=== PATIENT | male | born 1935 | race Caucasian/White ===

== ENCOUNTER 2020-03-05 15:10 | Emergency (ER) | payer OTHER, SELFPAY ==
[2020-03-05 15:49] VITALS: BP 201/102; PULSE 100; RESP 18; TEMP 37.1; O2SAT 98; BMI 31.6
--- NOTE | 2020-03-05 15:55 | ECG_ITS ---
Test Reason : GENERAL MEDICAL Blood Pressure : / mmHG Vent. Rate : 078 BPM Atrial Rate : 078 BPM P-R Int : 170 ms QRS Dur : 146 ms QT Int : 408 ms P-R-T Axes : 077 044 028 degrees QTc Int : 465 ms Sinus rhythm with Premature atrial complexes with Aberrant conduction Right bundle branch block Inferior infarct , age undetermined Abnormal ECG When compared with ECG of 19-NOV-2016 15:28, Aberrant conduction is now Present Referred By: David Vasquez Electronically Signed By:Jose Luis Taylor
--- NOTE | 2020-03-05 16:10 | ED_ITS ---
HPI - Male Genitourinary General Chief complaint: Urogenital-Male Stated complaint: blood in urine Time Seen by Provider: 03/05/20 16:28 Source: patient Mode of arrival: ambulatory Limitations: no limitations History of Present Illness HPI Narrative: Patient presents to the ED for blood and blood clot in the urine. Patient states history of BPH and kidney stones. Patient states he was recently treated for UTI. Patient states while Jonathan no he started having right testicular pain and then he said he started urinating blood and there were large blood clots that resolved. Patient states bloodin urine has been going on for weeks and states only some blood in urine. Never bleeding from penis without urinating. Patient states journals weeks he was given 2 antibiotics the findings clearly UTI. Presently patient denies any abdominal pain, flank pain, fever, chills. Patient denies any history of bladder cancer. Patient blood pressure was elevated upon triage and patient states he has discontinued taking lisinopril without his PCPs consent. Patient states only doing natural medication. Patient denies any headache, dizziness, chest pain, shortness of breath. Patient denies any trauma to testicular area , penis, abdominal pain, or flank area MD Complaint: testicle pain Related Data Previous Rx's Medication Instructions Recorded amlodipine 2.5 mg PO DAILY #20 tab 03/05/20 Allergies Allergy/AdvReac Type Severity Reaction Status Date / Time penicillin G Allergy Intermediate Unknown Verified 03/05/20 16:09 Review of Systems Constitutional: Constitutional: Reports as per HPI and Reports no additional constitutional complaints Eyes: Eyes: Reports as per HPI and Reports no additional eye complaints ENT: Reports system reviewed and no additional complaints, except as documented and Reports as per HPI Cardiovascular: Cardiovascular: Reports as per HPI and Reports no additional cardiovascular complaints Respiratory: Respiratory: Reports as per HPI and Reports no additional respiratory complaints Gastrointestinal: Gastrointestinal: Reports as per HPI and Reports no additional gastrointestinal complaints Genitourinary: Genitourinary: Reports no additional male genitourinary complaints, Reports hematuria and Reports testicular pain (right: resolved) Musculoskeletal: Musculoskeletal: Reports no additional musculoskeletal comp laints and Reports as per HPI Neurologic: Reports system reviewed and no additional complaints, except as documented and Reports as per HPI Psychiatric: Psychiatric: Reports no additional psychiatric complaints and Reports as per HPI COUNT INCLUDES THE [facility] Social History Social History Advance Directives: No Advance Directives Information Provided: Yes Physical Exam Vital Signs: Vital Signs: Last Vital Signs Temp 98.2 F 03/05/20 19:28 Pulse 69 03/05/20 19:28 Resp 15 03/05/20 19:28 BP 126/66 03/05/20 19:28 Pulse Ox 97 03/05/20 19:28 Body Mass Index 31.6 Const: General: cooperative, healthy appearing, comfortable, no acute distress, well developed, alert, awake and Physically active Orientation/consciousness: patient oriented x3 HENMT: Head: Yes normal to inspection, Yes No palpable skull fracture present, Yes normocephalic, Yes atraumatic, Yes abrasion, No Acrocyanosis present, No Wong's sign, No contusion, No cranial bruits, No hematoma, No laceration, No occipital foramen tenderness, No palpable skull fracture, No raccoon eyes, No scalp tenderness and No Temporal artery tenderness present Eyes: General: appearance normal, both eyes and all related structures Neck: Neck: Yes normal visual inspection, Yes full ROM, Yes no lymphadenopathy, Yes no meningeal signs, Yes trachea midline, Yes supple and No tender Chest: Chest palpation & inspection: normal inspection of the chest and normal palpation of entire chest wall Resp: Effort & Inspection: normal respiratory effort and able to speak in complete sentences Auscultation: clear to auscultation bilaterally Cardio: Jugular venous distension: no JVD Heart sounds: S1 normal heart sound present and S2 normal heart sound present GI: Inspection: Yes normal to inspection and No abdominal wall ecchymosis Palpation (GI): Soft to palpation, not firm, nontender, no guarding and not rigid : General: No CVA tenderness and Yes no CVA tenderness Penis: normal penis Meatus: meatus normal Scrotum: scrotum normal, not erythematous, No testes descended bilaterally and no scrotal swelling Testes: Testes normal, no testicular mass, no testicular swelling and no testicular tenderness Back/Spine/Pelvis: Back: no CVA tenderness, No CVA tenderness and No back tenderness Skin: General skin exam: no rashes or lesions noted Neuro: Other: Negative for slurred speech. Negative for facial droop. Negative pronator drift. Normal gait. Negative Romberg. [id number] and rapid hand movement is intact. All extremity strength is equal General: patient oriented x3, no meningeal signs and CN's II-XI intact bilaterally Cranial nerves: Yes CN's II-XII intact bilaterally Extrem: General: Yes normal to inspection and Yes full ROM Psych: Appearance: grossly normal, well kempt and not disheveled Course Course Course Narrative: Patient denies any pain. Patient has blood pressure systolics over 200 and diastolic over 100. Patient admits not being compliant with high blood pressure medication. Due to this patient will have EKG throat make sure is not hypertensive emergency AR. Patient given clonidine. Patient also had basic labs and fluid. Awaiting UA sample to see this UTI. Presently no active bleeding or ureter medius. Reevaluation(s) Reevaluation #1: Patient urinated in front of ME three times and there was anna dark blood. Patient informed most likely he will need Gallo [address] to clear out the blood. Patient sent for abdominal CT scan try to evaluate for possible bladder/prostate mass versus ureter stones. Upon reviewing patient's urology notes in the past, patient has had many images with similar presentation of he maturia that were negative for bladder/prostate mass/cancer. Patient blood pressure systolic and diastolic improved. Patient never complained of abdominal pain or flank pain during ED visit. Time: 16:50 Reevaluation #2: CBI ordered for patient. Patient went for ultrasound due to resolved compliant of right testicular pain. Time: 17:20 Reevaluation #3: Patient's hematuria resolved after receiving 1 bag of CBI. Urine in Gallo bag is clear and negative for any blood. Patient will have repeat troponin and will be discharged. Patient informed and educated to be compliant with high blood pressure medications. Patient's neuro exam is intact. Do Not suspect any stroke. Time: 20:44 Additional Reevaluation(s): Patient's 2nd troponin negative. Once again gallo bag clear and negative for any blood. Patient informed to follow-up with urology tomorrow. CT scan negative for mass. CT scan shows 3 mm stone in lower kidney pole which would not cause the anna gross hematuria. Patient informed to follow-up with urology tomorrow. Patient discharged with amlodipine to control blood pressure. Patient is hemodynamically stable. Testicular ultrasound came back normal. MDM - Male Genitourinary MDM Narrative Medical decision making narrative: Hematuria Lab Data Result diagrams: 03/05/20 16:06 03/05/20 16:06 Labs: Lab Results 03/05/20 03/05/2003/05/21 Range/Units 16:06 16:06 16:06 WBC 7.2 (4.8-10.8) X10*3/uL RBC 5.09 (4.60-5.80) X10*6/uL Hgb 14.1 (14.0-18.0) g/dl Hct 44.9 (42-52) % MCV 88.2 (80-98) fL MCH 27.7 (27.0-33.0) pg MCHC 31.4 (31.0-36.0) g/dl RDW 13.8 (11.0-16.0) % Plt Count 230 (160-400) X10*3/uL MPV 8.8 L (9.4-12.4) fL Immature Gran % (Auto) 0.7 H (0.0-0.4) % Neut % (Auto) 60.8 (45-73) % Lymph % (Auto) 28.7 (20-40) % Addison % (Auto) 6.5 (2-11) % Eos % (Auto) 2.5 (0-4) % Baso % (Auto) 0.8 (0-2) % Lymph # (Auto) 2.1 (1.2-4.9) X10*3/uL Addison # (Auto) 0.5 (0.1-1.2) X10*3/uL Eos # (Auto) 0.2 (0.0-0.4) X10*3/uL Baso # (Auto) 0.1 (0.0-0.2) X10*3/uL Abs Immat Gran (auto) 0.05 H (0.00-0.03) X10*3/uL Absolute Neuts (auto) 4.4 (2.0-8.3) X10*3/uL Absolute Nucleated RBC 0.000 (0.0-0.012) X10*3/uL Nucleated RBC % (auto) 0.0 (0.0-0.2) /100WBC PT 12.6 (10.8-13.0) SEC INR 1.1 (0.9-1.1) APTT 33.1 (24.1-38.0) SEC Sodium 139 (135-145) mmol/L Potassium 3.9 (3.3-5.1) mmol/l Chloride 103 (96-108) mmol/L Carbon Dioxide 27 (22-29) mmol/L Anion Gap 13 (12-20) BUN 20 H (9-16) mg/dL Creatinine 0.95 (0.5-1.4) mg/dL Estim Creat Clear Calc 60.5 Estimated GFR > 60 Random Glucose 183 H (60-115) mg/dL Calcium 8.8 (8.4-10.2) mg/dL Total Bilirubin 0.5 (0.0-1.0) mg/dL AST 15 (5-37) U/L ALT 15 (0-40) U/L Alkaline Phosphatase 126 H (39-117) U/L Troponin I High Sens (<3.5-35.0) ng/L Total Protein 6.8 (6.5-8.0) g/dL Albumin 4.0 (3.5-5.0) g/dL Urine Color Urine Appearance Urine pH (5.0-8.0) Ur Specific [place] (1.005-1.025) Urine Protein (NEG-TRACE) MG/DL Urine Glucose (UA) (NEG) MG/DL Urine Ketones (NEG) MG/DL Urine Blood (NEG) Urine Nitrite (NEG) Ur Leukocyte Esterase (NEG) Urine RBC (0) /HPF Urine WBC (0-4) /HPF Ur Squamous Epith Cells /LPF Urine Bacteria /LPF 03/05/20 03/05/20 03/05/20 Range/Units 16:06 17:01 20:44 WBC (4.8-10.8) X10*3/uL RBC (4.60-5.80) X10*6/uL Hgb (14.0-18.0) g/dl Hct (42-52) % MCV (80-98) fL MCH (27.0-33.0) pg MCHC (31.0-36.0) g/dl RDW (11.0-16.0) % Plt Count (160-400) X10*3/uL MPV (9.4-12.4) fL Immature Gran % (Auto) (0.0-0.4) % Neut % (Auto) (45-73) % Lymph % (Auto) (20-40) % Addison % (Auto) (2-11) % Eos % (Auto) (0-4) % Baso % (Auto) (0-2) % Lymph # (Auto) (1.2-4.9) X10*3/uL Addison # (Auto) (0.1-1.2) X10*3/uL Eos # (Auto) (0.0-0.4) X10*3/uL Baso # (Auto) (0.0-0.2) X10*3/uL Abs Immat Gran (auto) (0.00-0.03) X10*3/uL Absolute Neuts (auto) (2.0-8.3) X10*3/uL Absolute Nucleated RBC (0.0-0.012) X10*3/uL Nucleated RBC % (auto) (0.0-0.2) /100WBC PT (10.8-13.0) SEC INR (0.9-1.1) APTT (24.1-38.0) SEC Sodium (135-145) mmol/L Potassium (3.3-5.1) mmol/l Chloride (96-108) mmol/L Carbon Dioxide (22-29) mmol/L Anion Gap (12-20) BUN (9-16) mg/dL Creatinine (0.5-1.4) mg/dL Estim Creat Clear Calc Estimated GFR Random Glucose (60-115) mg/dL Calcium (8.4-10.2) mg/dL Total Bilirubin (0.0-1.0) mg/dL AST (5-37) U/L ALT (0-40) U/L Alkaline Phosphatase (39-117) U/L Troponin I High Sens 6.7 9.4 (<3.5-35.0) ng/L Total Protein (6.5-8.0) g/dL Albumin (3.5-5.0) g/dL Urine Color RED Urine Appearance TURBID Urine pH 5.5 (5.0-8.0) Ur Specific [place] 1.025 (1.005-1.025) Urine Protein 2+ H (NEG-TRACE) MG/DL Urine Glucose (UA) NEG (NEG) MG/DL Urine Ketones NEG (NEG) MG/DL Urine Blood 3+ H (NEG) Urine Nitrite NEG (NEG) Ur Leukocyte Esterase NEG (NEG) Urine RBC TNTC H (0) /HPF Urine WBC 5-9 H (0-4) /HPF Ur Squamous Epith Cells 1+ /LPF Urine Bacteria TRACE /LPF ECG Data Interpretation: Sinus rhythm with premature atrial complexes. Ventricular rate 78. OK interval 170. QRS . Right bundle-branch block. Negative STEMI Discharge Plan Discharge Clinical Impression: Hematuria, Hypertension Patient Disposition: Home, Self-Care Instructions: Hematuria (ED), Hypertension (ED) Additional Instructions: Return to the ED immediately for any abdominal pain, flank pain, fever, chills, weakness, chest pain, worsening hematuria, or any other concerning symptoms. Please be compliant with high blood pressure medications. Prescriptions: New amlodipine 2.5 mg tablet 2.5 mg PO DAILY Qty: 20 RF: 0 Referrals: Damion Leslie MD [Physician] - 2 days (Resolved anna hematuria after CBI. CT scan negative for stroke or prostate/bladder mass. UA negative for UTI. Patient hemodynamically stable. Kidney stone in right lower pole) Interventions: ED Discharge Assessment Last Done: 03/05/20 22:33 Discharge Date/Time: 03/05/20 22:34 Print Language: Yoruba
[2020-03-05 16:13] LABS: MANUAL DIFF FLAG NO
[2020-03-05 16:14] LABS: Basophils Absolute Auto 0.1 X10*3/uL (0.0-0.2); Basophils Percent Auto 0.8 % (0-2); Eosinophils Absolute Auto 0.2 X10*3/uL (0.0-0.4); Eosinophils Percent Auto 2.5 % (0-4); Hematocrit 44.9 % (42-52); Hemoglobin 14.1 g/dl (14.0-18.0); Imm Gran Abs Auto 0.05 X10*3/uL (0.00-0.03); Imm Gran Pct Auto 0.7 % (0.0-0.4); Lymphocytes Absolute Auto 2.1 X10*3/uL (1.2-4.9); Lymphocytes Percent Auto 28.7 % (20-40); Mean Corpuscular HGB Conc 31.4 g/dl (31.0-36.0); Mean Corpuscular Hemoglobin 27.7 pg (27.0-33.0); Mean Corpuscular Volume 88.2 fL (80-98); Mean Platelet Volume 8.8 fL (9.4-12.4); Monocytes Absolute Auto 0.5 X10*3/uL (0.1-1.2); Monocytes Percent Auto 6.5 % (2-11); Neutrophils Absolute Auto 4.4 X10*3/uL (2.0-8.3); Neutrophils Percent Auto 60.8 % (45-73); Platelet Count 230 X10*3/uL (160-400); Red Blood Count 5.09 X10*6/uL (4.60-5.80); Red Cell Distribution Width 13.8 % (11.0-16.0); White Blood Count 7.2 X10*3/uL (4.8-10.8)
[2020-03-05 16:16] VITALS: BP 162/96; PULSE 68
[2020-03-05] MEDS: cloNIDine HCL 0.2 MG TABLET PO (16:16)
[2020-03-05] MEDS: 0.9 % Sodium Chloride 1,000 ML 999 ML IV (16:17)
[2020-03-05 16:36] LABS: INTERNATIONAL NORM RATIO 1.1 (0.9-1.1); Prothrombin Time 12.6 SEC (10.8-13.0)
[2020-03-05 16:39] LABS: Partial Thromboplastin Time 33.1 SEC (24.1-38.0)
--- NOTE | 2020-03-05 16:40 | CT_ITS ---
EXAMINATION: CT ABDOMEN AND PELVIS WITHOUT CONTRAST CLINICAL INFORMATION: Hematuria, bladder/prostate mass vs. kidney stones? COMPARISON: Renal ultrasound 03/02/2019. TECHNIQUE: Multidetector volumetric imaging was performed from the superior aspect of the liver through the pubic symphysis. Sagittal and coronal reformatted images were obtained on the technologist's workstation. This CT examination was performed using dose optimization techniques as appropriate, variously including the following: *Automated exposure control. *Adjustment of mA and/or kV according to patient size (this includes techniques or standardized protocols for targeted exams where dose is matched to indication/reason for exam; i.e. extremities or head). *Use of iterative reconstruction technique. DLP: 729.14 mGy-cm. FINDINGS: LUNG BASES: The visualized lung bases are unremarkable. LIVER, GALLBLADDER, AND BILIARY TREE: The liver is normal in size, shape, and attenuation. No focal hepatic lesion or biliary ductal dilatation is present. The gallbladder contains multiple large faceted gallstones but is otherwise unremarkable with no evidence of wall thickening, or obvious pericholecystic inflammatory changes. PANCREAS: Unremarkable. SPLEEN: Unremarkable. ADRENAL GLANDS: Unremarkable. KIDNEYS AND URETERS: The kidneys are normal in size, shape, and attenuation. A 3 mm right lower pole calculus is present, which was not appreciated on prior ultrasound exams. This measures 150 Hounsfield units. There is significant partial volume effect. The stone is 11.8 cm from the posterior axillary line. No hydronephrosis, hydroureter, or other calculi seen. No renal masses. No perinephric stranding. BLADDER: Unremarkable. GASTROINTESTINAL TRACT: Few scattered colonic diverticula present without diverticulitis. The small and large bowel are otherwise unremarkable. The appendix is unremarkable. ABDOMINAL WALL: No significant hernia is appreciated. LYMPH NODES: No retroperitoneal lymphadenopathy. VASCULAR: Calcific atherosclerotic changes are present. PELVIC VISCERA: Prostate is significantly enlarged measuring 4.8 x 5.3 x 5.5 cm. OSSEOUS STRUCTURES: Degenerative changes are present in the spine, most marked from L3 through S1. CT/CT abdomen pelvis wo con IMPRESSION: Single small 3 mm nonobstructing right renal calculus. Cholelithiasis without cholecystitis. BPH. Other incidental findings as described above.
[2020-03-05 16:44] LABS: Alanine Aminotransferase 15 U/L (0-40); Alkaline Phosphatase 126 U/L (39-117); Anion Gap 13 (12-20); Aspartate Amino Transferase 15 U/L (5-37); Bilirubin Total 0.5 mg/dL (0.0-1.0); Blood Urea Nitrogen 20 mg/dL (9-16); Calcium 8.8 mg/dL (8.4-10.2); Carbon Dioxide 27 mmol/L (22-29); Chloride 103 mmol/L (96-108); Creatinine Clr Calc Pharmacy 60.5; Estimated Glomerular Filt Rate > 60; Glucose Random 183 mg/dL (60-115); Potassium 3.9 mmol/l (3.3-5.1); Sodium 139 mmol/L (135-145); Total Protein 6.8 g/dL (6.5-8.0)
[2020-03-05 16:47] LABS: Troponin-I High Sensitivity 6.7 ng/L (<3.5-35.0)
--- NOTE | 2020-03-05 17:32 | US_ITS ---
EXAMINATION: US SCROTUM CLINICAL INFORMATION: Right testicular pain. COMPARISON: CT 03/05/2020 TECHNIQUE: A sonogram of the scrotum was performed assessing schneider-scale appearance and color Doppler flow. Spectral Doppler analysis of the arterial and venous flow were performed in the testes bilaterally. FINDINGS: RIGHT: Right testicle measures 5.0 x 1.8 x 3.2 cm, volume 15 mL. No focal testicular parenchymal lesions are visualized. Prominent rete testes are noted incidentally. Spectral Doppler analysis of the arterial and venous flow is normal in the right testis. A millimeters simple cyst in the right epididymal head. Epididymis otherwise normal in appearance. No right hydrocele. Prominent right paratesticular veins. Right epididymal Doppler flow is normal. LEFT: Left testicle measures 4.5 x 1.9 x 2.9 cm, volume 13 mL. No focal testicular parenchymal lesions are visualized. Spectral Doppler analysis of the arterial and venous flow is normal in the left testis. Left epididymal head is normal in size. No left hydrocele. Prominent left paratesticular veins. Left epididymal Doppler flow is normal. US/US scrotum IMPRESSION: Normal appearance of the testicles bilaterally. Doppler evaluation bilaterally. Prominent bilateral paratesticular veins.
--- NOTE | 2020-03-05 17:32 | US_ITS ---
EXAMINATION: US SCROTUM CLINICAL INFORMATION: Right testicular pain. COMPARISON: CT 03/05/2020 TECHNIQUE: A sonogram of the scrotum was performed assessing schneider-scale appearance and color Doppler flow. Spectral Doppler analysis of the arterial and venous flow were performed in the testes bilaterally. FINDINGS: RIGHT: Right testicle measures 5.0 x 1.8 x 3.2 cm, volume 15 mL. No focal testicular parenchymal lesions are visualized. Prominent rete testes are noted incidentally. Spectral Doppler analysis of the arterial and venous flow is normal in the right testis. A millimeters simple cyst in the right epididymal head. Epididymis otherwise normal in appearance. No right hydrocele. Prominent right paratesticular veins. Right epididymal Doppler flow is normal. LEFT: Left testicle measures 4.5 x 1.9 x 2.9 cm, volume 13 mL. No focal testicular parenchymal lesions are visualized. Spectral Doppler analysis of the arterial and venous flow is normal in the left testis. Left epididymal head is normal in size. No left hydrocele. Prominent left paratesticular veins. Left epididymal Doppler flow is normal. US/US scrotum doppler IMPRESSION: Normal appearance of the testicles bilaterally. Doppler evaluation bilaterally. Prominent bilateral paratesticular veins.
[2020-03-05 17:38] LABS: Appearance Urine TURBID; Color Urine RED; Glucose Urine UA NEG (NEG); PH 5.5 (5.0-8.0); Specific Gravity - Urine 1.025 (1.005-1.025); Urine Blood 3+ (NEG); Urine Protein 2+ MG/DL (NEG-TRACE)
[2020-03-05 17:39] LABS: Leukocyte Esterase Urine NEG (NEG); Nitrite Urine NEG (NEG); Urine Ketones NEG (NEG)
[2020-03-05 17:40] LABS: RBC Urine TNTC /HPF (0); Squamous Epithelial Cell Urine 1+ /LPF; UACC CULT YES
[2020-03-05 17:42] LABS: Bacteria Urine TRACE /LPF
--- NOTE | 2020-03-05 17:49 | PC.NURSE ---
TO AND FROM CT WITHOUT PROBLEMS. IV 20 G R AC. IVF AND MEDS PER ORDERS. AWAITING US
[2020-03-05 17:56] VITALS: BP 164/62
--- NOTE | 2020-03-05 17:56 | PC.NURSE ---
OFF UNIT TO US
[2020-03-05 18:11] VITALS: BP 134/68
[2020-03-05 19:28] VITALS: BP 126/66; PULSE 69; RESP 15; TEMP 36.8; O2SAT 97
[2020-03-05] MEDS: Lidocaine HCl 2 % Urojet 10 ML JEL.PF.APP TOPICAL (20:43)
[2020-03-05 21:23] LABS: Troponin-I High Sensitivity 9.4 ng/L (<3.5-35.0)
== END 2020-03-05 22:34 | disposition home or self-care (01) ==
PROVIDERS: Physician Assistant; Emergency Provider Student in an Organized Health Care Education/Training Program
DX: R31.9 Hematuria, unspecified (principal); N50.812 Left testicular pain; N50.811 Right testicular pain; R60.0 Localized edema; R10.30 Lower abdominal pain, unspecified; I10 Essential (primary) hypertension; Z79.899 Other long term (current) drug therapy
CPT/HCPCS: 36415; 74176; 76870; 80053; 81001; 84484; 85025; 85610; 85730; 87086; 93005; 93975; 96360; 99284

== ENCOUNTER 2020-03-06 02:33 | Emergency (ER) | payer OTHER, SELFPAY ==
[2020-03-06 02:49] VITALS: BP 154/73; PULSE 76; RESP 16; TEMP 36.7; O2SAT 96; BMI 27.4
[2020-03-06 03:36] LABS: MANUAL DIFF FLAG NO
[2020-03-06 03:41] LABS: Basophils Percent Auto 0.5 % (0-2); Eosinophils Absolute Auto 0.2 X10*3/uL (0.0-0.4); Eosinophils Percent Auto 2.5 % (0-4); Hematocrit 43.7 % (42-52); Hemoglobin 13.7 g/dl (14.0-18.0); Imm Gran Abs Auto 0.05 X10*3/uL (0.00-0.03); Imm Gran Pct Auto 0.7 % (0.0-0.4); Mean Corpuscular HGB Conc 31.4 g/dl (31.0-36.0); Mean Corpuscular Hemoglobin 27.5 pg (27.0-33.0); Mean Corpuscular Volume 87.6 fL (80-98); Monocytes Absolute Auto 0.6 X10*3/uL (0.1-1.2); Monocytes Percent Auto 7.3 % (2-11); Neutrophils Absolute Auto 4.6 X10*3/uL (2.0-8.3); Platelet Count 202 X10*3/uL (160-400); Red Blood Count 4.99 X10*6/uL (4.60-5.80); Red Cell Distribution Width 13.7 % (11.0-16.0); White Blood Count 7.5 X10*3/uL (4.8-10.8)
[2020-03-06 04:11] LABS: Alanine Aminotransferase 14 U/L (0-40); Albumin Level 3.8 g/dL (3.5-5.0); Alkaline Phosphatase 106 U/L (39-117); Anion Gap 12 (12-20); Aspartate Amino Transferase 16 U/L (5-37); Bilirubin Total 0.6 mg/dL (0.0-1.0); Blood Urea Nitrogen 18 mg/dL (9-16); Calcium 8.5 mg/dL (8.4-10.2); Carbon Dioxide 27 mmol/L (22-29); Chloride 106 mmol/L (96-108); Creatinine Clr Calc Pharmacy 59.8; Estimated Glomerular Filt Rate > 60; Glucose Random 181 mg/dL (60-115); Potassium 3.8 mmol/l (3.3-5.1); Sodium 141 mmol/L (135-145); Total Protein 6.5 g/dL (6.5-8.0)
[2020-03-06 04:15] LABS: Glucose Urine UA NEG (NEG); Leukocyte Esterase Urine NEG (NEG); Nitrite Urine NEG (NEG); Specific Gravity - Urine >= 1.030 (1.005-1.025); Urine Blood 3+ (NEG); Urine Ketones NEG (NEG); Urine Protein 2+ MG/DL (NEG-TRACE)
[2020-03-06 04:16] LABS: INTERNATIONAL NORM RATIO 1.1 (0.9-1.1)
[2020-03-06 04:18] LABS: Appearance Urine TURBID
[2020-03-06 04:19] LABS: Color Urine RED
[2020-03-06 04:21] LABS: Bacteria Urine 1+ /LPF; RBC Urine TNTC /HPF (0); Squamous Epithelial Cell Urine TRACE /LPF
--- NOTE | 2020-03-06 04:43 | ED_ITS ---
HPI - Male Genitourinary General Chief complaint: General Medical Stated complaint: Blood in urine Time Seen by Provider: 03/06/20 03:08 Source: patient Mode of arrival: ambulatory History of Present Illness HPI Narrative: 84-year-old male who re-presented to the emergency department after being evaluated earlier in the day for hematuria and passing clots. At that time he received a CBI which cleared his urine up and he was discharged w ith instructions to follow with Urology. However, patient stated that he noticed he began having hematuria again and was concerned about follow-up and the fact that he had felt dizzy while urinating. Otherwise, patient endorses that he has recently been treated for UTI [facility] and at that time endorses that he had hematuria that resolved with treatment of the UTI. Related Data Previous Rx's Medication Instructions Recorded amlodipine 2.5 mg PO DAILY #20 tab 03/05/20 Allergies Allergy/AdvReac Type Severity Reaction Status Date / Time penicillin G Allergy Intermediate Unknown Verified 03/05/20 16:09 Review of Systems Review of Systems: Pertinent positives and negatives as stated in HPI 10 point review systems is otherwise negative. [facility] Past Medical History Source: nursing notes reviewed Social History Social History Advance Directives: No Physical Exam Vital Signs: Vital Signs: Last Vital Signs Temp 98.0 F 03/06/20 02:49 Pulse 76 03/06/20 02:49 Resp 16 03/06/20 02:49 BP 154/73 H 03/06/20 02:49 Pulse Ox 96 03/06/20 02:49 Body Mass Index 27.4 VITAL SIGNS: Reviewed. GENERAL: Well developed, well nourished, anxious. HEAD: Normocephalic/atraumatic, EYES: PERRLA, EOMI EARS: Ext canals without abnormality NOSE: Nares patent bilateral OROPHARYNX: no oral lesions noted, posterior pharynx clear NECK: Supple, no adenopathy LUNGS: Normal breath sounds. No adventitious sounds or accessory muscle use. SpO2<96> CARDIOVASCULAR: Regular rate and rhythm without noted murmurs, no JVD or lower e xtremity edema. ABDOMEN: Soft, non-tender, non-distended with bowel sounds. SKIN: Inspection of the skin reveals no rashes NEUROLOGIC: Alert and oriented x 4. Course Course Course Narrative: This is an 84-year-old male with history and clinical presentation consistent with hematuria unidentified etiology and the throat workup completed earlier in the day was reviewed. On review of further doc umentation patient has consistently had a presence of blood in his urine since January/2018. Repeat evaluation during this visit yielded stable findings and patient continues to be able to avoid without noted clots. This case was discussed with the on-call urologist who stated that the patient was to present to the office at 9:00 a.m. in the morning. All results and findings were discussed with the patient at bedside to include the proposed office visit at 9:00 a.m.. He acknowledged understanding and is discharged in stable condition. MDM - Male Genitourinary Lab Data Result diagrams: 03/06/20 03:15 03/06/20 03:15 Labs: Lab Results 03/06/20 03/06/20 03/06/20 Range/Units 03:15 03:15 03:37 WBC 7.5 (4.8-10.8) X10*3/uL RBC 4.99 (4.60-5.80) X10*6/uL Hgb 13.7 L (14.0-18.0) g/dl Hct 43.7 (42-52) % MCV 87.6 (80-98) fL MCH 27.5 (27.0-33.0) pg MCHC 31.4 (31.0-36.0) g/dl RDW 13.7 (11.0-16.0) % Plt Count 202 (160-400) X10*3/uL MPV 9.0 L (9.4-12.4) fL Immature Gran % (Auto) 0.7 H (0.0-0.4) % Neut % (Auto) 62.0 (45-73) % Lymph % (Auto) 27.0 (20-40) % [place] % (Auto) 7.3 (2-11) % Eos % (Auto) 2.5 (0-4) % Baso % (Auto) 0.5 (0-2) % Lymph # (Auto) 2.0 (1.2-4.9) X10*3/uL [place] # (Auto) 0.6 (0.1-1.2) X10*3/uL Eos # (Auto) 0.2 (0.0-0.4) X10*3/uL Baso # (Auto) 0.0 (0.0-0.2) X10*3/uL Abs Immat Gran (auto) 0.05 H (0.00-0.03) X10*3/uL Absolute Neuts (auto) 4.6 (2.0-8.3) X10*3/uL Absolute Nucleated RBC 0.000 (0.0-0.012) X10*3/uL Nucleated RBC % (auto) 0.0 (0.0-0.2) /100WBC PT (10.8-13.0) SEC INR (0.9-1.1) Sodium 141 (135-145) mmol/L Potassium 3.8 (3.3-5.1) mmol/l Chloride 106 (96-108) mmol/L Carbon Dioxide 27 (22-29) mmol/L Anion Gap 12 (12-20) BUN 18 H (9-16) mg/dL Creatinine 0.90 (0.5-1.4) mg/dL Estim Creat Clear Calc 59.8 Estimated GFR > 60 Random Glucose 181 H (60-115) mg/dL Calcium 8.5 (8.4-10.2) mg/dL Total Bilirubin 0.6 (0.0-1.0) mg/dL AST 16 (5-37) U/L ALT 14 (0-40) U/L Alkaline Phosphatase 106 (39-117) U/L Total Protein 6.5 (6.5-8.0) g/dL Albumin 3.8 (3.5-5.0) g/dL Urine Color RED Urine Appearance TURBID Urine pH 6.0 (5.0-8.0) Ur Specific [place] >= 1.030 H (1.005-1.025) Urine Protein 2+ H (NEG-TRACE) MG/DL Urine Glucose (UA) NEG (NEG) MG/DL Urine Ketones NEG (NEG) MG/DL Urine Blood 3+ H (NEG) Urine Nitrite NEG (NEG) Ur Leukocyte Esterase NEG (NEG) Urine RBC TNTC H (0) /HPF Urine WBC 1-4 (0-4) /HPF Ur Squamous Epith Cells TRACE /LPF Urine Bacteria 1+ /LPF 03/06/20 Range/Units 03:50 WBC (4.8-10.8) X10*3/uL RBC (4.60-5.80) X10*6/uL Hgb (14.0-18.0) g/dl Hct (42-52) % MCV (80-98) fL MCH (27.0-33.0) pg MCHC (31.0-36.0) g/dl RDW (11.0-16.0) % Plt Count (160-400) X10*3/uL MPV (9.4-12.4) fL Immature Gran % (Auto) (0.0-0.4) % Neut % (Auto) (45-73) % Lymph % (Auto) (20-40) % [place] % (Auto) (2-11) % Eos % (Auto) (0-4) % Baso % (Auto) (0-2) % Lymph # (Auto) (1.2-4.9) X10*3/uL [place] # (Auto) (0.1-1.2) X10*3/uL Eos # (Auto) (0.0-0.4) X10*3/uL Baso # (Auto) (0.0-0.2) X10*3/uL Abs Immat Gran (auto) (0.00-0.03) X10*3/uL Absolute Neuts (auto) (2.0-8.3) X10*3/uL Absolute Nucleated RBC (0.0-0.012) X10*3/uL Nucleated RBC % (auto) (0.0-0.2) /100WBC PT 13.0 (10.8-13.0) SEC INR 1.1 (0.9-1.1) Sodium (135-145) mmol/L Potassium (3.3-5.1) mmol/l Chloride (96-108) mmol/L Carbon Dioxide (22-29) mmol/L Anion Gap (12-20) BUN (9-16) mg/dL Creatinine (0.5-1.4) mg/dL Estim Creat Clear Calc Estimated GFR Random Glucose (60-115) mg/dL Calcium (8.4-10.2) mg/dL Total Bilirubin (0.0-1.0) mg/dL AST (5-37) U/L ALT (0-40) U/L Alkaline Phosphatase (39-117) U/L Total Protein (6.5-8.0) g/dL Albumin (3.5-5.0) g/dL Urine Color Urine Appearance Urine pH (5.0-8.0) Ur Specific [place] (1.005-1.025) Urine Protein (NEG-TRACE) MG/DL Urine Glucose (UA) (NEG) MG/DL Urine Ketones (NEG) MG/DL Urine Blood (NEG) Urine Nitrite (NEG) Ur Leukocyte Esterase (NEG) Urine RBC (0) /HPF Urine WBC (0-4) /HPF Ur Squamous Epith Cells /LPF Urine Bacteria /LPF Discharge Plan Discharge Clinical Impression: Hematuria Qualifiers: Hematuria type: gross Qualified Code(s): R31.0 - Gross hematuria Patient Disposition: Home, Self-Care Instructions: Hematuria (ED) Additional Instructions: 1. Resume all home medications as prescribed. 2. Follow-up at the Urology office at 9:00 a.m. this morning. If for some reason you are unable to attend this appointment please do not hesitate to return to the emergency department for further evaluation of your symptoms. Prescriptions: No Action amlodipine 2.5 mg tablet 2.5 mg PO DAILY Qty: 20 RF: 0 Referrals: Juan Diego Watson III, MD [Physician] - 2 days (Evaluation hematuria with laboratory and imaging results in [facility] system from 03/05)
--- NOTE | 2020-03-06 06:42 | PC.NURSE ---
pt understands he has a 9am appointment with christiano.
== END 2020-03-06 06:44 | disposition home or self-care (01) ==
PROVIDERS: Emergency Provider Student in an Organized Health Care Education/Training Program
DX: R31.0 Gross hematuria (principal); I10 Essential (primary) hypertension; E11.9 Type 2 diabetes mellitus without complications; N40.0 Benign prostatic hyperplasia without lower urinary tract symptoms
CPT/HCPCS: 36415; 80053; 81001; 81002; 81003; 85025; 85610; 99212; 99283; 99284

== ENCOUNTER 2020-03-10 08:47 | Day surgery (SDC) | payer OTHER, SELFPAY ==
[2020-03-10] VITALS (8 sets, daily range): BP systolic 140–171; BP diastolic 68–88; PULSE 72–94; RESP 14–18; TEMP 36.7–36.8; O2SAT 94–98; BMI 29.7
[2020-03-10] MEDS: levoFLOXacin 500 MG TABLET PO (09:22)
[2020-03-10 09:23] LABS: Glucose, Whole Blood 156 mg/dL (60-115)
[2020-03-10] MEDS: Lactated Ringers 1,000 ML 20 ML IVCONT (09:30)
--- NOTE | 2020-03-10 10:25 | MHC.SHP ---
Pre-Procedural Eval Section A The patient is an INPATIENT: No Changes since office visit: No Cold of Flu in the past 2 weeks, No New Medical Problems, No Changes in Medication and No Patient answered all questions The History & Physical has been completed within 30 days and I have reviewed it.: Yes Section B Chief Complaint: prostate reflux Allergies: Allergies Allergy/AdvReac Type Severity Reaction Status Date / Time penicillin G Allergy Intermediate Anaphylaxis Verified 03/10/20 09:05 lisinopril Allergy Unknown Verified 03/10/20 09:05 Plan Diagnosis/Plan: Unchanged I have reviewed the history and physical and performed a pertinent physical examination on my patient. No changes have occurred unless specified. Laser enucleation of the prostate
--- NOTE | 2020-03-10 10:30 | HO.ANESPROP2 ---
[facility] Past Medical History Medical History BPH (benign prostatic hyperplasia) Diabetes Hearing deficit HTN (hypertension) Rosacea Surgical History Surgical History History of prostate surgery Hx of circumcision Hx of cystoscopy Status post glaucoma surgery Social History Social History Smoking Status: Never smoker Use of substances other than those prescribed or required for medical reasons: No Advance Directives: No Advance Directives Information Provided: Yes Meds Allergies Allergy/AdvReac Type Severity Reaction Status Date / Time penicillin G Allergy Intermediate Anaphylaxis Verified 03/10/20 09:05 lisinopril Allergy Unknown Verified 03/10/20 09:05 Home Medications Medication Instructions Recorded Confirmed Type amlodipine 5 mg PO DAILY 03/10/20 History finasteride 5 mg PO DAILY 03/10/20 03/10/20 History metformin 500 mg PO BID 03/10/20 03/10/20 History Exam Exam Date and Time: March 10, 2020 1030 Height,Weight and Vital Signs: Height 5 ft 7 in Weight 86.183 kg Last Vital Signs Temp 98.0 F 03/10/20 09:23 Pulse 94 03/10/20 09:23 Resp 18 03/10/20 09:23 BP 160/82 H 03/10/20 09:23 Pulse Ox 98 03/10/20 09:23 Pertinent Lab Results Pertinent Lab Results: Laboratory Tests 03/10/20 09:19 POC Glucose 156 H Airway Mallampati Class: II TM Dist: >3cm Neck ROM: Limited Denture: Upper Assessment and Plan Assessment Anesthesia Assessment: Anesthesia Plan Discussed and Chart Reviewed Final Anesthetic Review NPO: Yes ASA Class: II Final Preanesthetic Review: No Changes in Pt Med Stat, Meds/Allgs Chart Reviewed, Consent Obtained/Reviewed and Anes Risks/Benef Reviewed Patient Risk: Low Procedure Risk: Low Assessment/Block/Sedation in SS: Assess/Block/Sedation-SS Anesthetic Plan Anesthetic Plan: GA Disposition: Standard PACU
--- NOTE | 2020-03-10 11:25 | PM.OP ---
Brief Operative Note Date of Service: 03/10/20 Pre-op diagnosis: Recurrent BPH with hematuria Post-op diagnosis: same Procedure: TURP laser ablation of the prostate Implants: Known Surgeon: Damion Leslie MD Anesthesia: GLMA Estimated blood loss (mL): 0 Pathology: none sent Condition: stable Disposition: same day
--- NOTE | 2020-03-10 11:28 | P.OP_ITS ---
Operative Note Operative Note Date of Service: 03/10/20 Narrative: PreOperative Diagnosis: Recurrent BPH hematuria Post Operative Diagnosis: Recurrent BPH with hematuria Procedure: redo laser ablation of the prostate Surgeon: Dr Damion Leslie Anesthesia: General Indications for procedure: This is an 82-year-old male. Undergone prior TURP. Had presented with recurring hematuria. Also with UTI. On examination with cystoscopy in office been found to have using areas of dayanara regrowth on his prostate. Here for laser. Procedure: After informed consent was verified the patient was brought to the operating room and placed in a supine position. anesthesia was administered per protocol. Patient was placed in modified dorsal lithotomy position and prepped and draped in a sterile fashion. Safety pause time-out was performed. Antibiotics being given. Twenty-three [place] laser scope inserted per urethra. No abnormality noted in the anterior posterior urethra. Within the prostatic fossa we had a previous TURP. There was regrowth areas with neovascularity that were oozing just on entrance. Using a GreenLight laser these areas were ablated. The bladder was also examined. There were 2 or 3 small areas of mucosal change in the GreenLight laser was used to ablate these as well. He tolerated the procedure well and a completion a 20 [place] Andres catheter was placed without difficulty. A belladonna and opiate suppository was placed for postprocedure pain relief. He was explained the operating room transferred in stable condition to the recovery area. Pathology: None Drains: Andres catheter
[2020-03-10] MEDS: traMADoL HCL 50 MG TABLET PO (12:13)
--- NOTE | 2020-03-10 12:51 | HO.POSTANES ---
Post Anesthesia Evaluation Post Anesthesia Evaluation Vital Signs: Vital Signs Temp Pulse Resp BP Pulse Ox 03/10/20 12:15 98.3 F 78 18 156/76 H 98 03/10/20 12:00 74 16 171/88 H 97 03/10/20 11:45 72 16 148/68 H 97 03/10/20 11:30 76 16 165/81 H 97 03/10/20 11:25 89 16 158/81 H 96 03/10/20 11:20 90 14 155/78 H 94 03/10/20 11:15 98.3 F 86 16 140/76 H 95 03/10/20 09:23 98.0 F 94 18 160/82 H 98 Anesthesia: General LMA Mental Status: Awake Pain Control: Satisfactory Nausea/Vomiting: None Hydration: Adequate Anesthesia-Related Issues: No Anes. Related Issues
== END 2020-03-10 13:07 | disposition home or self-care (01) ==
PROVIDERS: Visit Provider Urology
PROC: 0V507ZZ Destruction of Prostate, Via Natural or Artificial Opening (ICD-10-PCS; CPT 52648; principal; 2020-03-10 12:40)
DX: N40.1 Benign prostatic hyperplasia with lower urinary tract symptoms (principal); N13.8 Other obstructive and reflux uropathy; N39.0 Urinary tract infection, site not specified; R31.9 Hematuria, unspecified; I10 Essential (primary) hypertension; E11.9 Type 2 diabetes mellitus without complications; Z79.84 Long term (current) use of oral hypoglycemic drugs; Z79.899 Other long term (current) drug therapy; Z88.0 Allergy status to penicillin; Z88.8 Allergy status to other drugs, medicaments and biological substances
CPT/HCPCS: 52648; 82947; J2370; J2405; J3010

== ENCOUNTER → 2020-03-18 08:46 | Outpatient (BNVA) | payer OTHER, SELFPAY | PROVIDERS: Visit Provider Urology | DX: N40.1 Benign prostatic hyperplasia with lower urinary tract symptoms (principal); N13.8 Other obstructive and reflux uropathy; N39.0 Urinary tract infection, site not specified | CPT/HCPCS: 51700; 51798; 99212 ==

== ENCOUNTER 2020-04-14 08:59 | Outpatient (REF) | payer OTHER, SELFPAY ==
--- NOTE | ~2020-04-14 | US_ITS ---
EXAMINATION: US RETROPERITONEAL LIMITED (RENAL ONLY) CLINICAL INFORMATION: Renal stones. COMPARISON: CT abdomen and pelvis 03/05/2020. TECHNIQUE: Routine grayscale imaging of kidneys was performed. FINDINGS: RIGHT KIDNEY: 12.3 x 5.4 x 5.6 cm (SAG x AP x TRV). The kidney is normal in size, lobulated contour, and echogenicity. Renal cortical thickness is normal. No echogenic calculi seen. There or anechoic cysts in midpole measuring 1.0 x 1.1 1.3 cm and 0.9 x 0.5 x 0.8 cm LEFT KIDNEY: 11.2 x 6.1 x 4.4 cm (SAG x AP x TRV). The kidney is normal in size, contour, and echogenicity. Renal cortical thickness is normal. No calculi or focal parenchymal lesions. No hydronephrosis. US/US renal BI IMPRESSION: Slight lobulation along the lateral border right kidney. No focal lesion was seen on recent CT abdomen exam. 2 anechoic cyst in the midpole right kidney.
== END 2020-04-14 09:00 | disposition home or self-care (01) ==
LOC: HO.HMGCX 08:59
PROVIDERS: Visit Provider Urology
DX: N20.0 Calculus of kidney (principal)
CPT/HCPCS: 76775

== ENCOUNTER → 2020-04-29 08:54 | Outpatient (BNVA) | payer OTHER, SELFPAY | PROVIDERS: Visit Provider Urology | DX: N40.1 Benign prostatic hyperplasia with lower urinary tract symptoms (principal); N13.8 Other obstructive and reflux uropathy; N39.0 Urinary tract infection, site not specified; N20.0 Calculus of kidney | CPT/HCPCS: 51798; 99212 ==

== ENCOUNTER 2021-04-02 08:14 | Outpatient (REF) | payer OTHER, SELFPAY ==
--- NOTE | ~2021-04-02 | US_ITS ---
EXAMINATION: US RETROPERITONEAL LIMITED (RENAL ONLY) CLINICAL INFORMATION: Calculus of kidney. COMPARISON: Renal ultrasound 04/14/2020 and 03/02/2019. CT abdomen and pelvis 03/05/2020. X-ray KUB 03/23/2017. TECHNIQUE: Real-time imaging of the kidneys. FINDINGS: RIGHT KIDNEY: 12.0 x 5.5 x 5.8 cm (SAG x AP x TRV). The kidney is normal in size, contour, and echogenicity. Renal cortical thickness is normal. No renal calculi or hydronephrosis. There are anechoic cysts in the midpole measuring 1.3 x 0.9 x 1.0 cm and 1.3 x 0.7 x 1.0 cm. Few calcified echogenic vessels are visualized. There is focal lobulation seen medially measuring 2.7 x 2.0 x 3.7 cm. Previously it measured 2.1 x 2.4 x 2.4 cm. LEFT KIDNEY: 11.2 x 5.9 x 5.0 cm (SAG x AP x TRV). The kidney is normal in size, contour, and echogenicity. Renal cortical thickness is normal. No calculi or focal parenchymal lesions. No hydronephrosis. US/US renal BI IMPRESSION: Right renal cysts. No echogenic stones or hydronephrosis. Focal lobulation medially in the right kidney. The left kidney is unremarkable.
== END 2021-04-02 08:15 | disposition home or self-care (01) ==
LOC: HO.HMGCX 08:14
PROVIDERS: Visit Provider Urology
DX: N20.0 Calculus of kidney (principal)
CPT/HCPCS: 76775

== ENCOUNTER → 2021-05-01 09:08 | Outpatient (BNVA) | payer OTHER, SELFPAY | PROVIDERS: PCP Internal Medicine; Visit Provider Urology | DX: N48.1 Balanitis (principal) | CPT/HCPCS: 51798; 99212 ==

== ENCOUNTER 2021-07-06 11:21 | Emergency (ER) | payer OTHER, SELFPAY ==
--- NOTE | ~2021-07-06 | XR_ITS ---
EXAMINATION: XR CHEST CLINICAL INFORMATION: Covid positive. Weakness. COMPARISON: None TECHNIQUE: Frontal view of the chest was obtained. FINDINGS: Mild, patchy bilateral airspace opacities. No pleural effusion or pneumothorax. Unremarkable cardiomediastinal silhouette. XR/XR chest 1V IMPRESSION: Mild, patchy bilateral airspace opacities which can be seen in the setting of an infectious or inflammatory process, including viral pneumonia.
[2021-07-06 12:03] VITALS: BP 183/83; PULSE 112; RESP 18; TEMP 37.6; O2SAT 97; BMI 29.7
--- NOTE | 2021-07-06 12:09 | ECG_ITS ---
Test Reason : TACHY Blood Pressure : / mmHG Vent. 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
[2021-07-06 12:29] LABS: MANUAL DIFF FLAG NO
[2021-07-06 12:30] LABS: Basophils Absolute Auto 0.1 X10*3/uL (0.0-0.2); Basophils Percent Auto 0.5 % (0-2); Eosinophils Absolute Auto 0.1 X10*3/uL (0.0-0.4); Eosinophils Percent Auto 0.8 % (0-4); Hemoglobin 14.7 g/dl (14.0-18.0); Imm Gran Abs Auto 0.06 X10*3/uL (0.00-0.03); Imm Gran Pct Auto 0.6 % (0.0-0.4); Lymphocytes Absolute Auto 1.2 X10*3/uL (1.2-4.9); Lymphocytes Percent Auto 11.9 % (20-40); Mean Corpuscular HGB Conc 31.3 g/dl (31.0-36.0); Mean Corpuscular Hemoglobin 27.1 pg (27.0-33.0); Mean Corpuscular Volume 86.6 fL (80.0-98.0); Mean Platelet Volume 8.7 fL (9.4-12.4); Neutrophils Absolute Auto 7.4 x10*3/uL (2.0-8.3); Neutrophils Percent Auto 76.2 % (45-73); Platelet Count 227 X10*3/uL (160-400); Red Blood Count 5.43 X10*6/uL (4.60-5.80); Red Cell Distribution Width 13.8 % (11.0-16.0); White Blood Count 9.8 X10*3/uL (4.8-10.8)
[2021-07-06 12:43] LABS: COVID-19 Test Positive (Negative); IDNOW Serial# 16C4AD1C
[2021-07-06 12:46] LABS: Anion Gap 13 (12-20); Blood Urea Nitrogen 11 mg/dL (9-16); Carbon Dioxide 28 mmol/L (22-29); Chloride 99 mmol/L (96-108); Creatinine Clr Calc Pharmacy 54.3; Estimated Glomerular Filt Rate > 60; Glucose Random 134 mg/dL (60-115); Potassium 4.1 mmol/L (3.3-5.1); Sodium 136 mmol/L (135-145)
--- NOTE | 2021-07-06 13:09 | ED.WEAKNESS ---
HPI - Weakness General Chief complaint: General Medical Stated complaint: COVID + Not Feeling Well Time Seen by Provider: 07/06/21 13:01 Source: patient Mode of arrival: ambulatory Limitations: no limitations History of Present Illness HPI Narrative: vaccinated x 3, positive test yesterday, symptoms as of this AM - runny nose, fevers, did not take motrin or tylenol, worried because his BP is high. became symptomatic first. MD Complaint: generalized weakness Onset (ago): day(s) (today) Duration: constant Location: generalized Migration: none Severity: mild Quality: aching Relieving factors: none Exacerbating factors: none Context: recent illness (COVID +) Associated symptoms: fever/chills, headaches and other (runny nose) Related Data Home Medications Medication Instructions Recorded Confirmed amlodipine 2.5 mg tablet 5 mg PO DAILY 03/10/20 metformin 500 mg tablet 500 mg PO BID 03/10/20 03/10/20 Previous Rx's Medication Instructions Recorded levofloxacin 250 mg tablet 250 mg PO DAILY 7 Days #7 tab 03/10/20 trimethoprim 100 mg tablet 100 mg PO Q12H 10 Days #20 tab 03/10/20 pyridoxine (vitamin B6) 100 mg 100 mg PO DAILY 90 Days #90 tab 04/29/20 tablet finasteride 5 mg tablet 5 mg PO DAILY 90 Days #90 tab 05/01/21 betamethasone dipropionate 0.05 % 1 appl TOPICAL BID 28 Days #45 g 06/10/21 topical ointment Allergies Allergy/AdvReac Type Severity Reaction Status Date / Time penicillin G Allergy Intermediate Anaphylaxis Verified 05/01/21 09:21 lisinopril Allergy Unknown Verified 05/01/21 09:21 Review of Systems Review of Systems: Constitutional : positive Fever, positive Chills, positive fatigue, positive Malaise ENT/Mouth : no sore throat, positive runny nose Eyes: No Discharge Cardiovascular : No Chest Pain, No SOB Respiratory : No Cough, No Sputum Gastrointestinal : No Nausea, No Vomiting, No Diarrhea Genitourinary : No Dysuria, No Urinary Frequency Musculoskeletal : positive Myalgia Skin : No rash Neuro : pos Headache PMFSH Past Medical History Attestation statement: The following information was validated with the patient. Medical History BPH (benign prostatic hyperplasia) Diabetes Hearing deficit HTN (hypertension) Rosacea Surgical History History of prostate surgery Hx of circumcision Hx of cystoscopy Status post glaucoma surgery Social History Social History (Updated 07/06/21 @ 13:28 by Maggie Ahumada DO) Patient Tobacco Use Status: Never used Tobacco Advance Directives: No Advance Directives Information Provided: No Physical Exam Vital Signs: Vital Signs: Last Vital Signs Temp 99.2 F 07/06/21 15:22 Pulse 95 07/06/21 15:22 Resp 16 07/06/21 15:22 BP 134/67 07/06/21 15:22 Pulse Ox 94 07/06/21 15:22 BMI result Body Mass Index 29.7 Appearance: Alert. Oriented X3. No acute distress. Anxious Eyes: Pupils equal, round and reactive to light. ENT: Pharynx normal. Neck: Normal inspection. Neck supple. CVS: Normal heart rate and rhythm. Pulses normal. Respiratory: No respiratory distress. Breath sounds normal. Abdomen: Soft and nontender. Skin: Skin warm and dry. Normal skin color. Normal skin turgor. Extremities: No lower extremity edema. No calf ttp Neuro: Oriented X 3. No motor deficit. No sensory deficit. Course Course Course Narrative: [facility] he is refusing at this time I don't want to add on any of these new things no hypoxia + COVID pneumonia will refer to [facility] if he chooses to get treatment as outpatient will at least offer therapy - no hypoxia 94-98% on RA no signs of increased wob MDM - Weakness MDM Narrative Medical decision making narrative: 86 yo male with hx of DM, HTN, non smoker vaccinated x 3 with COVID test positive yesterday URI symptoms today - did not take medications at home such as tylenol or motrin to treat fevers those don't work for me. He has a lot of questions such as if he has to cancel his late July appointment for cataracts which I assured him he shouldn't. I also explained him to him he would feel sick the next week. He has no breathing issues at this time. Labs and CXR ordered from triage. We did discuss Clarita's treatment but he feels he doesn't want to do any new stuff like that right now. Lab Data Result diagrams: 07/06/21 12:18 07/06/21 12:18 Labs: Lab Results 07/06/21 07/06/21 07/06/21 Range/Units 12:18 12:18 12:18 WBC 9.8 (4.8-10.8) X10*3/uL RBC 5.43 (4.60-5.80) X10*6/uL Hgb 14.7 (14.0-18.0) g/dl Hct 47.0 (42.0-52.0) % MCV 86.6 (80.0-98.0) fL MCH 27.1 (27.0-33.0) pg MCHC 31.3 (31.0-36.0) g/dl RDW 13.8 (11.0-16.0) % Plt Count 227 (160-400) X10*3/uL MPV 8.7 L (9.4-12.4) fL Immature Gran % (Auto) 0.6 H (0.0-0.4) % Neut % (Auto) 76.2 H (45-73) % Lymph % (Auto) 11.9 L (20-40) % [place] % (Auto) 10.0 (2-11) % Eos % (Auto) 0.8 (0-4) % Baso % (Auto) 0.5 (0-2) % Lymph # (Auto) 1.2 (1.2-4.9) X10*3/uL [place] # (Auto) 1.0 (0.1-1.2) X10*3/uL Eos # (Auto) 0.1 (0.0-0.4) X10*3/uL Baso # (Auto) 0.1 (0.0-0.2) X10*3/uL Abs Immat Gran (auto) 0.06 H (0.00-0.03) X10*3/uL Absolute Neuts (auto) 7.4 (2.0-8.3) x10*3/uL Absolute Nucleated RBC 0.000 (0.0-0.012) X10*3/uL Nucleated RBC % (auto) 0.0 (0.0-0.2) /100WBC Sodium 136 (135-145) mmol/L Potassium 4.1 (3.3-5.1) mmol/L Chloride 99 (96-108) mmol/L Carbon Dioxide 28 (22-29) mmol/L Anion Gap 13 (12-20) BUN 11 (9-16) mg/dL Creatinine 1.06 (0.5-1.4) mg/dL Estim Creat Clear Calc 54.3 Estimated GFR > 60 Random Glucose 134 H (60-115) mg/dL Calcium 9.0 (8.4-10.2) mg/dL COVID-19 (RAJENDRA) Positive A (Negative) COVID-19 Clin Com See Note Discharge Plan Discharge Clinical Impression: COVID-19, Pneumonia due to 2019-nCoV Patient Disposition: Home, Self-Care Instructions: Viral Pneumonia (ED), COVID-19 (Coronavirus Disease 2019) (ED) Additional Instructions: return to ED for any worsening symptoms or concerns motrin 400mg every 6 hours as needed for fever tylenol 500mg ever 6 hours as needed for fever if you change your mind and want referral to [facility] for things such as remdesivir, monoclonal antibody or paxlovid please call your primary care doctor if you become so short of breath you cannot walk to your bathroom seek medical care wear a mask, protect others, quarantine yourself from others for the next week. your oxygen levels are normal in the emergency department to prevent severe infection [facility] can offer outpatient therapy which you refused, I am still going to put in a referral so if you change your mind you can follow up. they will call you tomorrow or the next day to discuss. blood pressure 134/67 on discharge Prescriptions: No Action betamethasone dipropionate 0.05 % ointment 1 appl topical BID 28 Days Qty: 45 0RF Rx Instructions: Apply thin coat 2 times per day amlodipine 2.5 mg tablet 5 mg PO DAILY 0RF metformin 500 mg Tablet 500 mg PO BID 0RF trimethoprim 100 mg tablet 100 mg PO Q12H 10 Days Qty: 20 0RF levofloxacin 250 mg tablet 250 mg PO DAILY 7 Days Qty: 7 0RF finasteride 5 mg tablet 5 mg PO DAILY 90 Days Qty: 90 3RF pyridoxine (vitamin B6) 100 mg tablet 100 mg PO DAILY 90 Days Qty: 90 1RF
[2021-07-06] MEDS: Acetaminophen 325 MG TABLET 650 MG PO (13:44)
[2021-07-06] MEDS: Ibuprofen 600 MG TABLET PO (13:44)
[2021-07-06 15:22] VITALS: BP 134/67; PULSE 95; RESP 16; TEMP 37.3; O2SAT 94
== END 2021-07-06 15:39 | disposition home or self-care (01) ==
PROVIDERS: Emergency Provider Emergency Medicine
DX: U07.1 COVID-19 (principal); J12.82 Pneumonia due to coronavirus disease 2019; R00.0 Tachycardia, unspecified; R51.9 Headache, unspecified; Z79.899 Other long term (current) drug therapy
CPT/HCPCS: 71045; 80048; 85025; 87635; 93005; 99283; 99284

== ENCOUNTER 2021-10-01 03:32 | Emergency (ER) | payer OTHER, SELFPAY ==
--- NOTE | 2021-10-01 | ECG_ITS ---
Test Reason : HIGH BP Blood Pressure : / mmHG Vent. Rate : 067 BPM Atrial Rate : 067 BPM P-R Int : 142 ms QRS Dur : 146 ms QT Int : 434 ms P-R-T Axes : 047 -28 015 degrees QTc Int : 458 ms Sinus rhythm with occasional Premature ventricular complexes Right bundle branch block Inferior infarct , age undetermined Abnormal ECG When compared with ECG of 06-JUL-2021 12:09, Premature ventricular complexes are no longer Present Heart rate has decreased Referred By: Graeme Stacy Electronically Signed By:YULISA GRAFF
[2021-10-01 05:47] LABS: Hematocrit 44.3 % (42.0-52.0); Hemoglobin 14.1 g/dl (14.0-18.0); Mean Corpuscular HGB Conc 31.8 g/dl (31.0-36.0); Mean Corpuscular Hemoglobin 27.9 pg (27.0-33.0); Mean Corpuscular Volume 87.7 fL (80.0-98.0); Platelet Count 235 X10*3/uL (160-400); Red Blood Count 5.05 X10*6/uL (4.60-5.80); Red Cell Distribution Width 14.7 % (11.0-16.0); White Blood Count 5.5 X10*3/uL (4.8-10.8)
[2021-10-01 05:48] LABS: Appearance Urine Clear; Color Urine Yellow; Glucose Urine UA Negative (Negative); Leukocyte Esterase Urine Negative (Negative); Nitrite Urine Negative (Negative); Urine Blood Negative (Negative); Urine Ketones Negative (Negative); Urine Protein Negative (Neg-Trace)
[2021-10-01 05:53] LABS: Alanine Aminotransferase 23 U/L (0-40); Alkaline Phosphatase 102 U/L (39-117); Anion Gap 13 (12-20); Aspartate Amino Transferase 21 U/L (5-37); Bilirubin Total 0.5 mg/dL (0.0-1.0); Blood Urea Nitrogen 17 mg/dL (9-16); Calcium 9.1 mg/dL (8.4-10.2); Carbon Dioxide 29 mmol/L (22-29); Chloride 103 mmol/L (96-108); Estimated Glomerular Filt Rate > 60; Glucose Random 137 mg/dL (60-115); Potassium 4.4 mmol/L (3.3-5.1); Sodium 141 mmol/L (135-145)
[2021-10-01 06:57] VITALS: BP 154/74; PULSE 66; RESP 12; O2SAT 98
== END 2021-10-01 09:39 | disposition home or self-care (01) ==
PROVIDERS: Emergency Provider Emergency Medicine
DX: I10 Essential (primary) hypertension (principal); E11.9 Type 2 diabetes mellitus without complications
CPT/HCPCS: 36415; 80053; 81003; 85027; 93005; 99281; 99283

== ENCOUNTER 2022-04-16 09:01 | Outpatient (REF) | payer OTHER, SELFPAY ==
[2022-04-16 12:39] LABS: Prostate Specific Antigen 5.65 ng/mL (<0.05-4.0)
== END 2022-04-16 09:02 | disposition home or self-care (01) ==
LOC: HO.HMGCLDS 09:01
PROVIDERS: PCP Internal Medicine; Visit Provider Urology
DX: N40.1 Benign prostatic hyperplasia with lower urinary tract symptoms (principal); N13.8 Other obstructive and reflux uropathy; Z12.5 Encounter for screening for malignant neoplasm of prostate
CPT/HCPCS: 36415; 84153

== ENCOUNTER → 2022-04-30 08:47 | Outpatient (BNVA) | payer OTHER, SELFPAY | PROVIDERS: PCP Internal Medicine; Visit Provider Urology | DX: N40.1 Benign prostatic hyperplasia with lower urinary tract symptoms (principal); N13.8 Other obstructive and reflux uropathy; N20.0 Calculus of kidney; N48.1 Balanitis; Z79.899 Other long term (current) drug therapy | CPT/HCPCS: 99212 ==

== ENCOUNTER 2022-08-30 08:05 | Inpatient (IN) | payer OTHER, SELFPAY ==
[2022-08-30] VITALS (20 sets, daily range): BP systolic 107–144; BP diastolic 56–96; PULSE 77–150; RESP 15–20; TEMP 36.1–37; O2SAT 91–97; BMI 30.5
--- NOTE | 2022-08-30 | ECG_ITS ---
Test Reason : rapid heart rate Blood Pressure : / mmHG Vent. 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
--- NOTE | ~2022-08-30 | XR_ITS ---
EXAMINATION: XR CHEST CLINICAL INFORMATION: Shortness of breath COMPARISON: Chest radiograph from 07/06/2021 TECHNIQUE: 2 views of the chest were obtained. FINDINGS: Increased patchy radiopacities throughout the bilateral lung [place] greatest in the bibasilar region which may reflect infectious/inflammatory versus prominence of the pulmonary vasculature. Trace left-sided pleural effusion. No pneumothorax. Trachea is midline. Cardiac mediastinal silhouette is stable. Degenerative arthropathy of the thoracolumbar spine with slight dextrocurvature of the midthoracic spine. Soft tissues are unremarkable. XR/XR chest 2V IMPRESSION: 1. Increased patchy radiopacities throughout the bilateral lung [place] greatest in the bibasilar region which may reflect infectious/inflammatory etiology versus prominence of the pulmonary vasculature. 2. Trace left-sided pleural effusion.
--- NOTE | 2022-08-30 08:07 | ECG_ITS ---
Test Reason : cp Blood Pressure : / mmHG Vent. 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 rate has increased BY 40 BPM Anteroseptal infarct is now Present T wave inversion now evident in Lateral leads Referred By: Generic ED Physician Electronically Signed By:JACKIE PICHARDO MD
--- NOTE | 2022-08-30 08:15 | ED.GENADULT ---
HPI - General Adult General Chief complaint: Chest Pain Stated complaint: Chest pain/SOB/Dizziness Time Seen by Provider: 08/30/22 08:14 History of Present Illness HPI narrative: 87-year-old male presents with chest pain and shortness breath. Symptoms been ongoing for several weeks but got worse over the last 2 days. Patient describes symptoms as moderate to severe. Affecting his ability to sleep. Reports that his pain and shortness of breath or worse with lying down. Had no fevers or chills. Denies any cough or mucus production. This his symptoms are not associated with exertion. He has had no fevers, chills. He does have chronic lower extremity edema, no changes. He is taking his medications appropriately. Related Data Home Medications Medication Instructions Recorded Confirmed amlodipine 2.5 mg tablet 5 mg PO DAILY 03/10/20 04/30/22 metformin 500 mg tablet 500 mg PO BID 03/10/20 04/30/22 Previous Rx's Medication Instructions Recorded pyridoxine (vitamin B6) 100 mg 100 mg PO DAILY 90 days #90 tabs 04/29/20 tablet betamethasone dipropionate 0.05 % 1 appl topical BID 4 weeks #45 04/30/22 topical ointment grams finasteride 5 mg tablet 5 mg PO DAILY 90 days #90 tabs 04/30/22 Allergies Allergy/AdvReac Type Severity Reaction Status Date / Time penicillin G Allergy Intermediate Anaphylaxis Verified 04/30/22 08:51 lisinopril Allergy Unknown Verified 04/30/22 08:51 Review of Systems Review of Systems: CONSTITUTIONAL: Denies weight loss, fever and chills. HEENT: Denies changes in vision and hearing. RESPIRATORY: + SOB - cough. CV: Denies palpitations + CP. GI: Denies abdominal pain, nausea, vomiting and diarrhea. : Denies dysuria and urinary frequency. MSK: Denies myalgia and joint pain. SKIN: Denies rash and pruritus. NEUROLOGICAL: Denies headache and syncope. PSYCHIATRIC: Denies recent changes in mood. Denies anxiety and depression. All other ROS are negative unless in HPI [facility] Past Medical History [facility] Narrative: GEN: Well developed, no acute distress, alert, oriented HEENT: Normocephalic, atraumatic, normal external ears, nose appears normal, no oropharyngeal edema or exudates Eyes: Normal to appearance Neck: Supple, no lymphadenopathy Respiratory: Talks in complete sentences, no respiratory distress, clear to auscultation bilaterally Cardiovascular: Regular rate and rhythm, no murmurs rubs or gallops Abdomen: Soft, nontender, nondistended, no guarding, no rebound Back: No CVA tenderness Extremities: No clubbing cyanosis 1+ nonpitting chronic edema Neurologic: No focal neurologic deficits, cranial nerves 2-12 intact, strength is 5/5 bilaterally Skin: No rash Medical History BPH (benign prostatic hyperplasia) Diabetes Hearing deficit HTN (hypertension) Rosacea Surgical History History of prostate surgery Hx of circumcision Hx of cystoscopy Status post glaucoma surgery Social History Social History Alcohol intake: never Patient Tobacco Use Status: Never used Tobacco Smoked in Last 30 Days: No Use of substances other than those prescribed or required for medical reasons: No Advance Directives: No Advance Directives Information Provided: Yes Physical Exam ED Vital Signs: Vital Signs - 24 hr 08/30/22 08:15 08/30/22 08:32 08/30/22 09:22 Temperature 97.9 F Pulse Rate 101 H 106 H 99 Respiratory Rate 15 16 Blood Pressure 144/96 H 131/79 140/75 H Pulse Oximetry 93 93 93 Oxygen Delivery Method Room Air Room Air Room Air 08/30/22 11:09 Temperature 97.6 F Pulse Rate 91 Respiratory Rate 17 Blood Pressure 119/69 Pulse Oximetry 94 Oxygen Delivery Method Room Air BMI result Body Mass Index 30.5 Course Reevaluation(s) Reevaluation #1: Patient's initial troponin was elevated. He received aspirin 324 mg. I had ordered a 2nd set of cardiac enzymes which remained stable. His EKG does show a right bundle-branch block was referred previously there however there is some nonspecific ST T-wave changes that were not there from 2021. However, I doubt that these represent acute ischemic changes. I do not believe this is acute coronary syndrome and most likely may be due to congestive heart failure rather than acute unstable plaque. I discussed case with Dr. Khan who will evaluate the patient under consultation. Will admit the patient. Patient is doing better after IV Lasix. There is no indication for heparinization at this time. Patient aware of results. Time: 11:43 Medications Administered Discontinued Medications Generic Name Dose Route Start Last Admin Trade Name Shirin PRN Reason Stop Dose Admin Aspirin 324 mg 08/30/22 09:39 08/30/22 10:01 Aspirin 81 Mg Tab.Chew PO 08/30/22 09:40 324 mg ONCE ONE Administration Furosemide 40 mg 08/30/22 09:09 08/30/22 09:20 Furosemide 40 Mg/4 Ml Vial IVPUSH 08/30/22 09:10 40 mg ONCE ONE Administration Protocol Medical Decision Making Medical Decision Making [facility] Narrative: 87-year-old male presents with chest pain shortness of breath. His exam is most consistent with CHF although would consider other differential diagnosis. This could include angina, unstable angina, abdominal pain, asthma, COPD, etc.. Plan will be to perform routine laboratory analysis, chest x-ray, consider CT angiogram of the chest rule out pulmonary embolus although he does not appear to have any significant risk factors for this. Plan, will treat patient accordingly, consider hospitalization for severe CHF or other concerning findings. Differential Diagnosis Differential Diagnoses: The differential diagnosis associated with the presentation includes (See above) Lab Data [facility] Lab Attestation statement: I reviewed the patient's lab results. 08/30/22 08:45 08/30/22 08:45 Labs: Lab Results 08/30/22 08/30/22 08/30/22 Range/Units 08:45 08:45 08:45 WBC (4.8-10.8) X10*3/uL RBC (4.60-5.80) X10*6/uL Hgb (14.0-18.0) g/dl Hct (42.0-52.0) % MCV (80.0-98.0) fL MCH (27.0-33.0) pg MCHC (31.0-36.0) g/dl RDW (11.0-16.0) % Plt Count (160-400) X10*3/uL MPV (9.4-12.4) fL Immature Gran % (Auto) (0.0-0.4) % Neut % (Auto) (45-73) % Lymph % (Auto) (20-40) % [place] % (Auto) (2-11) % Eos % (Auto) (0-4) % Baso % (Auto) (0-2) % Lymph # (Auto) (1.2-4.9) X10*3/uL [place] # (Auto) (0.1-1.2) X10*3/uL Eos # (Auto) (0.0-0.4) X10*3/uL Baso # (Auto) (0.0-0.2) X10*3/uL Abs Immat Gran (auto) (0.00-0.03) X10*3/uL Absolute Neuts (auto) (2.0-8.3) x10*3/uL Absolute Nucleated RBC (0.0-0.012) X10*3/uL Nucleated RBC % (auto) (0.0-0.2) /100WBC PT (10.0-13.1) SEC INR (0.9-1.1) APTT (26.0-36.4) SEC Sodium 141 (135-145) mmol/L Potassium 5.1 (3.3-5.1) mmol/L Chloride 106 (96-108) mmol/L Carbon Dioxide 27 (22-29) mmol/L Anion Gap 13 (12-20) BUN 21 H (9-16) mg/dL Creatinine 1.31 (0.5-1.4) mg/dL Estim Creat Clear Calc 43.7 Estimated GFR 52 Random Glucose 182 H (60-115) mg/dL Calcium 10.1 D (8.4-10.2) mg/dL Troponin I High Sens 137.5 H* (<3.5-35.0) ng/L B-Natriuretic Peptide (<100) pg/mL COVID-19 (RAJENDRA) Negative (Negative) COVID-19 Clin Com See Note 08/30/22 08/30/22 08/30/22 Range/Units 09:15 09:15 10:39 WBC 7.9 (4.8-10.8) X10*3/uL RBC 4.81 (4.60-5.80) X10*6/uL Hgb 13.2 L (14.0-18.0) g/dl Hct 42.3 (42.0-52.0) % MCV 87.9 (80.0-98.0) fL MCH 27.4 (27.0-33.0) pg MCHC 31.2 (31.0-36.0) g/dl RDW 14.6 (11.0-16.0) % Plt Count 272 (160-400) X10*3/uL MPV 9.4 (9.4-12.4) fL Immature Gran % (Auto) 0.6 H (0.0-0.4) % Neut % (Auto) 68.9 (45-73) % Lymph % (Auto) 20.4 (20-40) % [place] % (Auto) 7.6 (2-11) % Eos % (Auto) 1.6 (0-4) % Baso % (Auto) 0.9 (0-2) % Lymph # (Auto) 1.6 (1.2-4.9) X10*3/uL [place] # (Auto) 0.6 (0.1-1.2) X10*3/uL Eos # (Auto) 0.1 (0.0-0.4) X10*3/uL Baso # (Auto) 0.1 (0.0-0.2) X10*3/uL Abs Immat Gran (auto) 0.05 H (0.00-0.03) X10*3/uL Absolute Neuts (auto) 5.5 (2.0-8.3) x10*3/uL Absolute Nucleated RBC 0.000 (0.0-0.012) X10*3/uL Nucleated RBC % (auto) 0.0 (0.0-0.2) /100WBC PT 11.6 (10.0-13.1) SEC INR 1.0 (0.9-1.1) APTT 39.7 H (26.0-36.4) SEC Sodium (135-145) mmol/L Potassium (3.3-5.1) mmol/L Chloride (96-108) mmol/L Carbon Dioxide (22-29) mmol/L Anion Gap (12-20) BUN (9-16) mg/dL Creatinine (0.5-1.4) mg/dL Estim Creat Clear Calc Estimated GFR Random Glucose (60-115) mg/dL Calcium (8.4-10.2) mg/dL Troponin I High Sens (<3.5-35.0) ng/L B-Natriuretic Peptide 721 H (<100) pg/mL COVID-19 (RAJENDRA) (Negative) COVID-19 Clin Com 08/30/22 Range/Units 10:39 WBC (4.8-10.8) X10*3/uL RBC (4.60-5.80) X10*6/uL Hgb (14.0-18.0) g/dl Hct (42.0-52.0) % MCV (80.0-98.0) fL MCH (27.0-33.0) pg MCHC (31.0-36.0) g/dl RDW (11.0-16.0) % Plt Count (160-400) X10*3/uL MPV (9.4-12.4) fL Immature Gran % (Auto) (0.0-0.4) % Neut % (Auto) (45-73) % Lymph % (Auto) (20-40) % [place] % (Auto) (2-11) % Eos % (Auto) (0-4) % Baso % (Auto) (0-2) % Lymph # (Auto) (1.2-4.9) X10*3/uL [place] # (Auto) (0.1-1.2) X10*3/uL Eos # (Auto) (0.0-0.4) X10*3/uL Baso # (Auto) (0.0-0.2) X10*3/uL Abs Immat Gran (auto) (0.00-0.03) X10*3/uL Absolute Neuts (auto) (2.0-8.3) x10*3/uL Absolute Nucleated RBC (0.0-0.012) X10*3/uL Nucleated RBC % (auto) (0.0-0.2) /100WBC PT (10.0-13.1) SEC INR (0.9-1.1) APTT (26.0-36.4) SEC Sodium (135-145) mmol/L Potassium (3.3-5.1) mmol/L Chloride (96-108) mmol/L Carbon Dioxide (22-29) mmol/L Anion Gap (12-20) BUN (9-16) mg/dL Creatinine (0.5-1.4) mg/dL Estim Creat Clear Calc Estimated GFR Random Glucose (60-115) mg/dL Calcium (8.4-10.2) mg/dL Troponin I High Sens 137.4 H* (<3.5-35.0) ng/L B-Natriuretic Peptide (<100) pg/mL COVID-19 (RAJENDRA) (Negative) COVID-19 Clin Com Independent Interpretation I performed an independent interpretation of an: EKG (Sinus tachycardia heart rate 107, Q-waves in the inferior leads suggestive of an old inferior wall [place], incomplete right bundle branch block versus right bundle-branch block, no acute ST elevations or depressions) and Plain X-Ray (Chest: Bilateral perihilar fullness, cephalization, pleural effusions are small) Critical Care Time Critical Care Time Critical Care Time: Yes Total Critical Care Time: 45 Attestation: Approximately 45 minutes of critical care time was spent on patient. This included direct patient care, frequent re-evaluation of patient, interpretation and medical data, management of medical conditions, consultation with hospitalist and Cardiology, potentially life-threatening condition including CHF and elevated troponin state. All critical care time was spent outside of any procedures. Discharge Plan Discharge Clinical Impression: Acute CHF, Elevated troponin Patient Disposition: Admitted As Inpatient Prescriptions: No Action amlodipine 2.5 mg tablet 5 mg PO DAILY metformin 500 mg Tablet 500 mg PO BID pyridoxine (vitamin B6) 100 mg tablet 100 mg PO DAILY 90 Days Qty: 90 1RF finasteride 5 mg tablet 5 mg PO DAILY 90 Days Qty: 90 3RF betamethasone dipropionate 0.05 % ointment 1 appl topical BID 28 Days Qty: 45 0RF Rx Instructions: Apply thin coat 2 times per day
[2022-08-30 09:03] LABS: COVID-19 Test Negative (Negative); IDNOW Serial# 08D9AD1C
[2022-08-30 09:07] LABS: Anion Gap 13 (12-20); Blood Urea Nitrogen 21 mg/dL (9-16); Calcium 10.1 mg/dL (8.4-10.2); Carbon Dioxide 27 mmol/L (22-29); Chloride 106 mmol/L (96-108); Creatinine Clr Calc Pharmacy 43.7; Estimated Glomerular Filt Rate 52; Glucose Random 182 mg/dL (60-115); Potassium 5.1 mmol/L (3.3-5.1); Sodium 141 mmol/L (135-145)
[2022-08-30 09:16] LABS: Troponin-I High Sensitivity 137.5 ng/L (<3.5-35.0)
[2022-08-30] MEDS: Furosemide 40 MG/4 ML VIAL IVPUSH (09:20)
[2022-08-30 09:27] LABS: Basophils Absolute Auto 0.1 X10*3/uL (0.0-0.2); Basophils Percent Auto 0.9 % (0-2); Eosinophils Absolute Auto 0.1 X10*3/uL (0.0-0.4); Eosinophils Percent Auto 1.6 % (0-4); Hematocrit 42.3 % (42.0-52.0); Hemoglobin 13.2 g/dl (14.0-18.0); Imm Gran Abs Auto 0.05 X10*3/uL (0.00-0.03); Imm Gran Pct Auto 0.6 % (0.0-0.4); Lymphocytes Absolute Auto 1.6 X10*3/uL (1.2-4.9); Lymphocytes Percent Auto 20.4 % (20-40); Mean Corpuscular HGB Conc 31.2 g/dl (31.0-36.0); Mean Corpuscular Hemoglobin 27.4 pg (27.0-33.0); Mean Corpuscular Volume 87.9 fL (80.0-98.0); Mean Platelet Volume 9.4 fL (9.4-12.4); Monocytes Absolute Auto 0.6 X10*3/uL (0.1-1.2); Monocytes Percent Auto 7.6 % (2-11); Neutrophils Absolute Auto 5.5 x10*3/uL (2.0-8.3); Neutrophils Percent Auto 68.9 % (45-73); Platelet Count 272 X10*3/uL (160-400); Red Blood Count 4.81 X10*6/uL (4.60-5.80); Red Cell Distribution Width 14.6 % (11.0-16.0); White Blood Count 7.9 X10*3/uL (4.8-10.8)
[2022-08-30] MEDS: Aspirin 81 MG TAB.CHEW 324 MG PO (10:01)
[2022-08-30 10:02] LABS: B Type Natriuretic Peptide 721 pg/mL (<100)
[2022-08-30 10:55] LABS: Prothrombin Time 11.6 SEC (10.0-13.1)
[2022-08-30 10:58] LABS: Partial Thromboplastin Time 39.7 SEC (26.0-36.4)
[2022-08-30 11:09] LABS: Troponin-I High Sensitivity 137.4 ng/L (<3.5-35.0)
--- NOTE | 2022-08-30 12:29 | PM.IMHP ---
History of Present Illness Date of Service: 08/30/22 Chief Complaint: shortness of breath and chest pain 87 year old male with diabetes, HTN, BPH no prior history of heart failure, history of iregular heart beat --he is not on blood thiners. He is presenting with chest pain and shortness of breath for several weeks and more pronounced the last 2 to 3 days, he has some leg edema. ED work up: troponin 130, BNP 721, CXR finding suspicious for heart failure. Initially in sinus rythm with heart rate of 90s he has now flipped into AFIB with RVR with heart rate up to 140s. ED treatment: IV Lasix x 40 mg Review of Systems Review of Systems: Gen: no fever Resp: +sob, no cough CV: no chest, + ODOM, + leg edema GI: No n/v, no abd pain Neuro: No confusion [facility] Medical History BPH (benign prostatic hyperplasia) Diabetes Hearing deficit HTN (hypertension) Rosacea Surgical History History of prostate surgery Hx of circumcision Hx of cystoscopy Status post glaucoma surgery Social History Alcohol intake: never Patient Tobacco Use Status: Never used Tobacco Smoked in Last 30 Days: No Use of substances other than those prescribed or required for medical reasons: No Advance Directives: No Advance Directives Information Provided: Yes Meds Allergies Allergy/AdvReac Type Severity Reaction Status Date / Time penicillin G Allergy Intermediate Anaphylaxis Verified 04/30/22 08:51 lisinopril Allergy Unknown Verified 04/30/22 08:51 Active Medications: Current Medications Pharmacy Consult (Consult Rx Perform Med Rec) 1 each MISCELLANE ONCE PRN PRN Reason: Consult order Home Medications Medication Instructions Recorded Confirmed Last Taken Type amlodipine 2.5 mg tablet 5 mg PO DAILY 03/10/20 04/30/22 03/10/20 04:00 History metformin 500 mg tablet 500 mg PO BID 03/10/20 04/30/22 03/10/20 04:00 History Physical Exam Vital Signs and Narrative: Vital Signs: Last Vital Signs Temp 97.6 F 08/30/22 11:09 Pulse 91 08/30/22 11:09 Resp 17 08/30/22 11:09 BP 119/69 08/30/22 11:09 Pulse Ox 94 08/30/22 11:09 O2 Del Method Room Air 08/30/22 11:09 BMI result Body Mass Index 30.5 Const: Other: Constitutional: Alert, in no distress, overweight. Mental Status: Oriented to person, place and time. Eyes: Pupils are equal, round and reactive to light. Ear, Nose and Throat: Oropharynx clear, mucous membranes moist. Ears and nose without eformities. Trachea midline. Respiratory: Clear to auscultation. No wheezing, rales or rhonchi. Cardiovascular: S1 S1, iregularu iregular. No murmurs, rubs or gallops. 2+ leg edema Gastrointestinal: Abdomen soft, non-tender, non-distended. Normal bowel sounds.? Neurologic: Cranial nerves II-XII grossly intact. No focal neurological deficits. Moves all extremities spontaneously.? Skin: No rashes or lesions.? Musculoskeletal: No cyanosis or clubbing. Psychiatric: Normal mood and affect? Results Labs 08/30/22 09:15 08/30/22 08:45 Labs: Laboratory Results - last 24 hr 08/30/22 08/30/22 08/30/22 08:45 08:45 09:15 MCV 87.9 MCH 27.4 MCHC 31.2 RDW 14.6 Plt Count 272 MPV 9.4 Immature Gran % (Auto) 0.6 H Neut % (Auto) 68.9 Lymph % (Auto) 20.4 [place] % (Auto) 7.6 Eos % (Auto) 1.6 Baso % (Auto) 0.9 Lymph # (Auto) 1.6 [place] # (Auto) 0.6 Eos # (Auto) 0.1 Baso # (Auto) 0.1 Abs Immat Gran (auto) 0.05 H Absolute Neuts (auto) 5.5 Absolute Nucleated RBC 0.000 Nucleated RBC % (auto) 0.0 PT INR APTT Anion Gap 13 Estim Creat Clear Calc 43.7 Estimated GFR 52 Random Glucose 182 H Calcium 10.1 D B-Natriuretic Peptide COVID-19 (RAJENDRA) Negative COVID-19 Clin Com See Note 08/30/22 08/30/22 09:15 10:39 MCV MCH MCHC RDW Plt Count MPV Immature Gran % (Auto) Neut % (Auto) Lymph % (Auto) [place] % (Auto) Eos % (Auto) Baso % (Auto) Lymph # (Auto) [place] # (Auto) Eos # (Auto) Baso # (Auto) Abs Immat Gran (auto) Absolute Neuts (auto) Absolute Nucleated RBC Nucleated RBC % (auto) PT 11.6 INR 1.0 APTT 39.7 H Anion Gap Estim Creat Clear Calc Estimated GFR Random Glucose Calcium B-Natriuretic Peptide 721 H COVID-19 (RAJENDRA) COVID-19 Clin Com Imaging Radiologist's Impressions: Impressions Chest X-Ray 08/30/22 08:57 IMPRESSION: 1. Increased patchy radiopacities throughout the bilateral lung [place] greatest in the bibasilar region which may reflect infectious/inflammatory etiology versus prominence of the pulmonary vasculature. 2. Trace left-sided pleural effusion. Assessment and Plan (1) Acute CHF: Qualifiers: Heart failure type: systolic Qualified Code(s): I50.21 - Acute systolic (congestive) heart failure Status: Acute (2) Elevated troponin: Status: Acute (3) Atrial fibrillation with RVR: Status: Acute Plan 87/male with HTN, diabetes, history of iregular heart beat which is likely AFIB and not anticoagulated, no prior heart failure who presents with chest pain and found to have acute heart failure and now afib with RVR Chest pain/NSTEM--possibly precipated by AFIB with RVR -Anticoagulation with heparin, ASA, BB, cardiology consult Heart failure, suspect acute systolic heart failure --IV diuretics, Echo, monitor I/O, low salt diet AFIB--probably not new by his report, rate control with carizem or metopolol, definately should be anticoagulation, add lovenox and discharge eliquis or xarelto Diabetes, hold metformin while acutely ill, add ssi and diabetic diet HTN--he takes amlodipine, med rec pending BPH--finesteride DVT prophylaxis: Lovenox Code full need for inpatient: management of acute heart failure, and acute ischemic work up, and management of afib with rvr Time Spent With Patient Time: Total time managing care of this patient today ____ minutes. Quality Stroke Does the patient have a stroke diagnosis?: No VTE Prior VTE?: No VTE Risk Level:: Medical - moderate - high VTE Device Contraindication: Treatment Not Indicated VTE Drug Contraindication: N/A - Med Ordered
--- NOTE | 2022-08-30 12:50 | PC.NURSE ---
pt in rapid afib, heart rate ranging 120-150s. reporting shortness of breath and a 9/10 chest pain. sating at 93 room air. pt put on 2L nasal cannula for comfort. BP stable at 120/68. MD aware of finding. awaiting EKG.
[2022-08-30] MEDS: dilTIAZem HCL 50 MG/10 ML VIAL 10 MG IVPUSH (13:21)
[2022-08-30] MEDS: Heparin Sodium,Porcine 5,000 UNIT/ML VIAL 5000 UNIT SUBCUT (13:23)
--- NOTE | 2022-08-30 13:37 | PHA.MEDREC ---
Pharmacy Consult ? Medication Reconciliation Pharmacy has completed the medication reconciliation. [facility]
[2022-08-30] MEDS: dilTIAZem HCL 125 MG in 0.9 % Sodium Chloride 100 ML 10 MG IVCONT (17:04)
[2022-08-30] MEDS: 0.9 % Sodium Chloride Flush 3 ML SYRINGE IVFLUSH (17:09)
--- NOTE | 2022-08-30 17:20 | PC.NURSE ---
pt reporting shortness of breath so this RN reapplied nasal cannula at 2L for pt comfort. sating at 94.
--- NOTE | 2022-08-30 17:46 | MHC.EDTECH ---
BLOOD SUGAR CHECK ,FRAN BLAND AWARE OF RESULT ,PATIENT DRANK A DIET BHUPINDER MARILEE .
[2022-08-30 17:47] LABS: Glucose, Whole Blood 161 mg/dL (60-115)
[2022-08-30] MEDS: Insulin Lispro 100 UNIT/ML 3 ML VIAL SUBCUT ×2 (17:58→20:55)
--- NOTE | 2022-08-30 18:05 | PC.NURSE ---
report given to camacho on C.
[2022-08-30] MEDS: Apixaban 5 MG TABLET PO (18:33)
[2022-08-30 20:21] LABS: Glucose, Whole Blood 224 mg/dL (60-115)
[2022-08-30] MEDS: Ketorolac Tromethamine 0.5% Op 5 ML DROPS 1 DROP EYE-BOTH (22:28)
[2022-08-30] MEDS: Ketotifen Fumarate 0.025% Oph 5 ML DRPBTL 1 DROP EYE-BOTH (22:34)
[2022-08-30] MEDS: Melatonin 3 MG TABLET 6 MG PO (22:40)
[2022-08-31 03:06] VITALS: BP 103/57; PULSE 86; RESP 20; TEMP 36.1; O2SAT 94
[2022-08-31] MEDS: Apixaban 5 MG TABLET PO ×2 (05:28→17:00)
--- NOTE | 2022-08-31 07:00 | CA_ITS ---
Transthoracic Echocardiogram Patient (Last, First, Middle): Casper Herrera H Gender: Male Date of : 1935 Age: 87 Procedure Date: 08/31/2022 Procedure Type: Transthoracic Echocardiogram [place] [facility] [place] Height: 170.18 cm Weight: 88.45 kg BSA: 2.00 m2 Heart Rate: 87 bpm BP: 112 / 78 mmHg Biological Photographer: LATASHA Referring MD: Nicholas Hall MD Day Care Supervisor: Jimmie Khan MD Symptoms: chf Study Quality: Adequate w contrast ECG Rhythm: Atrial Fibrillation Conclusions: - 1. Mildly dilated left ventricle with severe LV systolic dysfunction with LVEF of 25-30% with regional wall motion abnormality consistent with ischemic cardiomyopathy 2. Mildly dilated left atrium 3. Mild mitral regurgitation 4. Mildly elevated right ventricular systolic pressure with significant elevated right atrial pressures 5. No gross pericardial effusion Findings Procedure Information Contrast agent, definity, is being given per protocol without apparent complications. Left Ventricle Mildly increased left ventricular cavity size. There is normal left ventricular wall thickness. The left ventricular systolic function is severely decreased. The visually estimated ejection fraction is between 25 30%. Diastolic function is indeterminate on the basis of available data. Wall Motion Rest Echo Findings The inferoseptal wall, inferior wall, entire lateral wall, the basal anterior, mid anterior, basal anteroseptal, and mid anteroseptal segments are hypokinetic. The apex, apical anterior, and apical septum segments are akinetic. Right Ventricle Normal right ventricular cavity size and systolic function. Atria The left atrium is mildly dilated. There is lipomatous hypertrophy of the interatrial septum. There is no evidence of interatrial shunt. The right atrium is normal in size. Aortic Valve There is mild calcification of the aortic valve. There is no aortic valve stenosis. There is no aortic valve regurgitation. Mitral Valve There is mild anterior and posterior mitral leaflet thickening. There is mild mitral annular calcification. There is mild mitral valve regurgitation. There is no mitral valve stenosis. Pulmonic Valve The pulmonic valve was not well visualized. Tricuspid Valve Likely normal tricuspid valve structure and function. There is mild tricuspid valve regurgitation. Significantly elevated right atrial pressure. Mild pulmonary hypertension is present. Great Vessels All visible segments of the aorta are normal in size. The pulmonary artery was not well visualized. Venous The inferior vena cava is moderately dilated and collapses less than 50% with inspiration. Pericardium/Pleural There is no evidence of pericardial effusion. Prior Study Comparison No prior study available for comparison. Measurements 2D Linear Measurements IVSd: 0.80 0.6-0.9/0.6-1.0 cm LVIDd: 5.90 3.9-5.3/4.2-5.9 cm LVIDd Index: 2.95 2.4-3.2/2.2-3.1 cm/m2 LVIDs: 4.60 2.0-3.6 cm LVPWd: 0.90 0.7-1.1 cm LA Diam: 4.20 2.7-3.8/3.0-4.0 cm LAIDs Index: 2.10 1.5-2.3 cm/m2 LV Mass: 242.94 67-162/88-224 g LV Mass Index: 121.47 43-95/49-115 g/m2 LVOT Diam: 2.40 3.0+(-)1.3 cm 2D Systolic Function EF 4C: 33.90 >55% EF 2C: 25.70 >55% EF BiP: 29.20 >55% Mitral Valve MV Pk E: 1.20 Aortic Valve AoV Pk Landen: 1.49 AoV Pk Grad: 9.00 KARINA: 2.44 LVOT LVOT Pk Landen: 0.80 LVOT Mn Landen: 0.55 LVOT VTI: 0.13 LVOT Pk Grad: 3.00 LVOT Mn Grad: 1.00 LVOT Diam: 2.40 LVOT Area: 4.52 Diastolic Function MV Pk E: 1.20 Right Ventricle TAPSE (mm): 22.30 TVS' Landen: 12.70 Tricuspid Valve TR Pk Landen: 2.75 TR Pk Grad: 30.00 RA Press: 15.00 RVSP: 45.00 Great Vessels Aorta Sinus of Valsalva: 3.50 2.0-3.5 cm Ao Asc: 3.20 2.1-3.4 cm Pulmonary Valve PV Pk Landen: 0.72 Peak PV Grad: 2.00 Updated in Other Vendor System with Status of Final Jimmie Khan MD electronically signed on 08/31/2022 12:26:23 PM with status of Final
[2022-08-31 07:12] LABS: Glucose, Whole Blood 142 mg/dL (60-115)
[2022-08-31 07:30] VITALS: BP 129/71; PULSE 82; RESP 20; TEMP 36.3; O2SAT 98
[2022-08-31] MEDS: Pyridoxine HCl (Vitamin B6) 50 MG TABLET 100 MG PO (08:09)
[2022-08-31] MEDS: Aspirin 81 MG TAB.CHEW PO (08:09)
[2022-08-31] MEDS: amLODIPine Besylate 5 MG TABLET PO (08:10)
[2022-08-31] MEDS: metFORMIN HCl 1,000 MG TABLET 1000 MG PO (08:10)
[2022-08-31] MEDS: Finasteride 5 MG TABLET PO (08:10)
[2022-08-31] MEDS: Furosemide 40 MG/4 ML VIAL IVPUSH (08:12)
--- NOTE | 2022-08-31 09:12 | MHC.CM.PN ---
Pt admitted with dx chest pain, CHF. Pt lives at home with his , he uses a cane and is independent/self-care. Pt is a and is 100% service connected. Pt states he goes to Dr. Marques at the [facility] on [address] [facility] to [facility] full [facility]. D/C plan: return home when medically cleared is the goal. Pts to transport. Pt states his is his HCP, copy requested. Covid vax: x 3
--- NOTE | 2022-08-31 09:12 | PM.CNCAR ---
History of Present Illness History of Present Illness Date of Service: 08/31/22 Requesting physician: [facility] Consult reason: atrial fibrillation and congestive heart failure Chief complaint: chest pain, CHF Narrative: I was consulted to see Casper in cardiology consultation today for gradually worsening shortness of breath since last Tuesday as well as some chest tightness which happened yesterday. Patient says he is 87 years old but is very active at home and mows his own lawn. Started taking some sinus medicine last week and then got dizzy and then started having symptoms of shortness of breath. He did not have much leg edema. Denies any clear weight gain. He also had chest tightness yesterday and he came to the hospital. In the hospital he was noted to have elevated BNP in the 700 range with flat troponins. Initially had sinus rhythm on monitor and subsequently converted to atrial fibrillation. Remains in atrial fibrillation this morning with slightly rapid ventricular response. Blood pressure is controlled. Overnight he has diuresed about 2 L. he said his shortness of breath is improved. He said he has had irregular heartbeat for 82 years. But does not recall ever being told that he had atrial fibrillation. He has prior history of COVID and has history of recurrent UTI and has BPH. He has had no prior cardiac history. Review of Systems Constitutional: Constitutional: Reports no additional constitutional complaints ENT: Reports sinus pressure Cardiovascular: Cardiovascular: Denies Abdominal Distension, Reports chest pain (Tightness in his chest), Denies leg edema, Reports lightheadedness, Denies Loss of Consciousness, Denies palpitations, Reports dyspnea and Reports dyspnea on exertion Respiratory: Respiratory: Reports dyspnea and Reports dyspnea on exertion Gastrointestinal: Gastrointestinal: Reports no additional gastrointestinal complaints Genitourinary: Genitourinary: Reports no additional male genitourinary complaints Musculoskeletal: Musculoskeletal: Reports no additional musculoskeletal complaints Integumentary/Breasts: Skin/Breast: Reports system reviewed and no additional complaints, except as docu Neurologic: Reports system reviewed and no additional complaints, except as documented Endocrine: Endocrine: Denies palpitations PMFSH Past Medical History Medical History BPH (benign prostatic hyperplasia) Diabetes Hearing deficit HTN (hypertension) Rosacea Surgical History Surgical History History of prostate surgery Hx of circumcision Hx of cystoscopy Status post glaucoma surgery Social History Social History Household Members: Spouse Housing: House Do you presently have visiting nurse or other home services: No Alcohol intake: never Patient Tobacco Use Status: Never used Tobacco Smoked in Last 30 Days: No Use of substances other than those prescribed or required for medical reasons: No Currently Displaying Signs/Symptoms of Drug Intoxication Withdrawal: No Have you been hit, kicked, punched, or otherwise hurt by someone within the past year? If so, by whom?: No Do you feel safe in your current relationship?: Yes Is there a partner from a previous relationship who is making you feel unsafe now?: No Are you made to feel afraid or neglected: No Advance Directives: No Advance Directives Information Provided: Yes Do you have thoughts of harming others: None Do you have a plan to hurt others: No Plan Recently lost weight without trying: No service: Yes Meds Allergies Allergy/AdvReac Type Severity Reaction Status Date / Time penicillin G Allergy Intermediate Anaphylaxis Verified 04/30/22 08:51 lisinopril Allergy Unknown Verified 04/30/22 08:51 Active Medications: Current Medications Acetaminophen (Acetaminophen 325 Mg Tablet) 650 mg PO Q6H PRN PRN Reason: Pain, Mild (Pain Scale 1-3) Amlodipine Besylate (Amlodipine Besylate 5 Mg Tablet) 5 mg PO DAILY [facility]; Protocol Last Admin: 08/31/22 08:10 Dose: 5 mg Apixaban (Apixaban 5 Mg Tablet) 5 mg PO Q12H [facility] Last Admin: 08/31/22 05:28 Dose: 5 mg Artificial Tears (Artificial Tears 15 Ml Drops) 1 drop EYE-BOTH QID PRN PRN Reason: Dry Eyes Aspirin (Aspirin 81 Mg Tab.Chew) 81 mg PO DAILY [facility] Last Admin: 08/31/22 08:09 Dose: 81 mg Clotrimazole (Clotrimazole 1 % Cream 15 Gm Tube) 1 appl TOPICAL DAILY PRN; Protocol PRN Reason: Skin Irritation Dextrose (Dextrose 50 % 25 Gm/50 Ml Syringe) 25 gm IVPUSH Q15M PRN; Protocol PRN Reason: per Hypoglycemia Standing Ord. Finasteride (Finasteride 5 Mg Tablet) 5 mg PO DAILY [facility] Last Admin: 08/31/22 08:10 Dose: 5 mg Furosemide (Furosemide 40 Mg/4 Ml Vial) 40 mg IVPUSH DAILY [facility]; Protocol Last Admin: 08/31/22 08:12 Dose: 40 mg Glucose (Glucose Gel 15 Gm Gel..Gram.) 15 gm PO Q15M PRN; Protocol PRN Reason: per Hypoglycemia Standing Ord. Diltiazem HCl 125 mg/ Sodium (Chloride) 125 mls @ 0 mls/hr IVCONT .Q0M [facility]; Protocol Last Titration: 08/31/22 08:18 Dose: 10 mg/hr, 10 mls/hr Insulin Human Lispro (Insulin Lispro 100 Unit/Ml 3 Ml Vial) 0 unit SUBCUT QIDACHS [facility]; Protocol Last Admin: 08/31/22 08:08 Dose: Not Given Ketorolac Tromethamine (Ketorolac Tromethamine 0.5% Op 5 Ml Drops) 1 drop EYE-BOTH QID [facility] Last Admin: 08/31/22 08:18 Dose: Not Given Ketotifen Fumarate (Ketotifen Fumarate 0.025% Oph 5 Ml Drpbtl) 1 drop EYE-BOTH BID PRN PRN Reason: Allergy Symptoms Last Admin: 08/30/22 22:34 Dose: 1 drop Loratadine (Loratadine 10 Mg Tablet) 10 mg PO DAILY PRN PRN Reason: Allergy Symptoms Magnesium Hydroxide (Milk Of Magnesia 30 Ml Oral.Susp) 30 ml PO DAILY PRN PRN Reason: Constipation Melatonin (Melatonin 3 Mg Tablet) 6 mg PO BEDTIME PRN PRN Reason: Insomnia Last Admin: 08/30/22 22:40 Dose: 6 mg Metformin HCl (Metformin Hcl 1,000 Mg Tablet) 1,000 mg PO DAILY [facility] Last Admin: 08/31/22 08:10 Dose: 1,000 mg Metronidazole (Metronidazole 0.75 % Gel 45 Gm Tube) 1 appl TOPICAL BID [facility] Last Admin: 08/30/22 22:31 Dose: Not Given Pat Own Med ( Alogliptin 25 Mg Tablet) 25 mg PO DAILY [facility] Last Admin: 08/31/22 08:23 Dose: Not Given Ondansetron HCl (Ondansetron Hcl 4 Mg/2 Ml Vial) 4 mg IVPUSH Q8H PRN PRN Reason: Nausea and Vomiting Pharmacy Consult (Consult Rx Perform Med Rec) 1 each MISCELLANE ONCE PRN PRN Reason: Consult order Pyridoxine HCl (Pyridoxine Hcl (Vitamin B6) 50 Mg Tablet) 100 mg PO DAILY [facility] Last Admin: 08/31/22 08:09 Dose: 100 mg Sodium Chloride (0.9 % Sodium Chloride Flush 3 Ml Syringe) 3 ml IVFLUSH QSHIFT [facility] Last Admin: 08/31/22 08:10 Dose: Not Given Tobramycin/Dexamethasone (Tobramycin/Dexamethasone Oph Oint 3.5 Gmtube) 0.5 inch EYE-RIGHT Q4H [facility] Last Admin: 08/31/22 08:18 Dose: Not Given Trolamine Salicylate (Trolamine Salicylate 10 % Cream 85 Gm Tube) 1 appl TOPICAL BID PRN PRN Reason: Muscle Pain Home Medications Medication Instructions Recorded Confirmed Last Taken Type metformin 500 mg tablet 1,000 mg PO DAILY 03/10/20 08/30/22 03/10/20 04:00 History alogliptin 25 mg tablet 25 mg PO DAILY 08/30/22 08/30/22 Unknown History amlodipine 5 mg tablet 5 mg PO DAILY 08/30/22 08/30/22 Unknown History aspirin 81 mg chewable tablet 81 mg PO DAILY 08/30/22 08/30/22 Unknown History cetirizine 10 mg tablet 10 mg PO DAILY PRN Allergy Symptoms 08/30/22 08/30/22 Unknown History clotrimazole 1 % topical cream 1 appl topical DAILY PRN Skin 08/30/22 08/30/22 Unknown History Irritation ketorolac 0.5 % eye drops 1 drp ophthalmic (eye) QID 08/30/22 08/30/22 Unknown History ketotifen fumarate 0.025 % (0.035 1 drp ophthalmic (eye) BID PRN 08/30/22 08/30/22 Unknown History %) eye drops Allergy Symptoms methyl salicylate 15 %-menthol 10 1 appl topical BID PRN Muscle Pain 08/30/22 08/30/22 Unknown History % topical cream (Muscle Rub) metronidazole 0.75 % topical gel 1 appl topical BID 08/30/22 08/30/22 Unknown History peg 400-propylene glycol 0.4 %-0.3 1 drp ophthalmic (eye) QID PRN Dry 08/30/22 08/30/22 Unknown History % eye drops (Systane Ultra) Eyes tobramycin 0.3 %-dexamethasone 0.1 1 drp ophthalmic-Right Q4H 08/30/22 08/30/22 Unknown History % eye drops,suspension (TobraDex) Physical Exam Vital Signs: Vital Signs: Last Vital Signs Temp 97.4 F 08/31/22 07:30 Pulse 82 08/31/22 07:30 Resp 20 08/31/22 07:30 BP 129/71 08/31/22 07:30 Pulse Ox 98 08/31/22 07:30 O2 Del Method Nasal Cannula 08/31/22 07:30 O2 Flow Rate 2 08/31/22 07:30 BMI result Body Mass Index 30.5 Const: General: cooperative, comfortable, no acute distress, alert and awake Nutritional Appearance: overweight Orientation/consciousness: patient oriented x3 HEENT: Head: Yes normocephalic and Yes atraumatic Neck: Neck: Yes trachea midline, Yes supple and Yes no JVD Resp: Effort & Inspection: normal respiratory effort Auscultation: rales bilateral 1/[address] way up Cardio: Rate: tachycardic Rhythm: abnormal rhythm irregularly irregular Heart sounds: S1 normal heart sound present, S2 normal heart sound present, no click and no gallops GI: Auscultation: normal bowel sounds Skin: General skin exam: no rashes or lesions noted Neuro: General: patient oriented x3 and no focal motor deficits Extrem: General: No clubbing, No cyanosis, No edema and Yes pedal edema Objective Labs and Meds 08/30/22 09:15 08/30/22 08:45 Lab results: Laboratory Results - last 24 hr 08/30/22 08/30/22 08/30/22 08:45 09:15 09:15 WBC 7.9 RBC 4.81 Hgb 13.2 L Hct 42.3 MCV 87.9 MCH 27.4 MCHC 31.2 RDW 14.6 Plt Count 272 MPV 9.4 Immature Gran % (Auto) 0.6 H Neut % (Auto) 68.9 Lymph % (Auto) 20.4 Bowie % (Auto) 7.6 Eos % (Auto) 1.6 Baso % (Auto) 0.9 Lymph # (Auto) 1.6 Bowie # (Auto) 0.6 Eos # (Auto) 0.1 Baso # (Auto) 0.1 Abs Immat Gran (auto) 0.05 H Absolute Neuts (auto) 5.5 Absolute Nucleated RBC 0.000 Nucleated RBC % (auto) 0.0 PT INR APTT POC Glucose Troponin I High Sens 137.5 H* B-Natriuretic Peptide 721 H 08/30/22 08/30/22 08/30/22 10:39 10:39 17:43 WBC RBC Hgb Hct MCV MCH MCHC RDW Plt Count MPV Immature Gran % (Auto) Neut % (Auto) Lymph % (Auto) Bowie % (Auto) Eos % (Auto) Baso % (Auto) Lymph # (Auto) Bowie # (Auto) Eos # (Auto) Baso # (Auto) Abs Immat Gran (auto) Absolute Neuts (auto) Absolute Nucleated RBC Nucleated RBC % (auto) PT 11.6 INR 1.0 APTT 39.7 H POC Glucose 161 H Troponin I High Sens 137.4 H* B-Natriuretic Peptide 08/30/22 08/31/22 20:17 07:01 WBC RBC Hgb Hct MCV MCH MCHC RDW Plt Count MPV Immature Gran % (Auto) Neut % (Auto) Lymph % (Auto) Bowie % (Auto) Eos % (Auto) Baso % (Auto) Lymph # (Auto) Bowie # (Auto) Eos # (Auto) Baso # (Auto) Abs Immat Gran (auto) Absolute Neuts (auto) Absolute Nucleated RBC Nucleated RBC % (auto) PT INR APTT POC Glucose 224 H 142 H Troponin I High Sens B-Natriuretic Peptide EKG shows atrial fibrillation rapid ventricular response with nonspecific ST T wave changes Imaging Radiologist's impression: Impressions Chest X-Ray 08/30/22 08:57 IMPRESSION: 1. Increased patchy radiopacities throughout the bilateral lung [place] greatest in the bibasilar region which may reflect infectious/inflammatory etiology versus prominence of the pulmonary vasculature. 2. Trace left-sided pleural effusion. Assessment and Plan (1) Acute CHF: Qualifiers: Heart failure type: systolic Qualified Code(s): I50.21 - Acute systolic (congestive) heart failure Status: Acute Patient presents with signs and symptoms consistent with decompensated congestive heart failure. Most likely in association with atrial fibrillation. Most likely diastolic dysfunction related to longstanding hypertension advanced age. At this point time would continue IV diuresis. Needs an echocardiogram to assess LV systolic and diastolic function. Strict intake and output chart needs to be pursued. Trend labs tomorrow with BMP and BNP. Heart failure education to be provided. Please add Jardiance 10 mg to his regimen. Also better rate control recommended, start metoprolol. Will hold off on Aldactone therapy given slightly elevated potassium today. Elevated troponin related to decompensated congestive heart failure likely due to acute coronary syndrome. (2) Atrial fibrillation with RVR: Status: Acute Atrial fibrillation rapid ventricular response. Needs better rate control. Advise metoprolol 25 mg b.i.d.. Agree with oral anticoagulation Eliquis. Management of atrial fibrillation was discussed with patient details. Will continue to follow with you. Time Spent With Patient Time: Total time managing care of this patient today ____ minutes. Procedures Date of Service Date of Service: 08/31/22
[2022-08-31] MEDS: dilTIAZem HCL 125 MG in 0.9 % Sodium Chloride 100 ML IVCONT (09:27)
[2022-08-31] MEDS: metroNIDAZOLE 0.75 % Gel 45 GM TUBE 1 APPL TOPICAL ×2 (09:52→19:59)
[2022-08-31 10:20] LABS: Anion Gap 15 (12-20); Blood Urea Nitrogen 28 mg/dL (9-16); Calcium 9.4 mg/dL (8.4-10.2); Carbon Dioxide 26 mmol/L (22-29); Chloride 102 mmol/L (96-108); Creatinine Clr Calc Pharmacy 38.4; Estimated Glomerular Filt Rate 45; Glucose Random 228 mg/dL (60-115); Magnesium 1.9 mg/dL (1.6-2.6); Potassium 4.2 mmol/L (3.3-5.1); Sodium 139 mmol/L (135-145)
[2022-08-31 11:18] LABS: Glucose, Whole Blood 202 mg/dL (60-115)
[2022-08-31 11:42] VITALS: BP 116/60; PULSE 98; RESP 20; TEMP 36.6; O2SAT 94
[2022-08-31] MEDS: Insulin Lispro 100 UNIT/ML 3 ML VIAL SUBCUT ×3 (11:59→20:15)
[2022-08-31] MEDS: Acetaminophen 325 MG TABLET 650 MG PO ×2 (12:50→19:59)
[2022-08-31] MEDS: Ketorolac Tromethamine 0.5% Op 5 ML DROPS 1 DROP EYE-BOTH ×3 (13:19→19:59)
[2022-08-31] MEDS: Ketotifen Fumarate 0.025% Oph 5 ML DRPBTL 1 DROP EYE-BOTH ×2 (13:19→20:01)
[2022-08-31] MEDS: Empagliflozin 10 MG TABLET PO (13:38)
[2022-08-31] MEDS: Metoprolol Tartrate 25 MG TABLET PO (13:38)
[2022-08-31] MEDS: 0.9 % Sodium Chloride Flush 3 ML SYRINGE IVFLUSH ×2 (15:21→20:05)
[2022-08-31] MEDS: Fluticasone Propionate Nasal 16 GM SPRAY 1 SPRAY NOSTRIL-B ×2 (15:21→19:58)
[2022-08-31 15:25] VITALS: BP 108/63; PULSE 70; RESP 18; TEMP 36.1; O2SAT 98
--- NOTE | 2022-08-31 16:03 | PC.NURSE ---
Addendum entered by Chinyere Overton RN 08/31/22 17:38: pt also reported at 1605, he feels good for a second and feels tired for the next second and it is going in a cycle. pt palpated his own pulsed and got 68 saying this is too low . pt vitals stable. pt also said he can feel when his HR slow down. pt sustained at high 50s- 70S. Pt also reported his head feels like blocked but not the headache, ooze, uncomfortable in sinus areas. pt is getting anxious while being hospitalized. notified recommended humidified oxygen. pt is on 2L humidified O2 and walked around and sit in the recliner which helps pt feeling better per pt reported pt is still in Afib ~ 60s-70s. Original Note: pt HR was in 60s and 70s IV Cardizem gtt stopped per protocol. notified. pt is still in Afib, continue to monitor.
--- NOTE | 2022-08-31 16:20 | HO.PM.IMPN ---
Subjective Subjective Date of Service: 08/31/22 Interval History: Seen on multiple occasions during the day rate better controlled this afternoon reports nasal congestion no chest pain or difficulties breathing still on O2 Review of Systems Review of Systems: Yes all other systems are reviewed and are negative Physical Exam Vital Signs: Vital Signs: Last Vital Signs Temp 97 F 08/31/22 15:25 Pulse 70 08/31/22 15:25 Resp 18 08/31/22 15:25 BP 108/63 08/31/22 15:25 Pulse Ox 98 08/31/22 15:25 O2 Del Method Nasal Cannula 08/31/22 15:25 O2 Flow Rate 2 08/31/22 15:25 BMI result Body Mass Index 30.5 Const: Other: Constitutional : Awake, interactive, not in distress Neck : Normal inspection, Supple Cardiovascular : irregular irregular, no JVP, trace lower extremity edema Respiratory : good bilateral air entry, no crackles, wheezes or rhonchi Gastrointestinal: soft, lax, Normal bowel sounds, Non tender Skin : Warm, Dry Neurological : Alert & oriented x3, No focal deficit Objective Data Active Medications Acetaminophen (Acetaminophen 325 Mg Tablet) 650 mg PO Q6H PRN PRN Reason: Pain, Mild (Pain Scale 1-3) Last Admin: 08/31/22 12:50 Dose: 650 mg Documented By: SILVIO Amlodipine Besylate (Amlodipine Besylate 5 Mg Tablet) 5 mg PO DAILY [facility]; Protocol Last Admin: 08/31/22 08:10 Dose: 5 mg Documented By: SILVIO Apixaban (Apixaban 5 Mg Tablet) 5 mg PO Q12H [facility] Last Admin: 08/31/22 05:28 Dose: 5 mg Documented By: DARRYL Artificial Tears (Artificial Tears 15 Ml Drops) 1 drop EYE-BOTH QID PRN PRN Reason: Dry Eyes Aspirin (Aspirin 81 Mg Tab.Chew) 81 mg PO DAILY [facility] Last Admin: 08/31/22 08:09 Dose: 81 mg Documented By: SILVIO Clotrimazole (Clotrimazole 1 % Cream 15 Gm Tube) 1 appl TOPICAL DAILY [facility]; Protocol PRN Reason: Skin Irritation Dextrose (Dextrose 50 % 25 Gm/50 Ml Syringe) 25 gm IVPUSH Q15M PRN; Protocol PRN Reason: per Hypoglycemia Standing Ord. Empagliflozin (Empagliflozin 10 Mg Tablet) 10 mg PO DAILY [facility] Last Admin: 08/31/22 13:38 Dose: 10 mg Documented By: SILVIO Finasteride (Finasteride 5 Mg Tablet) 5 mg PO DAILY [facility] Last Admin: 08/31/22 08:10 Dose: 5 mg Documented By: SILVIO Fluticasone Propionate (Fluticasone Propionate Nasal 16 Gm Duff) 1 spray NOSTRIL-B BID [facility] Last Admin: 08/31/22 15:21 Dose: 1 spray Documented By: SILVIO Glucose (Glucose Gel 15 Gm Gel..Gram.) 15 gm PO Q15M PRN; Protocol PRN Reason: per Hypoglycemia Standing Ord. Diltiazem HCl 125 mg/ Sodium (Chloride) 125 mls @ 0 mls/hr IVCONT .Q0M [facility]; Protocol Last Titration: 08/31/22 15:50 Dose: 0 mg/hr, 0 mls/hr Documented By: SILVIO Insulin Human Lispro (Insulin Lispro 100 Unit/Ml 3 Ml Vial) 0 unit SUBCUT QIDACHS [facility]; Protocol Last Admin: 08/31/22 11:59 Dose: 4 unit Documented By: SILVIO Ketorolac Tromethamine (Ketorolac Tromethamine 0.5% Op 5 Ml Drops) 1 drop EYE-BOTH QID [facility] Last Admin: 08/31/22 13:19 Dose: 1 drop Documented By: SILVIO Ketotifen Fumarate (Ketotifen Fumarate 0.025% Oph 5 Ml Drpbtl) 1 drop EYE-BOTH BID PRN PRN Reason: Allergy Symptoms Last Admin: 08/31/22 13:19 Dose: 1 drop Documented By: SILVIO Loratadine (Loratadine 10 Mg Tablet) 10 mg PO DAILY PRN PRN Reason: Allergy Symptoms Magnesium Hydroxide (Milk Of Magnesia 30 Ml Oral.Susp) 30 ml PO DAILY PRN PRN Reason: Constipation Melatonin (Melatonin 3 Mg Tablet) 6 mg PO BEDTIME PRN PRN Reason: Insomnia Last Admin: 08/30/22 22:40 Dose: 6 mg Documented By: MILADY Metformin HCl (Metformin Hcl 1,000 Mg Tablet) 1,000 mg PO DAILY [facility] Last Admin: 08/31/22 08:10 Dose: 1,000 mg Documented By: SILVIO Metoprolol Tartrate (Metoprolol Tartrate 25 Mg Tablet) 25 mg PO BID [facility]; Protocol Last Admin: 08/31/22 13:38 Dose: 25 mg Documented By: SILVIO Metronidazole (Metronidazole 0.75 % Gel 45 Gm Tube) 1 appl TOPICAL BID [facility] Last Admin: 08/31/22 09:52 Dose: 1 appl Documented By: SILVIO Pat Own Med ( Alogliptin 25 Mg Tablet) 25 mg PO DAILY [facility] Last Admin: 08/31/22 09:56 Dose: 25 mg Ondansetron HCl (Ondansetron Hcl 4 Mg/2 Ml Vial) 4 mg IVPUSH Q8H PRN PRN Reason: Nausea and Vomiting Pharmacy Consult (Consult Rx Perform Med Rec) 1 each MISCELLANE ONCE PRN PRN Reason: Consult order Pyridoxine HCl (Pyridoxine Hcl (Vitamin B6) 50 Mg Tablet) 100 mg PO DAILY [facility] Last Admin: 08/31/22 08:09 Dose: 100 mg Documented By: SILVIO Sodium Chloride (0.9 % Sodium Chloride Flush 3 Ml Syringe) 3 ml IVFLUSH QSHIFT [facility] Last Admin: 08/31/22 15:21 Dose: 3 ml Documented By: SILVIO Tobramycin/Dexamethasone (Tobramycin/Dexamethasone Oph Oint 3.5 Gmtube) 0.5 inch EYE-RIGHT Q4H [facility] Last Admin: 08/31/22 13:20 Dose: Not Given Documented By: SILVIO Non-Admin Reason: Patient Refused Trolamine Salicylate (Trolamine Salicylate 10 % Cream 85 Gm Tube) 1 appl TOPICAL BID PRN PRN Reason: Muscle Pain Labs 08/30/22 09:15 08/31/22 09:49 Labs: Laboratory Results - last 24 hr 08/30/22 08/30/22 08/31/22 17:43 20:17 07:01 Anion Gap Estim Creat Clear Calc Estimated GFR POC Glucose 161 H 224 H 142 H Random Glucose Calcium Magnesium 08/31/22 08/31/22 09:49 11:03 Anion Gap 15 Estim Creat Clear Calc 38.4 Estimated GFR 45 POC Glucose 202 H Random Glucose 228 H Calcium 9.4 D Magnesium 1.9 Assessment and Plan (1) Atrial fibrillation with RVR: Status: Acute (2) Acute CHF: Status: Acute Plan 87/male with HTN, diabetes, history of iregular heart beat which is likely AFIB and not anticoagulated, no prior heart failure who presents with chest pain and found to have acute heart failure and now afib with RVR acute systolic CHF exacerbation No evidence of NSTEMI Continue IV diuretics Pending Echo monitor I/O, low salt diet Cardiology input appreciated, start Metoprolol and Jardiance AFIB rate better controlled with carizem drip and PO metopolol Continue eliquis Diabetes hold metformin while acutely ill, add ssi and diabetic diet HTN amlodipine BPH finesteride DVT prophylaxis Eliquis need for inpatient: management of acute heart failure, afib with rvr pending clinical improvement Time Spent With Patient Time: Total time managing care of this patient today ____ minutes. Quality Stroke Does the patient have a stroke diagnosis?: No VTE Prior VTE?: No VTE Risk Level:: Medical - moderate - high VTE Device Contraindication: Treatment Not Indicated VTE Drug Contraindication: N/A - Med Ordered
[2022-08-31 17:03] LABS: Glucose, Whole Blood 215 mg/dL (60-115)
[2022-08-31 19:14] VITALS: BP 116/62; PULSE 61; RESP 16; TEMP 36; O2SAT 97
[2022-08-31] MEDS: Artificial Tears 15 ML DROPS 1 DROP EYE-BOTH (19:59)
[2022-08-31] MEDS: Tobramycin/Dexamethasone Oph Oint 3.5 GMTUBE 0.5 INCH EYE-RIGHT (20:00)
[2022-08-31 20:11] LABS: Glucose, Whole Blood 157 mg/dL (60-115)
[2022-08-31 23:54] VITALS: BP 116/63; PULSE 62; RESP 20; TEMP 36.2; O2SAT 96
[2022-09-01 03:15] VITALS: BP 127/63; PULSE 66; RESP 20; TEMP 36.1; O2SAT 97
[2022-09-01] MEDS: Apixaban 5 MG TABLET PO ×2 (05:47→17:18)
[2022-09-01 06:51] LABS: Anion Gap 17 (12-20); Blood Urea Nitrogen 37 mg/dL (9-16); Calcium 9.4 mg/dL (8.4-10.2); Carbon Dioxide 24 mmol/L (22-29); Chloride 103 mmol/L (96-108); Estimated Glomerular Filt Rate 42; Glucose Random 119 mg/dL (60-115); Potassium 4.6 mmol/L (3.3-5.1); Sodium 139 mmol/L (135-145)
[2022-09-01 06:55] LABS: B Type Natriuretic Peptide 710 pg/mL (<100)
[2022-09-01 07:59] LABS: Glucose, Whole Blood 104 mg/dL (60-115)
[2022-09-01 08:00] VITALS: BP 142/68; PULSE 84; RESP 20; TEMP 36.5; O2SAT 97
[2022-09-01] MEDS: Metoprolol Tartrate 25 MG TABLET PO (09:01)
[2022-09-01] MEDS: Empagliflozin 10 MG TABLET PO (09:02)
[2022-09-01] MEDS: Aspirin 81 MG TAB.CHEW PO (09:02)
[2022-09-01] MEDS: Finasteride 5 MG TABLET PO (09:02)
[2022-09-01] MEDS: Pyridoxine HCl (Vitamin B6) 50 MG TABLET 100 MG PO (09:02)
[2022-09-01] MEDS: amLODIPine Besylate 5 MG TABLET PO (09:02)
[2022-09-01] MEDS: metroNIDAZOLE 0.75 % Gel 45 GM TUBE 1 APPL TOPICAL ×2 (09:03→20:48)
[2022-09-01] MEDS: Fluticasone Propionate Nasal 16 GM SPRAY 1 SPRAY NOSTRIL-B ×2 (09:03→20:47)
[2022-09-01] MEDS: Ketorolac Tromethamine 0.5% Op 5 ML DROPS 1 DROP EYE-BOTH ×4 (09:07→20:48)
[2022-09-01] MEDS: 0.9 % Sodium Chloride Flush 3 ML SYRINGE IVFLUSH ×3 (09:09→20:48)
[2022-09-01] MEDS: Furosemide 40 MG/4 ML VIAL IVPUSH (09:09)
--- NOTE | 2022-09-01 10:58 | PM.PNCARD ---
Subjective Subjective Date of Service: 09/01/22 Principal diagnosis: CHF, cardiomyopathy, paroxysmal atrial fibrillation. Interval history: Patient underwent echocardiogram which shows severe LV systolic dysfunction with LVEF of 25-30% with underlying regional wall motion abnormality. Patient converted overnight to sinus rhythm. He says he feels better when his heart rate is between 70 and 80 beats per minute. Does not feel well when his heart rate is slow or fast. He denies any chest pain. He says his breathing is improved. His creatinine however is elevated. Review of Systems Constitutional: Reports no additional constitutional complaints Cardiovascular: Denies chest pain, Denies leg edema, Denies palpitations and Reports dyspnea (Improved) Respiratory: Reports no additional respiratory complaints and Reports dyspnea (Improved) Gastrointestinal: Reports no additional gastrointestinal complaints Musculoskeletal: Reports no additional musculoskeletal complaints Endocrine: Denies palpitations Physical Exam Vital Signs: Last Vital Signs Temp 97.7 F 09/01/22 08:00 Pulse 84 09/01/22 08:00 Resp 20 09/01/22 08:00 BP 142/68 H 09/01/22 08:00 Pulse Ox 97 09/01/22 08:00 O2 Del Method Nasal Cannula 09/01/22 08:00 O2 Flow Rate 2 09/01/22 08:00 BMI result Body Mass Index 30.5 Const General: cooperative, comfortable, alert and awake Nutritional Appearance: overweight Orientation/consciousness: patient oriented x3 Neck Neck: Yes trachea midline, Yes supple and Yes no JVD Resp Effort & Inspection: normal respiratory effort Auscultation: clear to auscultation bilaterally Cardio Palpation: abnormal PMI Rate: regular rate Rhythm: regular rhythm Heart sounds: S1 normal heart sound present, S2 normal heart sound present, no click, no gallops and no murmurs GI Auscultation: normal bowel sounds Skin General skin exam: no rashes or lesions noted Neuro General: patient oriented x3 and no focal motor deficits Extrem General: Yes no clubbing, cyanosis or edema Objective Labs and Meds 08/30/22 09:15 09/01/22 06:25 Lab results: Laboratory Results - last 24 hr 08/31/22 08/31/22 08/31/22 11:03 16:55 20:07 Sodium Potassium Chloride Carbon Dioxide Anion Gap BUN Creatinine Estim Creat Clear Calc Estimated GFR POC Glucose 202 H 215 H 157 H Random Glucose Calcium B-Natriuretic Peptide 09/01/22 09/01/22 09/01/22 06:25 06:25 07:55 Sodium 139 Potassium 4.6 Chloride 103 Carbon Dioxide 24 Anion Gap 17 BUN 37 H Creatinine 1.59 H Estim Creat Clear Calc 36.0 Estimated GFR 42 POC Glucose 104 Random Glucose 119 H Calcium 9.4 B-Natriuretic Peptide 710 H Progress Note: A&P Assessment and plan (1) Acute CHF: Status: Acute Assessment and Plan: Patient admitted with acute congestive heart failure in the setting of atrial fibrillation rapid ventricular response with now severe LV systolic dysfunction with ischemic cardiomyopathy. Question component of tachycardia mediated cardiomyopathy or possibly underlying significant coronary artery disease given his age. Continue medical therapy. Clinically appears much improved with heart failure perspective. Creatinine is elevated. Hold off on diuretic regimen. Start on Coreg 3.125 mg b.i.d. for neurohormonal modulation. Also start Entresto 24-26 mg b.i.d.. Ambulate today. Follow-up renal function tomorrow. Overall prognosis is guarded. Continue Jardiance. Strict intake and output chart needs to be pursued. (2) Atrial fibrillation with RVR: Status: Acute Assessment and Plan: Atrial fibrillation rapid ventricular response on admission, improved clinically. Should pursue rhythm control approach. Continue full oral anticoagulation with Eliquis 5 mg b.i.d.. For now start Coreg. If he has recurrent atrial fibrillation may consider rhythm control with amiodarone therapy. Will follow with you Time Spent With Patient Time: Total time managing care of this patient today ____ minutes. Progress Note: Quality Stroke Does the patient have a stroke diagnosis?: No Procedures Date of Service Date of Service: 09/01/22
[2022-09-01] MEDS: carvediloL 6.25 MG TABLET PO (11:23)
[2022-09-01 11:44] VITALS: BP 117/67; PULSE 71; RESP 18; TEMP 36.6; O2SAT 93
[2022-09-01 11:52] LABS: Glucose, Whole Blood 152 mg/dL (60-115)
[2022-09-01] MEDS: Insulin Lispro 100 UNIT/ML 3 ML VIAL SUBCUT ×3 (12:20→20:47)
--- NOTE | 2022-09-01 14:35 | MHC.CM.PN ---
EMR REVIEWED, PT W/CHEST PAIN/CHF, PER HOSPITALIST CARDIOLOGY WILL HOLD PT ANOTHER NIGHT, PT'S TANJA CONTACTED AT 2:31PM AND IS AWARE OF PLAN, CM WILL CONT TO FOLLOW D/C NEEDS.
--- NOTE | 2022-09-01 14:57 | HO.PM.IMPN ---
Subjective Subjective Date of Service: 09/01/22 Interval History: Seen and evaluated today Feels improvement as heart rate better controlled Denies any chest pain, fever or difficulties breathing Review of Systems Review of Systems: Yes all other systems are reviewed and are negative Physical Exam Vital Signs: Vital Signs: Last Vital Signs Temp 97.8 F 09/01/22 11:44 Pulse 71 09/01/22 11:44 Resp 18 09/01/22 11:44 BP 117/67 09/01/22 11:44 Pulse Ox 93 09/01/22 11:44 O2 Del Method Room Air 09/01/22 11:44 O2 Flow Rate 2 09/01/22 08:00 BMI result Body Mass Index 30.5 Const: Other: Constitutional : Awake, interactive, not in distress Neck : Normal inspection, Supple Cardiovascular : regular regular, no JVP, trace lower extremity edema Respiratory : good bilateral air entry, no crackles, wheezes or rhonchi Gastrointestinal: soft, lax, Normal bowel sounds, Non tender Skin : Warm, Dry Neurological : Alert & oriented x3, No focal deficit Objective Data Active Medications Acetaminophen (Acetaminophen 325 Mg Tablet) 650 mg PO Q6H PRN PRN Reason: Pain, Mild (Pain Scale 1-3) Last Admin: 08/31/22 19:59 Dose: 650 mg Documented By: RADHA Amlodipine Besylate (Amlodipine Besylate 5 Mg Tablet) 5 mg PO DAILY [facility]; Protocol Last Admin: 09/01/22 09:02 Dose: 5 mg Documented By: SILVIO Apixaban (Apixaban 5 Mg Tablet) 5 mg PO Q12H [facility] Last Admin: 09/01/22 05:47 Dose: 5 mg Documented By: LEOPOLDO Artificial Tears (Artificial Tears 15 Ml Drops) 1 drop EYE-BOTH QID PRN PRN Reason: Dry Eyes Last Admin: 08/31/22 19:59 Dose: 1 drop Documented By: RADHA Aspirin (Aspirin 81 Mg Tab.Chew) 81 mg PO DAILY [facility] Last Admin: 09/01/22 09:02 Dose: 81 mg Documented By: SILVIO Carvedilol (Carvedilol 6.25 Mg Tablet) 6.25 mg PO BID [facility]; Protocol Last Admin: 09/01/22 11:23 Dose: 6.25 mg Documented By: SLIVIO Clotrimazole (Clotrimazole 1 % Cream 15 Gm Tube) 1 appl TOPICAL DAILY PRN; Protocol PRN Reason: Skin Irritation Dextrose (Dextrose 50 % 25 Gm/50 Ml Syringe) 25 gm IVPUSH Q15M PRN; Protocol PRN Reason: per Hypoglycemia Standing Ord. Empagliflozin (Empagliflozin 10 Mg Tablet) 10 mg PO DAILY [facility] Last Admin: 09/01/22 09:02 Dose: 10 mg Documented By: SILVIO Finasteride (Finasteride 5 Mg Tablet) 5 mg PO DAILY [facility] Last Admin: 09/01/22 09:02 Dose: 5 mg Documented By: SILVIO Fluticasone Propionate (Fluticasone Propionate Nasal 16 Gm [place]) 1 spray NOSTRIL-B BID [facility] Last Admin: 09/01/22 09:03 Dose: 1 spray Documented By: SILVIO Glucose (Glucose Gel 15 Gm Gel..Gram.) 15 gm PO Q15M PRN; Protocol PRN Reason: per Hypoglycemia Standing Ord. Insulin Human Lispro (Insulin Lispro 100 Unit/Ml 3 Ml Vial) 0 unit SUBCUT QIDACHS [facility]; Protocol Last Admin: 09/01/22 12:20 Dose: 2 unit Documented By: SILVIO Ketorolac Tromethamine (Ketorolac Tromethamine 0.5% Op 5 Ml Drops) 1 drop EYE-BOTH QID [facility] Last Admin: 09/01/22 12:21 Dose: 1 drop Documented By: SILVIO Ketotifen Fumarate (Ketotifen Fumarate 0.025% Oph 5 Ml Drpbtl) 1 drop EYE-BOTH BID PRN PRN Reason: Allergy Symptoms Last Admin: 08/31/22 20:01 Dose: 1 drop Documented By: RADHA Loratadine (Loratadine 10 Mg Tablet) 10 mg PO DAILY PRN PRN Reason: Allergy Symptoms Magnesium Hydroxide (Milk Of Magnesia 30 Ml Oral.Susp) 30 ml PO DAILY PRN PRN Reason: Constipation Melatonin (Melatonin 3 Mg Tablet) 6 mg PO BEDTIME PRN PRN Reason: Insomnia Last Admin: 08/30/22 22:40 Dose: 6 mg Documented By: MILADY Metronidazole (Metronidazole 0.75 % Gel 45 Gm Tube) 1 appl TOPICAL BID [facility] Last Admin: 09/01/22 09:03 Dose: 1 appl Documented By: SILVIO Pat Own Med ( Alogliptin 25 Mg Tablet) 25 mg PO DAILY [facility] Last Admin: 09/01/22 09:02 Dose: 25 mg Documented By: SILVIO Ondansetron HCl (Ondansetron Hcl 4 Mg/2 Ml Vial) 4 mg IVPUSH Q8H PRN PRN Reason: Nausea and Vomiting Pharmacy Consult (Consult Rx Perform Med Rec) 1 each MISCELLANE ONCE PRN PRN Reason: Consult order Pyridoxine HCl (Pyridoxine Hcl (Vitamin B6) 50 Mg Tablet) 100 mg PO DAILY [facility] Last Admin: 09/01/22 09:02 Dose: 100 mg Documented By: SILVIO Sodium Chloride (0.9 % Sodium Chloride Flush 3 Ml Syringe) 3 ml IVFLUSH QSHIFT [facility] Last Admin: 09/01/22 09:09 Dose: 3 ml Documented By: SILVIO Tobramycin/Dexamethasone (Tobramycin/Dexamethasone Oph Oint 3.5 Gmtube) 0.5 inch EYE-RIGHT Q4H [facility] Last Admin: 09/01/22 13:31 Dose: Not Given Documented By: SILVIO Non-Admin Reason: Patient Refused Trolamine Salicylate (Trolamine Salicylate 10 % Cream 85 Gm Tube) 1 appl TOPICAL BID PRN PRN Reason: Muscle Pain Labs 08/30/22 09:15 09/01/22 06:25 Labs: Laboratory Results - last 24 hr 08/31/22 08/31/22 09/01/22 16:55 20:07 06:25 Anion Gap 17 Estim Creat Clear Calc 36.0 Estimated GFR 42 POC Glucose 215 H 157 H Random Glucose 119 H Calcium 9.4 B-Natriuretic Peptide 09/01/22 09/01/22 09/01/22 06:25 07:55 11:43 Anion Gap Estim Creat Clear Calc Estimated GFR POC Glucose 104 152 H Random Glucose Calcium B-Natriuretic Peptide 710 H Assessment and Plan (1) Atrial fibrillation with RVR: Status: Acute (2) Acute CHF: Status: Acute Plan 87/male with HTN, diabetes, history of iregular heart beat which is likely AFIB and not anticoagulated, no prior heart failure who presents with chest pain and found to have acute heart failure and now afib with RVR acute systolic CHF exacerbation Continue IV diuretics Echo showing EF 25-30% w regional wall motion abnormality monitor I/O, low salt diet Cardiology input appreciated, start Carvedilol, Entresto and Jardiance AFIB w RvR Converted back to sinus DC PO metopolol, start Carvedilol Continue eliquis , DC ASA Diabetes hold metformin while acutely ill, add ssi and diabetic diet HTN Hold amlodipine BPH finesteride DVT prophylaxis Eliquis need for inpatient: management of acute heart failure, pending clinical improvement Time Spent With Patient Time: Total time managing care of this patient today ____ minutes. Quality Stroke Does the patient have a stroke diagnosis?: No VTE Prior VTE?: No VTE Risk Level:: Medical - moderate - high VTE Device Contraindication: Treatment Not Indicated VTE Drug Contraindication: N/A - Med Ordered
[2022-09-01 15:18] VITALS: BP 107/59; PULSE 67; RESP 18; TEMP 36; O2SAT 94
[2022-09-01 16:16] LABS: Glucose, Whole Blood 170 mg/dL (60-115)
[2022-09-01 19:26] VITALS: BP 118/64; PULSE 67; RESP 17; TEMP 36.6; O2SAT 95
[2022-09-01 20:03] LABS: Glucose, Whole Blood 155 mg/dL (60-115)
[2022-09-01] MEDS: carvediloL 3.125 MG TABLET PO (20:44)
[2022-09-01] MEDS: Melatonin 3 MG TABLET 6 MG PO (20:45)
[2022-09-01] MEDS: Ketotifen Fumarate 0.025% Oph 5 ML DRPBTL 1 DROP EYE-BOTH (20:49)
[2022-09-02] VITALS: BP 125/66; PULSE 90; RESP 20; TEMP 36.1; O2SAT 96
--- NOTE | 2022-09-02 02:30 | MHC.PIE ---
P.AFIB I.PT NOTED TO BE BACK IN AFIB,HR 90-100,BP 126/68.SAT 94% ON ROOM AIR.ASYMPTOMATIC.DR KLINE UPDATED.NO NEW ORDERS AT THIS TIME. E.CONT TO MONITOR.
[2022-09-02 03:11] VITALS: BP 126/68; PULSE 76; RESP 20; TEMP 36.3; O2SAT 97
[2022-09-02 05:43] VITALS: BMI 30.4
[2022-09-02] MEDS: Apixaban 5 MG TABLET PO ×2 (06:14→17:11)
[2022-09-02 06:37] LABS: Hematocrit 42.6 % (42.0-52.0); Hemoglobin 13.3 g/dl (14.0-18.0); Mean Corpuscular HGB Conc 31.2 g/dl (31.0-36.0); Mean Corpuscular Volume 86.4 fL (80.0-98.0); Mean Platelet Volume 9.4 fL (9.4-12.4); Platelet Count 261 X10*3/uL (160-400); Red Blood Count 4.93 X10*6/uL (4.60-5.80); Red Cell Distribution Width 14.3 % (11.0-16.0); White Blood Count 10.4 X10*3/uL (4.8-10.8)
[2022-09-02 06:52] LABS: Anion Gap 20 (12-20); Blood Urea Nitrogen 37 mg/dL (9-16); Calcium 9.2 mg/dL (8.4-10.2); Carbon Dioxide 22 mmol/L (22-29); Chloride 101 mmol/L (96-108); Creatinine Clr Calc Pharmacy 44.3; Estimated Glomerular Filt Rate 53; Glucose Random 120 mg/dL (60-115); Potassium 3.8 mmol/L (3.3-5.1); Sodium 139 mmol/L (135-145)
[2022-09-02 07:36] VITALS: BP 115/62; PULSE 71; RESP 20; TEMP 36.4; O2SAT 94
--- NOTE | 2022-09-02 07:37 | P.CDIM_ITS ---
PROVIDER RESPONSE TEXT: To clarify, the appropriate diagnosis supported by the clinical indicators: Persistent atrial fibrillation: episodes of continuous AF that last more than 7 days and do not self- terminate QUERY TEXT: PHYSICIAN'S DOCUMENTATION REQUEST Date of Query: 09/01/2022 08:15 AM EDT Patient Name: Casper Herrera Admit Date: 08/30/2022 Dear Prieto Santiago, A review of the medical record indicates additional documentation may be needed. Please review below and update the documentation accordingly. Clinical Indicators: Cardiology note: Initially had sinus rhythm on monitor and subsequently converted to atrial fibrillat ion. Remains in atrial fibrillation this morning with slightly rapid ventricular response. Decompensate CHF most likely in associated with atrial fibrillation. If possible, please provide further specificity regarding atrial fibrillation, such as: Paroxysmal atrial fibrillation: terminates spontaneously or with intervention within 7 days of onset Persistent atrial fibrillation: episodes of continuous AF that last more than 7 days and do not self- terminate Long lasting persistent atrial fibrillation: episodes of continuous AF that last more than 12 months Chronic or Permanent atrial fibrillation: when a decision has been made to accept the presence of AF and there is no further attempt to restore or maintain sinus rhythm Other (explain)Clinically unable to determine (explain)Thank you, Debbie West, CCS, CDIS Use of terms such as suspected, likely, concern for, or probable (associated with a specific diagnosi s that is being evaluated, monitored, or treated as if it exists) are acceptable and can be coded in the inpatient se tting, when documented at the time of discharge. Please use your independent medical judgment in providing your response. THIS QUERY IS PART OF THE PERMANENT MEDICAL RECORD
[2022-09-02 07:55] LABS: Glucose, Whole Blood 123 mg/dL (60-115)
[2022-09-02] MEDS: Pyridoxine HCl (Vitamin B6) 50 MG TABLET 100 MG PO (09:09)
[2022-09-02] MEDS: Sacubitril/Valsartan 24/26 1 TAB TABLET PO (09:09)
[2022-09-02] MEDS: Empagliflozin 10 MG TABLET PO (09:10)
[2022-09-02] MEDS: carvediloL 3.125 MG TABLET PO (09:11)
[2022-09-02] MEDS: 0.9 % Sodium Chloride Flush 3 ML SYRINGE IVFLUSH ×3 (09:11→21:40)
[2022-09-02] MEDS: Finasteride 5 MG TABLET PO (09:12)
[2022-09-02] MEDS: Fluticasone Propionate Nasal 16 GM SPRAY 1 SPRAY NOSTRIL-B ×2 (09:16→21:33)
[2022-09-02] MEDS: Ketorolac Tromethamine 0.5% Op 5 ML DROPS 1 DROP EYE-BOTH ×4 (09:16→21:36)
[2022-09-02] MEDS: metroNIDAZOLE 0.75 % Gel 45 GM TUBE 1 APPL TOPICAL ×2 (09:18→21:36)
[2022-09-02] MEDS: Ketotifen Fumarate 0.025% Oph 5 ML DRPBTL 1 DROP EYE-BOTH (09:23)
--- NOTE | 2022-09-02 10:50 | P.PNCA_ITS ---
Subjective Subjective Date of Service: 09/02/22 Principal diagnosis: CHF, cardiomyopathy, paroxysmal atrial fibrillation. Interval history: Patient did not tolerate Entresto yesterday due to low blood pressure. Also with Coreg, he blames Coreg for not making feel well. He developed atrial fibrillation overnight and was not feeling poorly with heart rate in the 140s. This morning his heart rate is down to in the 70s and he is feeling better. He still does not seem to understand that atrial fibrillation is making him feel poorly. He said he has had irregular heartbeat for greater than 80 years and I again agree to rated to him that he did not have atrial fibrillation for 82 years. He said yesterday was feeling well and was able to walk the hallways wi thout much shortness of breath presented today he feels weaker. Review of Systems Constitutional: Reports weakness Eyes: Reports no additional eye complaints Cardiovascular: Denies chest pain, Reports lightheadedness, Reports palpitations and Reports dyspnea on exertion Respiratory: Reports no additional respiratory complaints and Reports dyspnea on exertion Genitourinary: Reports no additional male genitourinary complaints Musculoskeletal: Reports no additional musculoskeletal complaints Skin/Breast: Reports system reviewed and no additional complaints, except as docu Reports system reviewed and no additional complaints, except as documented and Reports weakness Psychiatric: Reports no additional psychiatric complaints Endocrine: Reports no additional endocrine complaints and Reports palpitations Physical Exam Vital Signs: Last Vital Signs Temp 97.5 F 09/02/22 07:36 Pulse 71 09/02/22 07:36 Resp 20 09/02/22 07:36 BP 115/62 09/02/22 07:36 Pulse Ox 94 09/02/22 07:36 O2 Del Method Room Air 09/02/22 07:36 O2 Flow Rate 2 09/01/22 15:18 BMI result Body Mass Index 30.4 Const General: cooperative, comfortable, alert and awake Nutritional Appearance: overweight Orientation/consciousness: patient oriented x3 Neck Neck: Yes trachea midline, Yes supple and Yes no JVD Resp Effort & Inspection: normal respiratory effort Auscultation: clear to auscultation bilaterally Cardio Palpation: abnormal PMI Rate: regular rate Rhythm: regular rhythm Heart sounds: S1 normal heart sound present, S2 normal heart sound present, no click, no gallops and no murmurs GI Auscultation: normal bowel sounds Skin General skin exam: no rashes or lesions noted Neuro General: patient oriented x3 and no focal motor deficits Extrem General: Yes no clubbing, cyanosis or edema Objective Labs and Meds 09/02/22 06:04 09/02/22 06:04 Lab results: Laboratory Results - last 24 hr 09/01/22 09/01/22 09/01/22 11:43 16:12 19:59 WBC RBC Hgb Hct MCV MCH MCHC RDW Plt Count MPV Absolute Nucleated RBC Nucleated RBC % (auto) Sodium Potassium Chloride Carbon Dioxide Anion Gap BUN Creatinine Estim Creat Clear Calc Estimated GFR POC Glucose 152 H 170 H 155 H Random Glucose Calcium 09/02/22 09/02/22 09/02/22 06:04 06:04 07:43 WBC 10.4 RBC 4.93 Hgb 13.3 L Hct 42.6 MCV 86.4 MCH 27.0 MCHC 31.2 RDW 14.3 Plt Count 261 MPV 9.4 Absolute Nucleated RBC 0.000 Nucleated RBC % (auto) 0.0 Sodium 139 Potassium 3.8 Chloride 101 Carbon Dioxide 22 Anion Gap 20 BUN 37 H Creatinine 1.29 Estim Creat Clear Calc 44.3 Estimated GFR 53 POC Glucose 123 H Random Glucose 120 H Calcium 9.2 Progress Note: A&P Assessment and plan (1) Atrial fibrillation with RVR: Status: Acute Assessment and Plan: Recurrent atrial fibrillation rapid ventricular response with patient not feeling well. Explained to him that he has significant heart issues and with severe ischemic cardiomyopathy and possibly underlying significant coronary disease he is not going to be able to tolerate atrial fibrillation. He is not tolerating medication including metoprolol and carvedilol and feels poorly when his heart rate is slow or when his heart rate is high. Will start on amiodarone 200 mg b.i.d. for rhythm control approach as I think this will help to maintain rhythm and prevent him from having recurrent heart failure admissions and improve his symptomatology. Loading for 1 month and followed by 200 mg daily. Continue full oral anticoagulation with Eliquis 5 mg b.i.d.. Renal function is improved. (2) Systolic heart failure: Status: Acute Assessment and Plan: Patient admitted with systolic heart failure in setting of atrial fibrillation rapid ventricular response with severe LV systolic dysfunction with high likelihood of underlying obstructive coronary artery disease. This was discussed with him. He had hard time comprehending. He has not tolerated neurohormonal modulation including Entresto and beta-candis therapy. This is going be difficult scenario. Will monitor blood pressure closely and hold all is neurohormonal modulation for today. Also developed Clay IV diuresis. Hold off on Lasix and will probably start him on low-dose Lasix starting tomorrow at 20 mg daily. Heart failure management discussed. I think he requires ischemic workup if he is agreeable given his advanced age. Will follow up with you Time Spent With Patient Time: Total time managing care of this patient today ____ minutes. Progress Note: Quality Stroke Does the patient have a stroke diagnosis?: No Procedures Date of Service Date of Service: 09/02/22
[2022-09-02 11:00] VITALS: BP 107/59; PULSE 75; RESP 20; TEMP 36.8; O2SAT 95
[2022-09-02] MEDS: Amiodarone HCL 200 MG TABLET PO ×2 (11:02→21:32)
[2022-09-02 11:49] LABS: Glucose, Whole Blood 237 mg/dL (60-115)
[2022-09-02] MEDS: Insulin Lispro 100 UNIT/ML 3 ML VIAL SUBCUT ×3 (12:07→21:34)
[2022-09-02 15:18] VITALS: BP 111/58; PULSE 66; RESP 18; TEMP 35.9; O2SAT 96
--- NOTE | 2022-09-02 16:15 | HO.PM.IMPN ---
Subjective Subjective Date of Service: 09/02/22 Interval History: Seen and evaluated today went into Afib rvr overnight but back to sinus rhythm concerned about the fluctuation in heart rate and rhythm Denies any chest pain, fever or difficulties breathing Review of Systems Review of Systems: Yes all other systems are reviewed and are negative Physical Exam Vital Signs: Vital Signs: Last Vital Signs Temp 96.6 F L 09/02/22 15:18 Pulse 66 09/02/22 15:18 Resp 18 09/02/22 15:18 BP 111/58 L 09/02/22 15:18 Pulse Ox 96 09/02/22 15:18 O2 Del Method Room Air 09/02/22 15:18 O2 Flow Rate 2 09/01/22 15:18 BMI result Body Mass Index 30.4 Const: Other: Constitutional : Awake, interactive, not in distress Neck : Normal inspection, Supple Cardiovascular : regular regular, no JVP, trace lower extremity edema Respiratory : good bilateral air entry, no crackles, wheezes or rhonchi Gastrointestinal: soft, lax, Normal bowel sounds, Non tender Skin : Warm, Dry Neurological : Alert & oriented x3, No focal deficit Objective Data Active Medications Acetaminophen (Acetaminophen 325 Mg Tablet) 650 mg PO Q6H PRN PRN Reason: Pain, Mild (Pain Scale 1-3) Last Admin: 08/31/22 19:59 Dose: 650 mg Documented By: RADHA Amiodarone HCl (Amiodarone Hcl 200 Mg Tablet) 200 mg PO BID [facility] Last Admin: 09/02/22 11:02 Dose: 200 mg Documented By: MAYELA Apixaban (Apixaban 5 Mg Tablet) 5 mg PO Q12H [facility] Last Admin: 09/02/22 06:14 Dose: 5 mg Documented By: MILLER Artificial Tears (Artificial Tears 15 Ml Drops) 1 drop EYE-BOTH QID PRN PRN Reason: Dry Eyes Last Admin: 08/31/22 19:59 Dose: 1 drop Documented By: RADHA Carvedilol (Carvedilol 3.125 Mg Tablet) 3.125 mg PO BID [facility]; Protocol Last Admin: 09/02/22 09:11 Dose: 3.125 mg Documented By: MAYELA Clotrimazole (Clotrimazole 1 % Cream 15 Gm Tube) 1 appl TOPICAL DAILY PRN; Protocol PRN Reason: Skin Irritation Dextrose (Dextrose 50 % 25 Gm/50 Ml Syringe) 25 gm IVPUSH Q15M PRN; Protocol PRN Reason: per Hypoglycemia Standing Ord. Empagliflozin (Empagliflozin 10 Mg Tablet) 10 mg PO DAILY [facility] Last Admin: 09/02/22 09:10 Dose: 10 mg Documented By: MAYELA Finasteride (Finasteride 5 Mg Tablet) 5 mg PO DAILY [facility] Last Admin: 09/02/22 09:12 Dose: 5 mg Documented By: MAYELA Fluticasone Propionate (Fluticasone Propionate Nasal 16 Gm [place]) 1 spray NOSTRIL-B BID [facility] Last Admin: 09/02/22 09:16 Dose: 1 spray Documented By: MAYELA Glucose (Glucose Gel 15 Gm Gel..Gram.) 15 gm PO Q15M PRN; Protocol PRN Reason: per Hypoglycemia Standing Ord. Insulin Human Lispro (Insulin Lispro 100 Unit/Ml 3 Ml Vial) 0 unit SUBCUT QIDACHS [facility]; Protocol Last Admin: 09/02/22 12:07 Dose: 4 unit Documented By: MAYELA Ketorolac Tromethamine (Ketorolac Tromethamine 0.5% Op 5 Ml Drops) 1 drop EYE-BOTH QID [facility] Last Admin: 09/02/22 12:08 Dose: 1 drop Documented By: MAYELA Ketotifen Fumarate (Ketotifen Fumarate 0.025% Oph 5 Ml Drpbtl) 1 drop EYE-BOTH BID PRN PRN Reason: Allergy Symptoms Last Admin: 09/02/22 09:23 Dose: 1 drop Documented By: MAYELA Loratadine (Loratadine 10 Mg Tablet) 10 mg PO DAILY PRN PRN Reason: Allergy Symptoms Magnesium Hydroxide (Milk Of Magnesia 30 Ml Oral.Susp) 30 ml PO DAILY PRN PRN Reason: Constipation Melatonin (Melatonin 3 Mg Tablet) 6 mg PO BEDTIME PRN PRN Reason: Insomnia Last Admin: 09/01/22 20:45 Dose: 6 mg Documented By: MISTY-CHARITY Metronidazole (Metronidazole 0.75 % Gel 45 Gm Tube) 1 appl TOPICAL BID [facility] Last Admin: 09/02/22 09:18 Dose: 1 appl Documented By: MAYELA Pat Own Med ( Alogliptin 25 Mg Tablet) 25 mg PO DAILY [facility] Last Admin: 09/02/22 09:13 Dose: 25 mg Documented By: MAYELA Ondansetron HCl (Ondansetron Hcl 4 Mg/2 Ml Vial) 4 mg IVPUSH Q8H PRN PRN Reason: Nausea and Vomiting Pharmacy Consult (Consult Rx Perform Med Rec) 1 each MISCELLANE ONCE PRN PRN Reason: Consult order Pyridoxine HCl (Pyridoxine Hcl (Vitamin B6) 50 Mg Tablet) 100 mg PO DAILY [facility] Last Admin: 09/02/22 09:09 Dose: 100 mg Documented By: MAYELA Sodium Chloride (0.9 % Sodium Chloride Flush 3 Ml Syringe) 3 ml IVFLUSH QSHIFT [facility] Last Admin: 09/02/22 09:11 Dose: 3 ml Documented By: MAYELA Tobramycin/Dexamethasone (Tobramycin/Dexamethasone Oph Oint 3.5 Gmtube) 0.5 inch EYE-RIGHT Q4H [facility] Last Admin: 09/02/22 15:43 Dose: Not Given Documented By: MAYELA Non-Admin Reason: Patient Refused Trolamine Salicylate (Trolamine Salicylate 10 % Cream 85 Gm Tube) 1 appl TOPICAL BID PRN PRN Reason: Muscle Pain Labs 09/02/22 06:04 09/02/22 06:04 Labs: Laboratory Results - last 24 hr 09/01/22 09/01/22 09/02/22 16:12 19:59 06:04 MCV 86.4 MCH 27.0 MCHC 31.2 RDW 14.3 Plt Count 261 MPV 9.4 Absolute Nucleated RBC 0.000 Nucleated RBC % (auto) 0.0 Anion Gap Estim Creat Clear Calc Estimated GFR POC Glucose 170 H 155 H Random Glucose Calcium 09/02/22 09/02/22 09/02/22 06:04 07:43 11:05 MCV MCH MCHC RDW Plt Count MPV Absolute Nucleated RBC Nucleated RBC % (auto) Anion Gap 20 Estim Creat Clear Calc 44.3 Estimated GFR 53 POC Glucose 123 H 237 H Random Glucose 120 H Calcium 9.2 Assessment and Plan (1) Systolic heart failure: Status: Acute (2) Atrial fibrillation with RVR: Status: Acute (3) Acute CHF: Status: Acute Plan 87/male with HTN, diabetes, history of iregular heart beat which is likely AFIB and not anticoagulated, no prior heart failure who presents with chest pain and found to have acute heart failure and now afib with RVR acute systolic CHF exacerbation Echo showing EF 25-30% w regional wall motion abnormality DC IV diuretics Start PO Lasix monitor I/O, low salt diet Cardiology input appreciated, start Jardiance AFIB w RvR Converted back to sinus , went to RvR and converted back again DC PO metopolol, Carvedilol Start Amiodarone loading dose of 200 bid for 1 month Continue eliquis , DC ASA Diabetes hold metformin while acutely ill, add ssi and diabetic diet HTN Hold amlodipine BPH finesteride DVT prophylaxis Eliquis need for inpatient: management of acute heart failure,afib w rvr pending clinical improvement Time Spent With Patient Time: Total time managing care of this patient today ____ minutes. Quality Stroke Does the patient have a stroke diagnosis?: No VTE Prior VTE?: No VTE Risk Level:: Medical - moderate - high VTE Device Contraindication: Treatment Not Indicated VTE Drug Contraindication: N/A - Med Ordered
[2022-09-02 16:19] LABS: Glucose, Whole Blood 188 mg/dL (60-115)
[2022-09-02 19:28] VITALS: BP 117/56; PULSE 75; RESP 18; TEMP 36.8; O2SAT 98
[2022-09-02 20:04] LABS: Glucose, Whole Blood 188 mg/dL (60-115)
[2022-09-03] VITALS: BP 120/56; PULSE 77; RESP 18; TEMP 36.9; O2SAT 96
[2022-09-03 03:07] VITALS: BP 118/63; PULSE 74; RESP 18; TEMP 37.1; O2SAT 96
[2022-09-03] MEDS: Apixaban 5 MG TABLET PO (05:35)
[2022-09-03 06:00] VITALS: BMI 26.9
[2022-09-03 06:41] LABS: Anion Gap 18 (12-20); Blood Urea Nitrogen 32 mg/dL (9-16); Calcium 8.9 mg/dL (8.4-10.2); Carbon Dioxide 22 mmol/L (22-29); Chloride 103 mmol/L (96-108); Creatinine Clr Calc Pharmacy 49.7; Estimated Glomerular Filt Rate > 60; Glucose Random 128 mg/dL (60-115); Potassium 3.5 mmol/L (3.3-5.1); Sodium 139 mmol/L (135-145)
[2022-09-03 06:48] LABS: B Type Natriuretic Peptide 619 pg/mL (<100)
[2022-09-03 07:08] VITALS: BP 125/63; PULSE 79; RESP 20; TEMP 36.4; O2SAT 97
[2022-09-03 07:44] LABS: Glucose, Whole Blood 132 mg/dL (60-115)
[2022-09-03] MEDS: Amiodarone HCL 200 MG TABLET PO (09:04)
[2022-09-03] MEDS: Furosemide 20 MG TABLET PO (09:04)
[2022-09-03] MEDS: Pyridoxine HCl (Vitamin B6) 50 MG TABLET 100 MG PO (09:04)
[2022-09-03] MEDS: Empagliflozin 10 MG TABLET PO (09:04)
[2022-09-03] MEDS: metroNIDAZOLE 0.75 % Gel 45 GM TUBE 1 APPL TOPICAL (09:05)
[2022-09-03] MEDS: Finasteride 5 MG TABLET PO (09:05)
[2022-09-03] MEDS: Ketotifen Fumarate 0.025% Oph 5 ML DRPBTL 1 DROP EYE-BOTH (09:05)
[2022-09-03] MEDS: 0.9 % Sodium Chloride Flush 3 ML SYRINGE IVFLUSH (09:05)
[2022-09-03] MEDS: Fluticasone Propionate Nasal 16 GM SPRAY 1 SPRAY NOSTRIL-B (09:05)
[2022-09-03] MEDS: Ketorolac Tromethamine 0.5% Op 5 ML DROPS 1 DROP EYE-BOTH (09:05)
--- NOTE | 2022-09-03 10:08 | P.PNCA_ITS ---
Subjective Subjective Date of Service: 09/03/22 Principal diagnosis: CHF, cardiomyopathy, paroxysmal atrial fibrillation. Interval history: Feeling a lot better. No overnight recurrent heart failure or atrial fibrillation. Denies any chest pain. Review of Systems Constitutional: Reports no additional constitutional complaints Physical Exam Vital Signs: Last Vital Signs Temp 97.5 F 09/03/22 07:08 Pulse 79 09/03/22 07:08 Resp 20 09/03/22 07:08 BP 125/63 09/03/22 07:08 Pulse Ox 97 09/03/22 07:08 O2 Del Method Room Air 09/03/22 07:08 O2 Flow Rate 1 09/03/22 03:07 BMI result Body Mass Index 26.9 Const General: cooperative, comfortable, alert and awake Nutritional Appearance: overweight Orientation/consciousness: patient oriented x3 Neck Neck: Yes trachea midline, Yes supple and Yes no JVD Resp Effort & Inspection: normal respiratory effort Auscultation: clear to auscultation bilaterally Cardio Palpation: abnormal PMI Rate: regular rate Rhythm: regular rhythm Heart sounds: S1 normal heart sound present, S2 normal heart sound present, no click, no gallops and no murmurs GI Auscultation: normal bowel sounds Skin General skin exam: no rashes or lesions noted Neuro General: patient oriented x3 and no focal motor deficits Extrem General: Yes no clubbing, cyanosis or edema Objective Labs and Meds 09/02/22 06:04 09/03/22 05:58 Lab results: Laboratory Results - last 24 hr 09/02/22 09/02/22 09/02/22 11:05 16:16 19:56 Sodium Potassium Chloride Carbon Dioxide Anion Gap BUN Creatinine Estim Creat Clear Calc Estimated GFR POC Glucose 237 H 188 H 188 H Random Glucose Calcium B-Natriuretic Peptide 09/03/22 09/03/22 09/03/22 05:58 05:58 07:35 Sodium 139 Potassium 3.5 Chloride 103 Carbon Dioxide 22 Anion Gap 18 BUN 32 H Creatinine 1.15 Estim Creat Clear Calc 49.7 Estimated GFR > 60 POC Glucose 132 H Random Glucose 128 H Calcium 8.9 B-Natriuretic Peptide 619 H Progress Note: A&P Assessment and plan (1) Systolic heart failure: Status: Acute Assessment and Plan: Systolic heart failure with moderate to severe LV systolic dysfunction with high likelihood of underlying coronary artery disease given regional wall motion abnormality causing his heart failure syndrome in addition to atrial fibrilla tion rapid ventricular response. Has not been able to tolerate other neurohormonal modulation such as Entresto, metoprolol Coreg. Hold off on beta- candis therapy at this point time given that he is on amiodarone therapy. Start on Diovan 20 mg b.i.d. on discharge. Also continue Jardiance and low-dose Lasix. Heart failure management was discussed with him. Will set up for outpatient follow-up after stress testing and Holter monitor. (2) Atrial fibrillation with RVR: Status: Acute Assessment and Plan: Admission with atrial fibrillation rapid ventricular response with decompensated heart failure. Atrial fibrillation responsible for further worsening of his heart failure syndrome. Was not feeling well when he was in atrial fibrillation while being monitored. Continue amiodarone loading to 100 mg b.i.d. for 1 month. Continue full oral anticoagulation with Eliquis. Will set up for follow-up after outpatient Holter monitor. Time Spent With Patient Time: Total time managing care of this patient today ____ minutes. Progress Note: Quality Stroke Does the patient have a stroke diagnosis?: No Procedures Date of Service Date of Service: 09/03/22
--- NOTE | 2022-09-03 10:30 | P.DS_ITS ---
DS: Providers Provider Date of Service: 09/03/22 Date of admission: 08/30/22 12:36 Primary care physician: Unknown Physician Consults: 08/30/22 11:38 Consult to Cardiology Stat Consulting Provider: [facility] [place] Cardi[facility] Services Reason for consultation: CHF, elevated troponin Has provider been notified: Yes 08/30/22 12:31 Consult to Cardiology Routine Consulting Provider: [facility] [place] [facility] Reason for consultation: chest pain, new chf Has provider been notified: Yes DS: Diagnosis Discharge Diagnosis (1) Systolic heart failure: Status: Acute (2) Atrial fibrillation with RVR: Status: Acute DS: Summary Hospital Course Hospital Course: Admission note HPI 87 year old male with diabetes, HTN, BPH no prior history of heart failure, history of iregular heart beat --he is not on blood thiners. He is presenting with chest pain and shortness of breath for several weeks and more pronounced the last 2 to 3 days, he has some leg edema. ED work up:? troponin 130, BNP 721, CXR finding suspicious for heart failure. Initially in sinus rythm with heart rate of 90s he has now flipped into AFIB with RVR with heart rate up to 140s. ED treatment: IV Lasix x 40 mg. Hospital course # Acute systolic CHF exacerbation Treated with IV lasix with good response over the course of hospital stay as he was weaned off O2 supplement and became able to ambulate on RA. Trop were elevated but no delta change or EKG changes to suggest ACS. Echo showing EF 25- 30% w regional wall motion abnormality raising suspicion of underlying ischemic origin. Cardiology input appreciated, start Jardiance, Valsartan and LAsix. To be followed as outpatient for stress test. # AFIB w RvR Did not feel well with beta blockers. Converted back to sinus , went to RvR and converted back again. Amiodarone was started to hopefully keep him in sinus rhythm. To continue 200 mg bid for 1 month. Started on Eliquis as Aspirin was discontinued. To be followed as outpatient for Holter monitoring. Discontinue Aspirin and Amlodipine Start Eliquis as blood thinner Start Valsartan and Lasix for heart failure Start Amiodarone 200 mg twice daily for atrial fibrillation To follow up with cardiology as outpatient for stress test and holter monitor Time Spent with Patient Time attestation: Total time managing care of this patient today ____ minutes. Discharge coordination time: Greater than 30 minutes Quality: Safe Use of Opioids Does Pt have an Active Cancer Diagnosis on the Problem List?: No Quality: Stroke Does the patient have a stroke diagnosis?: No Physical Exam Vital Signs: Vital Signs: Last Vital Signs Temp 97.5 F 09/03/22 07:08 Pulse 79 09/03/22 07:08 Resp 20 09/03/22 07:08 BP 125/63 09/03/22 07:08 Pulse Ox 97 09/03/22 07:08 O2 Del Method Room Air 09/03/22 07:08 O2 Flow Rate 1 09/03/22 03:07 BMI result Body Mass Index 26.9 Const: Other: Constitutional : Awake, interactive, not in distress Neck : Normal inspection, Supple Cardiovascular : regular regular, no JVP, no lower extremity edema Respiratory : good bilateral air entry, no crackles, wheezes or rhonchi Gastrointestinal: soft, lax, Normal bowel sounds, Non tender Skin : Warm, Dry Neurological : Alert & oriented x3, No focal deficit DS: Data Data Completed and Pending Labs on day of discharge: Laboratory Results - last 24 hr 09/02/22 09/02/22 09/02/22 11:05 16:16 19:56 Sodium Potassium Chloride Carbon Dioxide Anion Gap BUN Creatinine Estim Creat Clear Calc Estimated GFR POC Glucose 237 H 188 H 188 H Random Glucose Calcium B-Natriuretic Peptide 09/03/22 09/03/22 09/03/22 05:58 05:58 07:35 Sodium 139 Potassium 3.5 Chloride 103 Carbon Dioxide 22 Anion Gap 18 BUN 32 H Creatinine 1.15 Estim Creat Clear Calc 49.7 Estimated GFR > 60 POC Glucose 132 H Random Glucose 128 H Calcium 8.9 B-Natriuretic Peptide 619 H Imaging Chest x-ray: Radiologist's impression: ITS Impressions Chest X-Ray 08/30/22 08:57 IMPRESSION: 1. Increased patchy radiopacities throughout the bilateral lung [place] greatest in the bibasilar region which may reflect infectious/inflammatory etiology versus prominence of the pulmonary vasculature. 2. Trace left-sided pleural effusion. Discharge Plan Discharge Anticipated Discharge Date/Time: 09/01/22 14:30 Patient Disposition: Home, Self-Care Discharge Diagnosis: Atrial fibrillation with rapid response Systolic heart failure Referrals: Physician,Unknown J [Primary Care Provider] - 1 Week Discharge Medications: New amiodarone 200 mg Tablet 200 mg PO BID Qty: 58 0RF furosemide 20 mg Tablet 20 mg PO DAILY Qty: 30 0RF Protocol: Hold for SBP< HOLD for SBP < : 90 Eliquis 5 mg Tablet 5 mg PO BID Qty: 60 0RF Jardiance 10 mg Tablet 10 mg PO DAILY Qty: 30 0RF valsartan 40 mg tablet 20 mg PO BID Qty: 60 0RF Continued metformin 500 mg Tablet 1,000 mg PO DAILY cetirizine 10 mg Tablet 10 mg PO DAILY PRN (Reason: Allergy Symptoms) ketotifen fumarate 0.025 % (0.035 %) Drops 1 drp OPHTHALMIC (EYE) BID PRN (Reason: Allergy Symptoms) Rx Instructions: administer at least 8 hours apart ketorolac 0.5 % Drops 1 drp OPHTHALMIC (EYE) QID clotrimazole 1 % Cream 1 appl TOPICAL DAILY PRN (Reason: Skin Irritation) metronidazole 0.75 % Gel 1 appl TOPICAL BID tobramycin-dexamethasone [TobraDex] 0.3-0.1 % Drops,Suspension 1 drp OPHTHALMIC-RIGHT Q4H Rx Instructions: while awake Systane Ultra 0.4-0.3 % Drops 1 drp OPHTHALMIC (EYE) QID PRN (Reason: Dry Eyes) Muscle Rub 15-10 % Cream 1 appl TOPICAL BID PRN (Reason: Muscle Pain) alogliptin 25 mg Tablet 25 mg PO DAILY pyridoxine (vitamin B6) 100 mg tablet 100 mg PO DAILY 90 Days Qty: 90 1RF finasteride 5 mg tablet 5 mg PO DAILY 90 Days Qty: 90 3RF Discontinued amlodipine 5 mg Tablet 5 mg PO DAILY aspirin 81 mg Tablet,Chewable 81 mg PO DAILY Stand Alone Forms: Patient Portal Discharge page Care Plan Goals: Read below Health Concerns: Read below Plan of Treatment: Read below Assessment: You were treated in the hospital for heart failure exacerbation associated with rapid irregular heart rythm called atrial fibrillation. Evaluated by plasma center nurse and treated with water pills and rate control medications with good response over the course of hospital stay. Discontinue Aspirin and Amlodipine Start Eliquis as blood thinner Start Valsartan and Lasix for heart failure Start Amiodarone 200 mg twice daily for atrial fibrillation To follow up with cardiology as outpatient for stress test and holter monitor
[2022-09-03 11:01] VITALS: BP 114/59; PULSE 80; RESP 20; TEMP 36.6; O2SAT 95
[2022-09-03 11:56] LABS: Glucose, Whole Blood 168 mg/dL (60-115)
[2022-09-03] MEDS: Insulin Lispro 100 UNIT/ML 3 ML VIAL SUBCUT (12:04)
--- NOTE | 2022-11-18 09:26 | ED_ITS ---
HPI - Chest Pain General Chief Complaint: Chest Pain Stated Complaint: Chest pain/SOB/Dizziness Time Seen by Provider: 08/30/22 08:14 Source: patient Limitations: no limitations History of Present Illness HPI narrative: 87-year-old male with history of diabetes, hypertension, BPH, no prior history of CHF, history of irregular heartbeat currently not on any blood thinners presented with shortness of breath and chest pain. Symptoms were ongoing for several weeks. It had gotten particularly worse over last 2-3 days. He does note some lower extremity edema. Symptoms are not associated with exertion. He has had no fevers, chills, cough or mucus production. Patient describes symptoms as moderate to severe. Related Data Home Medications Medication Instructions Recorded Confirmed metformin 500 mg tablet 1,000 mg PO DAILY 03/10/20 09/30/22 alogliptin 25 mg tablet 25 mg PO DAILY 08/30/22 09/30/22 clotrimazole 1 % topical cream 1 appl topical DAILY PRN Skin 08/30/22 09/30/22 Irritation ketorolac 0.5 % eye drops 1 drp ophthalmic (eye) QID 08/30/22 09/30/22 ketotifen fumarate 0.025 % (0.035 1 drp ophthalmic (eye) BID PRN 08/30/22 09/30/22 %) eye drops Allergy Symptoms metronidazole 0.75 % topical gel 1 appl topical BID 08/30/22 09/30/22 peg 400-propylene glycol 0.4 %-0.3 1 drp ophthalmic (eye) QID PRN Dry 08/30/22 09/30/22 % eye drops (Systane Ultra) Eyes amiodarone 100 mg tablet 100 mg PO BID@0600,1800 09/12/22 09/30/22 empagliflozin 10 mg tablet 10 mg PO DAILY@1600 09/12/22 09/30/22 (Jardiance) furosemide 20 mg tablet 20 mg PO DAILY@1600 09/12/22 09/30/22 Previous Rx's Medication Instructions Recorded pyridoxine (vitamin B6) 100 mg 100 mg PO DAILY 90 days #90 tabs 04/29/20 tablet finasteride 5 mg tablet 5 mg PO DAILY 90 days #90 tabs 04/30/22 clopidogrel 75 mg tablet 75 mg PO DAILY #90 tabs 09/30/22 apixaban 5 mg tablet (Eliquis) 5 mg PO BID #60 tabs 11/04/22 Allergies Allergy/AdvReac Type Severity Reaction Status Date / Time penicillin G Allergy Intermediate Anaphylaxis Verified 09/30/22 13:35 lisinopril Allergy Unknown Verified 09/30/22 13:35 doxycycline AdvReac Diarrhea Verified 09/30/22 13:35 losartan AdvReac Diarrhea Verified 09/30/22 13:35 [facility] Past Medical History Medical History PAF (paroxysmal atrial fibrillation) NSTEMI (non-ST elevated myocardial infarction) Systolic heart failure Hearing deficit Rosacea Diabetes BPH (benign prostatic hyperplasia) HTN (hypertension) Surgical History S/P cardiac catheterization Status post glaucoma surgery Hx of circumcision Hx of cystoscopy History of prostate surgery Social History Social History Household Members: Spouse Housing: House Do you presently have visiting nurse or other home services: No Alcohol intake: never Patient Tobacco Use Status: Never used Tobacco Second Hand Smoke Exposure: No Advance Directives Date on File: 09/12/22 service: Yes Physical Exam 2 Vital Signs: Vital Signs: Last Vital Signs Temp 97.8 F 09/03/22 11:01 Pulse 80 09/03/22 11:01 Resp 20 09/03/22 11:01 BP 114/59 L 09/03/22 11:01 Pulse Ox 95 09/03/22 11:01 O2 Del Method Room Air 09/03/22 11:01 O2 Flow Rate 1 09/03/22 03:07 BMI result Body Mass Index 30.5 GEN: Well developed, no acute distress, alert, oriented HEENT: Normocephalic, atraumatic, normal external ears, nose appears normal Eyes: Normal to appearance Neck: Supple, no lymphadenopathy Respiratory: Talks in complete sentences, no respiratory distress Extremities: No clubbing cyanosis or edema Neurologic: No focal neurologic deficits, cranial nerves 2-12 intact, gait normal Skin: No rash Course Course Course Narrative: While in the emergency department, patient was noted to have an elevated troponin, elevated proBNP. Chest x-ray is concerning for congestive heart failure. Initial EKG showed sinus rhythm with a heart rate of 90s. He did switch into atrial fibrillation with rapid ventricular response. He was treated with intravenous Lasix. Patient to be admitted to the hospital. Medications Administered Discontinued Medications Generic Name Dose Route Start Last Admin Trade Name Shirin PRN Reason Stop Dose Admin Acetaminophen 650 mg 08/30/22 12:36 08/31/22 19:59 Acetaminophen 325 Mg Tablet PO 650 mg Q6H PRN Administration Pain, Mild (Pain Scale 1-3) Amiodarone HCl 200 mg 09/02/22 10:35 09/03/22 09:04 Amiodarone Hcl 200 Mg Tablet PO 200 mg BID MIRNA Administration Amlodipine Besylate 5 mg 08/31/22 09:00 09/01/22 09:02 Amlodipine Besylate 5 Mg Tablet PO 5 mg DAILY MIRNA Administration Protocol Apixaban 5 mg 08/30/22 18:00 09/03/22 05:35 Apixaban 5 Mg Tablet PO 5 mg Q12H MIRNA Administration Artificial Tears 1 drop 08/30/22 15:42 08/31/22 19:59 Artificial Tears 15 Ml Drops EYE-BOTH 1 drop QID PRN Administration Dry Eyes Aspirin 324 mg 08/30/22 09:39 08/30/22 10:01 Aspirin 81 Mg Tab.Chew PO 08/30/22 09:40 324 mg ONCE ONE Administration Aspirin 81 mg 08/31/22 09:00 09/01/22 09:02 Aspirin 81 Mg Tab.Chew PO 81 mg DAILY MIRNA Administration Carvedilol 6.25 mg 09/01/22 10:45 09/01/22 11:23 Carvedilol 6.25 Mg Tablet PO 6.25 mg BID MIRNA Administration Protocol Carvedilol 3.125 mg 09/01/22 21:00 09/02/22 09:11 Carvedilol 3.125 Mg Tablet PO 3.125 mg BID MIRNA Administration Protocol Diltiazem HCl 10 mg 08/30/22 13:00 08/30/22 13:21 Diltiazem Hcl 50 Mg/10 Ml Vial IVPUSH 08/30/22 13:01 10 mg STAT STA Administration Empagliflozin 10 mg 08/31/22 13:05 09/03/22 09:04 Empagliflozin 10 Mg Tablet PO 10 mg DAILY MIRNA Administration Finasteride 5 mg 08/31/22 09:00 09/03/22 09:05 Finasteride 5 Mg Tablet PO 5 mg DAILY MIRNA Administration Fluticasone Propionate 1 spray 08/31/22 13:05 09/03/22 09:05 Fluticasone Propionate Nasal 16 Gm [place] NOSTRIL-B 1 spray BID MIRNA Administration Furosemide 40 mg 08/30/22 09:09 08/30/22 09:20 Furosemide 40 Mg/4 Ml Vial IVPUSH 08/30/22 09:10 40 mg ONCE ONE Administration Protocol Furosemide 40 mg 08/31/22 09:00 08/31/22 08:12 Furosemide 40 Mg/4 Ml Vial IVPUSH 40 mg DAILY MIRNA Administration Protocol Furosemide 40 mg 09/01/22 08:15 09/01/22 09:09 Furosemide 40 Mg/4 Ml Vial IVPUSH 09/01/22 08:16 40 mg ONCE ONE Administration Protocol Furosemide 20 mg 09/03/22 09:00 09/03/22 09:04 Furosemide 20 Mg Tablet PO 20 mg DAILY MIRNA Administration Protocol Heparin Sodium (Porcine) 5,000 unit 08/30/22 12:31 08/30/22 13:23 Heparin Sodium,Porcine 5,000 Unit/Ml Vial SUBCUT 08/30/22 12:32 5,000 unit ONCE ONE Administration Diltiazem HCl 125 mg/ Sodium 125 mls @ 0 mls/hr 08/30/22 16:45 09/01/22 00:43 Chloride IVCONT Infused .Q0M MIRNA Titration Protocol Per Protocol Insulin Human Lispro 0 unit 08/30/22 16:30 09/03/22 12:04 Insulin Lispro 100 Unit/Ml 3 Ml Vial SUBCUT 2 unit QIDACHS [facility] Administration Protocol Ketorolac Tromethamine 1 drop 08/30/22 17:00 09/03/22 09:05 Ketorolac Tromethamine 0.5% Op 5 Ml Drops EYE-BOTH 1 drop QID MIRNA Administration Ketotifen Fumarate 1 drop 08/30/22 15:42 09/03/22 09:05 Ketotifen Fumarate 0.025% Oph 5 Ml Drpbtl EYE-BOTH 1 drop BID PRN Administration Allergy Symptoms Melatonin 6 mg 08/30/22 21:00 09/01/22 20:45 Melatonin 3 Mg Tablet PO 6 mg BEDTIME PRN Administration Insomnia Metformin HCl 1,000 mg 08/31/22 09:00 08/31/22 08:10 Metformin Hcl 1,000 Mg Tablet PO 1,000 mg DAILY MIRNA Administration Metoprolol Tartrate 25 mg 08/31/22 13:05 09/01/22 09:01 Metoprolol Tartrate 25 Mg Tablet PO 25 mg BID MIRNA Administration Protocol Metronidazole 1 appl 08/30/22 21:00 09/03/22 09:05 Metronidazole 0.75 % Gel 45 Gm Tube TOPICAL 1 appl BID MIRNA Administration Pat Own Med ( 25 mg 08/31/22 09:00 09/03/22 09:10 Alogliptin 25 Mg PO 25 mg Tablet) DAILY MIRNA Administration Pyridoxine HCl 100 mg 08/31/22 09:00 09/03/22 09:04 Pyridoxine Hcl (Vitamin B6) 50 Mg Tablet PO 100 mg DAILY MIRNA Administration Sacubitril/Valsartan 1 tab 09/01/22 21:00 09/02/22 09:09 Sacubitril/Valsartan 1 Tab Tablet PO 1 tab BID MIRNA Administration Protocol Sodium Chloride 3 ml 08/30/22 16:00 09/03/22 09:05 0.9 % Sodium Chloride Flush 3 Ml Syringe IVFLUSH 3 ml QSHIFT MIRNA Administration Tobramycin/Dexamethasone 0.5 inch 08/30/22 18:00 09/03/22 11:03 Tobramycin/Dexamethasone Oph Oint 3.5 Gmtube EYE-RIGHT Not Given Q4H [facility] Medical Decision Making Medical Decision Making [facility] Narrative: Patient presents with chest pain and shortness of breath. Differential diagnosis includes acute myocardial infarction, chronic angina, CHF, diastolic dysfunction, systolic dysfunction, pneumonia, pulmonary edema Plan: residential monitor, EKG, cardiac enzymes, additional laboratory analysis Disposition likely admission. Differential Diagnosis Differential Diagnoses: The differential diagnosis associated with the presentation includes (See above) Admission/Observation Consideration of admission/observation: Escalation of care including admission/observation considered Consult Healthcare Provider Management of the patient was discussed with: Hospitalist Lab Data MDM Lab Attestation statement: I reviewed the patient's lab results. 09/02/22 06:04 09/03/22 05:58 Labs: Lab Results 08/30/22 08/30/22 08/30/22 Range/Units 08:45 09:15 10:39 WBC 7.9 (4.8-10.8) X10*3/uL RBC 4.81 (4.60-5.80) X10*6/uL Hgb 13.2 L (14.0-18.0) g/dl Hct 42.3 (42.0-52.0) % MCV 87.9 (80.0-98.0) fL MCH 27.4 (27.0-33.0) pg MCHC 31.2 (31.0-36.0) g/dl RDW 14.6 (11.0-16.0) % Plt Count 272 (160-400) X10*3/uL MPV 9.4 (9.4-12.4) fL Immature Gran % (Auto) 0.6 H (0.0-0.4) % Neut % (Auto) 68.9 (45-73) % Lymph % (Auto) 20.4 (20-40) % Hall % (Auto) 7.6 (2-11) % Eos % (Auto) 1.6 (0-4) % Baso % (Auto) 0.9 (0-2) % Lymph # (Auto) 1.6 (1.2-4.9) X10*3/uL Hall # (Auto) 0.6 (0.1-1.2) X10*3/uL Eos # (Auto) 0.1 (0.0-0.4) X10*3/uL Baso # (Auto) 0.1 (0.0-0.2) X10*3/uL Abs Immat Gran (auto) 0.05 H (0.00-0.03) X10*3/uL Absolute Neuts (auto) 5.5 (2.0-8.3) x10*3/uL Absolute Nucleated RBC 0.000 (0.0-0.012) X10*3/uL Nucleated RBC % (auto) 0.0 (0.0-0.2) /100WBC PT 11.6 (10.0-13.1) SEC INR 1.0 (0.9-1.1) APTT 39.7 H (26.0-36.4) SEC Sodium 141 (135-145) mmol/L Potassium 5.1 (3.3-5.1) mmol/L Chloride 106 (96-108) mmol/L Carbon Dioxide 27 (22-29) mmol/L Anion Gap 13 (12-20) BUN 21 H (9-16) mg/dL Creatinine 1.31 (0.5-1.4) mg/dL Estim Creat Clear Calc 43.7 Estimated GFR 52 Random Glucose 182 H (60-115) mg/dL Calcium 10.1 D (8.4-10.2) mg/dL Troponin I High Sens 137.5 H* 137.4 H* (<3.5-35.0) ng/L B-Natriuretic Peptide 721 H (<100) pg/mL COVID-19 (RAJENDRA) Negative (Negative) COVID-19 Clin Com See Note Independent Interpretation I performed an independent interpretation of an: EKG (Sinus tachycardia heart rate 107, rate related ST T-wave changes, right bundle-branch block, no acute ST elevations) and Plain X-Ray (Prominence of pulmonary vascular markings.) Radiology Impression Discussion of test interpretation with radiology: I have reviewed the radiologist's reading. Radiologist Impression: Impression 1. Increased patchy radiopacity occasions throughout the bilateral lung [place] greatest in the bibasilar region which may reflect infectious/inflammatory etiology versus prominence of the pulmonary vasculature. Two. Trace left-sided pleural effusion External Record Review External record reviewed: Inpatient record, Office record, Outpatient record, Prior outpatient labs and Prior outpatient radiology Prescription Management I considered prescription management with: Other (Diuretics) Chronic Conditions Patient?s care impacted by: Hypertension Discharge Plan Discharge Clinical Impression: Acute CHF, Elevated troponin Patient Disposition: Admitted As Inpatient Interventions: Admission Worksheet (ED) Last Done: 08/30/22 18:47 Discharge Date/Time: 08/30/22 18:48
== END 2022-09-03 13:03 | disposition home or self-care (01) | DRG 291 ==
LOC: HO.ED 11:44 → HO.EDOVER 14:57 → HO.IMC 16:10
PROVIDERS: Admitting Provider Internal Medicine; Emergency Provider Emergency Medicine; Visit Provider Student in an Organized Health Care Education/Training Program
DX: I11.0 Hypertensive heart disease with heart failure (principal); I50.21 Acute systolic (congestive) heart failure; I48.19 Other persistent atrial fibrillation; N40.0 Benign prostatic hyperplasia without lower urinary tract symptoms; I25.10 Atherosclerotic heart disease of native coronary artery without angina pectoris; E11.9 Type 2 diabetes mellitus without complications; I42.8 Other cardiomyopathies; Z20.822 Contact with and (suspected) exposure to COVID-19; Z88.0 Allergy status to penicillin; Z79.84 Long term (current) use of oral hypoglycemic drugs; Z79.899 Other long term (current) drug therapy
CPT/HCPCS: 36415; 71046; 80048; 82947; 83735; 83880; 84484; 85025; 85027; 85610; 85730; 87635; 93005; 93306; 97161; 99285; J1643; J1940; Q9957

== ENCOUNTER → 2022-08-30 08:07 | Outpatient (BNV) | payer OTHER, SELFPAY | PROVIDERS: Emergency Provider Emergency Medicine; Visit Provider Internal Medicine Cardiovascular Disease | DX: I48.91 Unspecified atrial fibrillation (principal); R00.0 Tachycardia, unspecified; R94.31 Abnormal electrocardiogram [ECG] [EKG] | CPT/HCPCS: 93010 ==

== ENCOUNTER 2022-08-30 12:36 | Outpatient (BNV) | payer OTHER, SELFPAY | END 2022-08-31 07:00 | PROVIDERS: Admitting Provider Internal Medicine; Emergency Provider Emergency Medicine; Visit Provider Internal Medicine Cardiovascular Disease | DX: I34.0 Nonrheumatic mitral (valve) insufficiency (principal) | CPT/HCPCS: 93306 ==

== ENCOUNTER → 2022-08-30 12:36 | Outpatient (BNV) | payer OTHER, SELFPAY | PROVIDERS: Admitting Provider Internal Medicine; Emergency Provider Emergency Medicine; Visit Provider Student in an Organized Health Care Education/Training Program | DX: I50.21 Acute systolic (congestive) heart failure (principal); R77.8 Other specified abnormalities of plasma proteins; I48.91 Unspecified atrial fibrillation | CPT/HCPCS: 99223; 99232; 99239 ==

== ENCOUNTER → 2022-08-30 12:36 | Outpatient (BNV) | payer OTHER, SELFPAY | PROVIDERS: Admitting Provider Internal Medicine; Emergency Provider Emergency Medicine; Visit Provider Internal Medicine Cardiovascular Disease | DX: I50.20 Unspecified systolic (congestive) heart failure (principal); I48.91 Unspecified atrial fibrillation | CPT/HCPCS: 99222; 99232 ==

== ENCOUNTER 2022-09-12 07:57 | Inpatient (IN) | payer OTHER, SELFPAY ==
[2022-09-12] VITALS (7 sets, daily range): BP systolic 114–145; BP diastolic 66–88; PULSE 71–87; RESP 13–18; TEMP 36.1–36.9; O2SAT 94–99; BMI 27.4; BMI 29.7
--- NOTE | ~2022-09-12 | XR_ITS ---
EXAMINATION: XR CHEST CLINICAL INFORMATION: Chest pain. COMPARISON: 08/30/2022 chest radiographs. TECHNIQUE: Frontal view of the chest was obtained. FINDINGS: Mild bibasilar linear markings are seen. The upper lung [place] are clear. The heart and mediastinal structures are unremarkable. XR/XR chest 1V IMPRESSION: Mild bibasilar linear markings represent significant interval improvement from the previous study. Probable residual mild atelectasis/scarring.
--- NOTE | 2022-09-12 11:57 | ECG_ITS ---
Test Reason : INSOMNIA/ANXIOUS Blood Pressure : / mmHG Vent. Rate : 073 BPM Atrial Rate : 073 BPM P-R Int : 188 ms QRS Dur : 130 ms QT Int : 434 ms P-R-T Axes : 062 -69 094 degrees QTc Int : 478 ms Sinus rhythm with occasional Premature ventricular complexes Possible Left atrial enlargement Left axis deviation Right bundle branch block Inferior infarct (cited on or before 05-MAR-2020) Anteroseptal infarct (cited on or before 30-AUG-2022) Abnormal ECG When compared with ECG of 30-AUG-2022 12:56, Afib not present anymore Referred By: Danielle Martinez Electronically Signed By:Jose Luis Taylor
--- NOTE | 2022-09-12 11:58 | ED.GENADULT ---
HPI - General Adult General Chief complaint: General Medical Stated complaint: medication reaction Time Seen by Provider: 09/12/22 13:20 Related Data Home Medications Medication Instructions Recorded Confirmed metformin 500 mg tablet 1,000 mg PO DAILY 03/10/20 09/12/22 alogliptin 25 mg tablet 25 mg PO DAILY 08/30/22 09/12/22 clotrimazole 1 % topical cream 1 appl topical DAILY PRN Skin 08/30/22 09/12/22 Irritation ketorolac 0.5 % eye drops 1 drp ophthalmic (eye) QID 08/30/22 09/12/22 ketotifen fumarate 0.025 % (0.035 1 drp ophthalmic (eye) BID PRN 08/30/22 09/12/22 %) eye drops Allergy Symptoms metronidazole 0.75 % topical gel 1 appl topical BID 08/30/22 09/12/22 peg 400-propylene glycol 0.4 %-0.3 1 drp ophthalmic (eye) QID PRN Dry 08/30/22 09/12/22 % eye drops (Systane Ultra) Eyes amiodarone 100 mg tablet 100 mg PO BID@0600,1800 09/12/22 09/12/22 empagliflozin 10 mg tablet 10 mg PO DAILY@1600 09/12/22 09/12/22 (Jardiance) furosemide 20 mg tablet 20 mg PO DAILY@1600 09/12/22 09/12/22 valsartan 40 mg tablet 40 mg PO BID@0400,1600 09/12/22 09/12/22 Previous Rx's Medication Instructions Recorded pyridoxine (vitamin B6) 100 mg 100 mg PO DAILY 90 days #90 tabs 04/29/20 tablet finasteride 5 mg tablet 5 mg PO DAILY 90 days #90 tabs 04/30/22 apixaban 5 mg tablet (Eliquis) 5 mg PO BID #60 tabs 09/03/22 Allergies Allergy/AdvReac Type Severity Reaction Status Date / Time penicillin G Allergy Intermediate Anaphylaxis Verified 09/12/22 08:17 lisinopril Allergy Unknown Verified 09/12/22 08:17 doxycycline AdvReac Diarrhea Verified 09/12/22 08:19 losartan AdvReac Diarrhea Verified 09/12/22 08:19 [facility] Past Medical History Medical History (Updated 09/12/22 @ 15:20 by DOMINICK Lafleur) BPH (benign prostatic hyperplasia) Diabetes Hearing deficit HTN (hypertension) NSTEMI (non-ST elevated myocardial infarction) PAF (paroxysmal atrial fibrillation) Rosacea Systolic heart failure Surgical History History of prostate surgery Hx of circumcision Hx of cystoscopy Status post glaucoma surgery Social History Social History Household Members: Spouse Housing: House Do you presently have visiting nurse or other home services: No Alcohol intake: never Patient Tobacco Use Status: Never used Tobacco Advance Directives: Yes Advance Directives Information Provided: Yes Advance Directives on File: No Nutrition Risks: No Nutritional Risk service: Yes Physical Exam ED Vital Signs: Vital Signs - 24 hr 09/12/22 08:11 09/12/22 11:57 09/12/22 13:24 Temperature 97.1 F 98.0 F Pulse Rate 84 75 87 Respiratory Rate 18 18 13 Blood Pressure 118/85 125/69 145/88 H Pulse Oximetry 99 98 98 Oxygen Delivery Method Room Air Room Air Room Air BMI result Body Mass Index 27.4 Course Course Course Narrative: RME performed by Danielle Martinez PA-C. Patient is an 87 year old assigned male at presenting to the emergency department with insomnia and complaints of side effects from medications such as itching? Labs ordered. Patient placed back in the waiting room pending room availability and results. Dr. Sanz evaluated this patient. He opened and completed his own separate note. Please refer to his note on 09/12/2022 for this patient's course and disposition. Medications Administered Generic Name Dose Route Start Last Admin Trade Name Freq PRN Reason Stop Dose Admin Amiodarone HCl 100 mg 09/12/22 18:00 09/12/22 18:25 Amiodarone Hcl 200 Mg Tablet PO 100 mg BID@0600,1800 MIRNA Administration Heparin Sodium/Sodium Chloride 25,000 unit in 250 mls @ 0 mls/hr 09/12/22 15:15 09/12/22 18:27 Heparin Sodium,Porcine/1/2ns IVCONT 11.16 units/kg/hr .Q0M MIRNA 10 mls/hr Administration Protocol Per Protocol Insulin Human Lispro 0 unit 09/12/22 16:30 09/12/22 18:26 Insulin Lispro 100 Unit/Ml 3 Ml Vial SUBCUT Not Given QIDAS [facility] Protocol Sodium Chloride 3 ml 09/12/22 16:00 09/12/22 16:49 0.9 % Sodium Chloride Flush 3 Ml Syringe IVFLUSH 3 ml QSHIFT [facility] Administration Discontinued Medications Generic Name Dose Route Start Last Admin Trade Name Shirin PRN Reason Stop Dose Admin Aspirin 324 mg 09/12/22 15:07 09/12/22 15:55 Aspirin 81 Mg Tab.Chew PO 09/12/22 15:08 324 mg ONCE ONE Administration Heparin Sodium (Porcine) 4,000 unit 09/12/22 18:00 09/12/22 18:30 Heparin Sodium,Porcine 5,000 Unit/Ml Vial IVPUSH 09/12/22 18:01 4,000 unit ONCE ONE Administration Medical Decision Making Lab Data 09/12/22 15:45 09/12/22 12:18 Labs: Lab Results 09/12/22 09/12/22 09/12/22 Range/Units 12:18 12:18 12:18 WBC 10.4 (4.8-10.8) X10*3/uL RBC 4.82 (4.60-5.80) X10*6/uL Hgb 13.0 L (14.0-18.0) g/dl Hct 41.8 L (42.0-52.0) % MCV 86.7 (80.0-98.0) fL MCH 27.0 (27.0-33.0) pg MCHC 31.1 (31.0-36.0) g/dl RDW 14.4 (11.0-16.0) % Plt Count 274 (160-400) X10*3/uL MPV 9.3 L (9.4-12.4) fL Immature Gran % (Auto) 0.5 H (0.0-0.4) % Neut % (Auto) 71.0 (45-73) % Lymph % (Auto) 19.3 L (20-40) % [place] % (Auto) 7.6 (2-11) % Eos % (Auto) 0.9 (0-4) % Baso % (Auto) 0.7 (0-2) % Lymph # (Auto) 2.0 (1.2-4.9) X10*3/uL [place] # (Auto) 0.8 (0.1-1.2) X10*3/uL Eos # (Auto) 0.1 (0.0-0.4) X10*3/uL Baso # (Auto) 0.1 (0.0-0.2) X10*3/uL Abs Immat Gran (auto) 0.05 H (0.00-0.03) X10*3/uL Absolute Neuts (auto) 7.4 (2.0-8.3) x10*3/uL Absolute Nucleated RBC 0.000 (0.0-0.012) X10*3/uL Nucleated RBC % (auto) 0.0 (0.0-0.2) /100WBC Sodium 139 (135-145) mmol/L Potassium 4.2 (3.3-5.1) mmol/L Chloride 103 (96-108) mmol/L Carbon Dioxide 22 (22-29) mmol/L Anion Gap 18 (12-20) BUN 22 H (9-16) mg/dL Creatinine 1.32 (0.5-1.4) mg/dL Estim Creat Clear Calc 39.5 Estimated GFR 52 Random Glucose 128 H (60-115) mg/dL Calcium 9.7 D (8.4-10.2) mg/dL Magnesium 2.1 (1.6-2.6) mg/dL Total Bilirubin 0.8 (0.0-1.0) mg/dL AST 39 H (5-37) U/L ALT 28 (0-40) U/L Alkaline Phosphatase 81 (39-117) U/L Troponin I High Sens 2669.7 H* D (<3.5-35.0) ng/L Total Protein 7.5 (6.5-8.0) g/dL Albumin 4.1 (3.5-5.0) g/dL Triglycerides 137 mg/dL Cholesterol 150 mg/dL LDL Cholesterol, Calc 81 mg/dl HDL Cholesterol 42 mg/dL COVID-19 (RAJENDRA) (Negative) COVID-19 Clin Com 09/12/22 Range/Units 12:18 WBC (4.8-10.8) X10*3/uL RBC (4.60-5.80) X10*6/uL Hgb (14.0-18.0) g/dl Hct (42.0-52.0) % MCV (80.0-98.0) fL MCH (27.0-33.0) pg MCHC (31.0-36.0) g/dl RDW (11.0-16.0) % Plt Count (160-400) X10*3/uL MPV (9.4-12.4) fL Immature Gran % (Auto) (0.0-0.4) % Neut % (Auto) (45-73) % Lymph % (Auto) (20-40) % [place] % (Auto) (2-11) % Eos % (Auto) (0-4) % Baso % (Auto) (0-2) % Lymph # (Auto) (1.2-4.9) X10*3/uL [place] # (Auto) (0.1-1.2) X10*3/uL Eos # (Auto) (0.0-0.4) X10*3/uL Baso # (Auto) (0.0-0.2) X10*3/uL Abs Immat Gran (auto) (0.00-0.03) X10*3/uL Absolute Neuts (auto) (2.0-8.3) x10*3/uL Absolute Nucleated RBC (0.0-0.012) X10*3/uL Nucleated RBC % (auto) (0.0-0.2) /100WBC Sodium (135-145) mmol/L Potassium (3.3-5.1) mmol/L Chloride (96-108) mmol/L Carbon Dioxide (22-29) mmol/L Anion Gap (12-20) BUN (9-16) mg/dL Creatinine (0.5-1.4) mg/dL Estim Creat Clear Calc Estimated GFR Random Glucose (60-115) mg/dL Calcium (8.4-10.2) mg/dL Magnesium (1.6-2.6) mg/dL Total Bilirubin (0.0-1.0) mg/dL AST (5-37) U/L ALT (0-40) U/L Alkaline Phosphatase (39-117) U/L Troponin I High Sens (<3.5-35.0) ng/L Total Protein (6.5-8.0) g/dL Albumin (3.5-5.0) g/dL Triglycerides mg/dL Cholesterol mg/dL LDL Cholesterol, Calc mg/dl HDL Cholesterol mg/dL COVID-19 (RAJENDRA) Negative (Negative) COVID-19 Clin Com See Note Discharge Plan Discharge Clinical Impression: ACS (acute coronary syndrome) Patient Disposition: Admitted As Inpatient
[2022-09-12 12:22] LABS: MANUAL DIFF FLAG NO
[2022-09-12 12:30] LABS: Basophils Absolute Auto 0.1 X10*3/uL (0.0-0.2); Basophils Percent Auto 0.7 % (0-2); Eosinophils Absolute Auto 0.1 X10*3/uL (0.0-0.4); Eosinophils Percent Auto 0.9 % (0-4); Hematocrit 41.8 % (42.0-52.0); Imm Gran Abs Auto 0.05 X10*3/uL (0.00-0.03); Imm Gran Pct Auto 0.5 % (0.0-0.4); Lymphocytes Percent Auto 19.3 % (20-40); Mean Corpuscular HGB Conc 31.1 g/dl (31.0-36.0); Mean Corpuscular Volume 86.7 fL (80.0-98.0); Mean Platelet Volume 9.3 fL (9.4-12.4); Monocytes Absolute Auto 0.8 X10*3/uL (0.1-1.2); Monocytes Percent Auto 7.6 % (2-11); Neutrophils Absolute Auto 7.4 x10*3/uL (2.0-8.3); Platelet Count 274 X10*3/uL (160-400); Red Blood Count 4.82 X10*6/uL (4.60-5.80); Red Cell Distribution Width 14.4 % (11.0-16.0); White Blood Count 10.4 X10*3/uL (4.8-10.8)
[2022-09-12 12:44] LABS: COVID-19 Test Negative (Negative); IDNOW Serial# 08D9AD1C
[2022-09-12 12:46] LABS: Alanine Aminotransferase 28 U/L (0-40); Albumin Level 4.1 g/dL (3.5-5.0); Alkaline Phosphatase 81 U/L (39-117); Anion Gap 18 (12-20); Aspartate Amino Transferase 39 U/L (5-37); Bilirubin Total 0.8 mg/dL (0.0-1.0); Blood Urea Nitrogen 22 mg/dL (9-16); Calcium 9.7 mg/dL (8.4-10.2); Carbon Dioxide 22 mmol/L (22-29); Chloride 103 mmol/L (96-108); Creatinine Clr Calc Pharmacy 39.5; Estimated Glomerular Filt Rate 52; Glucose Random 128 mg/dL (60-115); Magnesium 2.1 mg/dL (1.6-2.6); Potassium 4.2 mmol/L (3.3-5.1); Sodium 139 mmol/L (135-145); Total Protein 7.5 g/dL (6.5-8.0)
[2022-09-12 13:18] LABS: Troponin-I High Sensitivity 2669.7 ng/L (<3.5-35.0)
--- NOTE | 2022-09-12 13:44 | ED.GENADULT ---
HPI - General Adult General Chief complaint: General Medical Stated complaint: medication reaction Time Seen by Provider: 09/12/22 13:20 Source: patient Mode of arrival: ambulatory Limitations: no limitations History of Present Illness HPI narrative: this is 87 years old male with history of congestive heart failure AFib hypertension discharge on 09/01 from [facility] where he was hospitalized for CHF he denies any chest pain but is having epigastric abdominal pain Onset (ago): day(s) (2) Radiation: non-radiation Severity: mild Quality: burning Pain Consistency: constant Relieving factors: none Exacerbating factors: none Related Data Home Medications Medication Instructions Recorded Confirmed metformin 500 mg tablet 1,000 mg PO DAILY 03/10/20 09/12/22 alogliptin 25 mg tablet 25 mg PO DAILY 08/30/22 09/12/22 clotrimazole 1 % topical cream 1 appl topical DAILY PRN Skin 08/30/22 09/12/22 Irritation ketorolac 0.5 % eye drops 1 drp ophthalmic (eye) QID 08/30/22 09/12/22 ketotifen fumarate 0.025 % (0.035 1 drp ophthalmic (eye) BID PRN 08/30/22 09/12/22 %) eye drops Allergy Symptoms metronidazole 0.75 % topical gel 1 appl topical BID 08/30/22 09/12/22 peg 400-propylene glycol 0.4 %-0.3 1 drp ophthalmic (eye) QID PRN Dry 08/30/22 09/12/22 % eye drops (Systane Ultra) Eyes amiodarone 100 mg tablet 100 mg PO BID 09/12/22 09/12/22 valsartan 40 mg tablet 40 mg PO BID 09/12/22 09/12/22 Previous Rx's Medication Instructions Recorded pyridoxine (vitamin B6) 100 mg 100 mg PO DAILY 90 days #90 tabs 04/29/20 tablet finasteride 5 mg tablet 5 mg PO DAILY 90 days #90 tabs 04/30/22 apixaban 5 mg tablet (Eliquis) 5 mg PO BID #60 tabs 09/03/22 empagliflozin 10 mg tablet 10 mg PO DAILY #30 tabs 09/03/22 (Jardiance) furosemide 20 mg tablet 20 mg PO DAILY #30 tabs 09/03/22 Allergies Allergy/AdvReac Type Severity Reaction Status Date / Time penicillin G Allergy Intermediate Anaphylaxis Verified 09/12/22 08:17 lisinopril Allergy Unknown Verified 09/12/22 08:17 doxycycline AdvReac Diarrhea Verified 09/12/22 08:19 losartan AdvReac Diarrhea Verified 09/12/22 08:19 Review of Systems ENT: Reports system reviewed and no additional complaints, except as documented Hematologic/Lymphatic: Hematologic/Lymphatic: Reports no additional hematologic/lymphatic complaints [facility] Past Medical History [facility] Narrative: A.Fib and HTN,CHF Medical History (Updated 09/12/22 @ 15:20 by DOMINICK Lafleur) BPH (benign prostatic hyperplasia) Diabetes Hearing deficit HTN (hypertension) NSTEMI (non-ST elevated myocardial infarction) PAF (paroxysmal atrial fibrillation) Rosacea Systolic heart failure Surgical History History of prostate surgery Hx of circumcision Hx of cystoscopy Status post glaucoma surgery Social History Social History Household Members: Spouse Housing: House Do you presently have visiting nurse or other home services: No Alcohol intake: never Patient Tobacco Use Status: Never used Tobacco Advance Directives: Yes Advance Directives Information Provided: Yes Advance Directives on File: No Nutrition Risks: No Nutritional Risk service: Yes Physical Exam ED Vital Signs: Vital Signs - 24 hr 09/12/22 08:11 09/12/22 11:57 09/12/22 13:24 Temperature 97.1 F 98.0 F Pulse Rate 84 75 87 Respiratory Rate 18 18 13 Blood Pressure 118/85 125/69 145/88 H Pulse Oximetry 99 98 98 Oxygen Delivery Method Room Air Room Air Room Air BMI result Body Mass Index 27.4 Const General: cooperative Nutritional Appearance: well nourished Orientation/consciousness: patient oriented x3 HENMT Head: Yes normal to inspection Face and sinus: Yes normal facial exam Mouth: Normal oral and palatal mucosa present Neck Neck: Yes normal visual inspection and Yes full ROM Chest Chest palpation & inspection: normal inspection of the chest Resp Effort & Inspection: normal respiratory effort Auscultation: clear to auscultation bilaterally Cardio Jugular venous distension: no JVD Rate: regular rate Rhythm: regular rhythm GI Inspection: Yes normal to inspection Palpation (GI): Soft to palpation Percussion: Yes normal to percussion Auscultation: normal bowel sounds Skin General skin exam: no rashes or lesions noted and elasticity normal Lesions: no lesions Rashes: no rashes Hair: normal Neuro General: patient oriented x3 Medications Administered Discontinued Medications Generic Name Dose Route Start Last Admin Trade Name Freq PRN Reason Stop Dose Admin Aspirin 324 mg 09/12/22 15:07 09/12/22 15:55 Aspirin 81 Mg Tab.Chew PO 09/12/22 15:08 324 mg ONCE ONE Administration Medical Decision Making Medical Decision Making [facility] Narrative: patient presented complaining of epigastric pain he has an elevated troponin he will be admitted I discussed the case with Cardiology Differential Diagnosis Differential Diagnoses: The differential diagnosis associated with the presentation includes ACS/pericarditis Admission/Observation Consideration of admission/observation: Escalation of care including admission/observation considered Consult Healthcare Provider Management of the patient was discussed with: Director [employer] DR Sánchez Lab Data MDM Lab Attestation statement: I reviewed the patient's lab results. 09/12/22 12:18 09/12/22 12:18 Labs: Lab Results 09/12/22 09/12/22 09/12/22 Range/Units 12:18 12:18 12:18 WBC 10.4 (4.8-10.8) X10*3/uL RBC 4.82 (4.60-5.80) X10*6/uL Hgb 13.0 L (14.0-18.0) g/dl Hct 41.8 L (42.0-52.0) % MCV 86.7 (80.0-98.0) fL MCH 27.0 (27.0-33.0) pg MCHC 31.1 (31.0-36.0) g/dl RDW 14.4 (11.0-16.0) % Plt Count 274 (160-400) X10*3/uL MPV 9.3 L (9.4-12.4) fL Immature Gran % (Auto) 0.5 H (0.0-0.4) % Neut % (Auto) 71.0 (45-73) % Lymph % (Auto) 19.3 L (20-40) % [place] % (Auto) 7.6 (2-11) % Eos % (Auto) 0.9 (0-4) % Baso % (Auto) 0.7 (0-2) % Lymph # (Auto) 2.0 (1.2-4.9) X10*3/uL [place] # (Auto) 0.8 (0.1-1.2) X10*3/uL Eos # (Auto) 0.1 (0.0-0.4) X10*3/uL Baso # (Auto) 0.1 (0.0-0.2) X10*3/uL Abs Immat Gran (auto) 0.05 H (0.00-0.03) X10*3/uL Absolute Neuts (auto) 7.4 (2.0-8.3) x10*3/uL Absolute Nucleated RBC 0.000 (0.0-0.012) X10*3/uL Nucleated RBC % (auto) 0.0 (0.0-0.2) /100WBC Sodium 139 (135-145) mmol/L Potassium 4.2 (3.3-5.1) mmol/L Chloride 103 (96-108) mmol/L Carbon Dioxide 22 (22-29) mmol/L Anion Gap 18 (12-20) BUN 22 H (9-16) mg/dL Creatinine 1.32 (0.5-1.4) mg/dL Estim Creat Clear Calc 39.5 Estimated GFR 52 Random Glucose 128 H (60-115) mg/dL Calcium 9.7 D (8.4-10.2) mg/dL Magnesium 2.1 (1.6-2.6) mg/dL Total Bilirubin 0.8 (0.0-1.0) mg/dL AST 39 H (5-37) U/L ALT 28 (0-40) U/L Alkaline Phosphatase 81 (39-117) U/L Troponin I High Sens 2669.7 H* D (<3.5-35.0) ng/L Total Protein 7.5 (6.5-8.0) g/dL Albumin 4.1 (3.5-5.0) g/dL COVID-19 (RAJENDAR) (Negative) COVID-19 Clin Com 09/12/22 Range/Units 12:18 WBC (4.8-10.8) X10*3/uL RBC (4.60-5.80) X10*6/uL Hgb (14.0-18.0) g/dl Hct (42.0-52.0) % MCV (80.0-98.0) fL MCH (27.0-33.0) pg MCHC (31.0-36.0) g/dl RDW (11.0-16.0) % Plt Count (160-400) X10*3/uL MPV (9.4-12.4) fL Immature Gran % (Auto) (0.0-0.4) % Neut % (Auto) (45-73) % Lymph % (Auto) (20-40) % [place] % (Auto) (2-11) % Eos % (Auto) (0-4) % Baso % (Auto) (0-2) % Lymph # (Auto) (1.2-4.9) X10*3/uL [place] # (Auto) (0.1-1.2) X10*3/uL Eos # (Auto) (0.0-0.4) X10*3/uL Baso # (Auto) (0.0-0.2) X10*3/uL Abs Immat Gran (auto) (0.00-0.03) X10*3/uL Absolute Neuts (auto) (2.0-8.3) x10*3/uL Absolute Nucleated RBC (0.0-0.012) X10*3/uL Nucleated RBC % (auto) (0.0-0.2) /100WBC Sodium (135-145) mmol/L Potassium (3.3-5.1) mmol/L Chloride (96-108) mmol/L Carbon Dioxide (22-29) mmol/L Anion Gap (12-20) BUN (9-16) mg/dL Creatinine (0.5-1.4) mg/dL Estim Creat Clear Calc Estimated GFR Random Glucose (60-115) mg/dL Calcium (8.4-10.2) mg/dL Magnesium (1.6-2.6) mg/dL Total Bilirubin (0.0-1.0) mg/dL AST (5-37) U/L ALT (0-40) U/L Alkaline Phosphatase (39-117) U/L Troponin I High Sens (<3.5-35.0) ng/L Total Protein (6.5-8.0) g/dL Albumin (3.5-5.0) g/dL COVID-19 (RAJENDRA) Negative (Negative) COVID-19 Clin Com See Note Independent Interpretation I performed an independent interpretation of an: EKG (nsr 73 RBBB) and Plain X-Ray Radiology Impression Discussion of test interpretation with radiology: I have reviewed the radiologist's reading. Radiologist Impression: 08/30/2022 chest radiographs. TECHNIQUE: Frontal view of the chest was obtained. FINDINGS: Mild bibasilar linear markings are seen. The upper lung [place] are clear. The heart and mediastinal structures are unremarkable. XR/XR chest 1V IMPRESSION: Mild bibasilar linear markings represent significant interval improvement from the previous study. Probable residual mild atelectasis/scarring. ? Dictated By: Power Layton MD Signed By: <Electronically s External Record Review External record reviewed: Inpatient record Chronic Conditions a.Fib/anticoagulated Critical Care Time Critical Care Time Critical Care Time: Yes Total Critical Care Time: 60 Attestation: ACS ,speaking with endocrinologist and hospitalist Discharge Plan Discharge Clinical Impression: ACS (acute coronary syndrome) Patient Disposition: Admitted As Inpatient
--- NOTE | 2022-09-12 14:08 | P.CONCA_ITS ---
History of Present Illness History of Present Illness Date of Service: 09/12/22 Chief complaint: medication reaction Narrative: This is a cardiology consultation regarding elevated troponins. Patient was recently admitted to the hospital with shortness of breath/chest tightness. In that context, he was diagnosed with acute CHF/atrial fibrillation. He was treated appropriately and discharged home. He is on amiodarone as well as well anticoagulation. Echocardiogram that time had shown wall motion abnormalities and suspected CAD. Current admission is because with epigastric discomfort. He states he had this for while but much more worse preceding admission hence he came to the ER. Troponins are more than 2000 and hence there is a concern for ND and we have been consulted. Patient is convinced that this is due to some other medications he is taking and in denial that this could be cardiac. He denies any clear-cut chest pains. Review of Systems Review of Systems: Yes all other systems are reviewed and are negative Constitutional: Constitutional: Reports as per HPI and Reports no additional constitutional complaints Eyes: Eyes: Reports as per HPI and Denies no additional eye complaints ENT: Denies system reviewed and no additional complaints, except as documented and Reports as per HPI Cardiovascular: Cardiovascular: Reports as per HPI, Reports no additional cardiovascular complaints, Denies acrocyanosis, Denies cool extremities, Denies chest pain, Denies leg edema, Denies lightheadedness, Denies palpitations and Denies dyspnea Respiratory: Respiratory: Reports as per HPI, Denies no additional respiratory complaints and Denies dyspnea Gastrointestinal: Gastrointestinal: Reports as per HPI, Denies no additional gastrointestinal complaints and Reports abdominal pain Genitourinary: Genitourinary: Reports no additional male genitourinary complaints and Reports as per HPI Musculoskeletal: Musculoskeletal: Reports no additional musculoskeletal complaints and Reports as per HPI Integumentary/Breasts: Skin/Breast: Reports system reviewed and no additional complaints, except as docu Neurologic: Reports system reviewed and no additional complaints, except as documented and Reports as per HPI Psychiatric: Psychiatric: Reports no additional psychiatric complaints and Reports as per HPI Endocrine: Endocrine: Reports no additional endocrine complaints, Reports as per HPI and Denies palpitations Hematologic/Lymphatic: Hematologic/Lymphatic: Reports no additional hematologic/lymphatic complaints and Reports as per HPI Allergic/Immunologic: Allergic/Immunologic: Reports no additional allergic/immunologic complaints and Reports as per HPI [facility] Past Medical History Medical History (Updated 09/12/22 @ 14:10 by Kaushal Sánchez MD) BPH (benign prostatic hyperplasia) Diabetes Hearing deficit HTN (hypertension) PAF (paroxysmal atrial fibrillation) Rosacea Systolic heart failure Family History Pertinent family history: No pertinent family history. Surgical History Surgical History History of prostate surgery Hx of circumcision Hx of cystoscopy Status post glaucoma surgery Social History Social History Household Members: Spouse Housing: House Do you presently have visiting nurse or other home services: No Alcohol intake: never Patient Tobacco Use Status: Never used Tobacco Advance Directives: Yes Advance Directives Information Provided: Yes Advance Directives on File: No service: Yes Meds Allergies Allergy/AdvReac Type Severity Reaction Status Date / Time penicillin G Allergy Intermediate Anaphylaxis Verified 09/12/22 08:17 lisinopril Allergy Unknown Verified 09/12/22 08:17 doxycycline AdvReac Diarrhea Verified 09/12/22 08:19 losartan AdvReac Diarrhea Verified 09/12/22 08:19 Home Medications Medication Instructions Recorded Confirmed Last Taken Type metformin 500 mg tablet 1,000 mg PO DAILY 03/10/20 08/30/22 03/10/20 04:00 History alogliptin 25 mg tablet 25 mg PO DAILY 08/30/22 08/30/22 Unknown History cetirizine 10 mg tablet 10 mg PO DAILY PRN Allergy Symptoms 08/30/22 08/30/22 Unknown History clotrimazole 1 % topical cream 1 appl topical DAILY PRN Skin 08/30/22 08/30/22 Unknown History Irritation ketorolac 0.5 % eye drops 1 drp ophthalmic (eye) QID 08/30/22 08/30/22 Unknown History ketotifen fumarate 0.025 % (0.035 1 drp ophthalmic (eye) BID PRN 08/30/22 08/30/22 Unknown History %) eye drops Allergy Symptoms methyl salicylate 15 %-menthol 10 1 appl topical BID PRN Muscle Pain 08/30/22 08/30/22 Unknown History % topical cream (Muscle Rub) metronidazole 0.75 % topical gel 1 appl topical BID 08/30/22 08/30/22 Unknown History peg 400-propylene glycol 0.4 %-0.3 1 drp ophthalmic (eye) QID PRN Dry 08/30/22 08/30/22 Unknown History % eye drops (Systane Ultra) Eyes tobramycin 0.3 %-dexamethasone 0.1 1 drp ophthalmic-Right Q4H 08/30/22 08/30/22 Unknown History % eye drops,suspension (TobraDex) Physical Exam Vital Signs: Vital Signs: Last Vital Signs Temp 98.0 F 09/12/22 11:57 Pulse 87 09/12/22 13:24 Resp 13 09/12/22 13:24 BP 145/88 H 09/12/22 13:24 Pulse Ox 98 09/12/22 13:24 O2 Del Method Room Air 09/12/22 13:24 BMI result Body Mass Index 27.4 Const: General: comfortable and no acute distress Orientation/consciousness: patient oriented x3 HEENT: Other: Unremarkable Head: Yes normal to inspection Neck: Neck: Yes normal visual inspection Chest: Chest palpation & inspection: normal inspection of the chest Resp: Auscultation: clear to auscultation bilaterally Cardio: Palpation: normal PMI Heart sounds: S1 normal heart sound present, S2 normal heart sound present, no gallops, no murmurs and no rubs GI: Palpation (GI): Soft to palpation Back/Spine/Pelvis: Other: unremarkable Skin: General skin exam: no rashes or lesions noted Neuro: General: patient oriented x3 Extrem: General: Yes normal to inspection Psych: Mental Status: mental status grossly normal Objective Labs and Meds 09/12/22 12:18 09/12/22 12:18 Lab results: Laboratory Results - last 24 hr 09/12/22 09/12/22 09/12/22 12:18 12:18 12:18 WBC 10.4 RBC 4.82 Hgb 13.0 L Hct 41.8 L MCV 86.7 MCH 27.0 MCHC 31.1 RDW 14.4 Plt Count 274 MPV 9.3 L Immature Gran % (Auto) 0.5 H Neut % (Auto) 71.0 Lymph % (Auto) 19.3 L [place] % (Auto) 7.6 Eos % (Auto) 0.9 Baso % (Auto) 0.7 Lymph # (Auto) 2.0 [place] # (Auto) 0.8 Eos # (Auto) 0.1 Baso # (Auto) 0.1 Abs Immat Gran (auto) 0.05 H Absolute Neuts (auto) 7.4 Absolute Nucleated RBC 0.000 Nucleated RBC % (auto) 0.0 Sodium 139 Potassium 4.2 Chloride 103 Carbon Dioxide 22 Anion Gap 18 BUN 22 H Creatinine 1.32 Estim Creat Clear Calc 39.5 Estimated GFR 52 Random Glucose 128 H Calcium 9.7 D Magnesium 2.1 Total Bilirubin 0.8 AST 39 H ALT 28 Alkaline Phosphatase 81 Troponin I High Sens 2669.7 H* D Total Protein 7.5 Albumin 4.1 COVID-19 (RAJENDRA) COVID-19 Clin Com 09/12/22 12:18 WBC RBC Hgb Hct MCV MCH MCHC RDW Plt Count MPV Immature Gran % (Auto) Neut % (Auto) Lymph % (Auto) [place] % (Auto) Eos % (Auto) Baso % (Auto) Lymph # (Auto) [place] # (Auto) Eos # (Auto) Baso # (Auto) Abs Immat Gran (auto) Absolute Neuts (auto) Absolute Nucleated RBC Nucleated RBC % (auto) Sodium Potassium Chloride Carbon Dioxide Anion Gap BUN Creatinine Estim Creat Clear Calc Estimated GFR Random Glucose Calcium Magnesium Total Bilirubin AST ALT Alkaline Phosphatase Troponin I High Sens Total Protein Albumin COVID-19 (RAJENDRA) Negative COVID-19 Clin Com See Note ECG Interpretation: EKG with sinus rhythm at 73/Min; possible left atrial enlargement; old inferior infarct; cannot exclude old anteroseptal infarct; right bundle-branch block; PVC. Corrected QT is okay. Imaging Radiologist's impression: Impressions Chest X-Ray 09/12/22 13:35 IMPRESSION: Mild bibasilar linear markings represent significant interval improvement from the previous study. Probable residual mild atelectasis/scarring. Assessment and Plan (1) NSTEMI (non-ST elevated myocardial infarction): Status: Acute High sensitivity troponin 2669. History somewhat atypical as he does not have chest pain but overall, still likely NSTEMI. However, patient is in denial and would not accept a diagnosis. He believes that it is just medications that are causing him issues. Any case, we will treat him as NSTEMI at this time. Last dose of Eliquis was this a.m.. After approximately 12 hours, switch to IV heparin. Aspirin. High-dose statins. Will need a diagnostic catheterization once patient is able to accept the diagnosis and agree. He still keeps saying 'my heart is fine'. In the recent echocardiogram, LVEF 25-30%. Wall motion abnormalities consistent with ischemic cardiomyopathy. (2) PAF (paroxysmal atrial fibrillation): Status: Acute On amiodarone, Eliquis. Eliquis plan as above. Continue amiodarone. Plan d/w Nakia liu. d/w . Time Spent With Patient Time: Total time managing care of this patient today ____ minutes. Procedures Date of Service Date of Service: 09/12/22
--- NOTE | 2022-09-12 14:53 | PM.IMHP ---
History of Present Illness Date of Service: 09/12/22 Attending physician on admission: Kareem Pierce Chief Complaint: ligheadedness, weakness 87-year-old male with history of paroxysmal atrial fibrillation anticoagulated with Eliquis, BPH with LUTS, [id number] type 2 diabetes, hypertension, systolic congestive heart failure, who is hard of hearing with recent admission to [facility] for acute congestive heart failure exacerbation with shortness of breath and chest tightness. He was also diagnosed with atrial fibrillation at that time. Echocardiogram at that time did show wall motion abnormalities and suspected underlying coronary artery disease and he was recommended for outpatient stress test which did not take place. Today he reports that for the last 2 weeks he has been experiencing lightheadedness and generalized weakness which he feels is related to the medications he was prescribed on discharge including valsartan in amiodarone. He has also been experiencing epigastric discomfort and diaphoresis. Denies any fevers, chills, nausea, vomiting, diarrhea, palpitations, shortness of breath, or chest pains. On arrival, vitals are stable. There is no leukocytosis. There is a stable normocytic anemia with H/H 13.0/41.8%. Renal function baseline, electrolyte levels normal. Initial troponin 2669.7. Negative for COVID-19. Chest x-ray negative for any acute cardiopulmonary abnormality. EKG shows sinus rhythm with occasional PVCs, possible left atrial enlargement with right bundle anahi block. No ST or depressions. Last dose of Eliquis was 06:00 this morning. Review of Systems Review of Systems: General: No fevers, malaise, unintentional weight loss. +generalized weakness HEENT: No blurred vision, diplopia. No sore throat, nasal congestion, rhinorrhea, sinus pain, ear pain Cardiovascular: No chest pain, palpitations, or leg edema. +lightheadedness Respiratory: No shortness of breath, wheezing, cough GI: +epigastric pain. No vomiting, diarrhea, constipation, melena, hematochezia : No dysuria, hematuria, increased urinary frequency, decreased urinary output MSK: No myalgia, back pain Neuro: No headaches, weakness, paresthesias Skin: No rashes or lesions [facility] Medical History (Updated 09/12/22 @ 15:20 by DOMINICK Lafleur) BPH (benign prostatic hyperplasia) Diabetes Hearing deficit HTN (hypertension) NSTEMI (non-ST elevated myocardial infarction) PAF (paroxysmal atrial fibrillation) Rosacea Systolic heart failure Surgical History History of prostate surgery Hx of circumcision Hx of cystoscopy Status post glaucoma surgery Social History Household Members: Spouse Housing: House Do you presently have visiting nurse or other home services: No Alcohol intake: never Patient Tobacco Use Status: Never used Tobacco Advance Directives: Yes Advance Directives Information Provided: Yes Advance Directives on File: No service: Yes Meds Allergies Allergy/AdvReac Type Severity Reaction Status Date / Time penicillin G Allergy Intermediate Anaphylaxis Verified 09/12/22 08:17 lisinopril Allergy Unknown Verified 09/12/22 08:17 doxycycline AdvReac Diarrhea Verified 09/12/22 08:19 losartan AdvReac Diarrhea Verified 09/12/22 08:19 Active Medications: Current Medications Acetaminophen (Acetaminophen 325 Mg Tablet) 650 mg PO Q6H PRN PRN Reason: Pain, Mild (Pain Scale 1-3) Heparin Sodium (Porcine) (Heparin Sodium,Porcine 5,000 Unit/Ml Vial) 4,000 unit IVPUSH ONCE ONE Stop: 09/12/22 18:01 Heparin Sodium (Porcine) (Heparin Sodium,Porcine 5,000 Unit/Ml Vial) 3,300 unit 40 unit/kg (3300 unit) IVPUSH PROTOCOL BOLUS PRN; Protocol PRN Reason: 40 unit/kg - Heparin Protocol Heparin Sodium (Porcine) (Heparin Sodium,Porcine 5,000 Unit/Ml Vial) 6,500 unit 80 unit/kg (6500 unit) IVPUSH PROTOCOL BOLUS PRN; Protocol PRN Reason: 80 unit/kg - Heparin Protocol Heparin Sodium/Sodium Chloride (Heparin Sodium,Porcine/1/2ns) 25,000 unit in 250 mls @ 0 mls/hr IVCONT .Q0M MIRNA; Protocol Ondansetron HCl (Ondansetron Hcl 4 Mg/2 Ml Vial) 4 mg IVPUSH Q8H PRN PRN Reason: Nausea and Vomiting Pharmacy Consult (Consult Rx Perform Med Rec) 1 each MISCELLANE ONCE PRN PRN Reason: Consult order Sodium Chloride (0.9 % Sodium Chloride Flush 3 Ml Syringe) 3 ml IVFLUSH QSHIFT [facility] Home Medications Medication Instructions Recorded Confirmed Last Taken Type metformin 500 mg tablet 1,000 mg PO DAILY 03/10/20 08/30/22 03/10/20 04:00 History alogliptin 25 mg tablet 25 mg PO DAILY 08/30/22 08/30/22 Unknown History cetirizine 10 mg tablet 10 mg PO DAILY PRN Allergy Symptoms 08/30/22 08/30/22 Unknown History clotrimazole 1 % topical cream 1 appl topical DAILY PRN Skin 08/30/22 08/30/22 Unknown History Irritation ketorolac 0.5 % eye drops 1 drp ophthalmic (eye) QID 08/30/22 08/30/22 Unknown History ketotifen fumarate 0.025 % (0.035 1 drp ophthalmic (eye) BID PRN 08/30/22 08/30/22 Unknown History %) eye drops Allergy Symptoms methyl salicylate 15 %-menthol 10 1 appl topical BID PRN Muscle Pain 08/30/22 08/30/22 Unknown History % topical cream (Muscle Rub) metronidazole 0.75 % topical gel 1 appl topical BID 08/30/22 08/30/22 Unknown History peg 400-propylene glycol 0.4 %-0.3 1 drp ophthalmic (eye) QID PRN Dry 08/30/22 08/30/22 Unknown History % eye drops (Systane Ultra) Eyes tobramycin 0.3 %-dexamethasone 0.1 1 drp ophthalmic-Right Q4H 08/30/22 08/30/22 Unknown History % eye drops,suspension (TobraDex) Physical Exam Vital Signs and Narrative: Vital Signs: Last Vital Signs Temp 98.0 F 09/12/22 11:57 Pulse 87 09/12/22 13:24 Resp 13 09/12/22 13:24 BP 145/88 H 09/12/22 13:24 Pulse Ox 98 09/12/22 13:24 O2 Del Method Room Air 09/12/22 13:24 BMI result Body Mass Index 27.4 Constitutional - Awake and Alert, No apparent distress Eyes - PERRLA, EOMI Cardiovascular - S1S2, RRR, No edema Respiratory - Normal lung expansion, Normal respiratory effort, No respiratory distress, CTA bilaterally Gastrointestinal - NT / ND; +BS; No rebound or guarding Extremities - no calf tenderness bilaterally, no swelling Skin - Warm/Dry Neurological - Alert & oriented x3 Psychological - Appropriate affect Results Labs 09/12/22 12:18 09/12/22 12:18 Labs: Laboratory Results - last 24 hr 09/12/22 09/12/22 09/12/22 12:18 12:18 12:18 MCV 86.7 MCH 27.0 MCHC 31.1 RDW 14.4 Plt Count 274 MPV 9.3 L Immature Gran % (Auto) 0.5 H Neut % (Auto) 71.0 Lymph % (Auto) 19.3 L [place] % (Auto) 7.6 Eos % (Auto) 0.9 Baso % (Auto) 0.7 Lymph # (Auto) 2.0 [place] # (Auto) 0.8 Eos # (Auto) 0.1 Baso # (Auto) 0.1 Abs Immat Gran (auto) 0.05 H Absolute Neuts (auto) 7.4 Absolute Nucleated RBC 0.000 Nucleated RBC % (auto) 0.0 Anion Gap 18 Estim Creat Clear Calc 39.5 Estimated GFR 52 Random Glucose 128 H Calcium 9.7 D Magnesium 2.1 Total Bilirubin 0.8 AST 39 H ALT 28 Alkaline Phosphatase 81 Total Protein 7.5 Albumin 4.1 COVID-19 (RAJENDRA) Negative COVID-19 Clin Com See Note Imaging Radiologist's Impressions: Impressions Chest X-Ray 09/12/22 13:35 IMPRESSION: Mild bibasilar linear markings represent significant interval improvement from the previous study. Probable residual mild atelectasis/scarring. Assessment and Plan (1) NSTEMI (non-ST elevated myocardial infarction): Status: Acute Plan 87-year-old male with history of paroxysmal atrial fibrillation anticoagulated with Eliquis, BPH with LUTS, [id number] type 2 diabetes, hypertension, systolic congestive heart failure, who is hard of hearing with recent admission to [facility] for acute congestive heart failure exacerbation from 08/30-. he will be admitted for further management of NSTEMI. Pt has felt strongly the source of his symptoms is related to side effects from recently prescribed medications and does require ongoing education of the severity of his symptoms but is agreeable to treatment #NSTEMI -EKG without MACIEL or depressions. Trop 2667. Repeat trop q6h until peaked -Last echo showed regional wall motion abnormality last month. Echo limited ordered -Cardiology consult -INitiate heparin per protocol at 6pm (12 hours after eliquis dose) -Cardiac diet -Asa 324mg now, then asa 81mg daily -Lipid panel pending, initiate atorvastatin 80mg daily -intolerant of beta blockers -Monitor on telemetry #HFrEF -no acute exacerbation -continue jardiance, lasix #Non-insulin dependent type 2 diabetes- controlled -poc glucose -diabetic diet -humalog ssi -continue jardiance, hold metformin #HTN -reasonably controlled -continue home meds #BPH -continue home meds #Paroxysmal afib -rate controlled -hold eliquis, on heparin per protocol -continue amiodarone #INsomnia -reports has not slept in 4 nights -add trazodone dvt prophylaxis- on heparin per protocol full code pt requires inpt stay at least 2 midnights for management of nstemi on iv heparin per protocol requiring expert consultation, cardiac monitoring, and eventual transfer to tertiary care facility for cardiac catheterization Time Spent With Patient Time: Total time managing care of this patient today ____ minutes. Quality Stroke Does the patient have a stroke diagnosis?: No VTE Prior VTE?: No VTE Risk Level:: Medical - moderate - high VTE Device Contraindication: Treatment Not Indicated VTE Drug Contraindication: N/A - Med Ordered
[2022-09-12] MEDS: Aspirin 81 MG TAB.CHEW 324 MG PO (15:55)
[2022-09-12 15:56] LABS: Hematocrit 41.4 % (42.0-52.0); Hemoglobin 12.9 g/dl (14.0-18.0); Mean Corpuscular HGB Conc 31.2 g/dl (31.0-36.0); Mean Corpuscular Hemoglobin 27.1 pg (27.0-33.0); Mean Platelet Volume 9.2 fL (9.4-12.4); Platelet Count 260 X10*3/uL (160-400); Red Blood Count 4.76 X10*6/uL (4.60-5.80); Red Cell Distribution Width 14.4 % (11.0-16.0); White Blood Count 9.5 X10*3/uL (4.8-10.8)
--- NOTE | 2022-09-12 16:06 | PHA.MEDREC ---
Pharmacy Consult ? Medication Reconciliation Pharmacy has completed the medication reconciliation. [facility] and [facility]. Patient is now taking amiodarone 100mg BID. Patient has been taking valsartan 40mg BID. Discharge papers and [facility] 20mg BID but patient has not been splitting the pills, just taking a whole pill BID.
[2022-09-12 16:26] LABS: INTERNATIONAL NORM RATIO 1.4 (0.9-1.1); Prothrombin Time 16.7 SEC (11.1-13.3)
[2022-09-12 16:29] LABS: PTT Heparin Drip 33.8 SEC (53-77.9)
[2022-09-12 16:35] LABS: Troponin-I High Sensitivity 2516.3 ng/L (<3.5-35.0)
--- NOTE | 2022-09-12 16:41 | PC.NURSE ---
pt reporting he wants to stay on the same schedule for his home med times. pt reports he takes his Amiodarone at 6am and 6pm, furosemide at 4pm, jardiance at 4pm, and valsartan at 4am and 4pm. pharmacy made aware.
[2022-09-12] MEDS: 0.9 % Sodium Chloride Flush 3 ML SYRINGE IVFLUSH (16:49)
[2022-09-12 17:09] LABS: Cholesterol 150 mg/dL; HDL Cholesterol 42 mg/dL; LDL Cholesterol Calculated 81 mg/dl; Triglycerides 137 mg/dL
[2022-09-12] MEDS: Amiodarone HCL 200 MG TABLET 100 MG PO (18:25)
[2022-09-12] MEDS: Heparin Sodium,Porcine/1/2NS 25,000 UNIT/250 ML IV.SOLN 10 UNIT IVCONT (18:27)
[2022-09-12] MEDS: Heparin Sodium,Porcine 5,000 UNIT/ML VIAL 4000 UNIT IVPUSH (18:30)
[2022-09-12 18:32] LABS: Glucose, Whole Blood 134 mg/dL (60-115)
--- NOTE | 2022-09-12 19:18 | PC.NURSE ---
nurse to nurse given to floor.
[2022-09-12] MEDS: Magnesium Hydrox/Alum Hydrox 30 ML ORAL.SUSP PO (21:36)
[2022-09-12] MEDS: traZODone HCL 50 MG TABLET PO (21:36)
[2022-09-12] MEDS: Ketorolac Tromethamine 0.5% Op 5 ML DROPS 1 DROP EYE-BOTH (22:13)
[2022-09-12 22:33] LABS: Glucose, Whole Blood 130 mg/dL (60-115)
[2022-09-13 00:52] LABS: PTT Heparin Drip 57.1 SEC (53-77.9)
[2022-09-13 03:27] VITALS: BP 119/66; PULSE 92; RESP 18; TEMP 37.2; O2SAT 98
[2022-09-13] MEDS: Valsartan 40 MG TABLET PO (03:59)
--- NOTE | 2022-09-13 04:37 | PC.NURSE ---
Pt was admitted last night from ED. Alert and orientedx4. Ambulatory with a cane. Settled in bed. Placed on tele monitor. Came in with heparin drip at 11.16 units/hr. Initial complaints of epigastric pain upon arrival. Pt given Maalox with very good effect per pt. Overnight pt had 9 beats of Vtach. No other symptoms associated with it. 4am pt woke up for his BP meds, reported having felt so good and slept well. Hesitant to take his bP meds because he never felt this good before. He attributed his ill feeling from the medication he is taking.
[2022-09-13] MEDS: Amiodarone HCL 200 MG TABLET 100 MG PO ×2 (06:17→16:48)
[2022-09-13 06:35] LABS: MANUAL DIFF FLAG NO
[2022-09-13 06:48] LABS: INTERNATIONAL NORM RATIO 1.2 (0.9-1.1); Prothrombin Time 15.1 SEC (11.1-13.3)
[2022-09-13 06:51] LABS: PTT Heparin Drip 53.2 SEC (53-77.9)
[2022-09-13 06:53] LABS: Anion Gap 14 (12-20); Blood Urea Nitrogen 20 mg/dL (9-16); Calcium 9.1 mg/dL (8.4-10.2); Carbon Dioxide 23 mmol/L (22-29); Chloride 105 mmol/L (96-108); Creatinine Clr Calc Pharmacy 50.8; Estimated Glomerular Filt Rate > 60; Glucose Random 127 mg/dL (60-115); Sodium 138 mmol/L (135-145)
--- NOTE | 2022-09-13 07:00 | CA_ITS ---
Transthoracic Echocardiogram Patient (Last, First, Middle): Casper Herrera H Gender: Male Date of : 1935 Age: 87 Procedure Date: 09/13/2022 Procedure Type: Transthoracic [place]ocardiogram [place] [facility] [place]: 172.72 cm Weight: 88.45 kg BSA: 2.02 m2 Heart Rate: bpm BP: 119 / 66 mmHg Continuous Process Tanner Rotary Drum: Referring MD: Nakia TAN Symptoms: nstemi Study Quality: Adequate with contrast Conclusions: - There is mildly increased left ventricular wall thickness. The left ventricular systolic function is severely decreased. The visually estimated ejection fraction is between 15-20%. LV is dilated. - The inferior wall and basal anterior segment are hypokinetic. - The apex, apical anterior, mid anterior, apical lateral, apical septum, mid anterolateral, and mid inferolateral segments are akinetic. - Moderate pulmonary hypertension is present. Findings Procedure Information Contrast agent, definity, is being given per protocol without apparent complications. Left Ventricle There is mildly increased left ventricular wall thickness. The left ventricular systolic function is severely decreased. The visually estimated ejection fraction is between 15-20%. There is evidence of regional wall motion abnormalities. Diastolic function is indeterminate on the basis of available data. Left ventricle is dilated. No evidence of apical thrombus. Wall Motion Rest Echo Findings The inferior wall and basal anterior segment are hypokinetic. The apex, apical anterior, mid anterior, apical lateral, apical septum, mid anterolateral, and mid inferolateral segments are akinetic. Right Ventricle Normal right ventricular cavity size and systolic function. Tricuspid Valve The right ventricular systolic pressure is 51 mmHg. Normal right atrial pressure. Moderate pulmonary hypertension is present. Venous The inferior vena cava is normal in size and collapses greater than 50% with inspiration. Pericardium/Pleural There is no evidence of pericardial effusion. Prior Study Comparison Changes noted compared to prior study dated: 08/31/2022. Moderate pulmonary hypertension is present. Measurements 2D Linear Measurements IVSd: 1.00 0.6-0.9/0.6-1.0 cm LVIDd: 6.10 3.9-5.3/4.2-5.9 cm LVIDd Index: 3.02 2.4-3.2/2.2-3.1 cm/m2 LVIDs: 5.50 2.0-3.6 cm LVPWd: 1.10 0.7-1.1 cm LV Mass: 337.36 67-162/88-224 g LV Mass Index: 167.01 43-95/49-115 g/m2 2D Systolic Function EF 4C: 24.30 >55% EF 2C: 12.20 >55% EF BiP: 18.50 >55% Tricuspid Valve TR Pk Landen: 3.45 TR Pk Grad: 48.00 RVSP: 51.00 Updated in Other Vendor System with Status of Final Jose Luis Taylor MD electronically signed on 09/13/2022 11:45:59 AM with status of Final
[2022-09-13 07:01] LABS: Basophils Absolute Auto 0.1 X10*3/uL (0.0-0.2); Basophils Percent Auto 0.8 % (0-2); Eosinophils Absolute Auto 0.2 X10*3/uL (0.0-0.4); Eosinophils Percent Auto 1.9 % (0-4); Hematocrit 39.8 % (42.0-52.0); Hemoglobin 12.2 g/dl (14.0-18.0); Imm Gran Abs Auto 0.06 X10*3/uL (0.00-0.03); Imm Gran Pct Auto 0.7 % (0.0-0.4); Lymphocytes Percent Auto 24.2 % (20-40); Mean Corpuscular HGB Conc 30.7 g/dl (31.0-36.0); Mean Corpuscular Hemoglobin 26.8 pg (27.0-33.0); Mean Corpuscular Volume 87.3 fL (80.0-98.0); Mean Platelet Volume 9.4 fL (9.4-12.4); Monocytes Absolute Auto 0.6 X10*3/uL (0.1-1.2); Monocytes Percent Auto 7.5 % (2-11); Neutrophils Absolute Auto 5.4 x10*3/uL (2.0-8.3); Neutrophils Percent Auto 64.9 % (45-73); Platelet Count 242 X10*3/uL (160-400); Red Blood Count 4.56 X10*6/uL (4.60-5.80); Red Cell Distribution Width 14.3 % (11.0-16.0); White Blood Count 8.3 X10*3/uL (4.8-10.8)
[2022-09-13 07:12] LABS: Glucose, Whole Blood 129 mg/dL (60-115)
[2022-09-13 07:28] VITALS: BP 110/61; PULSE 71; RESP 20; TEMP 37; O2SAT 97
[2022-09-13] MEDS: Finasteride 5 MG TABLET PO (08:25)
[2022-09-13] MEDS: 0.9 % Sodium Chloride Flush 3 ML SYRINGE IVFLUSH ×2 (08:25→16:51)
[2022-09-13] MEDS: Pyridoxine HCl (Vitamin B6) 50 MG TABLET 100 MG PO (08:25)
[2022-09-13] MEDS: Atorvastatin Calcium 80 MG TABLET PO (08:25)
[2022-09-13] MEDS: Ketorolac Tromethamine 0.5% Op 5 ML DROPS 1 DROP EYE-BOTH ×3 (08:26→16:51)
[2022-09-13] MEDS: Ketotifen Fumarate 0.025% Oph 5 ML DRPBTL 1 DROP EYE-BOTH (08:26)
[2022-09-13] MEDS: Aspirin Enteric Coated 81 MG TABLET.DR PO (09:45)
--- NOTE | 2022-09-13 10:09 | HO.PM.IMPN ---
Subjective Subjective Date of Service: 09/13/22 Interval History: no chest pain, slept well Physical Exam Vital Signs: Vital Signs: Last Vital Signs Temp 98.6 F 09/13/22 07:28 Pulse 71 09/13/22 07:28 Resp 20 09/13/22 07:28 BP 110/61 09/13/22 07:28 Pulse Ox 97 09/13/22 07:28 O2 Del Method Room Air 09/13/22 07:28 BMI result Body Mass Index 29.7 General: AO X 3, no acute distress Resp: CTA bilateral, no accessory muscles used CVS: S1,S2,RRR GI: soft, non tender, non distended Neuro: motor grossly intact, alert Psych: appropriate affect, appropriate insight Objective Data Active Medications Acetaminophen (Acetaminophen 325 Mg Tablet) 650 mg PO Q6H PRN PRN Reason: Pain, Mild (Pain Scale 1-3) Amiodarone HCl (Amiodarone Hcl 200 Mg Tablet) 100 mg PO BID@0600,1800 [facility] Last Admin: 09/13/22 06:17 Dose: 100 mg Documented By: LEEROY Artificial Tears (Artificial Tears 15 Ml Drops) 1 drop EYE-BOTH QID PRN PRN Reason: Dry Eyes Aspirin (Aspirin Enteric Coated 81 Mg Tablet.Dr) 81 mg PO DAILY [facility] Last Admin: 09/13/22 09:45 Dose: 81 mg Documented By: MAYELA Atorvastatin Calcium (Atorvastatin Calcium 80 Mg Tablet) 80 mg PO DAILY [facility] Last Admin: 09/13/22 08:25 Dose: 80 mg Documented By: MAYELA Dextrose (Dextrose 50 % 25 Gm/50 Ml Syringe) 25 gm IVPUSH Q15M PRN; Protocol PRN Reason: per Hypoglycemia Standing Ord. Empagliflozin (Empagliflozin 10 Mg Tablet) 10 mg PO DAILY@1600 [facility] Finasteride (Finasteride 5 Mg Tablet) 5 mg PO DAILY [facility] Last Admin: 09/13/22 08:25 Dose: 5 mg Documented By: MAYELA Furosemide (Furosemide 20 Mg Tablet) 20 mg PO DAILY@1600 [facility]; Protocol Glucose (Glucose Gel 15 Gm Gel..Gram.) 15 gm PO Q15M PRN; Protocol PRN Reason: per Hypoglycemia Standing Ord. Heparin Sodium (Porcine) (Heparin Sodium,Porcine 5,000 Unit/Ml Vial) 3,600 unit 40 unit/kg (3600 unit) IVPUSH PROTOCOL BOLUS PRN; Protocol PRN Reason: 40 unit/kg - Heparin Protocol Heparin Sodium (Porcine) (Heparin Sodium,Porcine 5,000 Unit/Ml Vial) 7,200 unit 80 unit/kg (7200 unit) IVPUSH PROTOCOL BOLUS PRN; Protocol PRN Reason: 80 unit/kg - Heparin Protocol Heparin Sodium/Sodium Chloride (Heparin Sodium,Porcine/1/2ns) 25,000 unit in 250 mls @ 0 mls/hr IVCONT .Q0M [facility]; Protocol Last Titration: 09/13/22 07:01 Dose: 11.16 units/kg/hr, 10 mls/hr Documented By: MAYELA Co-signed By: LEEROY Insulin Human Lispro (Insulin Lispro 100 Unit/Ml 3 Ml Vial) 0 unit SUBCUT QIDACHS [facility]; Protocol Last Admin: 09/13/22 08:24 Dose: Not Given Documented By: MAYELA Non-Admin Reason: No Insulin Coverage Ketorolac Tromethamine (Ketorolac Tromethamine 0.5% Op 5 Ml Drops) 1 drop EYE-BOTH QID [facility] Last Admin: 09/13/22 08:26 Dose: 1 drop Documented By: MAYELA Ketotifen Fumarate (Ketotifen Fumarate 0.025% Oph 5 Ml Drpbtl) 1 drop EYE-BOTH BID PRN PRN Reason: Allergy Symptoms Last Admin: 09/13/22 08:26 Dose: 1 drop Documented By: MAYELA Ondansetron HCl (Ondansetron Hcl 4 Mg/2 Ml Vial) 4 mg IVPUSH Q8H PRN PRN Reason: Nausea and Vomiting Pharmacy Consult (Consult Rx Perform Med Rec) 1 each MISCELLANE ONCE PRN PRN Reason: Consult order Pyridoxine HCl (Pyridoxine Hcl (Vitamin B6) 50 Mg Tablet) 100 mg PO DAILY [facility] Last Admin: 09/13/22 08:25 Dose: 100 mg Documented By: MAYELA Sodium Chloride (0.9 % Sodium Chloride Flush 3 Ml Syringe) 3 ml IVFLUSH QSHIFT [facility] Last Admin: 09/13/22 08:25 Dose: 3 ml Documented By: MAYELA Trazodone HCl (Trazodone Hcl 50 Mg Tablet) 50 mg PO BEDTIME [facility] Last Admin: 09/12/22 21:36 Dose: 50 mg Documented By: LEEROY Trazodone HCl (Trazodone Hcl 50 Mg Tablet) 50 mg PO BEDTIME PRN PRN Reason: Insomnia Valsartan (Valsartan 40 Mg Tablet) 40 mg PO BID@0400,1600 [facility]; Protocol Last Admin: 09/13/22 03:59 Dose: 40 mg Documented By: LEEROY Labs 09/13/22 06:17 09/13/22 06:17 Labs: Laboratory Results - last 24 hr 09/12/22 09/12/22 09/12/22 12:18 12:18 12:18 MCV 86.7 MCH 27.0 MCHC 31.1 RDW 14.4 Plt Count 274 MPV 9.3 L Immature Gran % (Auto) 0.5 H Neut % (Auto) 71.0 Lymph % (Auto) 19.3 L [place] % (Auto) 7.6 Eos % (Auto) 0.9 Baso % (Auto) 0.7 Lymph # (Auto) 2.0 [place] # (Auto) 0.8 Eos # (Auto) 0.1 Baso # (Auto) 0.1 Abs Immat Gran (auto) 0.05 H Absolute Neuts (auto) 7.4 Absolute Nucleated RBC 0.000 Nucleated RBC % (auto) 0.0 PT INR aPTT Heparin Protocol Anion Gap 18 Estim Creat Clear Calc 39.5 Estimated GFR 52 POC Glucose Random Glucose 128 H Calcium 9.7 D Magnesium 2.1 Total Bilirubin 0.8 AST 39 H ALT 28 Alkaline Phosphatase 81 Total Protein 7.5 Albumin 4.1 Triglycerides 137 Cholesterol 150 LDL Cholesterol, Calc 81 HDL Cholesterol 42 COVID-19 (RAJENDRA) Negative COVID-19 Clin Com See Note 09/12/22 09/12/22 09/12/22 15:45 15:45 18:18 MCV 87.0 MCH 27.1 MCHC 31.2 RDW 14.4 Plt Count 260 MPV 9.2 L Immature Gran % (Auto) Neut % (Auto) Lymph % (Auto) [place] % (Auto) Eos % (Auto) Baso % (Auto) Lymph # (Auto) [place] # (Auto) Eos # (Auto) Baso # (Auto) Abs Immat Gran (auto) Absolute Neuts (auto) Absolute Nucleated RBC 0.000 Nucleated RBC % (auto) 0.0 PT 16.7 H INR 1.4 H aPTT Heparin Protocol 33.8 L Anion Gap Estim Creat Clear Calc Estimated GFR POC Glucose 134 H Random Glucose Calcium Magnesium Total Bilirubin AST ALT Alkaline Phosphatase Total Protein Albumin Triglycerides Cholesterol LDL Cholesterol, Calc HDL Cholesterol COVID-19 (RAJENDRA) COVID-19 Clin Com 09/12/22 09/13/22 09/13/22 21:23 00:19 06:17 MCV 87.3 MCH 26.8 L MCHC 30.7 L RDW 14.3 Plt Count 242 MPV 9.4 Immature Gran % (Auto) 0.7 H Neut % (Auto) 64.9 Lymph % (Auto) 24.2 [place] % (Auto) 7.5 Eos % (Auto) 1.9 Baso % (Auto) 0.8 Lymph # (Auto) 2.0 [place] # (Auto) 0.6 Eos # (Auto) 0.2 Baso # (Auto) 0.1 Abs Immat Gran (auto) 0.06 H Absolute Neuts (auto) 5.4 Absolute Nucleated RBC 0.000 Nucleated RBC % (auto) 0.0 PT INR aPTT Heparin Protocol 57.1 D Anion Gap Estim Creat Clear Calc Estimated GFR POC Glucose 130 H Random Glucose Calcium Magnesium Total Bilirubin AST ALT Alkaline Phosphatase Total Protein Albumin Triglycerides Cholesterol LDL Cholesterol, Calc HDL Cholesterol COVID-19 (RAJENDRA) COVID-19 Clin Com 09/13/22 09/13/22 09/13/22 06:17 06:17 06:17 MCV MCH MCHC RDW Plt Count MPV Immature Gran % (Auto) Neut % (Auto) Lymph % (Auto) [place] % (Auto) Eos % (Auto) Baso % (Auto) Lymph # (Auto) [place] # (Auto) Eos # (Auto) Baso # (Auto) Abs Immat Gran (auto) Absolute Neuts (auto) Absolute Nucleated RBC Nucleated RBC % (auto) PT 15.1 H INR 1.2 H aPTT Heparin Protocol 53.2 Anion Gap 14 Estim Creat Clear Calc 50.8 Estimated GFR > 60 POC Glucose Random Glucose 127 H Calcium 9.1 D Magnesium Total Bilirubin AST ALT Alkaline Phosphatase Total Protein Albumin Triglycerides Cholesterol LDL Cholesterol, Calc HDL Cholesterol COVID-19 (RAJENDRA) COVID-19 Clin Com 09/13/22 07:05 MCV MCH MCHC RDW Plt Count MPV Immature Gran % (Auto) Neut % (Auto) Lymph % (Auto) [place] % (Auto) Eos % (Auto) Baso % (Auto) Lymph # (Auto) [place] # (Auto) Eos # (Auto) Baso # (Auto) Abs Immat Gran (auto) Absolute Neuts (auto) Absolute Nucleated RBC Nucleated RBC % (auto) PT INR aPTT Heparin Protocol Anion Gap Estim Creat Clear Calc Estimated GFR POC Glucose 129 H Random Glucose Calcium Magnesium Total Bilirubin AST ALT Alkaline Phosphatase Total Protein Albumin Triglycerides Cholesterol LDL Cholesterol, Calc HDL Cholesterol COVID-19 (RAJENDRA) COVID-19 Clin Com Assessment and Plan (1) NSTEMI (non-ST elevated myocardial infarction): Status: Acute Plan 87M PMH paroxysmal afib, bph, dm, htn, chornic systolic chf, presented with weakness, found to have NSTEMI NSTEMI asa, heparin, statin cardio eval paroxysmal afib heparin, (eliquis on hold) amio chronic systolic chf valsartan, cant tolerate beta candis, entresto lasix DM insulin dvt prophylaxis - heparin iv full code reason for continued hospitalization:treating nstemi with iv heparin Time Spent With Patient Time: Total time managing care of this patient today ____ minutes. Quality Stroke Does the patient have a stroke diagnosis?: No VTE Prior VTE?: No VTE Risk Level:: Medical - moderate - high VTE Device Contraindication: Treatment Not Indicated VTE Drug Contraindication: N/A - Med Ordered
--- NOTE | 2022-09-13 10:27 | MHC.CM.PN ---
Addendum entered by Rhonda Conley RN 09/13/22 10:50: D/C PLAN HOME W/SERVICES VS TXFR TO [facility] Original Note: EMR REVIEWED, PT ADMITTED W/NSTEMI, CM MET W/PT AND PT REPORTS NOTHING HAS CHANGED SINCE LAST DISCHARGE FROM HOSPITAL on 09/03/22, PT REPORTS HE STILL LIVES W/, IF 100% [facility], USES A CANE AND HAS NO HOME SERVICES.
[2022-09-13 10:58] LABS: Glucose, Whole Blood 168 mg/dL (60-115)
[2022-09-13 11:04] VITALS: BP 120/69; PULSE 80; RESP 20; TEMP 37.1; O2SAT 98
--- NOTE | 2022-09-13 11:49 | P.DS_ITS ---
DS: Providers Provider Date of Service: 09/13/22 Date of admission: 09/12/22 14:42 Primary care physician: Unknown Physician Consults: 09/12/22 13:59 Consult to Cardiology Stat Consulting Provider: Kaushal Sánchez Reason for consultation: ACS DS: Diagnosis Discharge Diagnosis (1) NSTEMI (non-ST elevated myocardial infarction): Status: Acute DS: Summary Hospital Course Hospital Course: from initial hpi: 87-year-old male with history of paroxysmal atrial fibrillation anticoagulated with Eliquis, BPH with LUTS, [id number] type 2 diabetes, hypertension, systolic congestive heart failure, who is hard of hearing with recent admission to [facility] for acute congestive heart failure exacerbation with shortness of breath and chest tightness.? He was also diagnosed with atrial fibrillation at that time.? Echocardiogram at that time did show wall motion abnormalities and suspected underlying coronary artery disease and he was recommended for outpatient stress test which did not take place.? Today he reports that for the last 2 weeks he has been experiencing lightheadedness and generalized weakness which he feels is related to the medications he was prescribed on discharge including valsartan in amiodarone.? He has also been experiencing epigastric discomfort and diaphoresis.? Denies any fevers, chills, nausea, vomiting, diarrhea, palpitations, shortness of breath, or chest pains. On arrival, vitals are stable.? There is no leukocytosis.? There is a stable normocytic anemia with H/H 13.0/41.8%.? Renal function baseline, electrolyte levels normal.? Initial troponin 2669.7.? Negative for COVID-19.? Chest x-ray negative for any acute cardiopulmonary abnormality.? EKG shows sinus rhythm with occasional PVCs, possible left atrial enlargement with right bundle anahi block.? No ST or depressions.? Last dose of Eliquis was 06:00 this morning. hospital course: patient admitted for nstemi. elqiuis held and started on iv heparin, asa, statin. seen by cardiology recommended holding arb for intolerance, transfer to [facility] [place] [facility] [place]. for paroxysmal afib on iv heparin and amio. for chronic systolic chf on lasic po, does not tolerate neurohormonals. for dm treated with insulin. patient will be trasnfered to [facility] [place]. Time Spent with Patient Time attestation: Total time managing care of this patient today ____ minutes. Discharge coordination time: Greater than 30 minutes Quality: Safe Use of Opioids Does Pt have an Active Cancer Diagnosis on the Problem List?: No Quality: Stroke Does the patient have a stroke diagnosis?: No Physical Exam Vital Signs: Vital Signs: Last Vital Signs Temp 98.7 F 09/13/22 11:04 Pulse 80 09/13/22 11:04 Resp 20 09/13/22 11:04 BP 120/69 09/13/22 11:04 Pulse Ox 98 09/13/22 11:04 O2 Del Method Room Air 09/13/22 11:04 BMI result Body Mass Index 29.7 General: AO X 3, no acute distress Resp: CTA bilateral, no accessory muscles used CVS: S1,S2,RRR GI: soft, non tender, non distended Neuro: motor grossly intact, alert Psych: appropriate affect, appropriate insight DS: Data Data Completed and Pending Labs on day of discharge: Laboratory Results - last 24 hr 09/12/22 09/12/22 09/12/22 12:18 12:18 12:18 WBC 10.4 RBC 4.82 Hgb 13.0 L Hct 41.8 L MCV 86.7 MCH 27.0 MCHC 31.1 RDW 14.4 Plt Count 274 MPV 9.3 L Immature Gran % (Auto) 0.5 H Neut % (Auto) 71.0 Lymph % (Auto) 19.3 L Lee % (Auto) 7.6 Eos % (Auto) 0.9 Baso % (Auto) 0.7 Lymph # (Auto) 2.0 Lee # (Auto) 0.8 Eos # (Auto) 0.1 Baso # (Auto) 0.1 Abs Immat Gran (auto) 0.05 H Absolute Neuts (auto) 7.4 Absolute Nucleated RBC 0.000 Nucleated RBC % (auto) 0.0 PT INR aPTT Heparin Protocol Sodium 139 Potassium 4.2 Chloride 103 Carbon Dioxide 22 Anion Gap 18 BUN 22 H Creatinine 1.32 Estim Creat Clear Calc 39.5 Estimated GFR 52 POC Glucose Random Glucose 128 H Calcium 9.7 D Magnesium 2.1 Total Bilirubin 0.8 AST 39 H ALT 28 Alkaline Phosphatase 81 Troponin I High Sens 2669.7 H* D Total Protein 7.5 Albumin 4.1 Triglycerides 137 Cholesterol 150 LDL Cholesterol, Calc 81 HDL Cholesterol 42 COVID-19 (RAJENDRA) COVID-19 Clin Com 09/12/22 09/12/22 09/12/22 12:18 15:45 15:45 WBC 9.5 RBC 4.76 Hgb 12.9 L Hct 41.4 L MCV 87.0 MCH 27.1 MCHC 31.2 RDW 14.4 Plt Count 260 MPV 9.2 L Immature Gran % (Auto) Neut % (Auto) Lymph % (Auto) Lee % (Auto) Eos % (Auto) Baso % (Auto) Lymph # (Auto) Lee # (Auto) Eos # (Auto) Baso # (Auto) Abs Immat Gran (auto) Absolute Neuts (auto) Absolute Nucleated RBC 0.000 Nucleated RBC % (auto) 0.0 PT 16.7 H INR 1.4 H aPTT Heparin Protocol 33.8 L Sodium Potassium Chloride Carbon Dioxide Anion Gap BUN Creatinine Estim Creat Clear Calc Estimated GFR POC Glucose Random Glucose Calcium Magnesium Total Bilirubin AST ALT Alkaline Phosphatase Troponin I High Sens Total Protein Albumin Triglycerides Cholesterol LDL Cholesterol, Calc HDL Cholesterol COVID-19 (RAJENDRA) Negative COVID-19 Clin Com See Note 09/12/22 09/12/22 09/12/22 15:45 18:18 21:23 WBC RBC Hgb Hct MCV MCH MCHC RDW Plt Count MPV Immature Gran % (Auto) Neut % (Auto) Lymph % (Auto) Lee % (Auto) Eos % (Auto) Baso % (Auto) Lymph # (Auto) Lee # (Auto) Eos # (Auto) Baso # (Auto) Abs Immat Gran (auto) Absolute Neuts (auto) Absolute Nucleated RBC Nucleated RBC % (auto) PT INR aPTT Heparin Protocol Sodium Potassium Chloride Carbon Dioxide Anion Gap BUN Creatinine Estim Creat Clear Calc Estimated GFR POC Glucose 134 H 130 H Random Glucose Calcium Magnesium Total Bilirubin AST ALT Alkaline Phosphatase Troponin I High Sens 2516.3 H* Total Protein Albumin Triglycerides Cholesterol LDL Cholesterol, Calc HDL Cholesterol COVID-19 (RAJENDRA) COVID-19 Clin Com 09/13/22 09/13/22 09/13/22 00:19 06:17 06:17 WBC 8.3 RBC 4.56 L Hgb 12.2 L Hct 39.8 L MCV 87.3 MCH 26.8 L MCHC 30.7 L RDW 14.3 Plt Count 242 MPV 9.4 Immature Gran % (Auto) 0.7 H Neut % (Auto) 64.9 Lymph % (Auto) 24.2 Lee % (Auto) 7.5 Eos % (Auto) 1.9 Baso % (Auto) 0.8 Lymph # (Auto) 2.0 Lee # (Auto) 0.6 Eos # (Auto) 0.2 Baso # (Auto) 0.1 Abs Immat Gran (auto) 0.06 H Absolute Neuts (auto) 5.4 Absolute Nucleated RBC 0.000 Nucleated RBC % (auto) 0.0 PT 15.1 H INR 1.2 H aPTT Heparin Protocol 57.1 D Sodium Potassium Chloride Carbon Dioxide Anion Gap BUN Creatinine Estim Creat Clear Calc Estimated GFR POC Glucose Random Glucose Calcium Magnesium Total Bilirubin AST ALT Alkaline Phosphatase Troponin I High Sens Total Protein Albumin Triglycerides Cholesterol LDL Cholesterol, Calc HDL Cholesterol COVID-19 (RAJENDRA) COVID-19 Clin Com 09/13/22 09/13/22 09/13/22 06:17 06:17 07:05 WBC RBC Hgb Hct MCV MCH MCHC RDW Plt Count MPV Immature Gran % (Auto) Neut % (Auto) Lymph % (Auto) Lee % (Auto) Eos % (Auto) Baso % (Auto) Lymph # (Auto) Lee # (Auto) Eos # (Auto) Baso # (Auto) Abs Immat Gran (auto) Absolute Neuts (auto) Absolute Nucleated RBC Nucleated RBC % (auto) PT INR aPTT Heparin Protocol 53.2 Sodium 138 Potassium 4.0 Chloride 105 Carbon Dioxide 23 Anion Gap 14 BUN 20 H Creatinine 1.15 Estim Creat Clear Calc 50.8 Estimated GFR > 60 POC Glucose 129 H Random Glucose 127 H Calcium 9.1 D Magnesium Total Bilirubin AST ALT Alkaline Phosphatase Troponin I High Sens Total Protein Albumin Triglycerides Cholesterol LDL Cholesterol, Calc HDL Cholesterol COVID-19 (RAJENDRA) COVID-19 Clin Com 09/13/22 10:51 WBC RBC Hgb Hct MCV MCH MCHC RDW Plt Count MPV Immature Gran % (Auto) Neut % (Auto) Lymph % (Auto) Lee % (Auto) Eos % (Auto) Baso % (Auto) Lymph # (Auto) Lee # (Auto) Eos # (Auto) Baso # (Auto) Abs Immat Gran (auto) Absolute Neuts (auto) Absolute Nucleated RBC Nucleated RBC % (auto) PT INR aPTT Heparin Protocol Sodium Potassium Chloride Carbon Dioxide Anion Gap BUN Creatinine Estim Creat Clear Calc Estimated GFR POC Glucose 168 H Random Glucose Calcium Magnesium Total Bilirubin AST ALT Alkaline Phosphatase Troponin I High Sens Total Protein Albumin Triglycerides Cholesterol LDL Cholesterol, Calc HDL Cholesterol COVID-19 (RAJENDRA) COVID-19 Clin Com Discharge Plan Discharge Anticipated Discharge Date/Time: 09/13/22 11:42 Patient Disposition: Xfer Acute Care Hospital Discharge Diagnosis: nstemi Referrals: Physician,Unknown J [Primary Care Provider] - 1 Week Discharge Medications: New atorvastatin 80 mg Tablet 80 mg PO DAILY Qty: 0 0RF aspirin 81 mg Tablet,Delayed Release (Dr/Ec) 81 mg PO DAILY Qty: 0 0RF heparin (porcine) 5,000 unit/mL Solution 7,200 unit IVPUSH PROTOCOL BOLUS PRN (Reason: 80 Unit/Kg - Heparin Protocol) Qty: 0 0RF Continued ketotifen fumarate 0.025 % (0.035 %) Drops 1 drp OPHTHALMIC (EYE) BID PRN (Reason: Allergy Symptoms) Rx Instructions: administer at least 8 hours apart ketorolac 0.5 % Drops 1 drp OPHTHALMIC (EYE) QID clotrimazole 1 % Cream 1 appl TOPICAL DAILY PRN (Reason: Skin Irritation) metronidazole 0.75 % Gel 1 appl TOPICAL BID Systane Ultra 0.4-0.3 % Drops 1 drp OPHTHALMIC (EYE) QID PRN (Reason: Dry Eyes) alogliptin 25 mg Tablet 25 mg PO DAILY amiodarone 100 mg Tablet 100 mg PO BID@0600,1800 furosemide 20 mg tablet 20 mg PO DAILY@1600 Protocol: Hold for SBP< HOLD for SBP < : 90 Jardiance 10 mg tablet 10 mg PO DAILY@1600 pyridoxine (vitamin B6) 100 mg tablet 100 mg PO DAILY 90 Days Qty: 90 1RF finasteride 5 mg tablet 5 mg PO DAILY 90 Days Qty: 90 3RF Held metformin 500 mg Tablet 1,000 mg PO DAILY Hold Instructions: Resume on 09/16/22. Eliquis 5 mg Tablet 5 mg PO BID Qty: 60 0RF Hold Instructions: Resume on 09/16/22. Discontinued valsartan 40 mg tablet 40 mg PO BID@0400,1600 Discharge Orders: Discharge Order (Routine); Ordered 09/13/22 Ordered By: Kareem Jesin Diet: Advance to usual diet Activity on Discharge: As tolerated Stand Alone Forms: Patient Portal Discharge page Care Plan Goals: manage nstemi Health Concerns: nstmei Plan of [place] [facility] [place]: see above
--- NOTE | 2022-09-13 11:50 | PM.PNCARD ---
Subjective Subjective Date of Service: 09/13/22 Interval history: Seen examined at bedside. Complaining of significant GI issues including abdominal discomfort. It appears he could not tolerate lisinopril and losartan in the past and had GI issues from both. Denying any chest discomfort otherwise. Physical Exam Vital Signs: Last Vital Signs Temp 98.7 F 09/13/22 11:04 Pulse 80 09/13/22 11:04 Resp 20 09/13/22 11:04 BP 120/69 09/13/22 11:04 Pulse Ox 98 09/13/22 11:04 O2 Del Method Room Air 09/13/22 11:04 BMI result Body Mass Index 29.7 GENERAL APPEARANCE: in no acute distress, pleasant. NECK: no carotid bruit, no jugular venous distention. SKIN: no suspicious lesions, warm and dry. HEART: no murmurs, regular rate and rhythm. LUNGS: clear to auscultation bilaterally. ABDOMEN: soft, nontender. EXTREMITIES: no edema. PERIPHERAL PULSES: equal. NEUROLOGIC: No gross deficits, AAO X 3 Objective Labs and Meds 09/13/22 06:17 09/13/22 06:17 Lab results: Laboratory Results - last 24 hr 09/12/22 09/12/22 09/12/22 12:18 12:18 12:18 WBC 10.4 RBC 4.82 Hgb 13.0 L Hct 41.8 L MCV 86.7 MCH 27.0 MCHC 31.1 RDW 14.4 Plt Count 274 MPV 9.3 L Immature Gran % (Auto) 0.5 H Neut % (Auto) 71.0 Lymph % (Auto) 19.3 L [place] % (Auto) 7.6 Eos % (Auto) 0.9 Baso % (Auto) 0.7 Lymph # (Auto) 2.0 [place] # (Auto) 0.8 Eos # (Auto) 0.1 Baso # (Auto) 0.1 Abs Immat Gran (auto) 0.05 H Absolute Neuts (auto) 7.4 Absolute Nucleated RBC 0.000 Nucleated RBC % (auto) 0.0 PT INR aPTT Heparin Protocol Sodium 139 Potassium 4.2 Chloride 103 Carbon Dioxide 22 Anion Gap 18 BUN 22 H Creatinine 1.32 Estim Creat Clear Calc 39.5 Estimated GFR 52 POC Glucose Random Glucose 128 H Calcium 9.7 D Magnesium 2.1 Total Bilirubin 0.8 AST 39 H ALT 28 Alkaline Phosphatase 81 Troponin I High Sens 2669.7 H* D Total Protein 7.5 Albumin 4.1 Triglycerides 137 Cholesterol 150 LDL Cholesterol, Calc 81 HDL Cholesterol 42 COVID-19 (RAJENDRA) COVID-19 Clin Com 09/12/22 09/12/22 09/12/22 12:18 15:45 15:45 WBC 9.5 RBC 4.76 Hgb 12.9 L Hct 41.4 L MCV 87.0 MCH 27.1 MCHC 31.2 RDW 14.4 Plt Count 260 MPV 9.2 L Immature Gran % (Auto) Neut % (Auto) Lymph % (Auto) [place] % (Auto) Eos % (Auto) Baso % (Auto) Lymph # (Auto) [place] # (Auto) Eos # (Auto) Baso # (Auto) Abs Immat Gran (auto) Absolute Neuts (auto) Absolute Nucleated RBC 0.000 Nucleated RBC % (auto) 0.0 PT 16.7 H INR 1.4 H aPTT Heparin Protocol 33.8 L Sodium Potassium Chloride Carbon Dioxide Anion Gap BUN Creatinine Estim Creat Clear Calc Estimated GFR POC Glucose Random Glucose Calcium Magnesium Total Bilirubin AST ALT Alkaline Phosphatase Troponin I High Sens Total Protein Albumin Triglycerides Cholesterol LDL Cholesterol, Calc HDL Cholesterol COVID-19 (RAJENDRA) Negative COVID-19 [employer] Com See Note 09/12/22 09/12/22 09/12/22 15:45 18:18 21:23 WBC RBC Hgb Hct MCV MCH MCHC RDW Plt Count MPV Immature Gran % (Auto) Neut % (Auto) Lymph % (Auto) [place] % (Auto) Eos % (Auto) Baso % (Auto) Lymph # (Auto) [place] # (Auto) Eos # (Auto) Baso # (Auto) Abs Immat Gran (auto) Absolute Neuts (auto) Absolute Nucleated RBC Nucleated RBC % (auto) PT INR aPTT Heparin Protocol Sodium Potassium Chloride Carbon Dioxide Anion Gap BUN Creatinine Estim Creat Clear Calc Estimated GFR POC Glucose 134 H 130 H Random Glucose Calcium Magnesium Total Bilirubin AST ALT Alkaline Phosphatase Troponin I High Sens 2516.3 H* Total Protein Albumin Triglycerides Cholesterol LDL Cholesterol, Calc HDL Cholesterol COVID-19 (RAJENDRA) COVID-19 Clin Com 09/13/22 09/13/22 09/13/22 00:19 06:17 06:17 WBC 8.3 RBC 4.56 L Hgb 12.2 L Hct 39.8 L MCV 87.3 MCH 26.8 L MCHC 30.7 L RDW 14.3 Plt Count 242 MPV 9.4 Immature Gran % (Auto) 0.7 H Neut % (Auto) 64.9 Lymph % (Auto) 24.2 [place] % (Auto) 7.5 Eos % (Auto) 1.9 Baso % (Auto) 0.8 Lymph # (Auto) 2.0 [place] # (Auto) 0.6 Eos # (Auto) 0.2 Baso # (Auto) 0.1 Abs Immat Gran (auto) 0.06 H Absolute Neuts (auto) 5.4 Absolute Nucleated RBC 0.000 Nucleated RBC % (auto) 0.0 PT 15.1 H INR 1.2 H aPTT Heparin Protocol 57.1 D Sodium Potassium Chloride Carbon Dioxide Anion Gap BUN Creatinine Estim Creat Clear Calc Estimated GFR POC Glucose Random Glucose Calcium Magnesium Total Bilirubin AST ALT Alkaline Phosphatase Troponin I High Sens Total Protein Albumin Triglycerides Cholesterol LDL Cholesterol, Calc HDL Cholesterol COVID-19 (ARJENDRA) COVID-19 [employer] 09/13/22 09/13/22 09/13/22 06:17 06:17 07:05 WBC RBC Hgb Hct MCV MCH MCHC RDW Plt Count MPV Immature Gran % (Auto) Neut % (Auto) Lymph % (Auto) [place] % (Auto) Eos % (Auto) Baso % (Auto) Lymph # (Auto) [place] # (Auto) Eos # (Auto) Baso # (Auto) Abs Immat Gran (auto) Absolute Neuts (auto) Absolute Nucleated RBC Nucleated RBC % (auto) PT INR aPTT Heparin Protocol 53.2 Sodium 138 Potassium 4.0 Chloride 105 Carbon Dioxide 23 Anion Gap 14 BUN 20 H Creatinine 1.15 Estim Creat Clear Calc 50.8 Estimated GFR > 60 POC Glucose 129 H Random Glucose 127 H Calcium 9.1 D Magnesium Total Bilirubin AST ALT Alkaline Phosphatase Troponin I High Sens Total Protein Albumin Triglycerides Cholesterol LDL Cholesterol, Calc HDL Cholesterol COVID-19 (RAJENDRA) COVID-19 [employer] Com 09/13/22 10:51 WBC RBC Hgb Hct MCV MCH MCHC RDW Plt Count MPV Immature Gran % (Auto) Neut % (Auto) Lymph % (Auto) [place] % (Auto) Eos % (Auto) Baso % (Auto) Lymph # (Auto) [place] # (Auto) Eos # (Auto) Baso # (Auto) Abs Immat Gran (auto) Absolute Neuts (auto) Absolute Nucleated RBC Nucleated RBC % (auto) PT INR aPTT Heparin Protocol Sodium Potassium Chloride Carbon Dioxide Anion Gap BUN Creatinine Estim Creat Clear Calc Estimated GFR POC Glucose 168 H Random Glucose Calcium Magnesium Total Bilirubin AST ALT Alkaline Phosphatase Troponin I High Sens Total Protein Albumin Triglycerides Cholesterol LDL Cholesterol, Calc HDL Cholesterol COVID-19 (RAJENDRA) COVID-19 Clin Com Imaging Radiologist's impression: Impressions Chest X-Ray 09/12/22 13:35 IMPRESSION: Mild bibasilar linear markings represent significant interval improvement from the previous study. Probable residual mild atelectasis/scarring. Progress Note: A&P Assessment and plan (1) NSTEMI (non-ST elevated myocardial infarction): Status: Acute (2) PAF (paroxysmal atrial fibrillation): Status: Acute (3) Ischemic cardiomyopathy: Status: Acute Plan 87 gentleman with paroxysmal atrial fibrillation and cardiomyopathy. Presenting now with GI complaints and NSTEMI. Previously had GI issues with ARBs and it is possible that the Diovan was the reason for GI upset. He has significantly elevated troponin levels. He has right bundle-branch block with anteroseptal infarct as well as inferior infarct on the EKG. These changes were present on previous admission recently to and plan was to outpatient ischemic evaluation. With elevated troponins and NSTEMI, we have decided to transfer him to [facility] and do cardiac catheterization. He is agreeable. In the meantime stop the Diovan. Hold the Eliquis as you are and continue heparin drip. We will arrange diagnostic angiogram for him for tomorrow. Appears to be euvolemic currently. Continue Lasix at the same dose. Thank you for allowing me to participate in the care of your patient. Please feel free to contact me if you have any questions. Time Spent With Patient Time: Total time managing care of this patient today ____ minutes. Progress Note: Quality Stroke Does the patient have a stroke diagnosis?: No Procedures Date of Service Date of Service: 09/13/22
[2022-09-13] MEDS: Insulin Lispro 100 UNIT/ML 3 ML VIAL SUBCUT ×2 (12:28→16:50)
[2022-09-13 15:40] VITALS: BP 121/70; PULSE 80; RESP 18; TEMP 37; O2SAT 97
[2022-09-13 16:23] LABS: Glucose, Whole Blood 177 mg/dL (60-115)
[2022-09-13] MEDS: Furosemide 20 MG TABLET PO (16:48)
[2022-09-13] MEDS: Empagliflozin 10 MG TABLET PO (16:48)
== END 2022-09-13 17:25 | disposition short-term general hospital (02) | DRG 281 ==
LOC: HO.ED 14:00 → HO.EDOVER 15:11 → HO.IMC 18:38
PROVIDERS: Physician Assistant Medical; Student in an Organized Health Care Education/Training Program; Admitting Provider Physician Assistant; Emergency Provider Emergency Medicine; PCP Internal Medicine; Visit Provider Internal Medicine
DX: I21.4 Non-ST elevation (NSTEMI) myocardial infarction (principal); I50.22 Chronic systolic (congestive) heart failure; I11.0 Hypertensive heart disease with heart failure; I48.0 Paroxysmal atrial fibrillation; I25.5 Ischemic cardiomyopathy; N40.0 Benign prostatic hyperplasia without lower urinary tract symptoms; E11.9 Type 2 diabetes mellitus without complications; I45.10 Unspecified right bundle-branch block; D64.9 Anemia, unspecified; G47.00 Insomnia, unspecified; Z20.822 Contact with and (suspected) exposure to COVID-19; Z79.01 Long term (current) use of anticoagulants; Z79.84 Long term (current) use of oral hypoglycemic drugs; Z79.899 Other long term (current) drug therapy
CPT/HCPCS: 36415; 71045; 80048; 80053; 80061; 82947; 83735; 84484; 85025; 85027; 85610; 85730; 87635; 93005; 93308; 99285; J1643; Q9957

== ENCOUNTER → 2022-09-12 14:00 | Outpatient (BNV) | payer OTHER, SELFPAY | PROVIDERS: Emergency Provider Emergency Medicine; Visit Provider Internal Medicine | DX: I21.4 Non-ST elevation (NSTEMI) myocardial infarction (principal); I48.0 Paroxysmal atrial fibrillation; I25.5 Ischemic cardiomyopathy; I49.3 Ventricular premature depolarization | CPT/HCPCS: 93010; 99223; 99233 ==

== ENCOUNTER 2022-09-12 14:42 | Outpatient (BNV) | payer OTHER, SELFPAY | END 2022-09-13 07:00 | PROVIDERS: Admitting Provider Physician Assistant; Emergency Provider Emergency Medicine; Visit Provider Internal Medicine Cardiovascular Disease | DX: I27.20 Pulmonary hypertension, unspecified (principal) | CPT/HCPCS: 93308 ==

== ENCOUNTER → 2022-09-12 14:42 | Outpatient (BNV) | payer OTHER, SELFPAY | PROVIDERS: Admitting Provider Physician Assistant; Emergency Provider Emergency Medicine; Visit Provider Physician Assistant | DX: I21.4 Non-ST elevation (NSTEMI) myocardial infarction (principal) | CPT/HCPCS: 99223; 99239 ==

== ENCOUNTER → 2022-09-14 23:59 | Outpatient (BNV) | payer OTHER, SELFPAY | PROVIDERS: PCP Internal Medicine; Visit Provider Internal Medicine Cardiovascular Disease | DX: I21.4 Non-ST elevation (NSTEMI) myocardial infarction (principal); I25.10 Atherosclerotic heart disease of native coronary artery without angina pectoris | CPT/HCPCS: 92928; 92978; 93458; 99152 ==

== ENCOUNTER 2022-09-30 13:10 | Outpatient (AMB) | payer OTHER, SELFPAY ==
--- NOTE | 2022-09-30 13:19 | A.OFFVIS_ITS ---
Intake Vital Signs 09/30/22 13:20 Height 5 ft 8 in Weight 191 lb 12.835 oz BMI 29.2 BP 144/70 H Blood Pressure Location Lt brachial Position Sitting Pulse 87 Intake Visit Reasons: follow-up cardiac cath Intake Note: f/up cath Airport Driver Required: No Allergies penicillin G Allergy (Intermediate, Verified 09/30/22 13:35) Anaphylaxis lisinopril Allergy (Verified 09/30/22 13:35) Unknown doxycycline Adverse Reaction (Verified 09/30/22 13:35) Diarrhea losartan Adverse Reaction (Verified 09/30/22 13:35) Diarrhea Medication List - Last Reconciled 09/30/22 by MARIO MorrisC alogliptin 25 mg PO DAILY amiodarone 100 mg PO BID@0600,1800 apixaban (Eliquis) 5 mg PO BID aspirin 81 mg PO DAILY clotrimazole 1% 1 appl topical DAILY PRN empagliflozin (Jardiance) 10 mg PO DAILY@1600 finasteride 5 mg PO DAILY 90 days furosemide 20 mg See Protocol PO DAILY@1600 ketorolac 0.5% 1 drp ophthalmic (eye) QID ketotifen fumarate 0.025%(0.035%) 1 drp ophthalmic (eye) BID PRN metformin 1,000 mg PO DAILY metronidazole 0.75% 1 appl topical BID peg 400-propylene glycol 0.4-0.3 % (Systane Ultra) 1 drp ophthalmic (eye) QID PRN pyridoxine (vitamin B6) 100 mg PO DAILY 90 days HPI follow-up cardiac cath HPI Details Casper is an 87-year-old male with past medical history of hypertension, hyperlipidemia, diabetes, newer finding of paroxysmal atrial fibrillation, heart failure with reduced EF who recently presented to [facility] with lightheadedness and weakness and found to have elevated troponins. His EKG showed no acute findings. He was started on appropriate management for ACS and transferred to [facility] where he underwent cardiac catheterization showing culprit lesion in the proximal LAD, balloon angioplasty and KAMILLE placed. He now presents for follow-up. Today he reports that he became ill with lightheadedness, weakness, GI symptoms and was seen in the [facility] ED. He states he was told it was the cholesterol medication that was likely making him sick and he has since stopped it. He tells me though symptoms have fully resolved. At present he is refusing further statin medication. He has not been having any chest discomfort at rest or with activity. No significant shortness of breath, palpitations, dizziness, presyncope, syncope, PND, orthopnea or edema. [facility]. He states the [facility] doctor told him his cholesterol was good and recommended just dietary control. He is not taking Plavix and is not sure why. [facility] notes indicate that patient requested to stop Plavix and take only aspirin and Eliquis. Right radial catheterization site well healed. He is interested in cardiac rehab but wants to do it at the ID. [facility] Medical History (Updated 09/30/22 @ 17:03 by MARIO MorrisC) BPH (benign prostatic hyperplasia) Diabetes Hearing deficit HTN (hypertension) NSTEMI (non-ST elevated myocardial infarction) PAF (paroxysmal atrial fibrillation) Rosacea Systolic heart failure Surgical History (Updated 09/30/22 @ 13:41 by MARIO MorrisC) History of prostate surgery Hx of circumcision Hx of cystoscopy S/P cardiac catheterization Status post glaucoma surgery Social History Household Members: Spouse Housing: House Do you presently have visiting nurse or other home services: No Alcohol intake: never Patient Tobacco Use Status: Never used Tobacco Second Hand Smoke Exposure: No Advance Directives Date on File: 09/12/22 service: Yes Review of Systems Const All systems reviewed & are unremarkable except as noted in HPI and below ENT Denies dizziness Card Denies chest pain, Denies chest pain at rest, Denies chest pain with activity, Denies rapid heart rate, Denies pedal edema, Denies edema, Denies leg edema, Denies lightheadedness, Denies palpitations, Denies dyspnea, Denies dyspnea on exertion and Denies orthopnea Resp Denies cough, Denies dyspnea and Denies dyspnea on exertion GI Denies hematochezia and Denies change in stool character Musc Denies abnormal gait, Reports limited range of motion, Reports muscle cramps, Denies muscle weakness, Denies numbness, Denies radiating pain into limb, Denies stiffness and Denies tingling Neuro Denies abnormal gait, Denies dizziness, Denies numbness and Denies tingling Endo Denies palpitations Physical Exam Vital Signs: Last Vital Signs Pulse 87 09/30/22 13:20 BP 144/70 H 09/30/22 13:20 BMI result Body Mass Index 29.2 Const General: cooperative, healthy appearing, comfortable and no acute distress Orientation/consciousness: patient oriented x3 Neck Neck: Yes normal visual inspection Resp Effort & Inspection: normal respiratory effort Auscultation: clear to auscultation bilaterally, no crackles, no rales, no rhonchi and no wheezes Cardio Jugular venous distension: no JVD Rate: regular rate Rhythm: regular rhythm Heart sounds: S1 normal heart sound present, S2 normal heart sound present, no gallops, no murmurs and no rubs GI Inspection: Yes normal to inspection Neuro General: patient oriented x3 Extrem Other: right radial cath site well healed General: Yes normal to inspection, No no pedal edema and No calf tenderness Psych Appearance: grossly normal Mental Status: mental status grossly normal Speech and movement: Normal speech and movement present Office Procedures EKG Details: Today, read by me, sinus rhythm with first-degree AV block, left axis deviation, right bundle branch block, anterior septal Q-waves, same as prior EKG on 09/12/2022, rate 87, QTC 488 milliseconds, falsely prolonged with wide QRS [id number], Complete Assessment & Plan Assessment & Plan (1) NSTEMI (non-ST elevated myocardial infarction): Code(s): I21.4 - Non-ST elevation (NSTEMI) myocardial infarction Plan: Presented to [facility] with lightheadedness and weakness on 09/13/2022. Troponins elev ated at 2669. EKG showed no acute findings. 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 He had a balloon angioplasty and stent done to the proximal LAD. Following the procedure he was discharged with Plavix and Eliquis. [facility] note from 09/19, presumed ED visit states patient wanted to stop Plavix and take aspirin and Eliquis which was done. He also reported significant symptoms which he related to statin medications and refuses further statins. He had been on metoprolol as well as amiodarone. His current med list does not include metoprolol and he is unsure as to why. He denies any anginal sounding symptoms at present. His right radial catheterization site is well healed. Will have him restart on Plavix. The importance of anti-platelet use in order to prevent stent thrombosis reviewed with him. He will continue Eliquis indefinitely. Continue aspirin for 1 month post stent then can be discontinued. Bleeding risk reviewed. Currently no bleeding issues reported with the exception of mild bruising. Patient has much concern about starting several meds at 1 time. Will need to address anti lipid therapy next visit, possible use of Zetia can be considered. May also require PCSK9 inhibitor if intolerant. Blood pressure is typically good however mildly elevated today. Adding valsartan, as he was on it prior to catheterization. Need to be re-evaluated at next visit. Will refer to cardiac rehab however he wants to go to the ID for this therapy. 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 He is on amiodarone with EKG today showing sinus rhythm, first-degree AV block, right bundle branch block, rate 87, QTC 488 millisecond. Pulse regular on examination. No reports of heart palpitations. Will keep off of beta-candis at present as rate seems controlled. Continue Eliquis for anticoagulation for stroke prevention. (4) Ischemic cardiomyopathy: Code(s): I25.5 - Ischemic cardiomyopathy Plan: Echocardiogram done at time of [facility] admit for new AFib. Echo 08/31/2022 showing EF 25-30%, regional wall motion abnormality consistent with ischemic cardiomyopathy, dilated left atrium, mild MR, mildly elevated RVSP. He then presented with NSTEMI on 09/13/2022 and repeat echo showed EF 15-20%, regional wall motion abnormality, moderate pulmonary hypertension. Cardiac catheterization as above. He currently reports feeling well. On examination he has no clinical signs of Congestive heart failure. Continues on low-dose Lasix. Signs and symptoms of heart failure reviewed. Will plan repeat limited echocardiogram to reassess EF, wall motion now that he is revascularized in the LAD. 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 Notes indicate he had GI issues with lisinopril and losartan. At [facility] he was recently put on valsartan which was stopped prior to his cardiac catheterization to preserve kidney function. Labs done on 09/13/2022 showed creatinine 1.15. Will have him restart on valsartan 40 mg b.i.d. for neurohormonal modulation. Still unclear at present why beta-candis stopped, could be related to first-degree AV block on ekg. Will hold off on beta-candis use at present. (5) Coronary atherosclerosis: Code(s): I25.10 - Atherosclerotic heart disease of [place] coronary artery without angina pectoris Plan: As above Orders: Orders CA echo limited 3 Weeks I25.10 - Atherosclerotic heart disease of [place] coronary artery without angina pectoris, Z98.890 - Other specified postprocedural states Rosetta Mistry NP-[facility] Today I21.4 - Non-ST elevation (NSTEMI) myocardial infarction, I25.5 - Ischemic cardiomyopathy, Z98.890 - Other specified postprocedural states Rosetta Mistry, RYAN-[facility] Medications: New clopidogrel 75 mg PO DAILY 90 tabs 3RF Rosetta Mistry, RYAN-C valsartan 40 mg PO BID@0400,1600 60 tabs 5RF KATELIN Morris Discontinued empagliflozin 10 mg PO DAILY 30 tabs 0RF furosemide 20 mg See Protocol PO DAILY 30 tabs 0RF valsartan 20 mg (1/2 x 40 mg) PO BID 60 tabs 0RF Adai Brito Coding Level of Care Code Est Pt Level 4 (58532) Diagnoses NSTEMI (non-ST elevated myocardial infarction) I21.4 S/P cardiac catheterization Z98.890 PAF (paroxysmal atrial fibrillation) I48.0 Ischemic cardiomyopathy I25.5 Coronary atherosclerosis I25.10 CPT Codes EKG - CPT: [id number], Complete ([id number]) Time Spent (min) 30 Comment Chart review, documentation, interview, assessment
[2022-09-30 13:20] VITALS: BP 144/70; PULSE 87; BMI 29.2
== END 2022-09-30 14:23 | disposition home or self-care (01) ==
PROVIDERS: PCP Internal Medicine; Visit Provider Nurse Practitioner Family
DX: I21.4 Non-ST elevation (NSTEMI) myocardial infarction (principal); Z98.890 Other specified postprocedural states; I48.0 Paroxysmal atrial fibrillation; I25.5 Ischemic cardiomyopathy; I25.10 Atherosclerotic heart disease of native coronary artery without angina pectoris
CPT/HCPCS: 93010; 99214

== ENCOUNTER → 2022-09-30 13:10 | Outpatient (BNVA) | payer OTHER, SELFPAY | PROVIDERS: PCP Internal Medicine; Visit Provider Nurse Practitioner Family | DX: I21.4 Non-ST elevation (NSTEMI) myocardial infarction (principal); I48.0 Paroxysmal atrial fibrillation; I25.5 Ischemic cardiomyopathy; I25.10 Atherosclerotic heart disease of native coronary artery without angina pectoris; Z98.890 Other specified postprocedural states | CPT/HCPCS: 93005; 99212 ==

== ENCOUNTER → 2022-10-28 12:56 | Outpatient (REF) | payer OTHER, SELFPAY ==
--- NOTE | 2022-10-28 13:00 | CA_ITS ---
Transthoracic Echocardiogram Patient (Last, First, Middle): Casper Herrera H Gender: Male Date of : 1935 Age: 87 Procedure Date: 10/28/2022 Procedure Type: Transthoracic Echocardiogram Location: OP Height: 170.18 cm Weight: 86.18 kg BSA: 1.98 m2 Heart Rate: 63 bpm BP: 155 / 70 mmHg Poultry Service Technician: BARON Referring MD: Rosetta Mistry [employer] SERVICES OFFICER-C Symptoms: I25.10 - Atherosclerotic heart disease of [place] coronary artery without... Study Quality: Adequate/w Contrast Conclusions: - The left ventricular systolic function is severely decreased. The visually estimated ejection fraction is between 25-30%. - Wall motion abnormalities from underlying CAD. Findings Procedure Information Contrast agent, definity, is being given per protocol without apparent complications. Left Ventricle Mildly increased left ventricular cavity size. The left ventricular systolic function is severely decreased. The visually estimated ejection fraction is between 25-30%. There is evidence of regional wall motion abnormalities. Wall Motion Rest Echo Findings The basal inferolateral segment is hypokinetic. The apex, apical anterior, basal inferior, mid anterior, apical lateral, mid anterolateral, and mid inferolateral segments are akinetic. Prior Study Comparison Changes noted compared to prior study dated: 09/13/2022. marginally higher LVEF, but could also be inter-observer variability. Measurements 2D Linear Measurements LVOT Diam: 2.30 3.0+(-)1.3 cm 2D Systolic Function EF 4C: 42.50 >55% EF 2C: 43.00 >55% EF BiP: 44.40 >55% LVOT LVOT Pk Landen: 0.98 LVOT Mn Landen: 0.65 LVOT VTI: 0.20 LVOT Pk Grad: 4.00 LVOT Mn Grad: 2.00 LVOT Diam: 2.30 LVOT Area: 4.15 Updated in Other Vendor System with Status of Final Kaushal Sánchez MD electronically signed on 10/28/2022 3:23:37 PM with status of Final
== END ==
LOC: HO.CARD 12:56
PROVIDERS: PCP Internal Medicine; Visit Provider Nurse Practitioner Family
DX: I25.10 Atherosclerotic heart disease of native coronary artery without angina pectoris (principal); Z98.890 Other specified postprocedural states
CPT/HCPCS: 93308; Q9957

== ENCOUNTER → 2022-10-28 13:00 | Outpatient (BNV) | payer OTHER, SELFPAY | PROVIDERS: PCP Internal Medicine; Visit Provider Internal Medicine | DX: I25.10 Atherosclerotic heart disease of native coronary artery without angina pectoris (principal) | CPT/HCPCS: 93308 ==

== ENCOUNTER 2023-01-12 13:35 | Outpatient (AMB) | payer OTHER, SELFPAY ==
--- NOTE | 2023-01-12 13:44 | MHC.OFFVIS ---
Intake Vital Signs 01/12/23 13:45 Height 5 ft 8 in Weight 191 lb BMI 29.0 BP 140/60 H Blood Pressure Location Lt brachial Position Sitting Intake Visit Reasons: 3 mth fu Intake Note: 3 mnth f/up patient its fine [employer] Required: No Accompanied by: Self / Same As Patient Allergies penicillin G Allergy (Intermediate, Verified 01/12/23 13:48) Anaphylaxis lisinopril Allergy (Verified 01/12/23 13:48) Unknown doxycycline Adverse Reaction (Verified 01/12/23 13:48) Diarrhea losartan Adverse Reaction (Verified 01/12/23 13:48) Diarrhea Medication List - Last Reconciled 01/12/23 by Jose Luis Taylor MD alogliptin 25 mg PO DAILY amiodarone 100 mg PO BID@0600,1800 apixaban (Eliquis) 5 mg PO BID clopidogrel 75 mg PO DAILY clotrimazole 1% 1 appl topical DAILY PRN empagliflozin (Jardiance) 10 mg PO DAILY@1600 finasteride 5 mg PO DAILY 90 days furosemide 20 mg See Protocol PO DAILY@1600 ketorolac 0.5% 1 drp ophthalmic (eye) QID ketotifen fumarate 0.025%(0.035%) 1 drp ophthalmic (eye) BID PRN metformin 1,000 mg PO DAILY metronidazole 0.75% 1 appl topical BID peg 400-propylene glycol 0.4-0.3 % (Systane Ultra) 1 drp ophthalmic (eye) QID PRN pyridoxine (vitamin B6) 100 mg PO DAILY 90 days HPI HPI Comments History of Present Illness Details Pleasant 87 gentleman who is here for follow-up. He was seen in the hospital for NSTEMI and was transferred to [facility] with cardiac catheterization showed 99% lad stenosis. This was treated with drug-eluting stent. He also had paroxysmal atrial fibrillation and was treated with apixaban and amiodarone. He is currently taking amiodarone 100 mg twice a day. He has cardiomyopathy and based on recent echocardiography EF is 25-30% with LAD territory wall motion abnormality. 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 His denying any significant symptoms. He could not tolerate medications previously due to significant GI issues and diarrhea. Particularly could not tolerate ARB and PADMAJA-inhibitor in the past. He has for that reason not Entresto currently. He is on empagliflozin. He is currently not on a beta-candis due to conduction issues and is currently on amiodarone mg twice a day. No bleeding issues with Plavix and apixaban. [facility] Medical History PAF (paroxysmal atrial fibrillation) NSTEMI (non-ST elevated myocardial infarction) Systolic heart failure Hearing deficit Rosacea Diabetes BPH (benign prostatic hyperplasia) HTN (hypertension) Surgical History S/P cardiac catheterization Status post glaucoma surgery Hx of circumcision Hx of cystoscopy History of prostate surgery Social History Household Members: Spouse Housing: House Do you presently have visiting nurse or other home services: No Alcohol intake: never Patient Tobacco Use Status: Never used Tobacco Second Hand Smoke Exposure: No Advance Directives Date on File: 09/12/22 service: Yes Review of Systems Const Reports chills, Reports fatigue, Reports fever(s), Reports frequent falls, Reports weakness, Reports weight gain and Reports weight loss ENT Reports dizziness Card Reports chest pain, Reports leg edema, Reports lightheadedness, Reports palpitations, Reports dyspnea and Reports dyspnea on exertion Resp Reports cough, Reports dyspnea and Reports dyspnea on exertion GI Reports hematochezia Musc Reports abnormal gait, Reports muscle weakness, Reports numbness, Reports radiating pain into limb and Reports tingling Neuro Reports abnormal gait, Reports dizziness, Reports frequent falls, Reports numbness, Reports tingling and Reports weakness Endo Reports fatigue and Reports palpitations Physical Exam Vital Signs: Last Vital Signs BP 140/60 H 01/12/23 13:45 BMI result Body Mass Index 29.0 GENERAL APPEARANCE: in no acute distress, pleasant. NECK: no carotid bruit, mild jugular venous distention. SKIN: no suspicious lesions, warm and dry. HEART: no murmurs, regular rate and rhythm. LUNGS: clear to auscultation bilaterally. ABDOMEN: soft, nontender. EXTREMITIES: no edema. PERIPHERAL PULSES: equal. NEUROLOGIC: No gross deficits, AAO X 3. Hard of hearing. Office Procedures EKG Details: Sinus rhythm 68 beats per minute, OK interval 202 milliseconds, left anterior fascicular block, right bundle-branch block, nonspecific T-wave changes, QTC 512 milliseconds. [id number], Complete Assessment & Plan Assessment & Plan (1) S/P cardiac catheterization: Comment: 09/14/2022, left main normal, proximal LAD 90% stenosis, culprit lesion, balloon angioplasty and KAMILLE placed, 1st diagonal 100% [employer], [id number] collaterals, left circumflex mild luminal irregularities, less than 30% stenosis, RCA 50% mid stenosis Code(s): Z98.890 - Other specified postprocedural states (2) Ischemic cardiomyopathy: Code(s): I25.5 - Ischemic cardiomyopathy Plan [age] gentleman with known coronary disease with acute coronary syndrome in September 2022 when cardiac catheterization showed severe LAD stenosis which was treated with drug-eluting stent. He also had paroxysmal atrial fibrillation and was on apixaban and has been maintained on Plavix and apixaban at this stage. No bleeding concerns. Clinically he appears to be euvolemic. Denying any significant heart failure symptoms. Adding spironolactone 25 mg once a day. Due to his intolerance for PADMAJA-inhibitor and ARB due to GI issues in the past, I am not starting Entresto. Continue and pop blood flows in. Watch for urinary tract infections. He will see us back in few months. Thank you for allowing me to participate in the care of your patient. Please feel free to contact me if you have any questions. Medications: New spironolactone 25 mg PO DAILY 90 tabs 3RF I25.5 - Ischemic cardiomyopathy Refilled apixaban (Eliquis) 5 mg PO BID 120 tabs 4RF I25.5 - Ischemic cardiomyopathy Coding Level of Care Code Est Pt Level 4 (31551) Diagnoses S/P cardiac catheterization Z98.890 Ischemic cardiomyopathy I25.5 CPT Codes EKG - CPT: [id number], Complete ([id number])
[2023-01-12 13:45] VITALS: BP 140/60; BMI 29.0
== END 2023-01-12 14:16 | disposition home or self-care (01) ==
PROVIDERS: PCP Internal Medicine; Visit Provider Internal Medicine Cardiovascular Disease
DX: Z98.890 Other specified postprocedural states (principal); I25.5 Ischemic cardiomyopathy
CPT/HCPCS: 93010; 99214

== ENCOUNTER → 2023-01-12 13:35 | Outpatient (BNVA) | payer OTHER, SELFPAY | PROVIDERS: PCP Internal Medicine; Visit Provider Internal Medicine Cardiovascular Disease | DX: I25.5 Ischemic cardiomyopathy (principal); Z98.890 Other specified postprocedural states | CPT/HCPCS: 93005; 99212 ==

== ENCOUNTER → 2023-03-25 12:38 | Outpatient (BNVA) | payer OTHER, SELFPAY | PROVIDERS: PCP Internal Medicine; Visit Provider Nurse Practitioner Family | DX: I25.2 Old myocardial infarction (principal); I25.5 Ischemic cardiomyopathy; I48.0 Paroxysmal atrial fibrillation; I25.10 Atherosclerotic heart disease of native coronary artery without angina pectoris; Z98.890 Other specified postprocedural states | CPT/HCPCS: 93005; 99212 ==

== ENCOUNTER 2023-03-25 12:39 | Outpatient (AMB) | payer OTHER, SELFPAY ==
[2023-03-25 13:01] VITALS: BP 140/60; PULSE 64; BMI 30.2
--- NOTE | 2023-03-25 13:01 | MHC.OFFVIS ---
Intake Vital Signs 03/25/23 13:01 Height 5 ft 8 in Weight 198 lb 6.656 oz BMI 30.2 BP 140/60 H Blood Pressure Location Lt brachial Position Sitting Pulse 64 Pulse Source Monitor Intake Visit Reasons: 2 mth fu (KM) Allergies penicillin G Allergy (Intermediate, Verified 03/25/23 13:03) Anaphylaxis lisinopril Allergy (Verified 03/25/23 13:03) Unknown doxycycline Adverse Reaction (Verified 03/25/23 13:03) Diarrhea losartan Adverse Reaction (Verified 03/25/23 13:03) Diarrhea Medication List - Last Reconciled 03/25/23 by Rosetta Mistry NP-C alogliptin 25 mg PO DAILY amiodarone 100 mg PO BID@0600,1800 apixaban (Eliquis) 5 mg PO BID clopidogrel 75 mg PO DAILY clotrimazole 1% 1 appl topical DAILY PRN empagliflozin (Jardiance) 10 mg PO DAILY@1600 finasteride 5 mg PO DAILY 90 days furosemide 20 mg See Protocol PO DAILY@1600 ketorolac 0.5% 1 drp ophthalmic (eye) QID ketotifen fumarate 0.025%(0.035%) 1 drp ophthalmic (eye) BID PRN metformin 1,000 mg PO DAILY metronidazole 0.75% 1 appl topical BID peg 400-propylene glycol 0.4-0.3 % (Systane Ultra) 1 drp ophthalmic (eye) QID PRN pyridoxine (vitamin B6) 100 mg PO DAILY 90 days spironolactone 25 mg PO DAILY HPI 2 mth fu () HPI Details Casper is an 87-year-old male with past medical history of hypertension, hyperlipidemia, diabetes, paroxysmal atrial fibrillation, heart failure with reduced EF, NSTEMI 09/2022, lad culprit lesion and KAMILLE placed, ischemic cardiomyopathy who presents for follow-up. Today he reports that he has been doing well since his last visit in January. Denies any chest discomfort at rest or with exertion. He denies shortness of breath, PND, orthopnea or edema. No lightheadedness, presyncope, syncope, falls. He is taking his meds as directed however he did not start his Aldactone after his last visit as he was concerned that it was another diuretic. He denies any bleeding issues. He reports being active with housework an errands as his is disabled. [facility] Medical History PAF (paroxysmal atrial fibrillation) NSTEMI (non-ST elevated myocardial infarction) Systolic heart failure Hearing deficit Rosacea Diabetes BPH (benign prostatic hyperplasia) HTN (hypertension) Surgical History S/P cardiac catheterization Status post glaucoma surgery Hx of circumcision Hx of cystoscopy History of prostate surgery Social History Household Members: Spouse Housing: House Do you presently have visiting nurse or other home services: No Alcohol intake: never Patient Tobacco Use Status: Never used Tobacco Second Hand Smoke Exposure: No Advance Directives Date on File: 09/12/22 service: Yes Review of Systems Const All systems reviewed & are unremarkable except as noted in HPI and below ENT Denies dizziness Card Denies chest pain, Denies chest pain at rest, Denies chest pain with activity, Denies rapid heart rate, Denies pedal edema, Denies edema, Denies leg edema, Denies lightheadedness, Denies palpitations, Denies dyspnea, Denies dyspnea on exertion and Denies orthopnea Resp Denies cough, Denies dyspnea and Denies dyspnea on exertion GI Denies hematochezia and Denies change in stool character Musc Denies abnormal gait, Denies limited range of motion, Denies muscle cramps, Denies muscle weakness, Denies numbness, Denies radiating pain into limb, Denies stiffness and Denies tingling Neuro Denies abnormal gait, Denies dizziness, Denies numbness and Denies tingling Endo Denies palpitations Physical Exam Vital Signs: Last Vital Signs Pulse 64 03/25/23 13:01 BP 140/60 H 03/25/23 13:01 BMI result Body Mass Index 30.2 Const General: cooperative, healthy appearing, comfortable and no acute distress Orientation/consciousness: patient oriented x3 Neck Neck: Yes normal visual inspection and Yes no JVD Resp Effort & Inspection: normal respiratory effort Auscultation: clear to auscultation bilaterally, no crackles, no rales, no rhonchi and no wheezes Cardio Jugular venous distension: no JVD Rate: regular rate Rhythm: regular rhythm Heart sounds: S1 normal heart sound present, S2 normal heart sound present, no murmurs and no rubs Skin General skin exam: no rashes or lesions noted Neuro General: patient oriented x3 Extrem General: Yes normal to inspection, No no pedal edema and No calf tenderness Psych Appearance: grossly normal Mental Status: mental status grossly normal Speech and movement: Normal speech and movement present Office Procedures EKG Details: Today, read by me, normal sinus rhythm, right bundle branch block, left anterior fascicular block, septal Q, unchanged from prior, rate 64, JT index 101.3 [id number], Complete Assessment & Plan Assessment & Plan (1) NSTEMI (non-ST elevated myocardial infarction): Code(s): I21.4 - Non-ST elevation (NSTEMI) myocardial infarction Plan: [place] [facility] [place] and weakness [place]. Ruled in for ACS. 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 He had a balloon angioplasty and stent done to the proximal LAD. Following the procedure he was discharged with Plavix and Eliquis. He refused statin medication. Today he reports doing well with no anginal sounding symptoms. Signs and symptoms of angina reviewed. Blood pressure mildly elevated however he did not start spironolactone after last visit. Instructed him to start taking this medication, initially with 1/2 tablet then after a few days go to 1 tablet. Labs in 1 week, BMP, lipids. Continue activity as tolerated. 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 Echo 08/31/2022 showing EF 25-30%, regional wall motion abnormality consistent with ischemic cardiomyopathy, dilated left atrium, mild MR, mildly elevated RVSP. He then presented with NSTEMI on 09/13/2022 and repeat echo showed EF 15-20%, regional wall motion abnormality, moderate pulmonary hypertension. Cardiac catheterization as above. He currently reports feeling well. On examination he has no clinical signs of Congestive heart failure. Continues on low-dose Lasix. Adding spironolactone for better blood pressure control. He is not on Nj/Arb to prior reports of GI disturbances on these meds. For this reason Entresto was not started. He has not on beta-candis for possible concern of conduction issues. Prior EKG showed first-degree AV block. He is on amiodarone for his AFib control. Signs and symptoms of heart failure reviewed. Will plan repeat limited echocardiogram to reassess EF prior to his next visit. He has had revascularization of the LAD however continues to have CORDAGE SALES REPRESENTATIVE of the 1st diagonal. If EF remains less than 35 % then ICD can be considered. (4) PAF (paroxysmal atrial fibrillation): Code(s): I48.0 - Paroxysmal atrial fibrillation Plan: History of paroxysmal atrial fibrillation, newer finding. He is on amiodarone with EKG today showing sinus rhythm, right bundle branch block, rate 64, JT index 101.3. Pulse regular on examination. No reports of heart palpitations. Will keep off of beta-candis at present as rate seems controlled. Continue Eliquis for anticoagulation for stroke prevention. Updating labs (5) Coronary atherosclerosis: Code(s): I25.10 - Atherosclerotic heart disease of [place] coronary artery without angina pectoris Qualifiers: Coronary Disease-Associated Artery/Lesion type: [place] artery [place] vs. transplanted heart: [place] heart Associated angina: without angina Qualified Code(s): I25.10 - Atherosclerotic heart disease of [place] coronary artery without angina pectoris Plan: As above Plan Time spent on chart review, documentation, interview and assessment Orders: Orders Comprehensive Met. Panel Today I25.5 - Ischemic cardiomyopathy Lipid Panel Today I25.10 - Atherosclerotic heart disease of [place] coronary artery without angina pectoris B Type Natriuretic Peptide Today I25.10 - Atherosclerotic heart disease of [place] coronary artery without angina pectoris Coding Level of Care Code Est Pt Level 4 (62593) Diagnoses NSTEMI (non-ST elevated myocardial infarction) I21.4 S/P cardiac catheterization Z98.890 Ischemic cardiomyopathy I25.5 PAF (paroxysmal atrial fibrillation) I48.0 Atherosclerosis of [place] coronary artery of [place] heart without angina pectoris I25.10 Coronary Disease-Associated Artery/Lesion type: [place] artery [place] vs. transplanted heart: [place] heart Associated angina: without angina CPT Codes EKG - CPT: 92936-[id number], Complete ([id number]) Time Spent (min) 30
== END 2023-03-25 14:08 | disposition home or self-care (01) ==
PROVIDERS: PCP Internal Medicine; Visit Provider Nurse Practitioner Family
DX: I21.4 Non-ST elevation (NSTEMI) myocardial infarction (principal); Z98.890 Other specified postprocedural states; I25.5 Ischemic cardiomyopathy; I48.0 Paroxysmal atrial fibrillation; I25.10 Atherosclerotic heart disease of native coronary artery without angina pectoris
CPT/HCPCS: 93010; 99214

== ENCOUNTER 2023-06-28 13:45 | Outpatient (AMB) | payer OTHER, SELFPAY ==
[2023-06-28 14:17] VITALS: BP 140/62; PULSE 71; BMI 29.5
--- NOTE | 2023-06-28 14:17 | A.OFFVIS_ITS ---
Vital Signs 06/28/23 14:17 Height 5 ft 8 in Weight 194 lb 0.108 oz BMI 29.5 BP 140/62 H Blood Pressure Location Lt brachial Position Sitting Pulse 71 Pulse Source Monitor Intake Visit Reasons: 3 mth fu Allergies penicillin G Allergy (Intermediate, Verified 06/28/23 14:19) Anaphylaxis lisinopril Allergy (Verified 06/28/23 14:19) Unknown doxycycline Adverse Reaction (Verified 06/28/23 14:19) Diarrhea losartan Adverse Reaction (Verified 06/28/23 14:19) Diarrhea Medication List - Last Reconciled 06/28/23 by Rosetta Mitsry, SALVAGE GRINDER-C alogliptin 12.5 mg PO DAILY amiodarone 100 mg PO BID@0600,1800 amlodipine 10 mg PO DAILY apixaban (Eliquis) 5 mg PO BID clopidogrel 75 mg PO DAILY clotrimazole 1% 1 appl topical DAILY PRN empagliflozin (Jardiance) 10 mg PO DAILY@1600 finasteride 5 mg PO DAILY 90 days furosemide 20 mg See Protocol PO DAILY@1600 ketorolac 0.5% 1 drp ophthalmic (eye) QID metformin 1,000 mg PO DAILY metronidazole 0.75% 1 appl topical BID peg 400-propylene glycol 0.4-0.3 % (Systane Ultra) 1 drp ophthalmic (eye) QID PRN pyridoxine (vitamin B6) 100 mg PO DAILY 90 days HPI HPI 3 mth fu: Details: Casper is an 88-year-old male with past medical history of hypertension, hyperlipidemia, diabetes, paroxysmal atrial fibrillation, heart failure with reduced EF, NSTEMI 09/2022, lad culprit lesion and KAMILLE placed, ischemic cardiomyopathy who presents for follow-up. Today he reports that he has been doing well since his last visit in January. Denies any chest discomfort at rest or with exertion. He denies shortness of breath, PND, orthopnea or edema. No lightheadedness, presyncope, syncope, falls. He is having issues with bilateral knee pain and is hoping to undergo knee replacement surgery in the near future. He is taking his meds as directed. He denies any bleeding issues. [facility] Medical History PAF (paroxysmal atrial fibrillation) NSTEMI (non-ST elevated myocardial infarction) Systolic heart failure Hearing deficit [place] Diabetes BPH (benign prostatic hyperplasia) HTN (hypertension) Surgical History S/P cardiac catheterization Status post glaucoma surgery Hx of circumcision Hx of cystoscopy History of prostate surgery Social History Household Members: Spouse Housing: House Do you presently have visiting nurse or other home services: No Alcohol intake: never Patient Tobacco Use Status: Never used Tobacco Second Hand Smoke Exposure: No Advance Directives Date on File: 09/12/22 service: Yes Review of Systems Const All systems reviewed & are unremarkable except as noted in HPI and below ENT Denies dizziness Card Denies chest pain, Denies chest pain at rest, Denies chest pain with activity, Denies rapid heart rate, Denies pedal edema, Denies edema, Denies leg edema, Denies lightheadedness, Denies palpitations, Denies dyspnea, Denies dyspnea on exertion and Denies orthopnea Resp Denies cough, Denies dyspnea and Denies dyspnea on exertion GI Denies hematochezia and Denies change in stool character Musc Details: Bilateral knee arthritis Reports abnormal gait, Reports limited range of motion, Denies muscle cramps, Denies muscle weakness, Denies numbness, Denies radiating pain into limb, Denies stiffness and Denies tingling Neuro Reports abnormal gait, Denies dizziness, Denies numbness and Denies tingling Endo Denies palpitations Physical Exam Vital Signs: Last Vital Signs Pulse 71 06/28/23 14:17 BP 140/62 H 06/28/23 14:17 BMI result Body Mass Index 29.5 Const General: cooperative, healthy appearing, comfortable and no acute distress Orientation/consciousness: patient oriented x3 Neck Neck: Yes normal visual inspection and Yes no JVD Resp Effort & Inspection: normal respiratory effort Auscultation: clear to auscultation bilaterally, no crackles, no rales, no rhonchi and no wheezes Cardio Jugular venous distension: no JVD Rate: regular rate Rhythm: regular rhythm Heart sounds: S1 normal heart sound present, S2 normal heart sound present, no murmurs and no rubs Neuro General: patient oriented x3 Extrem Other: Both knees bilaterally, braces on each side, uses cane for ambulation General: Yes normal to inspection Psych Appearance: grossly normal Mental Status: mental status grossly normal Speech and movement: Normal speech and movement present Office Procedures EKG Details: Today, read by me, normal sinus rhythm, right bundle branch block, left anterior fascicular block, septal Q-wave, rate 71, JT index 92.4 [id number], Complete Assessment & Plan Assessment & Plan (1) NSTEMI (non-ST elevated myocardial infarction): Code(s): I21.4 - Non-ST elevation (NSTEMI) myocardial infarction Category: Medical Plan: Presented [place] [facility] [place] lightheadedness and weakness on 09/13/2022. Ruled in for ACS. 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 He had a balloon angioplasty and stent done to the proximal LAD. Following the procedure he was discharged with Plavix and Eliquis. He refused statin medication. Today he reports doing well with no anginal sounding symptoms. He is hoping have bilateral knee surgery in the near future. Signs and symptoms of angina reviewed. Blood pressure mildly elevated which can be related to normal knee discomfort. At this time him continue on Plavix uninterrupted for at least 1 year. After that time he could go to aspirin 81 mg daily. He continues on Eliquis. He has not on beta-candis. He is on amiodarone. He tells me he had lab work done recently at the [place]. Will work on trying to get those results. Continue activity as tolerated. Cardiology follow-up in 3 months, sooner if needed (2) S/P cardiac catheterization: Comment: 09/14/2022, left main normal, proximal LAD 90% stenosis, culprit lesion, balloon angioplasty and KAMILLE placed, 1st diagonal 100% COAL HAULER OPERATOR, [id number] collaterals, left circumflex mild luminal irregularities, less than 30% stenosis, RCA 50% mid stenosis Code(s): Z98.890 - Other specified postprocedural states Category: Surgical Plan: As above (3) Ischemic cardiomyopathy: Code(s): I25.5 - Ischemic cardiomyopathy Category: Medical Plan: Echocardiogram done at time of August [facility] [place] for new AFib. Echo 08/31/2022 showing EF 25-30%, regional wall motion abnormality consistent with ischemic cardiomyopathy, dilated left atrium, mild MR, mildly elevated RVSP. He then presented with NSTEMI on 09/13/2022 and repeat echo showed EF 15-20%, regional wall motion abnormality, moderate pulmonary hypertension. Cardiac catheterization as above. A follow-up echo was done on 10/28/2022 showing EF 25- 30%, wall motion abnormality consistent with CAD. He is clinically done well w ith no recurrent anginal sounding symptoms and no report of heart failure symptoms. On exam he does not appear fluid overloaded. EKG done today showing normal sinus rhythm with right bundle branch block, left anterior fascicular block, rate 71. He has been on Aldactone and Jardiance. He is not on Nj/Arb to prior reports of GI disturbances on these meds. For this reason Entresto was not started. He has not on beta-candis due to concern for conduction issues. He is on amiodarone for his AFib control. Signs and symptoms of heart failure reviewed. Will plan repeat echocardiogram to reassess EF. He has had revascularization of the LAD however continues to have COAL HAULER OPERATOR of the 1st diagonal. If EF remains less than 35 % then ICD can be considered. (4) PAF (paroxysmal atrial fibrillation): Code(s): I48.0 - Paroxysmal atrial fibrillation Category: Medical Plan: History of paroxysmal atrial fibrillation, newer finding. He is on amiodarone with EKG today showing sinus rhythm, right bundle branch block, left anterior fascicular block rate 71, JT index 92.4. Pulse regular on examination. No reports of heart palpitations. Will keep off of beta-candis at present as rate is controlled. Continue Eliquis for anticoagulation for stroke prevention. (5) Coronary atherosclerosis: Code(s): I25.10 - Atherosclerotic heart disease of [place] coronary artery without angina pectoris Category: Medical Qualifiers: Associated angina: without angina Coronary Disease-Associated Artery/Lesion type: [place] artery [place] vs. transplanted heart: [place] heart Qualified Code(s): I25.10 - Atherosclerotic heart disease of [place] coronary artery without angina pectoris Plan: As above Plan Time spent on chart review, documentation, interview and assessment Orders: Orders CA echo transthoracic complete Today I25.5 - Ischemic cardiomyopathy Coding Level of Care Code Est Pt Level 4 (52640) Diagnoses NSTEMI (non-ST elevated myocardial infarction) I21.4 S/P cardiac catheterization Z98.890 Ischemic cardiomyopathy I25.5 PAF (paroxysmal atrial fibrillation) I48.0 Atherosclerosis of [place] coronary artery of [place] heart without angina pectoris I25.10 Associated angina: without angina Coronary Disease-Associated Artery/Lesion type: [place] artery [place] vs. transplanted heart: [place] heart CPT Codes EKG - CPT: [id number], Complete ([id number]) Time Spent (min) 28
== END 2023-06-28 14:49 | disposition home or self-care (01) ==
PROVIDERS: PCP Internal Medicine; Referring Provider Internal Medicine; Visit Provider Nurse Practitioner Family
DX: I21.4 Non-ST elevation (NSTEMI) myocardial infarction (principal); Z98.890 Other specified postprocedural states; I25.5 Ischemic cardiomyopathy; I48.0 Paroxysmal atrial fibrillation; I25.10 Atherosclerotic heart disease of native coronary artery without angina pectoris
CPT/HCPCS: 93010; 99214

== ENCOUNTER → 2023-06-28 13:45 | Outpatient (BNVA) | payer OTHER, SELFPAY | PROVIDERS: PCP Internal Medicine; Visit Provider Nurse Practitioner Family | DX: I25.5 Ischemic cardiomyopathy (principal); I48.0 Paroxysmal atrial fibrillation; I25.10 Atherosclerotic heart disease of native coronary artery without angina pectoris; I25.2 Old myocardial infarction | CPT/HCPCS: 93005; 99212 ==

== ENCOUNTER 2023-07-08 13:09 | Outpatient (REF) | payer OTHER, SELFPAY ==
--- NOTE | ~2023-07-08 | US_ITS ---
EXAMINATION: US RETROPERITONEAL LIMITED (RENAL ONLY) CLINICAL INFORMATION: Calculus of kidney. COMPARISON: Ultrasound renal 04/02/2021 and 04/14/2020. CT abdomen and pelvis 03/05/2020. KUB x-ray 03/23/2017. TECHNIQUE: Real-time imaging of the kidneys. FINDINGS: RIGHT KIDNEY: 11.4 x 4.8 x 5.2 cm (SAG x AP x TRV). The kidney is normal in size, contour, and echogenicity. Renal cortical thickness is normal. No renal calculi or hydronephrosis. 2 simple cysts are seen in the mid kidney, measures 0.9 x 0.8 x 0.8 cm and 0.9 x 0.4 x 0.8 cm, no imaging follow-up recommended. LEFT KIDNEY: 10.4 x 5.1 x 3.8 cm (SAG x AP x TRV). The kidney is normal in size, contour, and echogenicity. Renal cortical thickness is normal. No calculi or focal parenchymal lesions. No hydronephrosis. US/US renal BI IMPRESSION: 1. No significant finding in the right kidney. 2. Normal left kidney.
== END 2023-07-08 13:10 | disposition home or self-care (01) ==
LOC: HO.HMGCX 13:09
PROVIDERS: Visit Provider Urology
DX: N20.0 Calculus of kidney (principal)
CPT/HCPCS: 76775

== ENCOUNTER 2023-07-13 12:49 | Outpatient (AMB) | payer OTHER, SELFPAY ==
--- NOTE | 2023-07-13 13:08 | MHC.OFFVIS ---
Intake Visit Reasons: yearly/US/PSA(07/07) Intake Note: Patient is present for PSA Follow up Urology Med:Finasteride, Vitamin B6 Antibiotic Allergy: Penicillin G Blood Thinner: Eliquis & Furosemide Graduate Rn Required: No Accompanied by: Self / Same As Patient Allergies penicillin G Allergy (Intermediate, Verified 07/13/23 13:15) Anaphylaxis lisinopril Allergy (Verified 07/13/23 13:15) Unknown doxycycline Adverse Reaction (Verified 07/13/23 13:15) Diarrhea losartan Adverse Reaction (Verified 07/13/23 13:15) Diarrhea Medication List - Last Reconciled 07/13/23 by Damion Leslie MD alogliptin 12.5 mg PO DAILY amiodarone 100 mg PO BID@0600,1800 amlodipine 10 mg PO DAILY apixaban (Eliquis) 5 mg PO BID clopidogrel 75 mg PO DAILY clotrimazole 1% 1 appl topical DAILY PRN empagliflozin (Jardiance) 10 mg PO DAILY@1600 finasteride 5 mg PO DAILY 90 days furosemide 20 mg See Protocol PO DAILY@1600 ketorolac 0.5% 1 drp ophthalmic (eye) QID metformin 1,000 mg PO DAILY metronidazole 0.75% 1 appl topical BID peg 400-propylene glycol 0.4-0.3 % (Systane Ultra) 1 drp ophthalmic (eye) QID PRN pyridoxine (vitamin B6) 100 mg PO DAILY 90 days HPI Comments Details: Casper CAMACHO is a very pleasant male. He is a patient of Dr Shelby. He is seen for the following urologic conditions. - lower urinary tract symptoms Yearly review Effective emptying On finasteride Tuesday, Tuesday, Tuesday Twelve month follow-up [facility] lab work did not include PSA Nephrolithiasis/Urolithiasis: He is here for further evaluation of nephrolithiasis The patient previously had kidney stones whose composition w 02/24 , calcium oxalate - monohydrate, calcium oxalate - dihydrate. 24 Hour urine evaluation 09/24 , Low Urine volume < 2.0 liters, High Sodium (> 100mEq) 04/25 1.5 Litre, , High Sodium (> 100mEq) - 230, , High Citrate, Low Oxalate < 30, Low calcium < 200. Prior imaging includes 10/24 , a renal ultrasound R LP - 1.3cm , L 5mm 03/27 right faint 4mm 09/24 , showing no evidence of stones 04/25 , a renal ultrasound, showing no evidence of stones - 04/28 renal ultrasound right renal cysts 1 cm, no evidence of stones UA today shows < 5.5, low pH suggestive of higher protein load, high specific gravity suggestive of relative dehydration. Current therapeutic plan will be to continue with imaging surveillance. Neurogenic Bladder: They are here for further management for incomplete emptying neurogenic bladder. Urinary retention initially found after ER visit for spontaneous retention 10/24 - 2 Litre Voiding trial outcome failed first voiding trial 11/03/16 - March 2020 [facility] laser Cystoscopy results 11/23 large trilobar prostate. Imaging results 10/24 , US shows - bilateral hydro with resolution 09/24 PVR 250cc bladder wall thickening. Associated conditions Alzhiemers No CAD No CVA No Diabetes No Multiple sclerosis No renal replacement therapy No Spinal injury/surgery No Current management 5AR PFSH Medical History PAF (paroxysmal atrial fibrillation) NSTEMI (non-ST elevated myocardial infarction) Systolic heart failure Hearing deficit Rosacea Diabetes BPH (benign prostatic hyperplasia) HTN (hypertension) Surgical History S/P cardiac catheterization Status post glaucoma surgery Hx of circumcision Hx of cystoscopy History of prostate surgery Social History Household Members: Spouse Housing: House Do you presently have visiting nurse or other home services: No Alcohol intake: never Patient Tobacco Use Status: Never used Tobacco Second Hand Smoke Exposure: No Advance Directives Date on File: 09/12/22 service: Yes Review of Systems Const Denies chills and Denies fever(s) Card Reports no additional complaints and Denies syncope Resp Denies cough GI Denies abdominal pain and Denies heartburn Reports as per HPI and Denies change in libido Neuro Denies syncope Psych Denies change in libido Endo Denies change in libido Physical Exam Const General: cooperative, healthy appearing, comfortable and no acute distress Orientation/consciousness: patient oriented x3 HEENT Face and sinus: Yes normal facial exam Mouth: moist mucous membranes Neck Neck: Yes normal visual inspection, Yes full ROM and Yes trachea midline Chest Chest palpation & inspection: normal inspection of the chest Resp Effort & Inspection: normal respiratory effort, able to speak in complete sentences and no respiratory distress GI Inspection: Yes normal to inspection Back/Spine/Pelvis Cervical Spine: normal cervical lordosis Thoracic/Lumbar Spine: thoracic and lumbar spine normal to inspection Skin General skin exam: no rashes or lesions noted Neuro General: patient oriented x3, gait normal, tone normal and moves all extremities Extrem General: Yes normal to inspection and Yes capillary refill normal Results AMB Urinalysis, Automated UA Leukoctes 0 Aric/uL Last Edit by MAYCO Clayton on 07/13/23 13:30 UA Nitrite Negative Last Edit by Tresa Cuadra Yazan on 07/13/23 13:30 UA Urobilinogen 0 mg/dL Last Edit by Tresa Cuadra [facility] on 07/13/23 13:30 UA Protein 0 mg/dL Last Edit by Tresa Cuadra Yazan on 07/13/23 13:30 UA pH 6.0 Last Edit by Tresa Cuadra [facility] on 07/13/23 13:30 UA Blood 0 Raymond/uL Last Edit by Tresa Cuadra Yazan on 07/13/23 13:30 UA Specific [place] 1.010 Last Edit by Tresa Cuadra Yazan on 07/13/23 13:30 UA Ketone Negative Last Edit by Tresa Cuadra Yazan on 07/13/23 13:30 UA Bilirubin 0 mg/dL Last Edit by Tresa Cuadra [facility] on 07/13/23 13:30 UA Glucose 1000 mg/dL Last Edit by Tresa Cuadra [facility] on 07/13/23 13:30 3+ Tresa Cuadra 07/13/23 13:30 Results Reviewed Results Reviewed: Laboratory Last Values Urine pH (Auto) 6.0 07/13/23 13:29 Specific [place] (Auto) 1.010 07/13/23 13:29 Urine Protein (Auto) 0 mg/dL 07/13/23 13:29 Glucose (UA)(Auto) 1000 mg/dL 07/13/23 13:29 Urine Ketones (Auto) Negative 07/13/23 13:29 Urine Blood (Auto) 0 Raymond/uL 07/13/23 13:29 Urine Nitrite (Auto) Negative 07/13/23 13:29 Urine Bilirubin (Auto) 0 mg/dL 07/13/23 13:29 Urine Urobilinogen (Auto) 0 mg/dL 07/13/23 13:29 Leukocyte Esterase (Auto) 0 Aric/uL 07/13/23 13:29 Assessment & Plan Assessment & Plan (1) BPH w urinary obs/LUTS: Code(s): N40.1 - Benign prostatic hyperplasia with lower urinary tract symptoms; N13.8 - Other obstructive and reflux uropathy Category: Medical (2) Recurrent UTI (urinary tract infection): Code(s): N39.0 - Urinary tract infection, site not specified Category: Medical Plan Twelve month follow-up PSA Orders: Orders AMB Urinalysis Automated 07/13/23 Z13.9 - Encounter for screening, unspecified Prostate Specific Antigen 364 Days N13.8 - Other obstructive and reflux uropathy, N40.1 - Benign prostatic hyperplasia with lower urinary tract symptoms Patient Instructions: Imaging studies, laboratory and physical exam results were discussed and reviewed in detail. No major barriers to patient understanding were identified. An opportunity to ask questions regarding the treatment plan was provided. All questions were answered. The patient expressed understanding and agreement with the above treatment plan. The patient is aware they should contact our office by phone for worsening of their current condition or the appearance of new urologic symptoms. Compliance is encouraged with any medications and followup testing that is ordered. It is a privilege to participate in the urologic care of your patient. If you have any questions or concerns regarding treatment for the above conditions, or other urologic issues, please do not hesitate to contact me. The office telephone contact is [phone]. This note is constructed using voice recognition software. While every effort has been made to ensure accuracy molecular physicist errors may have been included. Yours sincerely, Dr Damion Leslie MD, [facility] - Urology Providers of Expert, Compassionate Care for the Genitourinary System Coding Level of Care Code Est Pt Level 4 (82648) Diagnoses BPH w urinary obs/LUTS N40.1; N13.8 Recurrent UTI (urinary tract infection) N39.0
== END 2023-07-13 14:00 | disposition home or self-care (01) ==
PROVIDERS: PCP Internal Medicine; Visit Provider Urology
DX: N40.1 Benign prostatic hyperplasia with lower urinary tract symptoms (principal); N13.8 Other obstructive and reflux uropathy; N39.0 Urinary tract infection, site not specified
CPT/HCPCS: 99213

== ENCOUNTER → 2023-07-13 12:49 | Outpatient (BNVA) | payer OTHER, SELFPAY | PROVIDERS: PCP Internal Medicine; Visit Provider Urology | DX: N40.1 Benign prostatic hyperplasia with lower urinary tract symptoms (principal); N13.8 Other obstructive and reflux uropathy; N39.0 Urinary tract infection, site not specified | CPT/HCPCS: 81003; 99212 ==

== ENCOUNTER → 2023-07-20 14:39 | Outpatient (REF) | payer OTHER, SELFPAY ==
--- NOTE | 2023-07-20 14:44 | CA_ITS ---
Transthoracic Echocardiogram Patient (Last, First, Middle): Casper Herrera H Gender: Male Date of : 1935 Age: 88 Procedure Date: 07/20/2023 Procedure Type: Transthoracic Echocardiogram Location: OP Height: 172.72 cm Weight: 86.18 kg BSA: 2.00 m2 Heart Rate: bpm BP: 150 / 64 mmHg Mobile Unit Assistant: TO Referring MD: Rosetta Mistry ROBOTIC WELDING OPERATORMariannaC Symptoms: I25.5 - Ischemic cardiomyopathy Study Quality: Fair/Contrast ECG Rhythm: Sinus Conclusions: - The left ventricular systolic function is moderate to severely decreased. The visually estimated ejection fraction is between 30-35%. - There is moderate mitral annular calcification. - There is mild calcification of the aortic valve. Findings Procedure Information Contrast agent, definity, is being given per protocol without apparent complications. Left Ventricle Mildly increased left ventricular cavity size. The left ventricular systolic function is moderate to severely decreased. The visually estimated ejection fraction is between 30-35%. Evidence suggests grade I (mild) diastolic dysfunction. There is mild septal asymmetric hypertrophy. Globally hypokinetic with regional variation. Wall Motion Rest Echo Findings The basal inferior segment is akinetic. Right Ventricle Normal right ventricular cavity size and systolic function. Atria The left atrium is mildly dilated. The right atrium is normal in size. Aortic Valve There is a normal trileaflet aortic valve. There is mild calcification of the aortic valve. There is no aortic valve stenosis. There is no aortic valve regurgitation. Mitral Valve There is moderate mitral annular calcification. There is trace mitral valve regurgitation. There is no mitral valve stenosis. Pulmonic Valve The pulmonic valve is likely normal. Tricuspid Valve Normal tricuspid valve structure. There is no tricuspid valve regurgitation. Tricuspid regurgitation envelope is inadequate for calculation of right ventricular systolic pressure. Great Vessels The asc aorta is normal in size. Venous The inferior vena cava is normal in size and collapses greater than 50% with inspiration. Pericardium/Pleural There is no evidence of pericardial effusion. Prior Study Comparison No significant change compared to prior study dated: 10/28/2022. Measurements 2D Linear Measurements IVSd: 1.10 0.6-0.9/0.6-1.0 cm LVIDd: 5.68 3.9-5.3/4.2-5.9 cm LVIDd Index: 2.84 2.4-3.2/2.2-3.1 cm/m2 LVIDs: 4.56 2.0-3.6 cm LVPWd: 0.99 0.7-1.1 cm LA Diam: 3.30 2.7-3.8/3.0-4.0 cm LAIDs Index: 1.65 1.5-2.3 cm/m2 LV Mass: 297.28 67-162/88-224 g LV Mass Index: 148.64 43-95/49-115 g/m2 LVOT Diam: 2.10 3.0+(-)1.3 cm 2D Systolic Function EF 4C: 49.50 >55% EF 2C: 35.20 >55% EF BiP: 42.70 >55% Mitral Valve MV VTI: 0.38 MV Pk Landen: 1.21 MV Mn Landen: 0.69 MV Pk Grad: 6.00 MV Mn Grad: 2.00 MV Pk E: 0.61 MV PK A: 1.13 MV Decel Time: 227.00 E/A: 0.50 E'Lateral: 4.90 E'Medial: 3.70 E/E' Med: 16.60 E/E' Lat: 12.50 PHT: 67.00 MVA PHT: 3.28 MVA Continuity: 1.54 Decel [place]: 2.70 Aortic Valve AoV Pk Landen: 1.71 AoV Mn Landen: 1.09 AoV VTI: 0.29 AoV Pk Grad: 12.00 Aov Mn Grad: 5.00 KARINA Cont.VTI: 1.98 LVOT LVOT Pk Landen: 0.84 LVOT Mn Landen: 0.52 LVOT VTI: 0.17 LVOT Pk Grad: 3.00 LVOT Mn Grad: 1.00 LVOT Diam: 2.10 LVOT Area: 3.46 Diastolic Function MV Pk E: 0.61 MV Pk A: 1.13 E/A: 0.50 E'Medial: 3.70 E/E' Med: 16.60 E' Laterial: 4.90 E/E' Lat: 12.50 Right Ventricle TAPSE (mm): 31.10 TVS' Land[place]: 12.60 Tricuspid Valve RA Press: 3.00 Great Vessels Aorta Sinus of Valsalva: 3.68 2.0-3.5 cm Ao Asc: 3.40 2.1-3.4 cm Updated in Other Vendor System with Status of Final Kaushal Sánchez MD electronically signed on 07/21/2023 12:37:35 PM with status of Final
== END ==
LOC: HO.CARD 14:39
PROVIDERS: PCP Hospitalist; Visit Provider Nurse Practitioner Family
DX: I25.5 Ischemic cardiomyopathy (principal)
CPT/HCPCS: 93306; Q9957

== ENCOUNTER → 2023-07-20 14:44 | Outpatient (BNV) | payer OTHER, SELFPAY | PROVIDERS: PCP Hospitalist; Visit Provider Internal Medicine | DX: I35.8 Other nonrheumatic aortic valve disorders (principal); I34.81 Nonrheumatic mitral (valve) annulus calcification; I42.2 Other hypertrophic cardiomyopathy; I25.5 Ischemic cardiomyopathy | CPT/HCPCS: 93306 ==

== ENCOUNTER 2023-09-29 13:40 | Outpatient (AMB) | payer OTHER, SELFPAY ==
--- NOTE | 2023-09-29 13:42 | MHC.OFFVIS ---
Vital Signs 09/29/23 13:43 Height 5 ft 8 in Weight 203 lb 11.314 oz BMI 31.0 BP 138/62 Blood Pressure Location Lt brachial Position Sitting Pulse 65 Pulse Source Monitor Intake Visit Reasons: 3 mth /fup echo Component Overhaul Operator Required: No Allergies penicillin G Allergy (Intermediate, Verified 09/29/23 13:45) Anaphylaxis lisinopril Allergy (Verified 09/29/23 13:45) Unknown doxycycline Adverse Reaction (Verified 09/29/23 13:45) Diarrhea losartan Adverse Reaction (Verified 09/29/23 13:45) Diarrhea Medication List - Last Reconciled 09/29/23 by MARIO MorrsiC alogliptin 12.5 mg PO DAILY amiodarone 100 mg PO BID@0600,1800 amlodipine 10 mg PO DAILY apixaban (Eliquis) 5 mg PO BID clopidogrel 75 mg PO DAILY clotrimazole 1% 1 appl topical DAILY PRN empagliflozin (Jardiance) 10 mg PO DAILY@1600 finasteride 5 mg PO DAILY 90 days furosemide 20 mg See Protocol PO DAILY@1600 ketorolac 0.5% 1 drp ophthalmic (eye) QID metformin 1,000 mg PO DAILY metronidazole 0.75% 1 appl topical BID peg 400-propylene glycol 0.4-0.3 % (Systane Ultra) 1 drp ophthalmic (eye) QID PRN pyridoxine (vitamin B6) 100 mg PO DAILY 90 days HPI HPI 3 mth /fup echo: Details: Casper is an 88-year-old male with past medical history of hypertension, hyperlipidemia, diabetes, paroxysmal atrial fibrillation, heart failure with reduced EF, NSTEMI 09/2022, LAD culprit lesion and KAMILLE placed, ischemic cardiomyopathy who presents for follow-up. Today he reports that he has been doing well with no recurrent chest discomfort at rest or with exertion. He denies shortness of breath, PND, orthopnea or edema. No lightheadedness, presyncope, syncope, falls. He is having issues with bilateral knee pain and has seen the orthopedic provider. He says he is scheduled for a left total knee replacement on 11/10/2023. He is taking his meds as directed. He denies any bleeding issues. He has been able to do his usual housework and climb stairs with the only complaint of knee pain. PFSH Medical History PAF (paroxysmal atrial fibrillation) NSTEMI (non-ST elevated myocardial infarction) Systolic heart failure Hearing deficit Rosacea Diabetes BPH (benign prostatic hyperplasia) HTN (hypertension) Surgical History S/P cardiac catheterization Status post glaucoma surgery Hx of circumcision Hx of cystoscopy History of prostate surgery Social History Household Members: Spouse Housing: House Do you presently have visiting nurse or other home services: No Alcohol intake: never Patient Tobacco Use Status: Never used Tobacco Second Hand Smoke Exposure: No Advance Directives Date on File: 09/12/22 service: Yes Review of Systems Const All systems reviewed & are unremarkable except as noted in HPI and below ENT Denies dizziness Card Denies chest pain, Denies chest pain at rest, Denies chest pain with activity, Denies rapid heart rate, Denies pedal edema, Denies edema, Denies leg edema, Denies lightheadedness, Denies palpitations, Denies dyspnea, Denies dyspnea on exertion and Denies orthopnea Resp Denies cough, Denies dyspnea and Denies dyspnea on exertion GI Denies hematochezia and Denies change in stool character Musc Details: knee pain Reports abnormal gait, Reports limited range of motion, Denies muscle cramps, Denies muscle weakness, Denies numbness, Denies radiating pain into limb, Denies stiffness and Denies tingling Neuro Reports abnormal gait, Denies dizziness, Denies numbness and Denies tingling Endo Denies palpitations Physical Exam Vital Signs: BMI result Body Mass Index 31.0 Const General: cooperative, healthy appearing, comfortable and no acute distress Orientation/consciousness: patient oriented x3 Neck Neck: Yes normal visual inspection and Yes no JVD Resp Effort & Inspection: normal respiratory effort Auscultation: clear to auscultation bilaterally, no crackles, no rales, no rhonchi and no wheezes Cardio Jugular venous distension: no JVD Rate: regular rate Rhythm: regular rhythm Heart sounds: S1 normal heart sound present, S2 normal heart sound present, no murmurs and no rubs Neuro General: patient oriented x3 Extrem General: Yes normal to inspection, No no pedal edema and No calf tenderness Psych Appearance: grossly normal Mental Status: mental status grossly normal Speech and movement: Normal speech and movement present Office Procedures EKG Details: Today, read by me, normal sinus rhythm, right bundle branch block, left anterior fascicular block, rate 65, QTC 486 millisecond unchanged from EKG 06/28/2023 [id number], Complete Assessment & Plan Assessment & Plan (1) NSTEMI (non-ST elevated myocardial infarction): Code(s): I21.4 - Non-ST elevation (NSTEMI) myocardial infarction Category: Medical Plan: Presented to [facility] with lightheadedness and weakness on 09/13/2022. Ruled in for ACS. 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 He had a balloon angioplasty and stent done to the proximal LAD. Following the procedure he was discharged with Plavix and Eliquis. He refused statin medication. He has done well over the last year. Today he reports no anginal sounding symptoms. EKG done today showing normal sinus rhythm with right bundle branch block and left anterior fascicular block, unchanged from prior EKG. He has been on Plavix uninterrupted for the last year. Will have him stop Plavix at this time. He will continue on Eliquis 5 mg b.i.d. so aspirin not needed. He has not on beta-candis. He is on amiodarone. Continue activity as tolerated. Signs and symptoms of angina reviewed. 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 He then presented with NSTEMI on 09/13/2022 and repeat echo showed EF 15-20%, regional wall motion abnormality, moderate pulmonary hypertension. Cardiac catheterization as above. A follow-up echo was done on 10/28/2022 showing EF 25-30%, wall motion abnormality consistent with CAD. Most recent echo done 07/20/2023 showing EF 30-35%, moderate mitral annular calcification and mild calcification of the aortic valve. He has not had issues with decompensated heart failure. He has been on Jardiance. He is not on Nj/Arb to prior reports of GI disturbances on these meds. For this reason Entresto was not started. He has not on beta-candis due to concern for conduction issues. He was on Aldactone but stopped due to report of abdominal pains. He is on amiodarone for his AFib control. Signs and symptoms of heart failure reviewed. With his EF remaining remaining low, 30-35%, I did have a discussion with him regarding possibility of ICD placement. He declined at the time of discussion as he is more concerned about his knee pain and need for total knee replacement. It is still uncertain if EP will put in ICD due to his advanced age. At this time will continue with med management. He has had revascularization of the LAD however continues to have FILM DEVELOPING MACHINE OPERATOR of the 1st diagonal. (4) PAF (paroxysmal atrial fibrillation): Code(s): I48.0 - Paroxysmal atrial fibrillation Category: Medical Plan: History of paroxysmal atrial fibrillation, newer finding. He is on amiodarone with EKG today showing sinus rhythm, right bundle branch block, left anterior fascicular block rate 71, QTC 486 milliseconds. Pulse regular on examination. No reports of heart palpitations. Continue amiodarone. Will keep off of beta-candis at present as rate is controlled. Continue Eliquis for anticoagulation for stroke prevention. NM labs obtained and reviewed. 06/21/23 Cr 1.24, TSH 1.49, AST 31 (5) Coronary atherosclerosis: Code(s): I25.10 - Atherosclerotic heart disease of [place] coronary artery without angina pectoris Category: Medical Qualifiers: Coronary Disease-Associated Artery/Lesion type: [place] artery [place] vs. transplanted heart: [place] heart Associated angina: without angina Qualified Code(s): I25.10 - Atherosclerotic heart disease of [place] coronary artery without angina pectoris Plan: As above (6) Preop cardiovascular exam: Code(s): Z01.810 - Encounter for preprocedural cardiovascular examination Category: Medical Plan: Preop for a left total knee replacement on 11/10/[address] Moss, from [facility]. Surgery to be done at [facility] under general anesthesia. Patient has CAD with coronary stent placement, residual ischemic cardiomyopathy, EF 30-35%, paroxysmal atrial fibrillation which is currently suppressed. Patient may proceed with intermediate cardiac risk. He was informed of this risk, details and he states understanding and willing to take the risk due to significant daily knee discomfort. Avoid fluid overload as he does have reduced EF. EKG if he reports chest discomfort. Continue amiodarone to help suppress AFib. He is on Eliquis for anticoagulation which can be held 48 hours prior to his procedure and restarted as soon as cleared by surgeon to do so. Call/consult Cardiology if needed. Plan Time spent on chart review, documentation, interview and assessment Medications: Discontinued clopidogrel Discontinued Reason: Doctor's Order 75 mg PO DAILY 90 tabs 3RF Coding Level of Care Code Est Pt Level 4 (85580) Diagnoses NSTEMI (non-ST elevated myocardial infarction) I21.4 S/P cardiac catheterization Z98.890 Ischemic cardiomyopathy I25.5 PAF (paroxysmal atrial fibrillation) I48.0 Atherosclerosis of [place] coronary artery of [place] heart without angina pectoris I25.10 Coronary Disease-Associated Artery/Lesion type: [place] artery [place] vs. transplanted heart: [place] heart Associated angina: without angina Preop cardiovascular exam Z01.810 CPT Codes EKG - CPT: 11341-[id number], Complete ([id number]) Time Spent (min) 30
[2023-09-29 13:43] VITALS: BP 138/62; PULSE 65; BMI 31.0
== END 2023-09-29 14:13 | disposition home or self-care (01) ==
PROVIDERS: PCP Internal Medicine; Visit Provider Nurse Practitioner Family
DX: I21.4 Non-ST elevation (NSTEMI) myocardial infarction (principal); Z98.890 Other specified postprocedural states; I25.5 Ischemic cardiomyopathy; I48.0 Paroxysmal atrial fibrillation; I25.10 Atherosclerotic heart disease of native coronary artery without angina pectoris; Z01.810 Encounter for preprocedural cardiovascular examination
CPT/HCPCS: 93010; 99214

== ENCOUNTER → 2023-09-29 13:40 | Outpatient (BNVA) | payer OTHER, SELFPAY | PROVIDERS: PCP Internal Medicine; Visit Provider Nurse Practitioner Family | DX: Z01.810 Encounter for preprocedural cardiovascular examination (principal); I11.0 Hypertensive heart disease with heart failure; I50.9 Heart failure, unspecified; I48.0 Paroxysmal atrial fibrillation; I21.4 Non-ST elevation (NSTEMI) myocardial infarction; I25.5 Ischemic cardiomyopathy; I25.10 Atherosclerotic heart disease of native coronary artery without angina pectoris; E78.5 Hyperlipidemia, unspecified; E11.9 Type 2 diabetes mellitus without complications; Z98.890 Other specified postprocedural states | CPT/HCPCS: 93005; 99212 ==

== ENCOUNTER 2023-11-10 11:24 | Outpatient (REF) | payer OTHER, SELFPAY ==
[2023-11-10 12:43] LABS: Estimated Average Glucose 166 mg/dL; Hemoglobin A1C 191.3136 umol/L; Hemoglobin A1c % 7.4 % (<6.0); Total Hemoglobin (HGBA1C) 3315.5865 umol/L
[2023-11-10 13:11] LABS: Appearance Urine Cloudy; Color Urine Yellow; Glucose Urine UA 100 mg/dL (Negative); Leukocyte Esterase Urine Small (1+) (Negative); Nitrite Urine Positive (Negative); PH 6.5 (5.0-9.0); UMIC TRIGGER UA YES; Urine Blood Negative (Negative); Urine Ketones Negative (Negative); Urine Protein 30 (1+) mg/dL (Neg-Trace)
[2023-11-10 13:18] LABS: PSA,Total (Free>4and<10) 6.83 ng/mL (0.00-4.00)
[2023-11-10 13:18] LABS: Bacteria Urine 4+ (None Seen); Hyaline Casts Urine 0-2 /LPF (0-2); RBC Urine 0-2 /HPF (0-2); Squamous Epithelial Cell Urine 0-2 /HPF (0-2); WBC Urine >50 /HPF (0-5)
[2023-11-11 11:24] LABS: Free Prostate Spec Ag 0.4 ng/mL; Percent Free Prostate Spec Ag 7 % (calc) (>25); Prostate Specific Ag Total 5.9 ng/mL (< OR = 4.0)
== END 2023-11-10 11:25 | disposition home or self-care (01) ==
LOC: HO.LAB 11:24
PROVIDERS: PCP Hospitalist; Visit Provider Urology
DX: N40.1 Benign prostatic hyperplasia with lower urinary tract symptoms (principal); N13.8 Other obstructive and reflux uropathy; N20.0 Calculus of kidney; N39.0 Urinary tract infection, site not specified; Z12.5 Encounter for screening for malignant neoplasm of prostate; Z13.1 Encounter for screening for diabetes mellitus; B96.89 Other specified bacterial agents as the cause of diseases classified elsewhere
CPT/HCPCS: 36415; 81001; 83036; 84153; 84154; 87086; 87088; 87186

== ENCOUNTER 2024-03-12 08:14 | Outpatient (AMB) | payer OTHER, SELFPAY ==
[2024-03-12 08:18] VITALS: BP 150/72; PULSE 78; BMI 32.4
--- NOTE | 2024-03-12 08:18 | MHC.OFFVIS ---
Vital Signs 03/12/24 08:18 Height 5 ft 8 in Weight 212 lb 15.465 oz BMI 32.4 BP 150/72 H Blood Pressure Location Lt brachial Position Sitting Pulse 78 Pulse Source Monitor Intake Visit Reasons: 1 yr follow up Physician Assistant Primary Care Required: No Allergies penicillin G Allergy (Intermediate, Verified 03/12/24 08:20) Anaphylaxis lisinopril Allergy (Verified 03/12/24 08:20) Unknown doxycycline Adverse Reaction (Verified 03/12/24 08:20) Diarrhea losartan Adverse Reaction (Verified 03/12/24 08:20) Diarrhea Medication List - Last Reconciled 03/12/24 by MARIO MorrisC alogliptin 12.5 mg PO DAILY amiodarone 100 mg PO BID@0600,1800 amlodipine 10 mg PO DAILY apixaban (Eliquis) 5 mg PO BID clotrimazole 1% 1 appl topical DAILY PRN finasteride 5 mg PO DAILY 90 days furosemide 20 mg See Protocol PO DAILY@1600 ketorolac 0.5% 1 drp ophthalmic (eye) QID levofloxacin 500 mg PO DAILY 7 days metformin 1,000 mg PO DAILY metronidazole 0.75% 1 appl topical BID peg 400-propylene glycol 0.4-0.3 % (Systane Ultra) 1 drp ophthalmic (eye) QID PRN pyridoxine (vitamin B6) 100 mg PO DAILY 90 days HPI HPI 1 yr follow up: Details: Casper is an 88-year-old male with past medical history of hypertension, hyperlipidemia, diabetes, paroxysmal atrial fibrillation, heart failure with reduced EF, NSTEMI 09/2022, LAD culprit lesion and KAMILLE placed, ischemic cardiomyopathy who presents for follow-up. Today he reports that he he did not have knee surgery last fall since he had a UTI. His surgery is now rescheduled for 03/27/2024. His blood pressure is elevated today which he says is from shoveling his car out prior to coming to this appointment. We had 2-3 inches of snow last evening. He denies chest discomfort at rest or with activity. He denies shortness of breath, PND, orthopnea or edema. No lightheadedness, presyncope, syncope, falls. He is still having issues with bilateral knee pain and has seen the orthopedic provider. He is taking his meds as directed. He denies any bleeding issues. He has been able to do his usual housework and climb stairs with the only complaint of knee pain. [facility] Medical History PAF (paroxysmal atrial fibrillation) NSTEMI (non-ST elevated myocardial infarction) Systolic heart failure Hearing deficit Rosacea Diabetes BPH (benign prostatic hyperplasia) HTN (hypertension) Surgical History S/P cardiac catheterization Status post glaucoma surgery Hx of circumcision Hx of cystoscopy History of prostate surgery Social History Household Members: Spouse Housing: House Do you presently have visiting nurse or other home services: No Alcohol intake: never Patient Tobacco Use Status: Never used Tobacco Second Hand Smoke Exposure: No Advance Directives Date on File: 09/12/22 service: Yes Review of Systems Const All systems reviewed & are unremarkable except as noted in HPI and below ENT Denies dizziness Card Denies chest pain, Denies chest pain at rest, Denies chest pain with activity, Denies rapid heart rate, Denies pedal edema, Denies edema, Denies leg edema, Denies lightheadedness, Denies palpitations, Denies dyspnea, Denies dyspnea on exertion and Denies orthopnea Resp Denies cough, Denies dyspnea and Denies dyspnea on exertion GI Denies hematochezia and Denies change in stool character Musc Details: knee pain bilateral Reports abnormal gait, Reports limited range of motion, Denies muscle cramps, Denies muscle weakness, Denies numbness, Denies radiating pain into limb, Denies stiffness and Denies tingling Neuro Reports abnormal gait, Denies dizziness, Denies numbness and Denies tingling Endo Denies palpitations Physical Exam Vital Signs: Last Vital Signs Pulse 78 03/12/24 08:18 BP 150/72 H 03/12/24 08:18 BMI result Body Mass Index 32.4 Const General: cooperative, healthy appearing, comfortable and no acute distress Orientation/consciousness: patient oriented x3 Neck Neck: Yes normal visual inspection and Yes no JVD Resp Effort & Inspection: normal respiratory effort Auscultation: clear to auscultation bilaterally, no crackles, no rales, no rhonchi and no wheezes Cardio Jugular venous distension: no JVD Rate: regular rate Rhythm: regular rhythm Heart sounds: S1 normal heart sound present, S2 normal heart sound present, no murmurs and no rubs Neuro General: patient oriented x3 Extrem General: Yes normal to inspection, No no pedal edema and No calf tenderness Psych Appearance: grossly normal Mental Status: mental status grossly normal Speech and movement: Normal speech and movement present Office Procedures EKG Details: Today, read by me SR, RBBB and LAFB, rate 78 [id number], Complete Assessment & Plan Assessment & Plan (1) NSTEMI (non-ST elevated myocardial infarction): Code(s): I21.4 - Non-ST elevation (NSTEMI) myocardial infarction Category: Medical Plan: NSTEMI 09/13/2022 -symptoms of lightheadedness and weakness. Ruled in for ACS. 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 He had a balloon angioplasty and stent done to the proximal LAD. He was treated with Plavix for 1 year. He refuses to take statin medications. He currently feels well with no anginal symptoms. EKG done today showing normal sinus rhythm with right bundle branch block and left anterior fascicular block, unchanged from prior EKG, rate 78. He is not on aspirin as he is on Eliquis. He has not been on beta-candis due to concerns for conduction issues. (Has bifascicular block). He is on amiodarone. His BP is elevated today and he has known ischemic cardiomyopathy. He is not on nj or arb due to prior issues with side effects. He is willing to try Hydralazine for better BP control. Will arrange for office BP in 1 week. Activity is limited by bilateral knee arthritis. Continue with activity as tolerated. Signs and symptoms of angina reviewed. 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 He then presented with NSTEMI on 09/13/2022 and repeat echo showed EF 15-20%, regional wall motion abnormality, moderate pulmonary hypertension. Cardiac catheterization as above. A follow-up echo was done on 10/28/2022 showing EF 25-30%, wall motion abnormality consistent with CAD. Most recent echo done 07/20/2023 showing EF 30-35%, moderate mitral annular calcification and mild calcification of the aortic valve. He has not had issues with decompensated heart failure. We have not been able to properly treat him with GDMT. He has been on Jardiance but tells me today the insurance took it away. He is not on Nj/Arb to prior reports of GI disturbances on these meds. For this reason Entresto was not started. He has not on beta-candis due to concern for conduction issues. He was on Aldactone but stopped due to report of abdominal pains and declines retry saying he does not want a diuretic . He is on amiodarone for his AFib control and low dose Lasix. Will be adding Hydralazine to help with BP control. Signs and symptoms of heart failure reviewed. With his EF remaining remaining low, 30-35%, I did have a discussion with him regarding possibility of ICD placement. He declines at this time due to His Knee being his primary concern. He wants to pursue the total knee replacement in a few weeks. It is still uncertain if EP will put in ICD due to his advanced age. At this time will continue with med management. 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 (4) PAF (paroxysmal atrial fibrillation): Code(s): I48.0 - Paroxysmal atrial fibrillation Category: Medical Plan: History of paroxysmal atrial fibrillation. He is onlow dose amiodarone with EKG today showing sinus rhythm, right bundle branch block, left anterior fascicular block rate 78. Pulse regular on examination. No reports of heart palpitations. Continue amiodarone. Will keep off of beta-candis at present as rate is controlled. Continue Eliquis for anticoagulation for stroke prevention. [place] labs obtained and reviewed. 06/21/23 Cr 1.24, TSH 1.49, AST 31 (5) Coronary atherosclerosis: Code(s): I25.10 - Atherosclerotic heart disease of [place] coronary artery without angina pectoris Category: Medical Qualifiers: Associated angina: without angina Coronary Disease-Associated Artery/Lesion type: [place] artery [place] vs. transplanted heart: [place] heart Qualified Code(s): I25.10 - Atherosclerotic heart disease of [place] coronary artery without angina pectoris Plan: As above (6) Preop cardiovascular exam: Code(s): Z01.810 - Encounter for preprocedural cardiovascular examination Category: Medical Plan: Preop for a left total knee replacement on 03/27/[address] Moss, from [facility]. Surgery to be done at [facility] under general anesthesia. Patient has CAD with coronary stent placement, residual ischemic cardiomyopathy, EF 30-35%, paroxysmal atrial fibrillation which is currently suppressed. Patient may proceed with intermediate cardiac risk. He was informed of this risk, details and he states understanding and willing to take the risk due to significant daily knee discomfort. Avoid fluid overload as he does have reduced EF. EKG if he reports chest discomfort. Continue amiodarone to help suppress AFib. He is on Eliquis for anticoagulation which can be held 48 hours prior to his procedure and restarted as soon as cleared by surgeon to do so. Call/consult Cardiology if needed. Plan Time spent on chart review, documentation, interview and assessment Medications: New hydralazine New: for BP control 25 mg PO TID 60 tabs 5RF Coding Level of Care Code Est Pt Level 4 (04530) Complex EM visit Add On G2211 Diagnoses NSTEMI (non-ST elevated myocardial infarction) I21.4 S/P cardiac catheterization Z98.890 Ischemic cardiomyopathy I25.5 PAF (paroxysmal atrial fibrillation) I48.0 Atherosclerosis of [place] coronary artery of [place] heart without angina pectoris I25.10 Associated angina: without angina Coronary Disease-Associated Artery/Lesion type: [place] artery [place] vs. transplanted heart: [place] heart Preop cardiovascular exam Z01.810 CPT Codes EKG - CPT: 18784-[id number], Complete ([id number]) Time Spent (min) 30
== END 2024-03-12 09:01 | disposition home or self-care (01) ==
PROVIDERS: PCP Hospitalist; Visit Provider Nurse Practitioner Family
DX: I21.4 Non-ST elevation (NSTEMI) myocardial infarction (principal); Z98.890 Other specified postprocedural states; I25.5 Ischemic cardiomyopathy; I48.0 Paroxysmal atrial fibrillation; I25.10 Atherosclerotic heart disease of native coronary artery without angina pectoris; Z01.810 Encounter for preprocedural cardiovascular examination
CPT/HCPCS: 93010; 99214; G2211

== ENCOUNTER → 2024-03-12 08:14 | Outpatient (BNVA) | payer OTHER, SELFPAY | PROVIDERS: PCP Hospitalist; Visit Provider Nurse Practitioner Family | DX: Z01.810 Encounter for preprocedural cardiovascular examination (principal); I25.2 Old myocardial infarction; I25.10 Atherosclerotic heart disease of native coronary artery without angina pectoris; I48.0 Paroxysmal atrial fibrillation; I25.5 Ischemic cardiomyopathy; Z98.890 Other specified postprocedural states | CPT/HCPCS: 93005; 99212 ==

== ENCOUNTER 2024-07-03 09:34 | Outpatient (REF) | payer OTHER, SELFPAY ==
[2024-07-03 13:59] LABS: Prostate Specific Antigen 7.23 ng/mL (<0.05-4.0)
== END 2024-07-03 09:35 | disposition home or self-care (01) ==
LOC: HO.HMGCLDS 09:34
PROVIDERS: Visit Provider Urology
DX: N40.1 Benign prostatic hyperplasia with lower urinary tract symptoms (principal); N13.8 Other obstructive and reflux uropathy; Z12.5 Encounter for screening for malignant neoplasm of prostate
CPT/HCPCS: 36415; 84153

== ENCOUNTER 2024-07-05 07:43 | Outpatient (AMB) | payer OTHER, SELFPAY ==
[2024-07-05 08:03] VITALS: BP 148/70; PULSE 73; O2SAT 96; BMI 29.5
--- NOTE | 2024-07-05 08:03 | A.OFFVIS_ITS ---
Vital Signs 07/05/24 08:03 Height 5 ft 8 in Weight 194 lb 0.108 oz BMI 29.5 BP 148/70 H Blood Pressure Location Rt brachial Position Sitting Pulse 73 Pulse Source Pulse Oximeter Pulse Oximetry (%) 96 Oxygen Delivery Method Room Air Intake Visit Reasons: Pre-op knee surgery at [facility] Intake Note: Pt presents to the office today for a Pre-op knee surgery at [facility]. Allergies penicillin G Allergy (Intermediate, Verified 07/05/24 08:03) Anaphylaxis lisinopril Allergy (Verified 07/05/24 08:03) Unknown doxycycline Adverse Reaction (Verified 07/05/24 08:03) Diarrhea losartan Adverse Reaction (Verified 07/05/24 08:03) Diarrhea Medication List - Last Reconciled 07/05/24 by MARIO MorrisC alogliptin 12.5 mg PO DAILY amiodarone 100 mg PO BID@0600,1800 amlodipine 10 mg PO DAILY apixaban (Eliquis) 5 mg PO BID clotrimazole 1% 1 appl topical DAILY PRN finasteride 5 mg PO DAILY 90 days furosemide 20 mg See Protocol PO DAILY@1600 hydralazine 25 mg PO TID ketorolac 0.5% 1 drp ophthalmic (eye) QID metformin 1,000 mg PO DAILY metronidazole 0.75% 1 appl topical BID peg 400-propylene glycol 0.4-0.3 % (Systane Ultra) 1 drp ophthalmic (eye) QID PRN pyridoxine (vitamin B6) 100 mg PO DAILY 90 days HPI HPI Pre-op knee surgery at [facility]: Details: Casper is an 89-year-old male with past medical history of hypertension, hyperlipidemia, diabetes, paroxysmal atrial fibrillation, heart failure with reduced EF, NSTEMI 09/2022, LAD culprit lesion and KAMILLE placed, ischemic cardiomyopathy who presents for follow-up and preop clearance for total knee replacement. Today he reports that his surgery was planned for March then canceled due to elevated hemoglobin A1c. His total knee replacement surgery is now scheduled for 07/13/2024. He tells me his blood sugars have been better controlled. His blood pressure is mildly elevated today which he says is from being anxious for this visit. He says he needs to have this surgery as his knee pain is greatly affecting his life. He tells me home blood pressures range 120-130 systolic. He is able to do housework and recently trimmed his hedges outside with only knee pain. He denies any chest discomfort at rest or with activity. He denies shortness of breath, PND, orthopnea or edema. No lightheadedness, presyncope, syncope, falls. He is taking his meds as directed. He denies any bleeding issues. [facility] Medical History PAF (paroxysmal atrial fibrillation) NSTEMI (non-ST elevated myocardial infarction) Systolic heart failure Hearing deficit Rosacea Diabetes BPH (benign prostatic hyperplasia) HTN (hypertension) Surgical History S/P cardiac catheterization Status post glaucoma surgery Hx of circumcision Hx of cystoscopy History of prostate surgery Social History Household Members: Spouse Housing: House Do you presently have visiting nurse or other home services: No Alcohol intake: never Patient Tobacco Use Status: Never used Tobacco Second Hand Smoke Exposure: No Advance Directives Date on File: 09/12/22 service: Yes Review of Systems Const All systems reviewed & are unremarkable except as noted in HPI and below Card Denies chest pain, Denies chest pain at rest, Denies chest pain with activity, Denies syncope, Denies rapid heart rate, Denies pedal edema, Denies leg edema, Denies dyspnea, Denies dyspnea on exertion and Denies orthopnea Resp Denies dyspnea and Denies dyspnea on exertion GI Denies no additional complaints Musc Details: Bilateral knee pain with ambulation Neuro Denies syncope Physical Exam Vital Signs: Last Vital Signs Pulse 73 07/05/24 08:03 BP 148/70 H 07/05/24 08:03 Pulse Ox 96 07/05/24 08:03 Oxygen Delivery Method Room Air 07/05/24 08:03 BMI result Body Mass Index 29.5 Const General: cooperative, healthy appearing, comfortable and no acute distress Orientation/consciousness: patient oriented x3 Neck Neck: Yes normal visual inspection and Yes no JVD Resp Other: faint rales noted in bases Effort & Inspection: normal respiratory effort Auscultation: clear to auscultation bilaterally, no rhonchi and no wheezes Cardio Jugular venous distension: no JVD Rate: regular rate Rhythm: regular rhythm Heart sounds: S1 normal heart sound present, S2 normal heart sound present, no murmurs and no rubs Neuro General: patient oriented x3 Extrem Other: bilateral knee braces on, difficulty with ambulation General: No no pedal edema and No calf tenderness Psych Appearance: grossly normal Mental Status: mental status grossly normal Speech and movement: Normal speech and movement present Office Procedures EKG Details: Today, Normal sinus rhythm with left axis deviation, right bundle branch block, rate 61, QTC 491 milliseconds [id number], Complete Assessment & Plan Assessment & Plan (1) NSTEMI (non-ST elevated myocardial infarction): Code(s): I21.4 - Non-ST elevation (NSTEMI) myocardial infarction Category: Medical Plan: NSTEMI 09/13/2022 -symptoms of lightheadedness and weakness. Cardiac catheterizat ion, 09/14/2022 showing proximal LAD 99% stenosis, 1st diagonal 100% BAG MENDER. He had a balloon angioplasty and stent done to the proximal LAD. He was treated with Plavix for 1 year. He refuses to take statin medications. He currently feels well with no anginal symptoms. EKG done today showing normal sinus rhythm with right bundle branch block, rate 61. He is not on aspirin as he is on Eliquis. He has not been on beta-candis due to concerns for conduction issues. (Has bifascicular block on some EKGs). He is on amiodarone. His BP is mildly elevated today and he has known ischemic cardiomyopathy. He is not on nj or arb due to prior issues with side effects. He is taking hydralazine for BP control. Home blood pressures are reported as normal. No med changes made at this time. Signs and symptoms of angina reviewed. (2) S/P cardiac catheterization: Comment: 09/14/2022, left main normal, proximal LAD 90% stenosis, culprit lesion, balloon angioplasty and KAMILLE placed, 1st diagonal 100% BAG MENDER, efoj-rd-urfe collaterals, left circumflex mild luminal irregularities, less than 30% stenosis, RCA 50% mid stenosis Code(s): Z98.890 - Other specified postprocedural states Category: Surgical Plan: As above (3) Ischemic cardiomyopathy: Code(s): I25.5 - Ischemic cardiomyopathy Category: Medical Plan: Echocardiogram done at time of August 2022 [facility] [place] for new AFib showed EF 25- 30%, regional wall motion abnormality consistent with ischemic cardiomyopathy, dilated left atrium, mild MR, mildly elevated RVSP. He then presented with NSTEMI on 09/13/2022 and repeat echo showed EF 15-20%, regional wall motion abnormality, moderate pulmonary hypertension. Cardiac catheterization as above. Most recent echo done 07/20/2023 showing EF 30-35%, moderate mitral annular calcification and mild calcification of the aortic valve. He has not had issues with decompensated heart failure. We have not been able to properly treat him with GDMT. He has been on Jardiance but has reported the insurance took it away. He is not on Nj/Arb to prior reports of GI disturbances on these meds. For this reason Entresto was not started. He has not on beta-candis due to concern for conduction issues. He was on Aldactone but stopped due to report of abdominal pains and declines retry saying he does not want a diuretic . He is on amiodarone for his AFib control and low dose Lasix which he only takes periodically. He reports compliance with hydralazine. Signs and symptoms of heart failure reviewed. With his EF remaining remaining low, 30-35%, I did have a discussion with him regarding possibility of ICD placement. He declines at this time due to His Knee being his primary concern. He wants to pursue the total knee replacement. It is still uncertain if EP will put in ICD due to his advanced age. At this time will continue with med management. Will update echocardiogram. Will arrange for cardiology follow-up in [address] Taylor to go over case, meds, plan of care. (4) PAF (paroxysmal atrial fibrillation): Code(s): I48.0 - Paroxysmal atrial fibrillation Category: Medical Plan: History of paroxysmal atrial fibrillation. He is on low dose amiodarone with EKG today showing sinus rhythm, right bundle branch block, rate 61. I do hear faint rales in his bases. Continue amiodarone. For monitoring will check chest x-ray, CMP and TSH. -he wants these done at the [facility]. Given orders in hand. Will keep off of beta-candis at present as rate is controlled. Continue Eliqu is for anticoagulation for stroke prevention. (5) Coronary atherosclerosis: Code(s): I25.10 - Atherosclerotic heart disease of torres martinez coronary artery without angina pectoris Category: Medical Qualifiers: Associated angina: without angina Coronary Disease-Associated Artery/Lesion type: torres martinez artery [place] vs. transplanted heart: torres martinez heart Qualified Code(s): I25.10 - Atherosclerotic heart disease of torres martinez coronary artery without angina pectoris Plan: As above (6) Preop cardiovascular exam: Code(s): Z01.810 - Encounter for preprocedural cardiovascular examination Category: Medical Plan: Preop for a left total knee replacement on 03/27/[address] Moss, from [facility]. Surgery to be done at [facility] under general anesthesia. Patient has CAD with coronary stent placement, residual ischemic cardiomyopathy, EF 30-35%, paroxysmal atrial fibrillation which is currently suppressed. 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 He will likely be intermediate cardiac risk. He was informed of his cardiac risk, details and he states understanding and willing to take the risk due to significant daily knee discomfort. Avoid fluid overload as he does have reduced EF. EKG if he reports chest discomfort. Continue amiodarone to help suppress AFib. He is on Eliquis for anticoagulation which can be held 48 hours prior to his procedure and restarted as soon as cleared by surgeon to do so. Call/consult Cardiology if needed. (7) On amiodarone therapy: Code(s): Z79.899 - Other rn long term care (current) drug therapy Category: Medical Plan Time spent on chart review, documentation, interview and assessment During the consultation, I discussed with the patient the importance of pre- surgical cardiovascular optimization, particularly managing atrial fibrillation and blood pressure effectively. We reviewed the necessity to hold Eliquis two days prior to surgery to mitigate bleeding risk. I emphasized the need for continued monitoring of diabetes with the [facility] to lower the hemoglobin A1c. Pending liver and thyroid function tests and a chest x-ray are part of monitoring for amiodarone effects. I addressed the patient's anxiety about surgery by providing detailed medication management and pre-operative instructions. We discussed the patient's cardiac function, noting moderate risk, and the echocardiogram findings from last year will be considered for surgical clearance with Dr. Taylor. Orders: Orders Comprehensive Met. Panel Today Z79.899 - Other rn long term care (current) drug therapy TSH reflex Free T4 Today Z79.899 - Other rn long term care (current) drug therapy XR chest 2V Today Z79.899 - Other rn long term care (current) drug therapy CA echo transthoracic complete Today I21.4 - Non-ST elevation (NSTEMI) myocardial infarction, I25.5 - Ischemic cardiomyopathy Patient Instructions: - Continue taking medications as prescribed. - Hold Eliquis two days before surgery on July 13. - Monitor blood pressure daily and report any significant changes. - Follow diabetes management plan with the [facility] specialist. - Complete pending liver and thyroid function tests, and chest x-ray at the [facility]. - Follow all pre-operative instructions provided, including holding certain medications and supplements. - Report any increased shortness of breath or leg swelling promptly. - Call if there are any questions or concerns about the upcoming surgery. - Attend follow-up appointments as scheduled. Patient was informed and verbally consented to the use of an ambient scribe for clinic note documentation during this visit. Coding Level of Care Code Est Pt Level 4 (82151) Complex EM visit Add On G2211 Diagnoses NSTEMI (non-ST elevated myocardial infarction) I21.4 S/P cardiac catheterization Z98.890 Ischemic cardiomyopathy I25.5 PAF (paroxysmal atrial fibrillation) I48.0 Atherosclerosis of torres martinez coronary artery of torres martinez heart without angina pectoris I25.10 Associated angina: without angina Coronary Disease-Associated Artery/Lesion type: torres martinez artery [place] vs. transplanted heart: torres martinez heart Preop cardiovascular exam Z01.810 On amiodarone therapy Z79.899 CPT Codes EKG - CPT: 18575-[id number], Complete ([id number]) Time Spent (min) 36
== END 2024-07-05 08:38 | disposition home or self-care (01) ==
LOC: HO.HCS 07:44
PROVIDERS: PCP Hospitalist; Referring Provider Nurse Practitioner Family; Visit Provider Nurse Practitioner Family
DX: I21.4 Non-ST elevation (NSTEMI) myocardial infarction (principal); Z98.890 Other specified postprocedural states; I25.5 Ischemic cardiomyopathy; I48.0 Paroxysmal atrial fibrillation; I25.10 Atherosclerotic heart disease of native coronary artery without angina pectoris; Z01.810 Encounter for preprocedural cardiovascular examination; Z79.899 Other long term (current) drug therapy
CPT/HCPCS: 93010; 99214; G2211

== ENCOUNTER → 2024-07-05 07:43 | Outpatient (BNVA) | payer OTHER, SELFPAY | PROVIDERS: PCP Hospitalist; Visit Provider Nurse Practitioner Family | DX: Z01.810 Encounter for preprocedural cardiovascular examination (principal); I25.10 Atherosclerotic heart disease of native coronary artery without angina pectoris; I25.5 Ischemic cardiomyopathy; I48.0 Paroxysmal atrial fibrillation; Z86.73 Personal history of transient ischemic attack (TIA), and cerebral infarction without residual deficits; Z98.890 Other specified postprocedural states; Z79.899 Other long term (current) drug therapy | CPT/HCPCS: 93005; 99212 ==

== ENCOUNTER 2024-07-10 13:16 | Outpatient (REF) | payer OTHER, SELFPAY | END 2024-07-10 13:17 | disposition home or self-care (01) | LOC: HO.LAB 13:16 | PROVIDERS: PCP Internal Medicine; Visit Provider Urology | DX: N39.0 Urinary tract infection, site not specified (principal); N40.1 Benign prostatic hyperplasia with lower urinary tract symptoms; N13.8 Other obstructive and reflux uropathy | CPT/HCPCS: 81003; 87086; 87088; 87186; 99212 ==

== ENCOUNTER 2024-07-10 13:16 | Outpatient (AMB) | payer OTHER, SELFPAY ==
--- NOTE | 2024-07-10 13:34 | MHC.OFFVIS ---
Intake Visit Reasons: 1yr/PSA/PVR Intake Note: Patient is present for 1Y/PSA/PVR Urology Medication:VITAMIN B6,FINASTERIDE Antibiotic Allergy:PENICILLIN G,DOXYCYCLINE Blood Thinner:APIXABAN Mutton Puncher Required: No Allergies penicillin G Allergy (Intermediate, Verified 07/10/24 13:36) Anaphylaxis lisinopril Allergy (Verified 07/10/24 13:36) Unknown doxycycline Adverse Reaction (Verified 07/10/24 13:36) Diarrhea losartan Adverse Reaction (Verified 07/10/24 13:36) Diarrhea HPI Comments Details: Casper CAMACHO is a very pleasant male. He is a patient of Dr Shelby. He is seen for the following urologic conditions. - lower urinary tract symptoms Yearly follow-up PVR 0 Effective emptying On finasteride Tuesday, Tuesday, Tuesday UA 1+ nitrites indicative of infection We will treat Add methenamine vitamin-C Three-month follow-up repeat PSA and UA with PVR PSA 07/01 7.2 Nephrolithiasis/Urolithiasis: He is here for further evaluation of nephrolithiasis The patient previously had kidney stones whose composition w 02/24 , calcium oxalate - monohydrate, calcium oxalate - dihydrate. 24 Hour urine evaluation 09/24 , Low Urine volume < 2.0 liters, High Sodium (> 100mEq) 04/25 1.5 Litre, , High Sodium (> 100mEq) - 230, , High Citrate, Low Oxalate < 30, Low calcium < 200. Prior imaging includes 10/24 , a renal ultrasound R LP - 1.3cm , L 5mm 03/27 right faint 4mm 09/24 , showing no evidence of stones 04/25 , a renal ultrasound, showing no evidence of stones - 04/28 renal ultrasound right renal cysts 1 cm, no evidence of stones UA today shows < 5.5, low pH suggestive of higher protein load, high specific gravity suggestive of relative dehydration. Current therapeutic plan will be to continue with imaging surveillance. Neurogenic Bladder: They are here for further management for incomplete emptying neurogenic bladder. Urinary retention initially found after ER visit for spontaneous retention 10/24 - 2 Litre Voiding trial outcome failed first voiding trial 11/03/16 - March 2020 GreenLight laser Cystoscopy results 11/23 large trilobar prostate. Imaging results 10/24 , US shows - bilateral hydro with resolution 09/24 PVR 250cc bladder wall thickening. Current management 5AR [facility] Medical History PAF (paroxysmal atrial fibrillation) NSTEMI (non-ST elevated myocardial infarction) Systolic heart failure Hearing deficit Rosacea Diabetes BPH (benign prostatic hyperplasia) HTN (hypertension) Surgical History S/P cardiac catheterization Status post glaucoma surgery Hx of circumcision Hx of cystoscopy History of prostate surgery Social History Household Members: Spouse Housing: House Do you presently have visiting nurse or other home services: No Alcohol intake: never Patient Tobacco Use Status: Never used Tobacco Second Hand Smoke Exposure: No Advance Directives Date on File: 09/12/22 service: Yes Review of Systems Const Denies chills and Denies fever(s) Card Reports no additional complaints and Denies syncope Resp Denies cough GI Denies abdominal pain and Denies heartburn Reports as per HPI and Denies change in libido Neuro Denies syncope Psych Denies change in libido Endo Denies change in libido Physical Exam Const General: cooperative, healthy appearing, comfortable and no acute distress Orientation/consciousness: patient oriented x3 HEENT Face and sinus: Yes normal facial exam Mouth: moist mucous membranes Neck Neck: Yes normal visual inspection, Yes full ROM and Yes trachea midline Chest Chest palpation & inspection: normal inspection of the chest Resp Effort & Inspection: normal respiratory effort, able to speak in complete sentences and no respiratory distress GI Inspection: Yes normal to inspection Back/Spine/Pelvis Cervical Spine: normal cervical lordosis Thoracic/Lumbar Spine: thoracic and lumbar spine normal to inspection Skin General skin exam: no rashes or lesions noted Neuro General: patient oriented x3, gait normal, tone normal and moves all extremities Extrem General: Yes normal to inspection and Yes capillary refill normal Results AMB Urinalysis, Automated UA Leukoctes 70 Aric/uL Last Edit by ROSA Cole on 07/10/24 14:07 UA Nitrite Positive Last Edit by ROSA Cole on 07/10/24 14:07 UA Urobilinogen 0.2 mg/dL Last Edit by ROSA Cole on 07/10/24 14:07 UA Protein 30 mg/dL Last Edit by ROSA Cole on 07/10/24 14:07 UA pH 6.0 Last Edit by ROSA Cole on 07/10/24 14:07 UA Blood 25 Raymond/uL Last Edit by ROSA Cole on 07/10/24 14:07 UA Specific Dorrance 1.020 Last Edit by ROSA Cole on 07/10/24 14:07 UA Ketone Negative Last Edit by ROSA Cole on 07/10/24 14:07 UA Bilirubin 0 mg/dL Last Edit by ROSA Cole on 07/10/24 14:07 UA Glucose 0 mg/dL Last Edit by ROSA Cole on 07/10/24 14:07 Results Reviewed Results Reviewed: Laboratory Last Values Urine pH (Auto) 6.0 07/10/24 14:06 Specific Dorrance (Auto) 1.020 07/10/24 14:06 Urine Protein (Auto) 30 mg/dL 07/10/24 14:06 Glucose (UA)(Auto) 0 mg/dL 07/10/24 14:06 Urine Ketones (Auto) Negative 07/10/24 14:06 Urine Blood (Auto) 25 Raymond/uL 07/10/24 14:06 Urine Nitrite (Auto) Positive 07/10/24 14:06 Urine Bilirubin (Auto) 0 mg/dL 07/10/24 14:06 Urine Urobilinogen (Auto) 0.2 mg/dL 07/10/24 14:06 Leukocyte Esterase (Auto) 70 Aric/uL 07/10/24 14:06 Assessment & Plan Assessment & Plan (1) Recurrent UTI (urinary tract infection): Code(s): N39.0 - Urinary tract infection, site not specified Category: Medical (2) BPH w urinary obs/LUTS: Code(s): N40.1 - Benign prostatic hyperplasia with lower urinary tract symptoms; N13.8 - Other obstructive and reflux uropathy Category: Medical Plan Three-month follow-up PSA, PVR and UA Orders: Orders AMB Urinalysis Automated 07/10/24 Z13.9 - Encounter for screening, unspecified Urine Culture 07/10/24 N39.0 - Urinary tract infection, site not specified Medications: New methenamine hippurate 1 g PO DAILY 90 tabs 1RF 90 days N39.0 - Urinary tract infection, site not specified levofloxacin 500 mg PO DAILY 5 tabs 0RF 5 days N39.0 - Urinary tract infection, site not specified ascorbic acid (vitamin C) 1,000 mg PO DAILY 90 tabs 1RF 90 days N39.0 - Urinary tract infection, site not specified Patient Instructions: This note is constructed using voice recognition software. While every effort has been made to ensure accuracy spreading machine operator errors may have been included. Imaging studies, laboratory and physical exam results were discussed and reviewed in detail. No major barriers to patient understanding were identified. An opportunity to ask questions regarding the treatment plan was provided. All questions were answered. The patient expressed understanding and agreement with the above treatment plan. The patient is aware they should contact our office by phone for worsening of their current condition or the appearance of new urologic symptoms. Compliance is encouraged with any medications and followup testing that is ordered. It is a privilege to participate in the urologic care of your patient. If you have any questions or concerns regarding treatment for the above conditions, or other urologic issues, please do not hesitate to contact me. The office telephone contact is [phone]. Sincerely, Dr Damion Leslie MD, KEMAR [facility] - Urology Compassionate Specialist Care for the Genitourinary System Coding Level of Care Code Est Pt Level 4 (76878) Complex EM visit Add On G2211 Diagnoses Recurrent UTI (urinary tract infection) N39.0 BPH w urinary obs/LUTS N40.1; N13.8
== END 2024-07-10 15:05 | disposition home or self-care (01) ==
LOC: HO.HUSH 13:17
PROVIDERS: PCP Internal Medicine; Visit Provider Urology
DX: Z13.9 Encounter for screening, unspecified (principal)

== ENCOUNTER 2024-10-09 14:38 | Outpatient (AMB) | payer OTHER, SELFPAY ==
--- OUTSIDE RECORDS SUMMARY | 2023-10-18 09:30 | XMS_ITS | Encounter Summary ---
Author Name [facility] Address [address] [place] [address] Care Team Providers Care Ordnance Mechanic Name Role Phone GHAZALKIT [facility] Insurance Providers: All historical and current Section Date Range: From patient's date of to the date document was created. This section includes the names of all active insurance providers for the patient. Insurance Provider Type of Coverage Plan Name Start of Policy Coverage End of Policy Coverage Group Number Member ID Insurance Provider's Telephone Number Policy Sharpe's Name Patient's Relationship to Policy Sharpe MEDICARE (WNR) MEDICARE (M) PART A June 07, 2002 PART A [id number] [facility] [id number] MARIAH CAMACHO JR PATIENT MEDICARE (WNR) MEDICARE (M) PART A June 07, 2002 PART A [id number] MARIAH CAMACHO JR PATIENT MEDICARE (WNR) MEDICARE (M) PART A June 07, 2002 PART A [id number] MARIAH CAMACHO JR PATIENT MEDICARE (WNR) MEDICARE (M) PART B June 07, 2002 PART B [id number] [phone] MARIAH CMAACHO JR PATIENT MEDICARE (WNR) MEDICARE (M) PART A June 07, 2002 PART A [id number] [phone] MARIAH CAMACHO JR PATIENT MEDICARE (WNR) MEDICARE (M) PART B June 07, 2002 PART B [id number] MARIAH CAMACHO JR PATIENT Selected Encounter This section includes the information on record at [place] for the Encounter. Date/Time Encounter Type Encounter Description Reason Provider Source Oct 18, 2023 01:30 PM OFFICE O/P EST MOD 30 MIN PRIMARY CARE/MEDICINE ICD-10-CM I42.9 Cardiomyopathy, unspecified FEROZ VALLADARES Marlee Encounter Template Text not used by [place] Assessments - Encounter Diagnoses This section includes the primary and secondary diagnoses documented for the Encounter. Date/Time Primary/Secondary Diagnosis Diagnosis Name Provider Source Oct 22, 2023 02:57 PM PRIMARY Cardiomyopathy, unspecified FEROZ VALLADARES [facility] Oct 22, 2023 02:57 PM SECONDARY Athscl heart disease of [place] coronary artery w/o ang pctrs FEROZ VALLADARES [facility] Oct 22, 2023 02:57 PM SECONDARY Benign prostatic hyperplasia without lower urinry tract symp FEROZ VALLADARES [facility] Oct 22, 2023 02:57 PM SECONDARY Chronic kidney disease, stage 3 unspecified FEROZ VALLADARES [facility] 14, 2024 02:57 PM SECONDARY Essential (primary) hypertension FEROZ VALLADARES [facility] 14, 2024 02:57 PM SECONDARY Heart failure, unspecified FEROZ VALLADARES [facility] 14, 2024 02:57 PM SECONDARY Ischemic cardiomyopathy FEROZ VALLADARES [facility] Oct 22, 2023 02:57 PM SECONDARY USP (current) use of anticoagulants FEROZ VALLADARES [facility] Oct 22, 2023 02:57 PM SECONDARY Non-ST elevation (NSTEMI) myocardial infarction FEROZ VALLADARES [facility] 14, 2024 02:57 PM SECONDARY Other specified arthritis, left knee FEROZ VALLADARES [facility] 14, 2024 02:57 PM SECONDARY Other specified arthritis, right knee FEROZ VALLADARES [facility] 14, 2024 02:57 PM SECONDARY Paroxysmal atrial fibrillation FEROZ VALLADARES [facility] 14, 2024 02:57 PM SECONDARY Type 2 diabetes mellitus w diabetic chronic kidney disease FEROZ VALLADARES [facility] Oct 22, 2023 02:57 PM SECONDARY Type 2 diabetes mellitus with diabetic nephropathy FEROZ VALLADARES [facility] Oct 22, 2023 02:57 PM SECONDARY 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 This section includes future appointments and future orders which are active, pending or scheduled. Future Appointments This section includes appointments that were scheduled to occur 6 months from the date of the Encounter, up to a maximum of 20 appointments. The data comes from all [place] treatment [facility]. Appointment Date/Time Appointment Type Appointme nt Facility Name Oct 27, 2023 03:30 PM AMBULATORY - MEDICINE [facility] Nov 10, 2023 08:00 AM AMBULATORY - MEDICINE [place] [facility] [place] [facility] Nov 23, 2023 11:00 AM AMBULATORY - REHAB MEDICIN [facility] Jan 03, 2024 09:00 AM [facility] [place] [facility] Jan 25, 2024 09:00 AM AMBULATORY - [facility] [place] [facility] Mar 09, 2024 08:30 AM AMBULATORY - [facility]HAB MEDICIN [facility] [place] [facility] Mar 12, 2024 08:15 AM AMBULATORY - MEDICINE [facility] [place] [facility] Mar 21, 2024 08:30 AM AMBULATORY - MEDICINE [facility] [place] [facility] Mar 22, 2024 09:00 AM AMBULATORY - MEDICINE [facility] [place] [facility] Mar 22, 2024 11:00 AM AMBULATORY - MEDICINE [facility] [facility] Mar 22, 2024 11:15 AM AMBULATORY - MEDICINE [facility] [place] [facility] Apr 11, 2024 10:30 AM AMBULATORY - MEDICINE [place] [facility] [place] [facility] Active, Pending, and Scheduled Orders This section includes a listing of several types of active, pending, and scheduled orders, including clinic medications orders, diagnostic test orders, procedure orders and consult orders; where the start date of the order is 45 days before the date of the Encounter or 45 days after the date of theEncounter. The data comes from all [place] treatment facilities. Test Date/Time Test Type Test Details Facility Name Nov 24, 2023 12:00 AM Laboratory - Chemi stry Order CBC AND DIFF (AUTO) BLOOD (LAV-BLOOD) [facility] Nov 24, 2023 12:00 AM Laboratory - Chemi stry Order LIVER FUNCTION BLOOD (SST-SERUM) [facility] Nov 24, 2023 12:00 AM Laboratory - Chemi stry Order LIPID PANEL FASTING BLOOD (SST-SERUM) [facility] Nov 24, 2023 12:00 AM Laboratory - Chemi stry Order CALCIUM BLOOD (SST-SERUM) [facility] Nov 24, 2023 12:00 AM Laboratory - Chemi stry Order BASIC METABOLIC PANEL (fasting) BLOOD (SST-SERUM) [facility] Nov 24, 2023 12:00 AM Laboratory - Chemi stry Order RETICULOCYTES BLOOD (LAV-BLOOD) [facility] Nov 24, 2023 12:00 AM Laboratory - Chemi stry Order URINALYSIS URINE [facility] Nov 24, 2023 12:00 AM Laboratory - Chemi stry Order URIC ACID BLOOD (SST-SERUM) [facility] Nov 24, 2023 12:00 AM Laboratory - Chemi stry Order MICROALBUMIN CREATININE RATIO PANEL URINE (RANDOM) [facility] Nov 24, 2023 12:00 AM Laboratory - Chemi stry Order TSH BLOOD (SST-SERUM) [facility] Nov 24, 2023 12:00 AM Laboratory - Chemi stry Order FERRITIN BLOOD (SST-SERUM) [facility] Nov 24, 2023 12:00 AM Laboratory - Chemi stry Order HEMOGLOBIN A1C PANEL BLOOD (LAV-BLOOD) [facility] Nov 24, 2023 12:00 AM Laboratory - Chemi stry Order VITAMIN D (25-OH) BLOOD (SST-SERUM) [facility] Nov 24, 2023 12:00 AM Laboratory - Chemi stry Order VITAMIN B12 BLOOD (SST-SERUM) [facility] Lab Results: +/- 30 days of the encounter This section includes the Chemistry and Hematology Lab Results on record with [place] for the patient. Radiology Reports and Pathology Reports are provided separately, in subsequent sections. Lab Results This section contains the Chemistry/Hematology Results that were resulted 30 days before or 30 daysafter the date of the Encounter. Date/Time Source Result Type Result - Unit Interpretation Reference Range Specimen Type Comment Oct 18, 2023 02:13 PM [facility] URINALYSIS CLEAN CATCH URINE Specimen Type: URINE Comment: If Glucose = >500 and Ketones are positive, please alert the Physician. Ordering Provider: FEROZ VALLADARES Report Released Date/Time: Oct 18, 2023 01:45 PM Reporting Lab: [address] [address] Performing Lab: [address] [address] UA COLOR Light-Yellow Yellow UA APPEARANCE Clear Clear UA GLUCOSE Normal mg/dL Negative UA KETONES NEGATIVE mg/dL Negative UA BLOOD NEGATIVE mg/dL Negative UA PROTEIN 20 mg/dL Negative UA NITRITE NEGATIVE mg/dL Negative UA BILIRUBIN NEGATIVE mg/dL Negative UA SPECIFIC GRAVITY 1.019 1.016-1.022 UA pH 6.5 5.0-9.0 UA UROBILINOGEN Normal mg/dL <2.0 UA LEUKOCYTE NEGATIVE Negative Oct 18, 2023 01:45 PM [facility] LIVER FUNCTION SERUM Specimen Type: SERUM No comment entered. Ordering Provider: FEROZ VALLADARES Report Released Date/Time: Oct 18, 2023 01:05 PM Reporting Lab: [address] [phone] Performing Lab: [address] [address] PROTEIN,TOTAL 7.5 g/dL 6.0-8.3 ALBUMIN 3.9 g/dL 3.5-5.0 ALKALINE PHOSPHATASE 115 U/L 40-150 AST 31 U/L 5-34 ALT 38 U/L BILIRUBIN, TOTAL 0.6 mg/dL 0.2-1.2 Oct 18, 2023 01:45 PM [facility] BASIC METABOLIC PANEL (non-fasting) SERUM Specimen Type: SERUM No comment entered. Ordering Provider: FEROZ VALLADARES Report Released Date/Time: Oct 18, 2023 01:05 PM Reporting Lab: [address] [address] Performing Lab: [address] [address] UREA NITROGEN 16 mg/dL 7-25 GLUCOSE 153 mg/dL H 65-100 SODIUM 140 mmol/L 135-145 POTASSIUM 4.7 mmol/L 3.5-5.0 CHLORIDE 103 mmol/L 100-110 CO2 24 meq/L 20-30 CREATININE, Serum 1.40 mg/dL 0.50-1.40 eGFR(CKD-EPI 2020) 49 mL/min L >60 Oct 18, 2023 01:45 PM [facility] HEMOGLOBIN A1C PANEL BLOOD Specimen T ype: BLOOD Comment: Values obtained from A1C measurements can vary. For atypical A1C assays, a reported value of 7.0 could actually be between 6.72 and 7.28 if measured by a reference method. A reported value of 9.0 could actually be between 8.73 and 9.27. Ref: http://www.ngsp.org/CAPdata.asp Ordering Provider: FEROZ VALLADARES Report Released Date/Time: Oct 18, 2023 01:05 PM Reporting Lab: [address] [address] Performing Lab: [address] [address] HEMOGLOBIN A1C 7.4 H 4.0-5.6 Oct 18, 2023 01:45 PM [facility] TSH SERUM Sp ecimen Type: SERUM No comment entered. Ordering Provider: FEROZ VALLADARES Report Released Date/Time: Oct 18, 2023 01:05 PM Reporting Lab: [address] [address] Performing Lab: [address] [address] TSH 1.44 u[IU]/mL 0.35-5.00 Oct 18, 2023 01:45 PM [facility] CBC BLOOD Sp ecimen Type: BLOOD No comment entered. Ordering Provider: FEROZ VALLADARES Report Released Date/Time: Oct 18, 2023 01:05 PM Reporting Lab: [address] [address] Performing Lab: [address] [address] WBC 6.95 10*3/uL 4.50-11.00 RBC 5.23 10*6/uL 4.23-5.66 HGB 13.5 g/dL 12.8-17 HCT 43.9 39.2-50.4 MCV 83.9 fL 82-99 MCHC 30.8 g/dL 30.8-35.1 PLT 285 10*3/uL 140-360 RDW-CV 18.1 H 12.0-16.0 MCH 25.8 pg L 26.2-32.6 Oct 18, 2023 01:45 PM [facility] MICROALBUMIN CREATININE RATIO PANEL URINE Specimen Type: URINE No comment entered. Ordering Provider: FEROZ VALLADARES Report Released Date/Time: Oct 18, 2023 01:05 PM Reporting Lab: [address] [address] Performing Lab: [address] [address] MICROALBUMIN/CREATININE RATIO 29.8 mg/g 0-29.9 MICROALBUMIN,QUANTITATIVE 3.4 mg/dL RR U [place]AIL CREATININE URINE 114.25 mg/dL Vital Signs: All taken on the encounter date This section contains inpatient and outpatient Vital Signs collected on the date of the Encounter. Date/Time Temperature Pulse Blood Pressure Respiratory Rate SP02 Pain Height Weight Body Mass Index Source Oct 18, 2023 01:37 PM 152/70 [place] Oct 18, 2023 01:37 PM 97.3 67 160/67 96 205.6 32 [facility] Social History: Smoking Status (Most current) and Tobacco Use (All prior to encounter date) This section includes the most current, and the historical, smoking and tobacco- related health factors from the [place] facility where the Encounter took place. Current Smoking Status This section includes the most current smoking, or tobacco-related health factor, from the NE facility where the Encounter took place. Date/Time Current Smoking Status Comment Bro recinos Apr 21, 2020 02:00 PM NE-TOBACCO NEVER USED [facility] Tobacco Use History This section includes a history of the smoking, or tobacco-related health factors, that were collected on or before the date of the Encounter. The data comes from the [place] facility where the Encounter took place. Date/Time Smoking Status/Tobacco Use Comment F acility Jan 24, 2019 12:41 PM VA-TOBACCO FORMER USER [facility] Jan 24, 2019 12:41 PM VA-TOBACCO QUIT 15 YRS OR MORE [facility] Sep 16, 2017 08:36 AM VA-TOBACCO FORMER USER [facility] Sep 16, 2017 08:36 AM VA-TOBACCO QUIT 15 YRS OR MORE [facility] Jan 26, 2017 11:33 AM QUIT TOBACCO USE > 7 YEARS AGO reports quitting 45 years ago [facility] Dec 15, 2015 01:25 PM QUIT TOBACCO USE > 7 YEARS AGO quit 45 years ago, smoked 3 packs a day x 20 years [facility] Apr 09, 2003 02:17 PM HISTORY OF SMOKING hx of 3ppd for 20 yrs quit smoking 25 yrs ago [facility] Apr 09, 2003 02:17 PM QUIT TOBACCO USE > 7 YEARS AGO [facility] Advance Directives: All historical and current Section Date Range: From patient's date of to the date document was created. This section includes ALL of a patient's completed or amended [place] Advance and Rescinded Directives. The entries below indicate that a directive exists for the patient, but an actual copy is not included with this document. The data comes from all [place] facilities. Date Advance Directives Provider Source Aug 20, 2017 ADVANCE DIRECTIVE YULISA CH [facility] Rodolfo [facility] Encounter Notes: All associated encounter notes This section contains the clinical notes associated to the Encounter. Date/Time Encounter Note(s) Provider Source Oct 18, 2023 12:58 PM PRIMARY CARE NURSE PRACTITIONER OUTPATIENT NOTE: LOCAL TITLE: NURSE PRACTITIONER OUTPATIENT NOTE STANDARD TITLE: PRIMARY CARE NURSE PRACTITIONER OUTPATIENT NOTE DATE OF NOTE: OCT 18, 2023@12:58 ENTRY DATE: OCT 18, 2023@12:58:47 AUTHOR: FEROZ VALLADARES EXP COSIGNER: URGENCY: STATUS: COMPLETED PRIMARY CARE VISIT MARIAH Chu JR CAMACHO, is a 88 yo [place] , WHITE MALE who presents at the [facility] Clinic. TYPE OF VISIT: Face to face 88-year-old male [place] with an extensive past medical history including obesity, HTN, HL, DM2 with diabetic nephropathy, retinopathy and neuropathy, paroxysmal A. fib, CAD, NSTEMI 09/2022, LAD lesion s/p KAMILLE, ICM, HFrEF, BPH s/p TURP Nov 2016, chronic hematuria, nephrolithiasis 2017 (c/b pyelonephritis and urinary obstructionleading to stent placement), RLS, hearing loss, rosacea, glaucoma, chronic alcohol abuse in remission presents for regular follow-up. He has been following closely with cardiology and ophthalmology. TTE 07/25/2023 demonstrated LVEF 30 to 35% with global HK and grade 1 diastolic dysfunction. Note that grade 1 diastolic dysfunction not an unexpected finding in this age cohort. He followed up with urology in July. No changes. He has an upcoming left TKR 11/[address] Moss. He hopes he will no longer need the cane afterwards. Labs from June including elevated triglyceride were reviewed with the . All medications were reconciled during this visit. HEALTHCARE PROVIDERS: PCP: [facility] Ophthalmology: [place] Retina: [place] retinal specialist Urology: Dr. Cruz Social Hx: He is and lives with his . He no longer smokes or drinks alcohol. No marijuana or illicits. No regular exercise. He uses a cane for ambulation safety. HISTORY: PERIOD OF SERVICE - [employer] FROM June TO June COMBAT SERVICE INDICATED: No MEDICAL HISTORY Active Problem Bilateral arthritis of knees M13.86 05/25/2023 MEENA MASCORRO Diabetes type 2 with retinopathy E1 04/24/2023 LEANN REYNOLDS Heart failure with reduced ejection 04/24/2023 LEANN REYNOLDS Allergic Rhinitis ([facility] [id number]) J3 04/24/2023 LEANN REYNOLDS Benign Prostatic Hypertrophy withou 04/24/2023 LEANN REYNOLDS Carpal tunnel syndrome of right wri 04/24/2023 LEANN REYNOLDS Osteoarthritis of knee M17.9 04/24/2023 LEANN REYNOLDS Chronic kidney disease stage 3 due 04/24/2023 LEANN REYNOLDS Acute non-ST segment elevation myoc 10/15/2022 LEANN REYNOLDS Paroxysmal atrial fibrillation I48. 10/15/2022 LEANN REYNOLDS CAD - Coronary Artery Disease (SCT 10/15/2022 LEANN REYNOLDS Ischaemic cardiomyopathy I25.5 10/15/2022 LEANN REYNOLDS Long-term current use of anticoagul 09/03/2022 KENNEDYLARISA Gross hematuria R31.0 09/17/2019 GARY LOTT Vitamin D deficiency R69. 12/16/2016 CHAZ BAEZ (SNOMED CT [id number]) L71.8 09/17/2019 GARY LOTT Cataract, Unspecified 366.9 05/09/2006 JOHN WARD Diabetes type 2 with nephropathy E1 04/24/2023 LEANN REYNOLDS Tinnitus * (ICD-9-CM 388.30) 388.30 05/05/2006 АЛЕКСАНДР JOHNS Vertigo * (ICD-9-CM 780.4) 780.4 05/05/2006 АЛЕКСАНДР JOHNS Diabetic Neuropathies (ICD-9-CM 250 07/27/2005 АЛЕКСАНДР JOHNS Tendonitis, Achilles (ICD-9-CM 726. 05/18/2005 АЛЕКСАНДР JOHSN Restless leg * (ICD-9-CM 333.99) 33 04/16/2005 АЛЕКСАНДР JOHNS Hyperlipidemia E78.2 07/24/2017 SHERRY DEGROOT Benign hypertension I10. 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 REVIEW OF SYSTEMS: CONSTITUTIONAL: No fevers, chills, weight loss/gain ENT: No sore throat, sneezing, congestion, rhinorrhea, anosmia, or ageusia. CARDIOVASCULAR: No chest pain, palpitations, or increased pedal edema RESPIRATORY: No SOB, cough, sputum, wheeze. GASTROINTESTINAL: Denies abd pain, N/V/D. No melena or hematochezia. No tenesmus or constipation. GENITOURINARY: No burning micturition. No urinary frequency or urgency. No nocturia. MUSCULOSKELETAL: No myalgias or arthralgias. PSYCHIATRIC: No new anxiety or depression. No sleep disturbance. NEUROLOGIC: No headaches, dizziness, numbness or tingling in the extremities, or unilateral weakness. EXAMINATION General: Well-appearing older in no obvious distress. Mental Status: Alert and oriented x4. Head: Normocephalic. Eyes: PERRLA. EOMI. Anicteric sclerae. ENT: Moist oral mucosa. Posterior pharynx unremarkable Neck: Supple. No JVD. No thyromegaly. No LAD. No bruit. Lungs: CTA. Normal chest excursion. Eupneic respirations. CV: Heart tones S1, S2. RRR. No M/G/R. No peripheral edema GI: Abdomen is soft and nontender. No HSM or mass. : No CVA tenderness. Ext: No cyanosis or clubbing. No gross deformities. Neuro: CN II through XII grossly intact. Normal speech. Integument: Skin warm and dry. No concerning lesions or rashes. Psych: Normal mood and affect. Normal judgment. ALLERGIES: ========= PENICILLIN, LISINOPRIL, LOSARTAN, IRBESARTAN, VALSARTAN 160MG CAPSULE SPIRONOLACTONE, SITAGLIPTIN >> HEALTH MAINTENANCE PREVENTIVE MEDICINE GOALS Advance Directive Screen MH AD Nov 18 Suicide Screen Sep 24 Home Telehealth (CCHT) Referral DUE NOW Tobacco Use Screening Sep 24 Influenza Immunization DUE NOW Medication Reconciliation DUE NOW Alcohol Use Screen (AUDIT-C) Sep 24 COVID-19 Immunization DUE NOW Herpes Zoster (Shingles) Vaccine DUE NOW Eye Care At-Risk Screen Oct 29 (Optional) Whole Health Documentation DUE NOW ASSESSMENT/PLAN: Active problems - Computerized Problem List is the source for the following: Bilateral arthritis of knees: Upcoming left TKR 11/09 with planned right TKR sometime in the future. Dr. Moss at [facility]. Diabetes type 2 with retinopathy: Following with [place] retinal specialist for retinopathy. A1c reasonable at 7.1%. Switching alogliptin to Sitagliptin per pharmacy recommendations. Add atorvastatin per guidelines. Reviewed diabetic diet in detail. He voiced understanding. Heart failure with reduced ejection fraction due to cardiomyopathy, CAD/[place]: Continues to follow with [facility] cardiology and maintained on DAPT. Continue clopidogrel and apixaban and furosemide. Benign Prostatic Hypertrophy without Outflow Obstruction (SCT [id number]) recently followed up with urology. Finasteride continued. Chronic kidney disease stage 3 due to type 2 diabetes mellitus: Has not gotten any labs since June. Check renal function and HbA1c and random glucose. For now, continue current metformin. If renal function worsening, would consider switching metformin to a different agent. Paroxysmal atrial fibrillation: As noted, following with [facility] cardiology. Maintained on amiodarone and DAPT. Diabetes type 2 with nephropathy: As noted above, no recent labs; checking today. For now, continue metformin. He follows a diabetic diet loosely per his report. Benign hypertension: Blood pressure mildly elevated today at 152/70. Did not take his medications this morning. Encouraged to take all medications as prescribed. Continue amlodipine and furosemide. FOLLOW UP: RTC Below & sooner PRN UPCOMING APPOINTMENTS: 10/18/2023 13:30 [facility]WM/SO/PACT 1 HAND CELL TUBER 10/27/2023 15:30 [facility]/SO/PODIATRY/ROSS 01/03/2024 09:00 CWM NO AUDIO MAINT 03/22/2024 09:00 [facility]/NO/OPTOMETRY/MERHAR 40 minutes spent in patient evaluation, data review, and patient education. All medications were reconciled during this visit. No barriers; Patient understands and agrees to current treatment plan. If pt has any questions, concerns, or changes in current health status he/she will call or come [facility] to the [facility]. Medication Reconciliation: Outpatient: Has the patient been taking medications as documented in the EMLR? YES: The patient has been taking medications as documented in the EMLR. Essential Medication List for Review used to complete this medication reconciliation. INCLUDED IN THIS LIST: Alphabetical list of active outpatient prescriptions dispensed from this [facility] (local) and dispensed from another [place] or [facility] facility (remote) as well as inpatient orders (local, pending and active), local clinic medications, locally documented non-VA medications, and local prescriptions that have or been discontinued in the past 90 days. - All changes in medications, including all non-VA/Herbal/OTC medications were entered into CPRS. - If there were any medications the patient should no longer take, they were discontinued. - The patient/caregiver was instructed to update this list, discard old lists, and take this list to the next appointment, whether with a VA or non-VA provider. /ta/ FEROZ VALLADARES NP NURSE PRACTITIONER Signed: 10/22/2023 14:55 FEROZ VALLADARES
--- OUTSIDE RECORDS SUMMARY | 2023-10-27 11:30 | XMS_ITS | Encounter Summary ---
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 Name Role Phone GHAZALKIT Primary [facility] Insurance Providers: All historical and current [...] PART A June 07, 2002 PART A [id number] [facility] [id number] MARIAH CAMACHO JR PATIENT MEDICARE (WNR) MEDICARE (M) PART A June 07, 2002 PART A [id number] MARIAH CAMACHO JR PATIENT MEDICARE (WNR) MEDICARE (M) PART A June 07, 2002 PART A [id number] [phone] MARIAH CAMACHO JR PATIENT MEDICARE (WNR) MEDICARE (M) PART B June 07, 2002 PART B [id number] [phone] MARIAH CAMACHO JR PATIENT MEDICARE (WNR) MEDICARE (M) PART A June 07, 2002 PART A [id number] MARIAH CAMACHO JR PATIENT MEDICARE (WNR) MEDICARE (M) PART B June 07, 2002 PART B [id number] [phone] MARIAH CAMACHO JR PATIENT Selected Encounter This section includes the information on record at [place] for the Encounter. Date/Time Encounter Type Encounter Description Reason Provider Source Oct 27, 2023 03:30 PM OFFICE O/P EST LOW 20 MIN PODIATRY ICD-10-CM L60.0 Ingrowing nail RICKIE FARIA Marlee Encounter Template Text not used by [place] Assessments - Encounter Diagnoses This section includes the primary and secondary diagnoses documented for the Encounter. Date/Time Primary/Secondary Diagnosis Diagnosis Name Provider Source Oct 27, 2023 03:56 PM PRIMARY Ingrowing nail RICKIE FARIA [place] Oct 27, 2023 03:56 PM SECONDARY Pain in left toe(s) RICKIE FARIA [place] Oct 27, 2023 03:56 PM SECONDARY Pain in right toe(s) RICKIE FARIA [place] Oct 27, 2023 03:56 PM SECONDARY Type 2 diabetes w diabetic peripheral angiopath w/o gangrene RICKIE FARIA [place] Plan of Treatment: Future Appointments (+ 6 months) and Future Tests (+/- 45 days) The Plan of Treatment section includes future care activities for the patient from all [place] treatmentfacilities. This section includes future appointments and future orders which are active, pending or scheduled. Future Appointments This section includes appointments that were scheduled to occur 6 months from the date of the Encounter, up to a maximum of 20 appointments. The data comes from all [place] treatment facilities. Appointment Date/Time Appointment Type Appointme nt Facility Name Nov 10, 2023 08:00 AM AMBULATORY - MEDICINE [facility] [facility] Nov 23, 2023 11:00 AM AMBULATORY - REHAB MEDICIN [facility] Jan 03, 2024 09:00 AM AMBULATORY - REHAB MEDICIN [place] [facility] [place] [facility] Jan 25, 2024 09:00 AM AMBULATORY - REHAB MEDICIN [place] [facility] [place] [facility] Mar 09, 2024 08:30 AM AMBULATORY - REHAB MEDICIN [facility] [place] [facility] [place] [facility] Mar 12, 2024 08:15 AM [facility] [place] [place] [facility] Mar 21, 2024 08:30 AM AM[facility]ATORY [facility] [place] [facility] Mar 22, 2024 09:00 AM AMBULATORY [facility] MEDICINE [facility] [place] [facility] Mar 22, 2024 11:00 AM AMBULATORY - MEDICINE [facility] [place] [facility] Mar 22, 2024 11:15 AM AMBULATORY - MEDICINE [place] [facility] [place] [facility] Apr 11, 2024 10:30 AM AMBULATORY - MEDICINE [place] [facility] [place] [facility] Apr 20, 2024 10:30 AM AMBULATORY - REHAB [facility] Active, Pending, and Scheduled Orders This section includes a listing of several types of active, pending, and scheduled orders, including clinic medications orders, diagnostic test orders, procedure orders and consult orders; where the start date of the order is 45 days before the date of the Encounter or 45 days after the date of theEncounter. The data comes from all [facility] facilities. Test Date/Time Test Type Test Details Facility Name Nov 24, 2023 12:00 AM Laboratory - Chemi stry Order CBC AND DIFF (AUTO) BLOOD (LAV-BLOOD) [facility] Nov 24, 2023 12:00 AM Laboratory - Chemi stry Order LIVER FUNCTION BLOOD (SST-SERUM) [facility] Nov 24, 2023 12:00 AM Laboratory - Chemi stry Order LIPID PANEL FASTING BLOOD (SST-SERUM) [facility] Nov 24, 2023 12:00 AM Laboratory - Chemi stry Order CALCIUM BLOOD (SST-SERUM) [facility] Nov 24, 2023 12:00 AM Laboratory - Chemi stry Order BASIC METABOLIC PANEL (fasting) BLOOD (SST-SERUM) [facility] Nov 24, 2023 12:00 AM Laboratory - Chemi stry Order URIC ACID BLOOD (SST-SERUM) [facility] Nov 24, 2023 12:00 AM Laboratory - Chemi stry Order RETICULOCYTES BLOOD (LAV-BLOOD) [facility] Nov 24, 2023 12:00 AM Laboratory - Chemi stry Order URINALYSIS URINE [facility] Nov 24, 2023 12:00 AM Laboratory - Chemi stry Order MICROALBUMIN CREATININE RATIO PANEL URINE (RANDOM) [facility] Nov 24, 2023 12:00 AM Laboratory - Chemi stry Order TSH BLOOD (SST-SERUM) [facility] Nov 24, 2023 12:00 AM Laboratory - Chemi stry Order HEMOGLOBIN A1C PANEL BLOOD (LAV-BLOOD) [facility] Nov 24, 2023 12:00 AM Laboratory - Chemi stry Order VITAMIN D (25-OH) BLOOD (SST-SERUM) [facility] Nov 24, 2023 12:00 AM Laboratory - Chemi stry Order FERRITIN BLOOD (SST-SERUM) [facility] Nov 24, 2023 12:00 AM Laboratory - Chemi stry Order VITAMIN B12 BLOOD (SST-SERUM) [facility] Lab Results: +/- 30 days of the encounter This section includes the Chemistry and Hematology Lab Results on record with [place] for the patient. Radiology Reports and Pathology Reports are provided separately, in subsequent sections. Lab Results This section contains the Chemistry/Hematology Results that were resulted 30 days before or 30 daysafter the date of the Encounter. Date/Time Source Result Type Result - Unit Interpretation Reference Range Specimen Type Comment Oct 18, 2023 02:13 PM [facility] [place] URINALYSIS CLEAN CATCH URINE Specimen Type: URINE Comment: If Glucose = >500 and Ketones are positive, please alert the Physician. Ordering Provider: FEROZ VALLADARES Report Released Date/Time: Oct 18, 2023 01:45 PM Reporting Lab: [address] [address] Performing Lab: [address] [address] UA COLOR Light-Yellow Yellow UA APPEARANCE Clear Clear UA GLUCOSE Normal mg/dL Negative UA KETONES NEGATIVE mg/dL Negative UA BLOOD NEGATIVE mg/dL Negative UA PROTEIN 20 mg/dL Negative UA NITRITE NEGATIVE mg/dL Negative UA BILIRUBIN NEGATIVE mg/dL Negative UA SPECIFIC GRAVITY 1.019 1.016-1.022 UA pH 6.5 5.0-9.0 UA UROBILINOGEN Normal mg/dL <2.0 UA LEUKOCYTE NEGATIVE Negative Oct 18, 2023 01:45 PM [facility] [place] LIVER FUNCTION SERUM Specimen Type: SERUM No comment entered. Ordering Provider: FEROZ VALLADARES Report Released Date/Time: Oct 18, 2023 01:05 PM Reporting Lab: [address] [address] Performing Lab: [address] [address] PROTEIN,TOTAL 7.5 g/dL 6.0-8.3 ALBUMIN 3.9 g/dL 3.5-5.0 ALKALINE PHOSPHATASE 115 U/L 40-150 AST 31 U/L 5-34 ALT 38 U/L BILIRUBIN, TOTAL 0.6 mg/dL 0.2-1.2 Oct 18, 2023 01:45 PM [place] BASIC METABOLIC PANEL (non-fasting) SERUM Specimen Type: SERUM No comment entered. Ordering Provider: FEROZ VALLADARES Report Released Date/Time: Oct 18, 2023 01:05 PM Reporting Lab: [address] [address] Performing Lab: [address] [address] UREA NITROGEN 16 mg/dL 7-25 GLUCOSE 153 mg/dL H 65-100 SODIUM 140 mmol/L 135-145 POTASSIUM 4.7 mmol/L 3.5-5.0 CHLORIDE 103 mmol/L 100-110 CO2 24 meq/L 20-30 CREATININE, Serum 1.40 mg/dL 0.50-1.40 eGFR(CKD-EPI 2020) 49 mL/min L >60 Oct 18, 2023 01:45 PM [place] HEMOGLOBIN A1C PANEL BLOOD Specimen T ype: [...] Oct 18, 2023 01:05 PM Reporting Lab: [address] [address] Performing Lab: [address] [address] HEMOGLOBIN A1C 7.4 H 4.0-5.6 Oct 18, 2023 01:45 PM [place] TSH SERUM Sp ecimen Type: SERUM No comment entered. Ordering Provider: FEROZ VALLADARES Report Released Date/Time: Oct 18, 2023 01:05 PM Reporting Lab: [address] [address] Performing Lab: [address] [address] TSH 1.44 u[IU]/mL 0.35-5.00 Oct 18, 2023 01:45 PM [place] MICROALBUMIN CREATININE RATIO PANEL URINE Specimen Type: URINE No comment entered. Ordering Provider: FEROZ VALLADARES Report Released Date/Time: Oct 18, 2023 01:05 PM Reporting Lab: [address] [address] Performing Lab: [address] [address] MICROALBUMIN/CREATININE RATIO 29.8 mg/g 0-29.9 MICROALBUMIN,QUANTITATIVE 3.4 mg/dL RR U NAVAIL CREATININE URINE 114.25 mg/dL Oct 18, 2023 01:45 PM [place] CBC BLOOD Sp ecimen Type: BLOOD No comment entered. Ordering Provider: FEROZ VALLADARES Report Released Date/Time: Oct 18, 2023 01:05 PM Reporting Lab: [address] [address] Performing Lab: [address] [address] WBC 6.95 10*3/uL 4.50-11.00 RBC 5.23 10*6/uL 4.23-5.66 HGB 13.5 g/dL 12.8-17 HCT 43.9 39.2-50.4 MCV 83.9 fL 82-99 MCHC 30.8 g/dL 30.8-35.1 PLT 285 10*3/uL 140-360 RDW-CV 18.1 H 12.0-16.0 MCH 25.8 pg L 26.2-32.6 Social History: Smoking Status (Most current) and Tobacco Use (All prior to encounter date) This section includes the most current, and the historical, smoking and tobacco- related health factors from the [place] facility where the Encounter took place. Current Smoking Status This section includes the most current smoking, or tobacco-related health factor, from the [place] facility where the Encounter took place. Date/Time Current Smoking Status Comment Bro recinos Apr 21, 2020 02:00 PM VA-TOBACCO NEVER USED [place] Tobacco Use History This section includes a history of the smoking, or tobacco-related health factors, that were collected on or before the date of the Encounter. The data comes from the [place] facility where the Encounter took place. Date/Time Smoking Status/Tobacco Use Comment F acility Jan 24, 2019 12:41 PM VA-TOBACCO FORMER USER [place] Jan 24, 2019 12:41 PM VA-TOBACCO QUIT 15 YRS OR MORE [place] Sep 16, 2017 08:36 AM VA-TOBACCO FORMER USER [place] Sep 16, 2017 08:36 AM VA-TOBACCO QUIT 15 YRS OR MORE [place] Jan 26, 2017 11:33 AM QUIT TOBACCO USE > 7 YEARS AGO reports quitting 45 years ago [place] Dec 15, 2015 01:25 PM QUIT TOBACCO USE > 7 YEARS AGO quit 45 years ago, smoked 3 packs a day x 20 years [place] Apr 09, 2003 02:17 PM HISTORY OF SMOKING hx of 3ppd for 20 yrs quit smoking 25 yrs ago [place] Apr 09, 2003 02:17 PM QUIT TOBACCO USE > 7 YEARS AGO [place] Advance Directives: All historical and current Section Date Range: From patient's date of to the date document was created. This section includes ALL of a patient's completed or amended [place] Advance and Rescinded Directives. The entries below indicate that a directive exists for the patient, but an actual copy is not included with this document. The data comes from all [facility]. Date Advance Directives Provider Source Aug 20, 2017 ADVANCE DIRECTIVE YULISA CH [place] [facility] Encounter Notes: All associated encounter notes This section contains the clinical notes associated to the Encounter. Date/Time Encounter Note(s) Provider Source Oct 27, 2023 01:57 PM PODIATRY NOTE: LOCAL TITLE: PODIATRY NOTE STANDARD TITLE: PODIATRY NOTE DATE OF NOTE: OCT 27, 2023@13:57 ENTRY DATE: OCT 27, 2023@13:58 AUTHOR: RICKIE FARIA EXP COSIGNER: URGENCY: STATUS: COMPLETED NOTE: HAS RECEIVED BOTH COVID VACCINE DOSES + 2 BOOSTERS AT [facility] *PERFORMED AT CHECK-IN AND REVIEWED BY DR. FARIA PRIOR TO TREATMENT* LAST SEEN: 05/31/2022(HAD A HEART ATTACK SINCE LAST VISIT) S: Pt. is an 88 yo alert [facility] MALE who is seen for continued podiatric care of incurvated nails. There has been no pain as he receives periodic care for elongated nails. There is no history of trauma. There have been no recent changes in the patient's medical condition or medications UPON QUESTIONING TODAY. Pt. is at risk of injury with self-care due to the presence of TYPE I DM. *NOTE: MEDICATION RECONCILIATION PERFORMED THIS DATE NO RECENT CHANGES TOBACCO USE = NONE O: Exam reveals skin color, temp & text to be WNL. There is absence of hair noted. Nails are incurvated with mild rubor at the medial and lateral hallux nail borders. There are no hyperkeratosis noted at this time. There are no other gross LE changes in status noted this date. Pain level is 2-3/10 prior to treatment & 0/10 after. NOTE: A1c = 7.4 LAST TAKEN: 10/2023 FBS 160-weekly RISK VALUE = 2 HEIGHT: 67 in [170.2 cm] (07/15/2017 13:22) WEIGHT: 223.9 lb [101.8 kg] (07/15/2017 13:22) PMH: Active problems - Computerized Problem List is the source for the followin. Bilateral arthritis of knees 2. Diabetes type 2 with retinopathy 3. 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 Allergic Rhinitis ([facility] [id number]) 5. Benign Prostatic Hypertrophy without Outflow Obstruction ([facility] [id number]) 6. Carpal tunnel syndrome of right wrist 7. Osteoarthritis of knee 8. Chronic kidney disease stage 3 due to type 2 diabetes mellitus 9. Acute non-ST segment elevation myocardial infarction 10. Paroxysmal atrial fibrillation 11. CAD - Coronary Artery Disease ([facility] [id number]) 12. Ischaemic cardiomyopathy 13. Long-term current use of anticoagulant 14. Gross hematuria 15. Vitamin D deficiency 16. Rosacea (SNOMED CT [id number]) 17. Cataract, Unspecified 18. Diabetes type 2 with nephropathy 19. Tinnitus * 20. Vertigo * 21. Diabetic Neuropathies 22. Tendonitis, Achilles 23. Restless leg * 24. Hyperlipidemia 25. Benign hypertension 26. HEARING LOSS 27. ALCOHOL DEPENDENCY IN REM *NOTE: REVIEWED ABOVE NOTING NEW CONCERNS- CHANGES SINCE PREVIOUS VISIT SEE # 1 THROUGH 13 NOTING NON-CONTRIBUTORY TO THE CC OTHER THAN TYPE II DM VASCULAR: EXAM REVEALS DP & PT pulses absent non-palpable bilateral. CFT <3 sec x 10. There is +2 edema and there are no varices-superficial noted. MUSCULOSKELETAL: Exam reveals muscle strength and tone to be equal & symmetrical bilaterally & diminished for an individual of this age and present physical-medical condition. There is pain free ROM at all joints distal to and including the ankle. He does NOT relate a troublesome HT 3rd RT digit AT THIS TIME. NEUROLOGICAL: Exam reveals S/D, vibratory, light touch & proprioception sensations to be equal & symmetrical bilaterally & diminished for an individual of this age and present physical-medical status. Protective sensation utilizing a [place]-Sole lOg monofilament is 10/10 bilateral. ABOVE exams are reviewed and noted to be unchanged since previous visit & determined to be non-contributory to the cc . 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 Class findings have been met in a high risk individual and the systemic condition has resulted in circulatory impairment & areas of desensitization. P: Treatment consists of trimming-reduction of all nails via manual and electric means with excision of offending nail borders & DISTAL HD 3RD RT DIGIT HAS RESOLVED but prefers tubefoam 3rd rt and 2nd left. Applied ammonium lactate 12% lotion to dry skin. All care rendered without complications & pt. progressing well after podiatric care this date & will be scheduled for periodic care in an attempt to prevent future complications due to the underlying medical conditions. Tx. By a non-professional could be extremely hazardous to the patient's well-being due to the underlying medical condition. RTC: 03/15 at TIME TO BE DETERMINED??? ) DISCUSSED HAVING BILATERAL KNEE REPLACEMENTS WELL AND WAS ADVISED TO CALL TO CHANGE DATE IF NECESSARY *DISCUSSED NEW PROTOCOLS AND CALLED MICHAEL TODAY FOR RESCHEDULING I DISCUSSED THE FINDINGS & PLAN WITH PATIENT (UNCHANGED SINCE PREVIOUS VISIT) & PATIENT AGREES AND UNDERSTANDS PLAN DISCUSSED HIS ATTEMPTS AT SELF CARE BUT UNABLE TO BE SAFE AND ALSO *REVIEWED HOME FOOT CARE FEET ARE IN EXCELLENT CONDITION AND I PROVIDED HIM WITH WRITTEN RECOMMENDATIONS FOR FOOT CARE TO BE REVIEWED AT HOME (FOOT CARETIPS). Medication Reconciliation: PERFORMED TODAY - SEE BELOW. Outpatient: Has the patient been taking medications as documented in the EMLR? YES: The patient has been taking medications as documented in the EMLR. Essential Medication List for Review used to complete this medication reconciliation. INCLUDED IN THIS LIST: Alphabetical list of active outpatient prescriptions dispensed from this [facility] (local) and dispensed from another [place] or [facility] facility (remote) as well as inpatient orders [...] whether with a VA or non-VA provider. JLV Link Data on this list may not be complete. Please check JLV. Allergies/ADRs (Tool #5) FACILITY ALLERGY/ADR -------- [facility] [place] [facility] IRBESARTAN [facility] [place] [facility] LISINOPRIL [facility] [place] [facility] LOSARTAN [facility] [place] [facility] PENICILLIN [facility] [place] [facility] SITAGLIPTIN [facility] [place] [facility] SPIRONOLACTONE [facility] [place] [facility] VALSARTAN 160MG CAPSULE [facility] NO KNOWN ALLERGIES Med Recon NoGlossary (Tool #1) INCLUDED IN THIS LIST: Alphabetical list of active outpatient prescriptions dispensed from this [facility] (local) and dispensed from another [place] or [facility] facility (remote) as well as inpatient orders (local pending and active), local clinic medications, locally documented non-VA medications, and local prescriptions that have or been discontinued in the past 90 days. Non-VA Meds Last Documented On: May 25, 2023 NOTE The display of VA prescriptions dispensed from another [place] or [facility] facility (remote) is limited to active outpatient prescription entries matched to National Drug File at the originating site and may not include some items such as investigational drugs, compounds, etc. NOT INCLUDED IN THIS LIST: Medications self-entered by the patient into personal health records (i.e. [employer]) are NOT included in this list. Non-VA medications documented outside this [place], remote inpatient orders (regardless of status) and remote clinic medications are NOT included in this list. The patient and provider must always discuss medications the patient is taking, regardless of where the medication was dispensed or obtained. OUTPT AMIODARONE HCL 100MG TAB (Status = Active) TAKE ONE TABLET BY MOUTH TWICE DAILY FOR VENTRICULAR FIBRILLATION NOTE DOSE DECREASED Rx# [id number] Last Released: 08/16/23 Qty/Days Supply: 180/ Rx Expiration Date: 04/24/24 Refills Remainin Indication: FOR VENTRICULAR FIBRILLATION OUTPT AMLODIPINE BESYLATE 10MG TAB (Status = Active) TAKE ONE TABLET BY MOUTH ONCE DAILY FOR BLOOD PRESSURE/HEART, DO NOT TAKE WITH GRAPEFRUIT JUICE Rx# [id number] Last Released: 07/13/23 Qty/Days Supply: 90/ Rx Expiration Date: 04/07/24 Refills Remainin Non-VA AMLODIPINE BESYLATE 5MG TAB TAKE ONE TABLET BY MOUTH ONCE DAILY current dose as of may 31; the 10 mg size was too strong OUTPT AMMONIUM LACTATE 12% LOTION (Status = Active) APPLY SMALL AMOUNT TOPICALLY TWICE DAILY FOR DRY SKIN FOR DRY IRRITATED SKIN Rx# [id number] Last Released: 09/09/23 Qty/Days Supply: 240/30 Rx Expiration Date: 12/10/23 Refills Remainin Indication: FOR DRY SKIN OUTPT APIXABAN 5MG TAB (Status = Active) TAKE ONE TABLET BY MOUTH EVERY 12 HOURS Rx# [id number] Last Released: 09/13/23 Qty/Days Supply: 120/60 Rx Expiration Date: 01/13/24 Refills Remainin OUTPT ATORVASTATIN CALCIUM 40MG TAB (Status = Active) TAKE ONE-HALF TABLET BY MOUTH ONCE DAILY FOR HIGH CHOLESTEROL Rx# [id number] Last Released: 07/25/23 Qty/Days Supply: 45 Rx Expiration Date: 07/25/24 Refills Remainin Indication: FOR HIGH CHOLESTEROL OUTPT CLOPIDOGREL BISULFATE 75MG TAB (Status = ) TAKE ONE TABLET BY MOUTH ONCE DAILY Rx# [id number] Last Released: 10/01/22 Qty/Days Supply: 90 Rx Expiration Date: 10/01/23 Refills Remainin OUTPT CLOTRIMAZOLE 1% TOP CREAM (Status = Active) APPLY A THIN LAYER TOPICALLY ONCE DAILY NEEDED FOR FUNGAL INFECTION Rx# [id number] Last Released: 10/25/23 Qty/Days Supply: 90 Rx Expiration Date: 07/25/24 Refills Remainin OUTPT DOXYCYCLINE HYCLATE 50MG CAP (Status = Discontinued) TAKE ONE CAPSULE BY MOUTH TWICE DAILY Rx# [id number] Last Released: 08/09/22 Qty/Days Supply: 2010 Rx Expiration Date: 08/05/23 Refills Remainin Indication: FOR INFECTION CAUSED BY BACTERIA OUTPT DOXYCYCLINE HYCLATE 50MG CAP (Status = Active) TAKE ONE CAPSULE BY MOUTH TWICE DAILY Rx# [id number] Last Released: 09/07/23 Qty/Days Supply: 6030 Rx Expiration Date: 09/05/24 Refills Remainin Indication: FOR INFECTION CAUSED BY BACTERIA OUTPT EMPAGLIFLOZIN 10MG TAB (Status = ) TAKE ONE TABLET BY MOUTH ONCE DAILY Rx# [id number] Last Released: 06/17/23 Qty/Days Supply: 90 Rx Expiration Date: 09/25/23 Refills Remainin OUTPT FINASTERIDE 5MG TAB (Status = Active) TAKE ONE TABLET BY MOUTH ONCE DAILY Rx# [id number] Last Released: 09/17/23 Qty/Days Supply: Rx Expiration Date: 06/09/24 Refills Remainin OUTPT FLUTICASONE PROP 50MCG 120D NASAL INHL (Status = ) INSTILL 1 SPRAY INTO EACH NOSTRIL ONCE DAILY FOR NASAL IRRITATION/INFLAMMATION Rx# [id number] Last Released: 04/04/23 Qty/Days Supply: 03/08 Rx Expiration Date: 10/05/23 Refills Remainin Indication: FOR NASAL IRRITATION/INFLAMMATION OUTPT FUROSEMIDE 20MG TAB (Status = Active) TAKE ONE TABLET BY MOUTH ONCE DAILY TO REMOVE FLUID/CONTROL BLOOD PRESSURE Rx# [id number] Last Released: 07/01/23 Qty/Days Supply: Rx Expiration Date: 05/25/24 Refills Remainin Indication: FOR VISIBLE WATER RETENTION OUTPT METFORMIN HCL 500MG 24HR SA TAB (Status = Active) TAKE ONE TABLET BY MOUTH THREE TIMES A DAY FOR TYPE 2 DIABETES MELLITUS Rx# [id number] Last Released: 09/16/23 Qty/Days Supply: / Rx Expiration Date: 04/21/24 Refills Remainin Indication: FOR TYPE 2 DIABETES MELLITUS OUTPT METRONIDAZOLE 0.75% TOP GEL (Status = ) APPLY SMALL AMOUNT TOPICALLY TWICE DAILY FOR ACNE ROSACEA Rx# [id number] Last Released: 12/14/22 Qty/Days Supply: Rx Expiration Date: 09/25/23 Refills Remainin Indication: FOR ACNE ROSACEA Non-VA OTHER CAP/TAB TAKE AVASTIN INJECTION BY MOUTH EVERY 5 WEEKS OUTPT PEG 400 0.4%/PROP GLYCOL 0.3% OPH SOLN (Status = Active) INSTILL 1 DROP INTO EACH EYE FOUR TIMES DAILY NEEDED DRY EYE Rx# [id number] Last Released: 05/19/23 Qty/Days Supply: Rx Expiration Date: 05/18/24 Refills Remainin Indication: DRY EYE OUTPT PYRIDOXINE HCL 100MG TAB (Status = Active) TAKE ONE TABLET BY MOUTH ONCE DAILY Rx# [id number] Last Released: 10/14/23 Qty/Days Supply: 100/ Rx Expiration Date: 12/29/23 Refills Remainin OUTPT SITAGLIPTIN (EQV-ZITUVIO) 50MG TAB (Status = Discontinued) TAKE ONE TABLET BY MOUTH ONCE DAILY (NOTE DOSE) Rx# [id number] Last Released: 07/28/23 Qty/Days Supply: Rx Expiration Date: 10/23/23 Refills Remainin Indication: DM2 SUPPLIES OUTPT ACCU-CHEK GUIDE (GLUCOSE) TEST STRIP (Status = Active) USE 1 STRIP TO TEST BLOOD SUGARS TWO TIMES A WEEK NEEDED Rx# [id number] Last Released: 09/02/23 Qty/Days Supply: 50/ Rx Expiration Date: 03/22/24 Refills Remainin Indication: DIABETES OUTPT DEPEND UNDERWEAR,MAXIMUM,MEN LARGE (Status = Active) USE 1 BRIEF DIRECTED TWICE DAILY NEEDED FOR PERSONAL CARE Rx# [id number] Last Released: 08/17/23 Qty/Days Supply: Rx Expiration Date: 08/15/24 Refills Remainin OUTPT LANCET,28G (Status = Active) USE 1 LANCET TOPICALLY TWO TIMES A WEEK FOR PRODIGY LANCET DEVICES Rx# [id number] Last Released: 04/26/23 Qty/Days Supply: Rx Expiration Date: 04/26/24 Refills Remainin OUTPT LANCET,SOFTCLIX (Status = Active) USE 1 LANCET TOPICALLY TWO TIMES A WEEK TO TEST BLOOD SUGAR Rx# [id number] Last Released: 03/23/23 Qty/Days Supply: 100 Rx Expiration Date: 03/23/24 Refills Remainin Indication: DIABETES OUTPT PRODIGY NO CODE (GLUCOSE) TEST STRIP (Status = Active) USE 1 STRIP TO TEST BLOOD SUGARS TWO TIMES A WEEK Rx# [id number] Last Released: 09/28/23 Qty/Days Supply: Rx Expiration Date: 05/25/24 Refills Remainin /es/ RICKIE FARIA DPM GARDENING MANAGER Signed: 10/27/2023 15:56 RICKIE FARIA
--- OUTSIDE RECORDS SUMMARY | 2023-11-23 07:00 | XMS_ITS | Encounter Summary ---
Author Name [facility] [place] [facility] [place] [facility] [place] Address [address] [place] [address] Care Team Providers Care Chief Ultrasound Technologist Name Role Phone KIT HARMAN Primary Care Provider [facility] Insurance Providers: All historical and [...] PART A June 07, 2002 PART A [id number] MARIAH CAMACHO JR PATIENT MEDICARE (WNR) MEDICARE (M) PART A June 07, 2002 PART A [id number] MARIAH CAMACHO JR PATIENT MEDICARE (WNR) MEDICARE (M) PART A June 07, 2002 PART A [id number] MARIAH CAMACHO JR PATIENT MEDICARE (WNR) MEDICARE (M) PART B June 07, 2002 PART B [id number] [phone] MARIAH CAMACHO JR PATIENT MEDICARE (WNR) MEDICARE (M) PART A June 07, 2002 PART A [id number] MARIAH CAMACHO JR PATIENT MEDICARE (WNR) MEDICARE (M) PART B June 07, 2002 PART B [id number] 21 MARIAH CAMACHO JR PATIENT Selected Encounter This section includes the information on record at [place] for the Encounter. Date/Time Encounter Type Encounter Description Reason Provider Source Nov 23, 2023 11:00 AM SELF CARE MNGMENT TRAINING PHYSICAL THERAPY ICD-10-CM M17.0 Bilateral primary osteoarthritis of knee ARIAS MILLARD Belinda Marlee Encounter Template Text not used by [place] Assessments - Encounter Diagnoses This section includes the primary and secondary diagnoses documented for the Encounter. Date/Time Primary/Secondary Diagnosis Diagnosis Name Provider Source Nov 23, 2023 12:43 PM PRIMARY Bilateral primary osteoarthritis of knee FLOR MILLARD Plan of Treatment: Future Appointments (+ 6 months) and Future Tests (+/- 45 days) The Plan of Treatment section includes future care activities for the patient from all [place] treatmentfacilities. This section includes future appointments and future orders which are active, pending or scheduled. Future Appointments This section includes appointments that were scheduled to occur 6 months from the date of the Encounter, up to a maximum of 20 appointments. The data comes from all [place] treatment facilities. Appointment Date/Time Appointment Type Appointme Facility Name Jan 03, 2024 09:00 AM AMBULAT[facility] [place] [facility] Jan 25, 2024 09:00 AM AMBULATORY - [facility]IC[facility] [place] [facility] Mar 09, 2024 08:30 AM AMBULATORY - [facility] [place] [facility] 22, 2024 11:15 AM [place]ORY [place] [facility] [place] [facility] Apr 11, 2024 10:30 AM [place] [facility] Apr 20, 2024 10:30 AM AM[facility]ULAT[place] Apr 30, 2024 09:00 AM [facility] May 04, 2024 10:00 AM [facility] May 07, 2024 08:30 AM [place] [place] [facility] [place] [facility] May 22, 2024 03:30 PM [place] [place] [facility] Active, Pending, and Scheduled Orders This section includes a listing of several types of active, pending, and scheduled orders, including clinic medications orders, diagnostic test orders, procedure orders and consult orders; where the start date of the order is 45 days before the date of the Encounter or 45 days after the date of theEncounter. The data comes from all [place] treatment facilities. Test Date/Time Test Type Test Details Facility Name Nov 24, 2023 12:00 AM Laboratory - Chemi stry Order CBC AND DIFF (AUTO) BLOOD (LAV-BLOOD) [facility] Nov 24, 2023 12:00 AM Laboratory - Chemi stry Order LIVER FUNCTION BLOOD (SST-SERUM) [facility] Nov 24, 2023 12:00 AM Laboratory - Chemi stry Order LIPID PANEL FASTING BLOOD (SST-SERUM) [facility] Nov 24, 2023 12:00 AM Laboratory - Chemi stry Order CALCIUM BLOOD (SST-SERUM) [facility] Nov 24, 2023 12:00 AM Laboratory - Chemi stry Order BASIC METABOLIC PANEL (fasting) BLOOD (SST-SERUM) [facility] Nov 24, 2023 12:00 AM Laboratory - Chemi stry Order URIC ACID BLOOD (SST-SERUM) [facility] Nov 24, 2023 12:00 AM Laboratory - Chemi stry Order RETICULOCYTES BLOOD (LAV-BLOOD) [facility] Nov 24, 2023 12:00 AM Laboratory - Chemi stry Order URINALYSIS URINE [facility] Nov 24, 2023 12:00 AM Laboratory - Chemi stry Order MICROALBUMIN CREATININE RATIO PANEL URINE (RANDOM) [facility] Nov 24, 2023 12:00 AM Laboratory - Chemi stry Order TSH BLOOD (SST-SERUM) [facility] Nov 24, 2023 12:00 AM Laboratory - Chemi stry Order HEMOGLOBIN A1C PANEL BLOOD (LAV-BLOOD) [facility] Nov 24, 2023 12:00 AM Laboratory - Chemi stry Order VITAMIN D (25-OH) BLOOD (SST-SERUM) [facility] [place] Nov 24, 2023 12:00 AM Laboratory - Chemi stry Order FERRITIN BLOOD (SST-SERUM) [facility] Nov 24, 2023 12:00 AM Laboratory - Chemi stry Order VITAMIN B12 BLOOD (SST-SERUM) [facility] Social History: Smoking Status (Most current) and Tobacco Use (All prior to encounter date) This section includes the most current, and the historical, smoking and tobacco- related health factors from the [place] facility where the Encounter took place. Current Smoking Status This section includes the most current smoking, or tobacco-related health factor, from the [place] facility where the Encounter took place. Date/Time Current Smoking Status Comment Facil [facility] Apr 21, 2020 02:00 PM [place]-TOBACCO NEVER USED [place] Tobacco Use History This section includes a history of the smoking, or tobacco-related health factors, that were collected on or before the date of the Encounter. The data comes from the [place] facility where the Encounter took place. Date/Time Smoking Status/Tobacco Use Comment F acility Jan 24, 2019 12:41 PM VA-TOBACCO FORMER USER [place] Jan 24, 2019 12:41 PM VA-TOBACCO QUIT 15 YRS OR MORE [place] Sep 16, 2017 08:36 AM VA-TOBACCO FORMER USER [place] Sep 16, 2017 08:36 AM VA-TOBACCO QUIT 15 YRS OR MORE [place] Jan 26, 2017 11:33 AM QUIT TOBACCO USE > 7 YEARS AGO reports quitting 45 years ago [place] Dec 15, 2015 01:25 PM QUIT TOBACCO USE > 7 YEARS AGO quit 45 years ago, smoked 3 packs a day x 20 years [place] Apr 09, 2003 02:17 PM HISTORY OF SMOKING hx of 3ppd for 20 yrs quit smoking 25 yrs ago [place] Apr 09, 2003 02:17 PM QUIT TOBACCO USE > 7 YEARS AGO [place] Advance Directives: All historical and current Section Date Range: From patient's date of to the date document was created. This section includes ALL of a patient's completed or amended [place] Advance and Rescinded Directives. The entries below indicate that a directive exists for the patient, but an actual copy is not included with this document. The data comes from all [place] facilities. Date Advance Directives Provider Source Aug 20, 2017 ADVANCE DIRECTIVE YULISA CH [place] [facility] [place] [facility] Encounter Notes: All associated encounter notes This section contains the clinical notes associated to the Encounter. Date/Time Encounter Note(s) Provider Source Nov 23, 2023 12:33 PM PHYSICAL THERAPY I NITIAL EVALUATION NOTE: LOCAL TITLE: PHYSICAL THERAPY INITIAL NOTE STANDARD TITLE: PHYSICAL THERAPY INITIAL EVALUATION NOTE DATE OF NOTE: NOV 23, 2023@12:33 ENTRY DATE: NOV 23, 2023@12:33:10 AUTHOR: FLOR MILLARD COSIGNER: URGENCY: STATUS: COMPLETED Initial Evaluation date: 11/23/23 Progress Note Date: Treatment #: walk in DME - knee brace/SBQC Treatment time: 15 Diagnosis: Bilateral Primary Osteoarthritis of Knee(ICD-10-CM M17.0) Provider: FEROZ VALLADARES PT Treatment Precautions: Patient identified by full name and date of SUBJECTIVE: Patient states they are interested in the freedom leg brace 3.0 to help with their knees and is also interested in a 4 prong cane that is sturdier than their current singel point cane. OBJECTIVE: Leg circumference measures: RLE 6in above patella 6in below patella LLE 6in above patella 6in below patella PATIENT EDUCATION: Mins: 15 Patient education was provided for all aspects of care during this clinical encounter. Provided verbal instruction and demonstration for use of SBQC: - how to adjust the height of device - how to adjust the side the cane can be used on - how to safely ambulate and transfer with this device - ensuring proper fit of the device Discussed with patient that the freedeom leg brace does not appear safe/approrpaite for them to use, but discussed other bracing options like OA off-coal unloader braces and discussed how these braces work and how to adjust and operate them. Took measurements today to ensure proper fit. ASSESSMENT: Patient seen as walk in to PT clinic inquiring about additional knee bracing options to help manage their arthritic knee pain; patient also inquires about a new, more supportive cane. Provided SBQC and education as described above. Patient safe and independent with this device. Discussed additional bracing options with patient stating they are interested in trying an OA offloader brace. Education provided regarding use of this device, patient states they would like t shipped to their home to trial. Prosthetics consult placed today. Advised patient to trial the brace and call PT clinic for follow up or further instruction if needed. PLAN: Progress as tolerated /es/ FLOR MILLARD PT, DPT PHYSICAL THERAPIST Signed: 11/23/2023 13:15 FLOR MILLARDFIELD
--- OUTSIDE RECORDS SUMMARY | 2023-12-30 14:01 | XMS_ITS | Encounter Summary ---
Author Name [facility] [place] [facility] [place] [facility] [place] Address [address] [place] [id number] Care Team Providers Care Freight Flagman Name Role Phone KIT HARMAN Primary Care Provider Unavailabl marlee Insurance Providers: All historical and current [...] PART A June 07, 2002 PART A [id number] DOUG JRMARIAH PATIENT MEDICARE (WNR) MEDICARE (M) PART A June 07, 2002 PART A [id number] DOUG SHELLMARIAH PATIENT MEDICARE (WNR) MEDICARE (M) PART A June 07, 2002 PART A [id number] [phone] DOUG SHELLSCOUTMARIAH PATIENT MEDICARE (WNR) MEDICARE (M) PART B June 07, 2002 PART B [id number] [phone] DOUG SHELLSCOUTMARIAH PATIENT MEDICARE (WNR) MEDICARE (M) PART A June 07, 2002 PART A [id number] MARIAH CAMACHO JR PATIENT MEDICARE (WNR) MEDICARE (M) PART B June 07, 2002 PART B [id number] MARIAH CAMACHO JR PATIENT Selected Encounter This section includes the information on [place] at [place] for the Encounter. Date/Time Encounter Type Encounter Description Reason Pro vider Source Dec 30, 2023 06:01 PM Outpatient Encounter ADMIN PAT ACTIVTIES (MASNONCT) IHE Encounter Template Text not used by [place] Plan of Treatment: Future Appointments (+ 6 months) and Future Tests (+/- 45 days) The Plan of Treatment section includes future care activities for the patient from all [place] treatmentfacilities. This section includes future appointments and future orders which are active, pending or scheduled. Future Appointments This section includes appointments that were scheduled to occur 6 months from the date of the Encounter, up to a maximum of 20 appointments. The data comes from all [place] treatment facilities. Appointment Date/Time Appointment Type Appointme nt Facility Name Jan 03, 2024 09:00 AM AMBULATORY - [facility]IC[facility] [place] [facility] Jan 25, 2024 09:00 AM AMBULATORY - [facility] MEDICIN [facility] [place] [facility] Mar 09, 2024 08:30 AM AMBULATORY - [facility] MEDICIN [facility] [place] [facility] Mar 12, 2024 08:15 AM AM[place]ULATORY [place]ICINE [place] [facility] [facility] Mar 21, 2024 08:30 AM AM[place]ULATORY [place]ICINE [place] [facility] [facility] Mar 22, 2024 09:00 AM AM[place]ULATORY [place]ICINE [place] [facility] [place] [facility] Mar 22, 2024 11:00 AM AM[place]ULATORY [place]ICINE [place] [facility] [place] [facility] Mar 22, 2024 11:15 AM AM[place]ULATORY [place]ICINE [place] [facility] [facility] Apr 11, 2024 10:30 AM AM[place]ULATORY [place]IC[place] [facility] [facility] Apr 20, 2024 10:30 AM AMBULATORY - REHAB MEDICIN E [place] Apr 30, 2024 09:00 AM AMBULATORY - MEDICINE [facility] May 04, 2024 10:00 AM AMBULATORY - MEDICINE [facility] May 07, 2024 08:30 AM AM[place]ORY [place]ICINE [place] [facility] May 22, 2024 03:30 PM AMBULATORY - MEDICINE [facility] Active, Pending, and Scheduled Orders This section includes a listing of several types of active, pending, and scheduled orders, including clinic medications orders, diagnostic test orders, procedure orders and consult orders; where the start date of the order is 45 days before the date of the Encounter or 45 days after the date of theEncounter. The data comes from all [facility] facilities. Test Date/Time Test Type Test Details Facility Name Nov 24, 2023 12:00 AM Laboratory - Chemi stry Order CBC AND DIFF (AUTO) BLOOD (LAV-BLOOD) [facility] Nov 24, 2023 12:00 AM Laboratory - Chemi stry Order LIVER FUNCTION BLOOD (SST-SERUM) [facility] Nov 24, 2023 12:00 AM Laboratory - Chemi stry Order LIPID PANEL FASTING BLOOD (SST-SERUM) [facility] Nov 24, 2023 12:00 AM Laboratory - Chemi stry Order CALCIUM BLOOD (SST-SERUM) [facility] Nov 24, 2023 12:00 AM Laboratory - Chemi stry Order BASIC METABOLIC PANEL (fasting) BLOOD (SST-SERUM) [facility] Nov 24, 2023 12:00 AM Laboratory - Chemi stry Order RETICULOCYTES BLOOD (LAV-BLOOD) [facility] Nov 24, 2023 12:00 AM Laboratory - Chemi stry Order URINALYSIS URINE [facility] Nov 24, 2023 12:00 AM Laboratory - Chemi stry Order URIC ACID BLOOD (SST-SERUM) [facility] Nov 24, 2023 12:00 AM Laboratory - Chemi stry Order MICROALBUMIN CREATININE RATIO PANEL URINE (RANDOM) [facility] Nov 24, 2023 12:00 AM Laboratory - Chemi stry Order TSH BLOOD (SST-SERUM) [facility] Nov 24, 2023 12:00 AM Laboratory - Chemi stry Order FERRITIN BLOOD (SST-SERUM) [facility] Nov 24, 2023 12:00 AM Laboratory - Chemi stry Order HEMOGLOBIN A1C PANEL BLOOD (LAV-BLOOD) [facility] Nov 24, 2023 12:00 AM Laboratory - Chemi stry Order VITAMIN D (25-OH) BLOOD (SST-SERUM) [facility] Nov 24, 2023 12:00 AM Laboratory - Chemi stry Order VITAMIN B12 BLOOD (SST-SERUM) [facility] Social History: Smoking Status (Most current) and Tobacco Use (All prior to encounter date) This section includes the most current, and the historical, smoking and tobacco- related health factors from the [place] facility where the Encounter took place. Current Smoking Status This section includes the most current smoking, or tobacco-related health factor, from the [place] facility where the Encounter took place. Date/Time Current Smoking Status Comment Facil ity Oct 18, 2023 01:38 PM [place]-TO[place]AC[place] NEVER USED [facility] Tobacco Use History This section includes a history of the smoking, or tobacco-related health factors, that were collected on or before the date of the Encounter. The data comes from the [place] facility where the Encounter took place. Date/Time Smoking Status/Tobacco Use Comment F acility Sep 24, 2022 08:59 AM [place] [facility] [facility] Sep 24, 2022 08:59 AM [place]-TO[place]ACCO QUIT 15 YRS OR MORE [place] [facility] Oct 01, 2021 10:00 AM [place] [facility] [facility] Oct 01, 2021 10:00 AM [place]-TO[place]ACCO QUIT 15 YRS OR MORE [facility] Advance Directives: All historical and current Section Date Range: From patient's date of to the date document was created. This section includes ALL of a patient's completed or amended [place] Advance and Rescinded Directives. The entries below indicate that a directive exists for the patient, but an actual copy is not included with this document. The data comes from all [place] facilities. Date Advance Directives Provider Source Aug 20, 2017 ADVANCE DIRECTIVE [facility]ISA [facility] Encounter Notes: All associated encounter notes This section contains the clinical notes associated to the Encounter. Date/Time Encounter Note(s) Provider Source Dec 30, 2023 06:01 PM PHARMACY NOTE: LOCAL TITLE: PHARMACY CUSTOMER CARE MEDICATION RENEWAL STANDARD TITLE: PHARMACY NOTE DATE OF NOTE: DEC 30, 2023@18:01 ENTRY DATE: DEC 30, 2023@18:02:04 AUTHOR: JOSEPH GAXIOLA EXP COSIGNER: URGENCY: STATUS: COMPLETED V1 PHARMACY CUSTOMER CARE MEDICATION RENEWAL Has ADDENDA Date: Dec Division: [facility] referred by Pharmacy Call Center for medication renewal: Non-controlled/maintenanc e medication Medications requested: [id number] CETIRIZINE HCL 10MG TAB Defer to primary care provider To be mailed . Please review and renew if appropriate. *This note was generated by [facility] Pharmacy Customer Care. If you have any questions or need assistance, do not contact this author. Please refer all questions to your local, on-site pharmacy departments. /reece GAXIOLA CPhT [employer], [place]/Pharmacy Customer Care Signed: 12/30/2023 18:02 Receipt Acknowledged By: 01/02/2024 08:41 /reece JARQUIN REGISTERED NURSE 12/31/2023 16:33 /ta/ FEROZ VALLADARES NP NURSE PRACTITIONER 01/02/2024 ADDENDUM STATUS: COMPLETED Telephone call to to let him know his Certirizine was renewed and will be mailed to him home. verbalized agreement and understanding. /reece JARQUIN REGISTERED NURSE Signed: 01/02/2024 08:42 JOSEPH GAXIOLA [place] [facility]
--- OUTSIDE RECORDS SUMMARY | 2024-01-03 05:00 | XMS_ITS ---
Author Name [facility] [facility] [place] [facility] [place] [facility] [place] Address [address] [place] [address] Care Team Providers Care Bridge Opener Name Role Phone GHAZAL KIT Primary Care Provider Unavailabl e Insurance Providers: All historical and current Section [...] PART A June 07, 2002 PART A [id number] DOUG SHELLMARIAH PATIENT MEDICARE (WNR) MEDICARE (M) PART A June 07, 2002 PART A [id number] DOUG SHELLSCOUTMARIAH PATIENT MEDICARE (WNR) MEDICARE (M) PART A June 07, 2002 PART A [id number] DOUG SHELLSCOUTMARIAH PATIENT MEDICARE (WNR) MEDICARE (M) PART B June 07, 2002 PART B [id number] [phone] DOUG SHELLMARIAH PATIENT MEDICARE (WNR) MEDICARE (M) PART A June 07, 2002 PART A [id number] [phone] MARIAH CAMACHO JR PATIENT MEDICARE (WNR) MEDICARE (M) PART B June 07, 2002 PART B [id number] MARIAH CAMACHO JR PATIENT Selected Encounter This section includes the information on record at [place] for the Encounter. Date/Time Encounter Type Encounter Description Reason Provider Source Jan 03, 2024 09:00 AM HEARING AID REPAIR/MODIFYING AUDIOLOGY ICD-10-CM Z46.1 Encounter for fitting and adjustment of hearing aid PAMELLA OLVERA Encounter Template Text not used by [place] Assessments - Encounter Diagnoses This section includes the primary and secondary diagnoses documented for the Encounter. Date/Time Primary/Secondary Diagnosis Diagnosis Name Provider Source Jan 03, 2024 09:19 AM PRIMARY Encounter for fitting and adjustment of hearing aid BEATRIZ RUSSO [facility] [place] [facility] Jan 03, 2024 09:19 AM SECONDARY Sensorineural hearing loss, bilateral BEATRIZ RUSSO [facility] [place] [facility] Plan of Treatment: Future Appointments (+ 6 months) and Future Tests (+/- 45 days) The Plan of Treatment section includes future care activities for the patient from all [place] treatmentfacilities. This section includes future appointments and future orders which are active, pending or scheduled. Future Appointments This section includes appointments that were scheduled to occur 6 months from the date of the Encounter, up to a maximum of 20 appointments. The data comes from all [place] treatment facilities. Appointment Date/Time Appointment Type Appointme nt Facility Name Jan 25, 2024 09:00 AM AMBULATORY - [facility]ICIN E [facility] [place] [facility] Mar 09, 2024 08:30 AM AMBULATORY - REHAB MEDICIN E [facility] [place] [facility] Mar 12, 2024 08:15 AM AMBULATORY - MEDICINE [place] C [facility] [place] [facility] Mar 21, 2024 08:30 AM AMBULATORY - MEDICINE [place] C [facility] [place] [facility] Mar 22, 2024 09:00 AM AMBULATORY - MEDICINE [place] C [facility] [place] [facility] Mar 22, 2024 11:00 AM AMBULATORY - MEDICINE [facility] [place] [facility] Mar 22, 2024 11:15 AM AMBULATORY - MEDICINE [facility] [place] [facility] Apr 11, 2024 10:30 AM AMBULATORY - MEDICINE [facility] [place] [facility] Apr 20, 2024 10:30 AM AMBULATORY - REHAB MEDICIN E [facility] Apr 30, 2024 09:00 AM [facility] May 04, 2024 10:00 AM [facility] May 07, 2024 08:30 AM AMBULATORY - MEDICINE [facility] [place] [facility] May 22, 2024 03:30 PM AMBULATORY - MEDICINE [facility] [place] [facility] June 29, 2024 10:30 AM AMBULATORY - MEDICINE [facility] Active, Pending, and Scheduled Orders This section includes a listing of several types of active, pending, and scheduled orders, including clinic medications orders, diagnostic test orders, procedure orders and consult orders; where thestart date of the order is 45 days before the date of the Encounter or 45 days after the date of the Encounter. The data comes from all [place] treatment [facility]. Test Date/Time Test Type Test Details Facility Name Nov 24, 2023 12:00 AM Laboratory - Chemi stry Order CBC AND DIFF (AUTO) BLOOD (LAV-BLOOD) [facility] Nov 24, 2023 12:00 AM Laboratory - Chemi stry Order LIVER FUNCTION BLOOD (SST-SERUM) [facility] Nov 24, 2023 12:00 AM Laboratory - Chemi stry Order LIPID PANEL FASTING BLOOD (SST-SERUM) [facility] Nov 24, 2023 12:00 AM Laboratory - Chemi stry Order CALCIUM BLOOD (SST-SERUM) [facility] Nov 24, 2023 12:00 AM Laboratory - Chemi stry Order BASIC METABOLIC PANEL (fasting) BLOOD (SST-SERUM) [facility] Nov 24, 2023 12:00 AM Laboratory - Chemi stry Order URIC ACID BLOOD (SST-SERUM) [facility] Nov 24, 2023 12:00 AM Laboratory - Chemi stry Order RETICULOCYTES BLOOD (LAV-BLOOD) [facility] Nov 24, 2023 12:00 AM Laboratory - Chemi stry Order URINALYSIS URINE [facility] Nov 24, 2023 12:00 AM Laboratory - Chemi stry Order MICROALBUMIN CREATININE RATIO PANEL URINE (RANDOM) [facility] Nov 24, 2023 12:00 AM Laboratory - Chemi stry Order TSH BLOOD (SST-SERUM) [facility] Nov 24, 2023 12:00 AM Laboratory - Chemi stry Order HEMOGLOBIN A1C PANEL BLOOD (LAV-BLOOD) [facility] Nov 24, 2023 12:00 AM Laboratory - Chemi stry Order VITAMIN D (25-OH) BLOOD (SST-SERUM) [facility] Nov 24, 2023 12:00 AM Laboratory - Chemi stry Order FERRITIN BLOOD (SST-SERUM) [facility] Nov 24, 2023 12:00 AM Laboratory - Chemi stry Order VITAMIN B12 BLOOD (SST-SERUM) [facility] Social History: Smoking Status (Most current) [...] place. Date/Time Current Smoking Status Comment Facil itOct 18, 2023 01:38 PM VA-TOBACCO NEVER USED [facility] Tobacco Use History This section includes a history of the smoking, or tobacco-related health factors, that were collected on or before the date of the Encounter. The data comes from the [place] facility where the Encounter took place. Date/Time Smoking Status/Tobacco Use Comment F acility Sep 24, 2022 08:59 AM VA-TOBACCO FORMER USER [facility] Sep 24, 2022 08:59 AM NE-TOBACCO QUIT 15 YRS OR MORE [facility] Oct 01, 2021 10:00 AM [facility] Oct 01, 2021 10:00 AM NE-TOBACCO QUIT 15 YRS OR MORE [facility] Advance Directives: All historical and current [...] DIRECTIVE YULISA CH NE Rodolfo [facility] Encounter Notes: All associated encounter notes This section contains the clinical notes associated to the Encounter. Date/Time Encounter Note(s) Provider Source Jan 03, 2024 09:56 AM ADDENDUM: LOCAL TITLE: Addendum STANDARD TITLE: ADDENDUM DATE OF NOTE: JAN 03, 2024@09:56:29 ENTRY DATE: JAN 03, 2024@09:56:30 AUTHOR: SHUBHAM SOLIZ COSIGNER: URGENCY: STATUS: COMPLETED Last hearing evaluation was reviewed. Recommend an update hearing test and CI assessment with this employment manager. Adding AMSA to please contact to schedule a two hour test. /ta/ Jak BURRIS [facility]-A STAFF FARM DEMONSTRATOR Signed: 01/03/2024 09:58 Receipt Acknowledged By: 01/03/2024 13:39 /ta/ LEW SARAVIA LEAD GOLD FRAME ASSEMBLER ========= --- Original Document --- 01/03/24 AUDIOLOGY HEALTH SYSTEMS ACCOUNTANT: January 03, 2024 History/Background: [place] was seen for a hearing aid follow up, unaccompanied. The [place] presented today requesting maintenance on his hearing aids. The [place] mentioned about 15 years ago he was told about an implant that goes on the side of his head, at the time he was not interested. He stated he is struggling with conversation and uses an caption cami on his phone to help, he is now interested in discussing pros and cons of this device. Hearing aids: Jayda Evolv AI BTE-Left/ CROS BTE-Right Serial Numbers: [id number] Battery size: 13 Date Issued: 07/23/2022 Hearing aid check: Both hearing aids were cleaned and checked. Replaced TRS tubes, tonehooks and rm covers. The left tube was cut to length on the ear. Biologic check was good. Otoscopy: Clear canals. Plan: The was scheduled for routine hearing aid maintenance on 04/13/2024 @ [address] *Alerting Dr. Abarca and Dr. Soliz for further discussion/scheduling of cochlear implant evaluation. /es/ MICHAEL RUSSO [facility]iology [facility] Reed Polisher Signed: 01/03/2024 09:43 /ta/ PAMELLA Francisco CCC-Yazan CHIEF, AUDIOLOGY/ELECTRONIC CONTROLS REPAIRER SUPERVISOR Cosigned: 01/03/2024 09:51 Receipt Acknowledged By: 01/03/2024 09:56 /ta/ Jak BURRIS, MANUEL-Yazan STAFF FARM DEMONSTRATOR 01/03/2024 13:39 /ta/ LEW SARAVIA LEAD GOLD FRAME ASSEMBLER 01/03/2024 10:41 /ta/ SYLVIA ABARCA, Claudia, MANUEL-A Accounting Office Manager Chief, Audiology SHUBHAM SOLIZ [place] [facility] [place] [facility] Jan 03, 2024 07:23 AM AUDIOLOGY NOTE: LOCAL TITLE: AUDIOLOGY HEALTH SYSTEMS ACCOUNTANT STANDARD TITLE: AUDIOLOGY NOTE DATE OF NOTE: JAN 03, 2024@07:23 ENTRY DATE: JAN 03, 2024@07:23:16 AUTHOR: MICHAEL RUSSO COSIGNER: PAMELLA OLVERA URGENCY: STATUS: COMPLETED AUDIOLOGY HEALTH SYSTEMS ACCOUNTANT Has ADDENDA January 03, 2024 History/Background: [place] was seen for a hearing aid follow up, unaccompanied. The [place] presented today requesting maintenance on his hearing aids. The mentioned about 15 years ago he was told about an implant that goes on the side of his head, at the time he was not interested. He stated he is struggling with conversation and uses an caption cami on his phone to help, he is now interested in discussing pros and cons of this device. Hearing aids: Jayda Evolv AI BTE-Left/ CROS BTE-Right Serial Numbers: [id number] Battery size: 13 Date Issued: 07/23/2022 Hearing aid check: Both hearing aids were cleaned and checked. Replaced TRS tubes, tonehooks and rm covers. The left tube was cut to length on the ear. Biologic check was good. Otoscopy: Clear canals. Plan: The [place] was scheduled for routine hearing aid maintenance on 04/13/2024 @ [address] *Alerting Dr. Abarca and Dr. Soliz for further discussion/scheduling of cochlear implant evaluation. /ta/ MICHAEL RUSSO Audiology Health Reed Polisher Signed: 01/03/2024 09:43 /ta/ PAMELLA Francisco [facility]-A CHIEF, AUDIOLOGY/ELECTRONIC CONTROLS REPAIRER SUPERVISOR Cosigned: 01/03/2024 09:51 Receipt Acknowledged By: 01/03/2024 09:56 /ta/ Jak BURRIS, [facility]-A STAFF FARM DEMONSTRATOR 01/03/2024 13:39 /reece SARAVIA LEAD GOLD FRAME ASSEMBLER 01/03/2024 10:41 /ta/ Claudia SANCHES, [facility]-A Accounting Office Manager Chief, Audiology 01/03/2024 ADDENDUM STATUS: COMPLETED Last hearing evaluation was reviewed. Recommend an update hearing test and CI assessment with this employment manager. Adding AMSA to please contact to schedule a two hour test. /ta/ Jak BURRIS, [facility]-A STAFF FARM DEMONSTRATOR Signed: 01/03/2024 09:58 Receipt Acknowledged By: 01/03/2024 13:39 /reece SARAVIA LEAD GOLD FRAME ASSEMBLER MICHAEL RUSSO [facility]
--- OUTSIDE RECORDS SUMMARY | 2024-01-16 06:00 | XMS_ITS ---
Author Name [facility] [place] Organization [facility] [place] [facility] [place] Address [address] [place] [id number] Care Team Providers Care Automatic Beading Lathe Operator Name Role Phone KIT HARMAN Primary Care [...] PART A June 07, 2002 PART A [id number] DOUG JRMARIAH PATIENT MEDICARE (WNR) MEDICARE (M) PART A June 07, 2002 PART A [id number] DOUG SHELLMARIAH PATIENT MEDICARE (WNR) MEDICARE (M) PART A June 07, 2002 PART A [id number] [phone] DOUG SHELLSCOUTMARIAH PATIENT MEDICARE (WNR) MEDICARE (M) PART B June 07, 2002 PART B [id number] [phone] DOUG SHELLSCOUTMARIAH PATIENT MEDICARE (WNR) MEDICARE (M) PART A June 07, 2002 PART A [id number] [phone] MARIAH CAMACHO JR PATIENT MEDICARE (WNR) MEDICARE (M) PART B June 07, 2002 PART B [id number] [phone] MARIAH CAMACHO JR PATIENT Selected Encounter This section includes the information on record at [place] for the Encounter. Date/Time Encounter Type Encounter Description Reason Pro vider Source Jan 16, 2024 10:00 AM Outpatient Encounter ADMIN PAT ACTIVTIES (MASNONCT) IHE Encounter Template Text not used by [place] Plan of Treatment: Future Appointments (+ 6 months) and Future Tests (+/- 45 days) The Plan of Treatment section includes future care activities for the patient from all [place] treatmentfacilities. This section includes future appointments and future orders which are active, pending or scheduled. Future Appointments This section includes appointments that were scheduled to occur 6 months from the date of the Encounter, up to a maximum of 20 appointments. The data comes from all [place] treatment facilities. Appointment Date/Time Appointment Type Appointme nt Facility Name Jan 25, 2024 09:00 AM AMBULATORY - REHAB MEDICIN E [facility] [place] [facility] Mar 09, 2024 08:30 AM AMBULATORY - REHAB MEDICIN E [facility] [facility] Mar 12, 2024 08:15 AM AMBULATORY - MEDICINE [facility] [place] [facility] Mar 21, 2024 08:30 AM AMBULATORY - MEDICINE [place] [facility] [place] [facility] Mar 22, 2024 09:00 AM AMBULATORY - MEDICINE [facility] [place] [facility] Mar 22, 2024 11:00 AM AMBULATORY - MEDICINE [place] [facility] [place] [facility] Mar 22, 2024 11:15 AM AMBULATORY - MEDICINE [place] [facility] [place] [facility] Apr 11, 2024 10:30 AM AMBULATORY - MEDICINE [facility] [place] [facility] Apr 20, 2024 10:30 AM AMBULATORY - REHAB MEDICIN E [facility] Apr 30, 2024 09:00 AM AM[facility]ULATORY [facility] May 04, 2024 10:00 AM AM[facility]UL[facility] May 07, 2024 08:30 AM AMBULATORY - MEDICINE [place] [facility] [place] [facility] May 22, 2024 03:30 PM AMBULATORY - MEDICINE [place] [facility] [place] [facility] June 29, 2024 10:30 AM AMBULATORY - MEDICINE [facility] July 03, 2024 12:00 PM AMBULATORY - MEDICINE [facility] [place] [facility] Jul 09, 2024 08:00 AM AMBULATORY - MEDICINE [place] [facility] [place] [facility] Jul 09, 2024 08:30 AM AMBULATORY - REHAB MEDICIN E [facility] [facility] Jul 10, 2024 01:30 PM AMBULATORY - MEDICINE [place] C [facility] [place] [facility] Social History: Smoking Status (Most current) and Tobacco Use (All prior to encounter date) This section includes the most current, and the historical, smoking and tobacco- related health factors from the [place] facility where the Encounter took place. Current Smoking Status This section includes the most current smoking, or tobacco-related health factor, from the [place] facility where the Encounter took place. Date/Time Current Smoking Status Comment Bro gallagherkaylynn Oct 18, 2023 01:38 PM [facility] Tobacco Use History This section includes a history of the smoking, or tobacco-related health factors, that were collected on or before the date of the Encounter. The data comes from the [place] facility where the Encounter took place. Date/Time Smoking Status/Tobacco Use Comment F acility Sep 24, 2022 08:59 AM VA-TOBACCO FORMER USER [place] [facility] [place] [facility] Sep 24, 2022 08:59 AM VA-TOBACCO QUIT 15 YRS OR MORE [facility] [place] [facility] Oct 01, 2021 10:00 AM VA-TOBACCO FORMER USER [place] [facility] [place] [facility] Oct 01, 2021 10:00 AM VA-TOBACCO [facility] [place] [facility] Advance Directives: All historical and current Section Date Range: From patient's date of to the date document was created. This section includes ALL of a patient's completed or amended [place] Advance and Rescinded Directives. The entries below indicate that a directive exists for the patient, but an actual copy is not included with this document. The data comes from all [place] facilities. Date Advance Directives Provider Source Aug 20, 2017 ADVANCE DIRECTIVE DIMAYULISA LAVON [place] [facility] Encounter Notes: All associated encounter notes This section contains the clinical notes associated to the Encounter. Date/Time Encounter Note(s) Provider Source Jan 16, 2024 10:00 AM PHARMACY NOTE: LOCAL TITLE: V1 PHARMACY CUSTOMER CARE MEDICATION RENEWAL STANDARD TITLE: PHARMACY NOTE DATE OF NOTE: JAN 16, 2024@10:00 ENTRY DATE: JAN 16, 2024@10:00:21 AUTHOR: YOLANDA EDWARDS V EXP COSIGNER: URGENCY: STATUS: COMPLETED Date: Jan Division: [facility] referred by Pharmacy Call Center for medication renewal: Non-controlled/maintenan ce medication Medications requested: [id number] PYRIDOXINE HCL 100MG TAB Defer to primary care provider To be mailed . Please review and renew if appropriate. *This note was generated by [facility]/[place] Pharmacy Customer Care. If you have any questions or need assistance, do not contact this author. Please refer all questions to your local, on-site pharmacy departments. /ta/ YOLANDA EDWARDS CPhT Labor Mediator, [place]/Pharmacy Customer Care Signed: 01/16/2024 10:00 Receipt Acknowledged By: 01/16/2024 11:44 /ta/ WALDEMAR JARQUIN REGISTERED NURSE 01/19/2024 08:03 /ta/ FEROZ VALLADARES NP NURSE PRACTITIONER YOLANDA EDWARDS V [place] [facility]
--- OUTSIDE RECORDS SUMMARY | 2024-01-25 05:00 | XMS_ITS ---
Author Name [facility] [facility] [place] Address [address] [place] [address] Care Team Providers Care Stencil Machine Operator Name Role Phone KIT HARMAN Primary Care Provider [facility] Insurance Providers: All historical and current [...] PART A June 07, 2002 PART A [id number] MARIAH CAMACHO JR PATIENT MEDICARE (WNR) MEDICARE (M) PART A June 07, 2002 PART A [id number] DOUG MARIAH SHELL PATIENT MEDICARE (WNR) MEDICARE (M) PART A June 07, 2002 PART A [id number] [phone] MARIAH CAMACHO JR PATIENT MEDICARE (WNR) MEDICARE (M) PART B June 07, 2002 PART B [id number] DOUG JRMARIAH PATIENT MEDICARE (WNR) MEDICARE (M) PART A June 07, 2002 PART A [id number] MARIAH CAMACHO JR PATIENT MEDICARE (WNR) MEDICARE (M) PART B June 07, 2002 PART B [id number] MARIAH CAMACHO JR PATIENT Selected Encounter This section includes the information on record at [place] for the Encounter. Date/Time Encounter Type Encounter Description Reason Provider Source Jan 25, 2024 09:00 AM ANGIE COKER 1ST HOUR AUDIOLOGY ICD-10-CM H90.3 Sensorineural hearing loss, bilateral CAMINITI,SHUBHAM E IHE Encounter Template Text not used by [place] Assessments - Encounter Diagnoses This section includes the primary and secondary diagnoses documented for the Encounter. Date/Time Primary/Secondary Diagnosis Diagnosis Name Provider Source Jan 25, 2024 10:19 AM PRIMARY Sensorineural hearing loss, bilateral CAMINITI,SHUBHAM E [facility] [place] [facility] Jan 25, 2024 10:19 AM SECONDARY Tinnitus, bilateral CAMINITI,SHUBHAM E [facility] [place] [facility] Plan of Treatment: Future Appointments (+ 6 months) and Future Tests (+/- 45 days) The Plan of Treatment section includes future care activities for the patient [facility] [place] [facility] This section includes future appointments and future orders which are active, pending or scheduled. Future Appointments This section includes appointments that were scheduled to occur 6 months from the date of the Encounter, up to a maximum of 20 appointments. The data comes from all [place] treatment facilities. Appointment Date/Time Appointment Type Appointme nt Facility Name Mar 09, 2024 08:30 AM AMBULATORY - RE[facility]AB MEDICIN E [facility] [place] [facility] Mar 12, 2024 08:15 AM AMBULATORY - MEDICINE [facility] [place] [facility] Mar 21, 2024 08:30 AM AMBULATORY - MEDICINE [facility] [place] [facility] Mar 22, 2024 09:00 AM AMBULATORY - MEDICINE [facility] [place] [facility] Mar 22, 2024 11:00 AM AMBULATORY - MEDICINE [place] [facility] [place] [facility] Mar 22, 2024 11:15 AM AMBULATORY - MEDICINE [facility] [place] [facility] Apr 11, 2024 10:30 AM AMBULATORY - MEDICINE [facility] [place] [facility] Apr 20, 2024 10:30 AM AMBULATORY - [place] MEDIC[place] Apr 30, 2024 09:00 AM [facility] May 04, 2024 10:00 AM [facility]ATORY [facility] May 07, 2024 08:30 AM AMBULATORY [facility] MEDICINE [facility] [place] [facility] May 22, 2024 03:30 PM AMBULATORY - MEDICINE [facility] [place] [facility] June 29, 2024 10:30 AM [facility]ULATORY - MEDICINE [facility] July 03, 2024 12:00 PM AMBULATORY - MEDICINE [facility] [place] [facility] Jul 09, 2024 08:00 AM AMBULATORY - MEDICINE [facility] [place] [facility] Jul 09, 2024 08:30 AM AMBULATORY - REHAB MEDICIN E [facility] [place] [facility] Jul 10, 2024 01:30 PM AMBULATORY - MEDICINE [facility] [place] [facility] Jul 19, 2024 01:00 PM AMBULATORY - RE[place] MEDICIN [place] Social History: Smoking Status (Most current) and Tobacco Use (All prior to encounter date) This section includes the most current, and the historical, smoking and tobacco- related health factors from the [place] facility where the Encounter took place. Current Smoking Status This section includes the most current smoking, or tobacco-related health factor, from the [place] facility where the Encounter took place. Date/Time Current Smoking Status Comment Bro recinos Oct 18, 2023 01:38 PM VA-TOBACCO NEVER USED [place] [facility] Tobacco Use History This section includes a history of the smoking, or tobacco-related health factors, that were collected on or before the date of the Encounter. The data comes from the [place] facility where the Encounter took place. Date/Time Smoking Status/Tobacco Use Comment F acility Sep 24, 2022 08:59 AM VA-TOBACCO FORMER USER [facility] [place] [facility] Sep 24, 2022 08:59 AM VA-TOBACCO QUIT 15 YRS OR MORE [facility] Oct 01, 2021 10:00 AM VA-TOBACCO FORMER USER [facility] Oct 01, 2021 10:00 AM AL-TOBACCO QUIT 15 YRS OR MORE [facility] Advance Directives: All historical and current Section Date Range: From patient's date of to the date document was created. This section includes ALL of a patient's completed or amended [place] Advance and Rescinded Directives. The entries below indicate that a directive exists for the patient, but an actual copy is not included with this document. The data comes from all [place] facilities. Date Advance Directives Provider Source Aug 20, 2017 ADVANCE DIRECTIVE YULISA CH [facility] Encounter Notes: All associated encounter notes This section contains the clinical notes associated to the Encounter. Date/Time Encounter Note(s) Provider Source Jan 25, 2024 07:50 AM AUDIOLOGY E & M NO TE: [facility] TITLE: AUDIOLOGY CLINIC STANDARD TITLE: AUDIOLOGY E & M NOTE DATE OF NOTE: JAN 25, 2024@07:50 ENTRY DATE: JAN 25, 2024@07:51 AUTHOR: SHUBHAM HARVEY COSIGNER: URGENCY: STATUS: COMPLETED AUDIOLOGY CLINIC Has ADDENDA was seen 01-25-24 for a hearing re-evaluation. Hearing was last evaluated in 2022. He currently uses binaural Jayda Evolv BiCROS, issued in 2022. He reports longstanding tinnitus and recent onset of vertigo. He reports longstanding hearing loss and states that a CI was recommended about fifteen years ago but he did not pursue it. He notes he hears better with a slower rate of speech and that he is a good lip reader. Results are as follow: Otoscopy is WNL for both ears. Pure tone audiometric testing with headphones revealed a moderate/moderately severe sloping to profound sensorineural hearing loss bilaterally. Asymmetry, worse right ear, was noted from 7925-9952 Hz. Word recognition scores were poor with 0% correct for the right ear and 8% correct for the left ear for recorded speech presented at 95 dB HL . Normal tympanograms were obtained bilaterally. Overall, results are stable since 2022. A loaner QB[employer] Evolv AI BTE was programmed for 's right ear. His custom earmold was attached. Verification of an appropriate acoustic response was obtained using Real Ear measurements (speech mapping) and NAL-NL1 targets for both hearing aids. Gain increases were made to match targets. The reported good subjective benefit. Feedback category development manager was run for the right aid. Hearing aids were found to be meeting targets adequately. Settings stored in SURINDER. Aided sound field testing was performed at 60 dB HL for the purpose of evaluating function for CI candidacy. In monaural conditions, a foam earplug was used in the unaided ear (NRR 33 dB). Results are below. Recorded speech results ([place] [facility]): binaural: 0% right ear only: 0% left ear only: 4% AZBIO Sentence Test results: left ear only (list 3): 25/133= 19% right ear only (list 2):/143= 0% binaural (list 1): 17/154= 11% [place] was counseled on today's test results. CI candidacy was included in this discussion. [place] is motivated to continue with the CI assessment process. He was given a booklet with information on the procedure and was counseled on expectations. Adding the ENT at [facility] to please order a CT Scan of temporal bones without contrast. A consult will be submitted to Audiology in [place]. [place] to follow up with this clinic as needed and/or per recommendation of the ENT and/or [place] [facility]. /Jak Kovacs, [facility]-A STAFF STRAP FOLDING MACHINE OPERATOR Signed: 01/25/2024 11:47 Receipt Acknowledged By: 01/25/2024 12:39 /reece Jason MD Otolaryngology 01/25/2024 ADDENDUM STATUS: COMPLETED CT TEMPORAL BONE ORDER PLACED /reece Jason MD Otolaryngology Signed: 01/25/2024 12:39 [facility]
--- OUTSIDE RECORDS SUMMARY | 2024-02-19 03:58 | XMS_ITS ---
Author Name [facility] [place] [facility] [place] Address [address] [place] [id number] Care Team Providers Care Automobile Service Station Attendant Name Role Phone KIT HARMAN Primary Care [...] PART A June 07, 2002 PART A [id number] DOUG JRMARIAH PATIENT MEDICARE (WNR) MEDICARE (M) PART A June 07, 2002 PART A [id number] [phone] [id number] DOUG SHELLMARIAH PATIENT MEDICARE (WNR) MEDICARE (M) PART A June 07, 2002 PART A [id number] DOUG SHELLSCOUTMARIAH PATIENT MEDICARE (WNR) MEDICARE (M) PART B June 07, 2002 PART B [id number] DOUG SHELLSCOUTMARIAH PATIENT MEDICARE (WNR) MEDICARE (M) PART A June 07, 2002 PART A [id number] MARIAH CAMACHO JR PATIENT MEDICARE (WNR) MEDICARE (M) PART B June 07, 2002 PART B [id number] MARIAH CAMACHO JR PATIENT Selected Encounter This section includes the information on record at [place] for the Encounter. Date/Time Encounter Type Encounter Description Reason Pro vider Source Feb 19, 2024 07:58 AM Outpatient Encounter ADMIN PAT ACTIVTIES (MASNONCT) IHE Encounter Template Text not used by [place] Plan of Treatment: Future Appointments (+ 6 months) and Future Tests (+/- 45 days) The Plan of Treatment section includes future care activities for the patient from all [place] treatmentfacilities. This section includes future appointments and future orders which are active, pending or scheduled. Future Appointments This section includes appointments that were scheduled to occur 6 months from the date of the Encounter, up to a maximum of 20 appointments. The data comes from all [place] treatment facilities. Appointment Date/Time Appointment Type Appointme nt Facility Name Mar 09, 2024 08:30 AM AMBULATORY - REHAB MEDICIN E [place] [facility] [place] [facility] Mar 12, 2024 08:15 AM AMBULATORY - MEDICINE [place] [facility] [place] [facility] Mar 21, 2024 08:30 AM AMBULATORY - MEDICINE [facility] [place] [facility] Mar 22, 2024 09:00 AM AMBULATORY - MEDICINE [facility] [place] [facility] Mar 22, 2024 11:00 AM AMBULATORY - MEDICINE [facility] [place] [facility] Mar 22, 2024 11:15 AM AMBULATORY - MEDICINE [facility] [place] [facility] Apr 11, 2024 10:30 AM AMBULATORY - MEDICINE [facility] [place] [facility] Apr 20, 2024 10:30 AM AMBULATORY - REHAB MEDICIN E [place] Apr 30, 2024 09:00 AM AMBULATORY - MEDICINE [facility] May 04, 2024 10:00 AM AMBULATORY - MEDICINE [facility] May 07, 2024 08:30 AM AMBULATORY - MEDICINE [facility] [place] [facility] May 22, 2024 03:30 PM AMBULATORY - MEDICINE [facility] [place] [facility] June 29, 2024 10:30 AM [facility] July 03, 2024 12:00 PM AMBULATORY - MEDICINE [place] [facility] [place] [facility] Jul 09, 2024 08:00 AM AMBULATORY - MEDICINE [place] [facility] [place] [facility] Jul 09, 2024 08:30 AM AMBULATORY - REHAB MEDICIN E [facility] [place] [facility] Jul 10, 2024 01:30 PM AMBULATORY - MEDICINE [place] [facility] [place] [facility] Jul 19, 2024 01:00 PM AMBULATORY - REHAB MEDICIN E [place] Social History: Smoking Status (Most current) and Tobacco Use (All prior to encounter date) This section includes the most current, and the historical, smoking and tobacco- related health factors from the [place] facility where the Encounter took place. Current Smoking Status This section includes the most current smoking, or tobacco-related health factor, from the [place] facility where the Encounter took place. Date/Time Current Smoking Status Comment Facil ity Oct 18, 2023 01:38 PM VA-TOBACCO NEVER USED [facility] Tobacco Use History This section includes a history of the smoking, or tobacco-related health factors, that were collected on or before the date of the Encounter. The data comes from the [place] facility where the Encounter took place. Date/Time Smoking Status/Tobacco Use Comment F acility Sep 24, 2022 08:59 AM VA-TOBACCO FORMER USER [place] [facility] [place] [facility] Sep 24, 2022 08:59 AM VA-TOBACCO QUIT 15 YRS OR MORE [place] [facility] [place] [facility] Oct 01, 2021 10:00 AM VA-TOBACCO FORMER USER [place] [facility] [place] [facility] Oct 01, 2021 10:00 AM VA-TOBACCO QUIT [address] [facility] Advance Directives: All historical and current Section Date Range: From patient's date of to the date document was created. This section includes ALL of a patient's completed or amended [place] Advance and Rescinded Directives. The entries below indicate that a directive exists for the patient, but an actual copy is not included with this document. The data comes from all [place] facilities. Date Advance Directives Provider Source Aug 20, 2017 ADVANCE DIRECTIVE YULISA CH [place] [facility] Encounter Notes: All associated encounter notes This section contains the clinical notes associated to the Encounter. Date/Time Encounter Note(s) Provider Source Feb 19, 2024 07:58 AM PHARMACY NOTE: LOCAL TITLE: PHARMACY CUSTOMER CARE MEDICATION RENEWAL STANDARD TITLE: PHARMACY NOTE DATE OF NOTE: FEB 19, 2024@07:58 ENTRY DATE: FEB 19, 2024@07:58:19 AUTHOR: CHRISTINA EM EXP COSIGNER: URGENCY: STATUS: COMPLETED Date: Feb Division: [place] Pt referred by Pharmacy Call Center for medication renewal: Non-controlled/maintena nce medication Medications requested: [id number] ALOGLIPTIN 25MG TAB * This medication is discontinued per the medication profile, however the requested to renew it. The can be reached at the number on file to discuss further. Please review. Defer to primary care provider To be mailed . Please review and renew if appropriate. *This note was generated by [facility]/[place] Pharmacy Customer Care. If you have any questions or need assistance, do not contact this author. Please refer all questions to your local, on-site pharmacy departments. /ta/ CHRISTINA EM CPhT Director Of Medical Services, [place]/Pharmacy Customer Care Signed: 02/19/2024 07:59 Receipt Acknowledged By: 03/05/2024 16:00 /ta/ FEROZ VALLADARES NP NURSE PRACTITIONER [facility]STINA EM [facility]
--- OUTSIDE RECORDS SUMMARY | 2024-03-09 04:30 | XMS_ITS ---
Author Name [facility] [place] [facility] [place] [facility] [facility] [place] Address [address] [place] [address] Care Team Providers Care Bond Trader Name Role Phone KIT HARMAN Primary Care Provider Unavailabl e Insurance Providers: [...] PART A June 07, 2002 PART A [id number] [facility] [id number] MARIAH CAMACHO JR PATIENT MEDICARE (WNR) MEDICARE (M) PART A June 07, 2002 PART A [id number] DOUG MARIAH SHELL PATIENT MEDICARE (WNR) MEDICARE (M) PART A June 07, 2002 PART A [id number] [phone] DOUGMARIAH LAI JR PATIENT MEDICARE (WNR) MEDICARE (M) PART B June 07, 2002 PART B [id number] DOUG SHELLMARIAH PATIENT MEDICARE (WNR) MEDICARE (M) PART A June 07, 2002 PART A [id number] MARIAH CAMACHO JR PATIENT MEDICARE (WNR) MEDICARE (M) PART B June 07, 2002 PART B [id number] [phone] MARIAH CAMACHO JR PATIENT Selected Encounter This section includes the information on record at [place] for the Encounter. Date/Time Encounter Type Encounter Description Reason Provider Source Mar 09, 2024 08:30 AM [place] SP LANG VOICE COMM INDIV SPEECH-LANGUAGE PATHOLOGY ICD-10-CM R41.841 Cognitive communication deficit BEATRIZ DONOHUE Tanvi Encounter Template Text not used by [place] Assessments - Encounter Diagnoses This section includes the primary and secondary diagnoses documented for the Encounter. Date/Time Primary/Secondary Diagnosis Diagnosis Name Provider Source Mar 19, 2024 10:04 AM PRIMARY Cognitive communication deficit BEATRIZ DONOHUE [place] [facility] [place] [facility] Plan of Treatment: Future Appointments (+ 6 months) and Future Tests (+/- 45 days) The Plan of Treatment section includes future care activities for the patient from all [place] [facility]. This section includes future appointments and future orders which are active, pending or scheduled. Future Appointments This section includes appointments that were scheduled to occur 6 months from the date of the Encounter, up to a maximum of 20 appointments. The data comes from all [place] treatment facilities. Appointment Date/Time Appointment Type Appointme nt Facility Name Mar 12, 2024 08:15 AM AMBULATORY - MEDICINE [place] [facility] [place] [facility] Mar 21, 2024 08:30 AM AMBULATORY - MEDICINE [place] [facility] [place] [facility] Mar 22, 2024 09:00 AM AMBULATORY - MEDICINE [place] [facility] [place] [facility] Mar 22, 2024 11:00 AM AMBULATORY - MEDICINE [place] [facility] [place] [facility] Mar 22, 2024 11:15 AM AMBULATORY - MEDICINE [place] [facility] [place] [facility] Apr 11, 2024 10:30 AM AMBULATORY - MEDICINE [place] [facility] [place] [facility] Apr 20, 2024 10:30 AM AMBULATORY - REHAB MEDICIN [facility] Apr 30, 2024 09:00 AM AMBULATORY - MEDICINE [facility] May 04, 2024 10:00 AM [facility] May 07, 2024 08:30 AM AMBULATORY - MEDICINE [place] [facility] [place] [facility] May 22, 2024 03:30 PM AMBULATORY - MEDICINE [place] [facility] [place] [facility] June 29, 2024 10:30 AM [facility] July 03, 2024 12:00 PM AMBULATORY - MEDICINE [place] [facility] [place] [facility] Jul 09, 2024 08:00 AM AMBULATORY - MEDICINE [place] [facility] [place] [facility] Jul 09, 2024 08:30 AM AM[facility]ULAT[facility] Jul 10, 2024 01:30 PM AMBULATORY - MEDICINE [place] [facility] [place] [facility] Jul 19, 2024 01:00 PM AMBULATORY - REHAB MEDICIN [facility] [place] Active, Pending, and Scheduled Orders This section includes a listing of several types of active, pending, and scheduled orders, including clinic medications orders, diagnostic test orders, procedure orders and consult orders; where the start date of the order is 45 days before the date of the Encounter or 45 days after the date of theEncounter. The data comes from all [place] treatment facilities. Test Date/Time Test Type Test Details Facility Name Apr 05, 2024 12:00 AM Laboratory - Chemistry Order HEMOGLOBIN A1C PANEL BLOOD (LAV-BLOOD) [facility] Social History: Smoking Status (Most current) and Tobacco Use (All prior to encounter date) This section includes the most current, and the historical, smoking and tobacco- related health factors from the [place] facility where the Encounter took place. Current Smoking Status This section includes the most current smoking, or tobacco-related health factor, from the [place] facility where the Encounter took place. Date/Time Current Smoking Status Comment Bro recinos Oct 18, 2023 01:38 PM VA-TOBACCO NEVER USED [facility] Tobacco Use History This section includes a history of the smoking, or tobacco-related health factors, that were collected on or before the date of the Encounter. The data comes from the [place] facility where the Encounter took place. Date/Time Smoking Status/Tobacco Use Comment F acility Sep 24, 2022 08:59 AM VA-TOBACCO FORMER USER [place] [facility] [place] [facility] Sep 24, 2022 08:59 AM VA-TOBACCO QUIT 15 YRS OR MORE [place] [facility] [place] [facility] Oct 01, 2021 10:00 AM VA-TOBACCO FORMER USER [place] [facility] [place] [facility] Oct 01, 2021 10:00 AM VA-TOBACCO QUIT 15 YRS OR MORE [facility] Advance Directives: All historical and current Section Date Range: From patient's date of to the date document was created. This section includes ALL of a patient's completed or amended [place] Advance and Rescinded Directives. The entries below indicate that a directive exists for the patient, but an actual copy is not included with this document. The data comes from all [place] facilities. Date Advance Directives Provider Source Aug 20, 2017 ADVANCE DIRECTIVE DIMAYULIAS DOLL [place] [facility] Encounter Notes: All associated encounter notes This section contains the clinical notes associated to the Encounter. Date/Time Encounter Note(s) Provider Source Mar 09, 2024 08:38 AM SPEECH PATHOLOGY C ONSULT: LOCAL TITLE: CONSULT REPORT/SPEECH/SWALLOWING STANDARD TITLE: SPEECH PATHOLOGY CONSULT DATE OF NOTE: MAR 09, 2024@08:38 ENTRY DATE: MAR 09, 2024@08:42:19 AUTHOR: MICHAEL DONOHUE COSIGNER: FEROZ VALLADARES URGENCY: STATUS: COMPLETED S: Pt. is seen today for difficulties with communication. He is [place] and a candidate for cochlear implant but is reluctant to proceed. He has some benefit from amplification, but would like assistance with speech to text cami to use in conversation with others. Active problems - Computerized Problem List is the source for the followin. Bilateral arthritis of knees 2. Diabetes type 2 with retinopathy 3. 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 Allergic Rhinitis ([facility] [id number]) 5. Benign Prostatic Hypertrophy without Outflow Obstruction ([facility] [id number]) 6. Carpal tunnel syndrome of right wrist 7. Osteoarthritis of knee 8. Chronic kidney disease stage 3 due to type 2 diabetes mellitus 9. Acute non-ST segment elevation myocardial infarction 10. Paroxysmal atrial fibrillation 11. CAD - Coronary Artery Disease ([facility] [id number]) 12. Ischaemic cardiomyopathy 13. Long-term current use of anticoagulant 14. Gross hematuria 15. Vitamin D deficiency 16. Rosacea ([facility] [id number]) 17. Cataract, Unspecified 18. Diabetes type 2 with nephropathy 19. Tinnitus * 20. Vertigo * 21. Diabetic Neuropathies 22. Tendonitis, Achilles 23. Restless leg * 24. Hyperlipidemia 25. Benign hypertension 26. HEARING LOSS 27. 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 He was looking for an cami that would transcribe speech to text in real time. He has an Android phone and is not sure of what apps are available that can accomplish this. He was assisted in downloading an cami available to Android users. Its use was demonstrated and he was provided education through modeling and opportunities to practice using the cami. The was able to return demonstration of use of cami with communication partner. A: Pt. presents with communication challenges. He will benefit from instruction in use of compensatory strategies. P: No further sessions planned, f/u as needed /ta/ MICHAEL DONOHUE M.S.,CCC-MOTOR COACH TOUR OPERATOR SPEECH-LANGUAGE PATHOLOGIST Signed: 03/23/2024 08:34 /ta/ FEROZ VALLADARES NP NURSE PRACTITIONER Cosigned: 04/06/2024 15:37 MICHAEL DONOHUE [facility]
--- OUTSIDE RECORDS SUMMARY | 2024-03-20 22:55 | XMS_ITS | Encounter Summary ---
Author Name [facility] [place] [facility] [place] Address [address] [place] [id number] Care Team Providers Care Community Development Worker Name Role Phone KIT HARMAN Primary Care [...] PART A June 07, 2002 PART A [id number] DOUG JRMARIAH PATIENT MEDICARE (WNR) MEDICARE (M) PART A June 07, 2002 PART A [id number] DOUG SHELLMARIAH PATIENT MEDICARE (WNR) MEDICARE (M) PART A June 07, 2002 PART A [id number] DOUG SHELLSCOUTMARIAH PATIENT MEDICARE (WNR) MEDICARE (M) PART B June 07, 2002 PART B [id number] DOUG SHELLSCOUTMARIAH PATIENT MEDICARE (WNR) MEDICARE (M) PART A June 07, 2002 PART A [id number] [phone] MARIAH CAMACHO JR PATIENT MEDICARE (WNR) MEDICARE (M) PART B June 07, 2002 PART B [id number] [phone] MARIAH CAMACHO JR PATIENT Selected Encounter This section includes the information on record at [place] for the Encounter. Date/Time Encounter Type Encounter Description Reason Pro vider Source Mar 21, 2024 02:55 AM Outpatient Encounter ADMIN PAT ACTIVTIES (MASNONCT) IHE Encounter Template Text not used by [place] Plan of Treatment: Future Appointments (+ 6 months) and Future Tests (+/- 45 days) The Plan of Treatment section includes future care activities for the patient from all [place] treatmentfacilities. This section includes future appointments and future orders which are active, pending or scheduled. Future Appointments This section includes appointments that were scheduled to occur 6 months from the date of the Encounter, up to a maximum of 20 appointments. The data comes from all [place] treatment facilities. Appointment Date/Time Appointment Type Appointme nt Facility Name Mar 22, 2024 09:00 AM [facility] Mar 22, 2024 11:00 AM [facility] Mar 22, 2024 11:15 AM [facility] Apr 11, 2024 10:30 AM [facility]UL[facility]ORY [facility] Apr 20, 2024 10:30 AM AMBULATORY - [facility] [place] Apr 30, 2024 09:00 AM [facility] May 04, 2024 10:00 AM [facility] May 07, 2024 08:30 AM [facility] May 22, 2024 03:30 PM [facility]UL[facility]ORY [facility] June 29, 2024 10:30 AM [facility]ATORY [facility] July 03, 2024 12:00 PM AMBULATORY - [facility] Jul 09, 2024 08:00 AM [facility]UL[facility]ORY [facility] Jul 09, 2024 08:30 AM AMBULATORY - RE[facility]AB MEDICIN [facility] Jul 10, 2024 01:30 PM AM[facility]ULATORY - [facility] Jul 19, 2024 01:00 PM AMBULATORY - [facility] [place] Sep 10, 2024 09:00 AM AM[facility]ULATORY - [facility] Sep 14, 2024 10:30 AM AMBULATORY - RE[facility]AB MEDICIN [facility] [place] Active, Pending, and Scheduled Orders This section includes a listing of several types of active, pending, and scheduled orders, including clinic medications orders, diagnostic test orders, procedure orders and consult orders; where the start date of the order is 45 days before the date of the Encounter or 45 days after the date of theEncounter. The data comes from all [place] treatment facilities. Test Date/Time Test Type Test Details Facility Name Apr 05, 2024 12:00 AM Laboratory - Chemistry Order HEMOGLOBIN A1C PANEL BLOOD (LAV-BLOOD) [facility] Social History: Smoking Status (Most current) and Tobacco Use (All prior to encounter date) This section includes the most current, and the historical, smoking and tobacco- related health factors from the [place] facility where the Encounter took place. Current Smoking Status This section includes the most current smoking, or tobacco-related health factor, from the [place] facility where the Encounter took place. Date/Time Current Smoking Status Comment Bro ity Oct 18, 2023 01:38 PM [facility]TOBACCO [facility] Tobacco Use History This section includes a history of the smoking, or tobacco-related health factors, that were collected on or before the date of the Encounter. The data comes from the [place] facility where the Encounter took place. Date/Time Smoking Status/Tobacco Use Comment F acility Sep 24, 2022 08:59 AM VA-TOBACCO FORMER USER IN [facility] Sep 24, 2022 08:59 AM VA-TOBACCO QUIT 15 YRS OR MORE IN [facility] Oct 01, 2021 10:00 AM [facility]AC[facility] Oct 01, 2021 10:00 AM VA-TOBACCO QUIT 15 YRS OR MORE IN [facility] Advance Directives: All historical and current Section Date Range: From patient's date of to the date document was created. This section includes ALL of a patient's completed or amended [place] Advance and Rescinded Directives. The entries below indicate that a directive exists for the patient, but an actual copy is not included with this document. The data comes from all [place] facilities. Date Advance Directives Provider Source Aug 20, 2017 ADVANCE DIRECTIVE YULISA [facility] Encounter Notes: All associated encounter notes This section contains the clinical notes associated to the Encounter. Date/Time Encounter Note(s) Provider Source Mar 21, 2024 02:55 AM PHARMACY NOTE: LOCAL TITLE: V1 PHARMACY CUSTOMER CARE MEDICATION RENEWAL STANDARD TITLE: PHARMACY NOTE DATE OF NOTE: MAR 21, 2024@02:55 ENTRY DATE: MAR 21, 2024@02:56:03 AUTHOR: TERE ROMERO EXP COSIGNER: URGENCY: STATUS: COMPLETED V1 PHARMACY CUSTOMER CARE MEDICATION RENEWAL Has ADDENDA Date: Mar Division: Francis Pt referred by Pharmacy Call Center for medication renewal: Non-controlled/maintenanc e medication Medications requested: [id number] PRODIGY NO CODE (GLUCOSE) TEST STRIP Defer to primary care provider To be mailed . Please review and renew if appropriate. *This note was generated by [facility] Customer Care. If you have any questions or need assistance, do not contact this author. Please refer all questions to your local, on-site pharmacy departments. /ta/ TERE ROMERO CPhT Cut Off Saw Set Up Operator, [facility]arm[facility] Customer Care Signed: 03/21/2024 02:56 Receipt Acknowledged By: 03/21/2024 09:49 /ta/ WALDEMAR JARQUIN REGISTERED NURSE 04/04/2024 08:42 /ta/ FEROZ VALLADARES NP NURSE PRACTITIONER 03/21/2024 ADDENDUM STATUS: COMPLETED Order placed, held for provider review and signature if appropriate. /reece JARQUIN REGISTERED NURSE Signed: 03/21/2024 10:00 03/27/2024 ADDENDUM STATUS: COMPLETED THIS RECONCILER WAS UNABLE TO REACH LMOM TO CALL BACK TO SCHEDULE. /ta/ CHAZ CARRINGTON ADVANCE SWITCHBOARD RECEPTIONIST Signed: 03/27/2024 09:02 [facility]
--- OUTSIDE RECORDS SUMMARY | 2024-03-22 05:00 | XMS_ITS ---
Author Name [facility] [place] [facility] [place] [facility] [place] [facility] [place] Address [address] [place] [address] Care Team Providers Care [address] Magistrate Name Role Phone KIT HARMAN Primary Care [...] PART A June 07, 2002 PART A [id number] MARIAH CAMACHO JR PATIENT MEDICARE (WNR) MEDICARE (M) PART A June 07, 2002 PART A [id number] DOUG MARIAH SHLEL PATIENT MEDICARE (WNR) MEDICARE (M) PART A June 07, 2002 PART A [id number] [phone] MARIAH CAMACHO JR PATIENT MEDICARE (WNR) MEDICARE (M) PART B June 07, 2002 PART B [id number] [phone] DOUG JRMARIAH PATIENT MEDICARE (WNR) MEDICARE (M) PART A June 07, 2002 PART A [id number] MARIAH CAMACHO JR PATIENT MEDICARE (WNR) MEDICARE (M) PART B June 07, 2002 PART B [id number] MARIAH CAMACHO JR PATIENT Selected Encounter This section includes the information on record at [place] for the Encounter. 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, bi [facility] [place] [facility] Mar 22, 2024 12:03 PM SECONDARY Partial retinal artery occlusion, left eye [facility] [place] [facility] [place] [facility] Mar 22, 2024 12:03 PM SECONDARY Presence of intraocular lens [facility] [place] [facility] Mar 22, 2024 12:03 PM SECONDARY Squamous blepharitis left eye, upper and lower eyelids [facility] [place] [facility] Mar 22, 2024 12:03 PM SECONDARY Squamous blepharitis right eye, upper and lower eyelids [facility] [place] [facility] Plan of Treatment: Future Appointments (+ 6 months) and Future Tests (+/- 45 days) The Plan of Treatment section includes future care activities for the patient from all [place] treatmentfacilities. This section includes future appointments and future orders which are active, pending or scheduled. Future Appointments This section includes appointments that were scheduled to occur 6 months from the date of the Encounter, up to a maximum of 20 appointments. The data comes from all [place] treatment facilities. Appointment Date/Time Appointment Type Appointme nt Facility Name Apr 11, 2024 10:30 AM AMBULATORY - MEDICINE [facility] [place] [facility] Apr 20, 2024 10:30 AM AMBULATORY - RE[facility]IN [facility] Apr 30, 2024 09:00 AM AMBULATORY - MEDICINE [facility] May 04, 2024 10:00 AM AMBULATORY - MEDICINE [facility] May 07, 2024 08:30 AM AMBULATORY - MEDICINE [facility] [place] [facility] May 22, 2024 03:30 PM AMBULATORY - MEDICINE [facility] [place] [facility] June 29, 2024 10:30 AM AMBULATORY - MEDICINE [facility] July 03, 2024 12:00 PM AMBULATORY - MEDICINE [place] [facility] [place] [facility] Jul 09, 2024 08:00 AM AMBULATORY - MEDICINE [facility] [place] [facility] Jul 09, 2024 08:30 AM AMBULATORY - REHAB MEDICIN E [place] [facility] [place] [facility] Jul 10, 2024 01:30 PM AMBULATORY - MEDICINE [place] [facility] [place] [place] [facility] Jul 19, 2024 01:00 PM AMBULATORY - REHAB MED[facility]IN [facility] Sep 10, 2024 09:00 AM AMBULATORY - MEDICINE [facility] Sep 14, 2024 10:30 AM AMBULATORY - REHAB [facility] Active, Pending, and Scheduled Orders This section includes a listing of several types of active, pending, and scheduled orders, including clinic medications orders, diagnostic test orders, procedure orders and consult orders; where the start date of the order is 45 days before the date of the Encounter or 45 days after the date of theEncounter. The data comes from all [place] treatment facilities. Test Date/Time Test Type Test Details Facility Name Apr 05, 2024 12:00 AM Laboratory - Chemistry Order HEMOGLOBIN A1C PANEL BLOOD (LAV-BLOOD) [facility] [place] [facility] Social History: Smoking Status (Most current) and Tobacco Use (All prior to encounter date) This section includes the most current, and the historical, smoking and tobacco- related health factors from the VA facility where the Encounter took place. Current Smoking Status This section includes the most current smoking, or tobacco-related health factor, from the [place] facility where the Encounter took place. Date/Time Current Smoking Status Comment Bro recinos Oct 18, 2023 01:38 PM VA-TOBACCO NEVER USED [facility] Tobacco Use History This section includes a history of the smoking, or tobacco-related health factors, that were collected on or before the date of the Encounter. The data comes from the [place] facility where the Encounter took place. Date/Time Smoking Status/Tobacco Use Comment F acility Sep 24, 2022 08:59 AM [facility] Sep 24, 2022 08:59 AM VA-TOBACCO QUIT 15 YRS OR MORE [place] [facility] Oct 01, 2021 10:00 AM [facility] Oct 01, 2021 10:00 AM VA-TOBACCO QUIT 15 YRS OR MORE [facility] Advance Directives: All historical and current Section Date Range: From patient's date of to the date document was created. This section includes ALL of a patient's completed or amended [place] Advance and Rescinded Directives. The entries below indicate that a directive exists for the patient, but an actual copy is not included with this document. The data comes from all [place] facilities. Date Advance Directives Provider Source Aug 20, 2017 ADVANCE DIRECTIVE [facility] Encounter Notes: All associated encounter notes This section contains the clinical notes associated to the Encounter. Date/Time Encounter Note(s) Provider Source Mar 22, 2024 04:43 PM ADDENDUM: LOCAL TITLE: Addendum STANDARD TITLE: ADDENDUM DATE OF NOTE: MAR 22, 2024@16:43:12 ENTRY DATE: MAR 22, 2024@16:43:13 AUTHOR: SURINDER GARCIA EXP COSIGNER: URGENCY: STATUS: COMPLETED Please order new bifocals: OD +1.00 -1.00 X85 Add:+3.00 Pzm:0.00 Dir: Prz2:0.00 Dir2: OS +1.75 -2.00 X80 Add:+3.00 Pzm:0.00 Dir: Prz2:0.00 Dir2: FITTING INFORMATION FPD:69 NPD:66 [place]:R: L: SEG HT:R:19 L:19 Tint:None Shade:None VA Billable Items FRAME: HEATHER BERNABE [id number] Right Lens: POLY BIFOCAL FT28 1.586 POLY Left Lens: POLY BIFOCAL FT28 1.586 POLY /ta/ SURINDER GARCAI OD Evp Chief Exploration Officer Signed: 03/22/2024 16:43 Receipt Acknowledged By: 03/23/2024 09:20 /es/ Doris Arizmendi [facility] Customer Service Receptionist --- Original Document --- 03/22/24 OPTOMETRY NOTE: Active problems - Computerized Problem List is the source for the followin. Bilateral arthritis of knees 2. Diabetes type 2 with retinopathy 3. 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 Allergic Rhinitis ([facility] [id number]) 5. Benign Prostatic Hypertrophy without Outflow Obstruction ([facility] [id number]) 6. Carpal tunnel syndrome of right wrist 7. Osteoarthritis of knee 8. Chronic kidney disease stage 3 due to type 2 diabetes mellitus 9. Acute non-ST segment elevation myocardial infarction 10. Paroxysmal atrial fibrillation 11. CAD - Coronary Artery Disease ([facility] [id number]) 12. Ischaemic cardiomyopathy 13. Long-term current use of anticoagulant 14. Gross hematuria 15. Vitamin D deficiency 16. Rosacea (SNOMED CT [id number]) 17. Cataract, Unspecified 18. Diabetes type 2 with nephropathy 19. Tinnitus * 20. Vertigo * 21. Diabetic Neuropathies 22. Tendonitis, Achilles 23. Restless leg * 24. Hyperlipidemia 25. Benign hypertension 26. HEARING LOSS 27. ALCOHOL DEPENDENCY IN REM Active Outpatient Medications (including Supplies): Active Outpatient Medications Status 1) ACCU-CHEK GUIDE (GLUCOSE) TEST STRIP USE 1 STRIP TO TEST ACTIVE BLOOD SUGARS TWO TIMES A WEEK NEEDED Indication: DIABETES 2) AMIODARONE HCL 100MG TAB TAKE ONE TABLET BY MOUTH TWICE ACTIVE DAILY Indication: FOR VENTRICULAR FIBRILLATION 3) AMLODIPINE BESYLATE 10MG TAB TAKE ONE TABLET BY MOUTH ONCE ACTIVE DAILY FOR BLOOD PRESSURE/HEART, DO NOT TAKE WITH GRAPEFRUIT JUICE 4) APIXABAN 5MG TAB TAKE ONE TABLET BY MOUTH EVERY 12 HOURS ACTIVE 5) ATORVASTATIN CALCIUM 40MG TAB TAKE ONE-HALF TABLET BY MOUTH ACTIVE ONCE DAILY Indication: FOR HIGH CHOLESTEROL 6) CETIRIZINE HCL 10MG TAB TAKE ONE TABLET BY MOUTH ONCE DAILY ACTIVE NEEDED Indication: FOR ALLERGIES 7) CLOTRIMAZOLE 1% TOP CREAM APPLY A THIN LAYER TOPICALLY ONCE ACTIVE DAILY NEEDED FOR FUNGAL INFECTION 8) DEPEND UNDERWEAR,MAXIMUM,MEN LARGE USE 1 BRIEF DIRECTED ACTIVE TWICE DAILY NEEDED FOR PERSONAL CARE 9) DOXYCYCLINE HYCLATE 50MG CAP TAKE ONE CAPSULE BY MOUTH TWICE ACTIVE DAILY Indication: FOR INFECTION CAUSED BY BACTERIA 10) FINASTERIDE 5MG TAB TAKE ONE TABLET BY MOUTH ONCE DAILY ACTIVE 11) FUROSEMIDE 20MG TAB TAKE ONE TABLET BY MOUTH ONCE DAILY TO ACTIVE REMOVE FLUID/CONTROL BLOOD PRESSURE Indication: FOR VISIBLE WATER RETENTION 12) HYDRALAZINE HCL 25MG TAB TAKE ONE TABLET BY MOUTH THREE ACTIVE TIMES A DAY 13) LANCET,28G USE 1 LANCET TOPICALLY TWO TIMES A WEEK FOR ACTIVE PRODIGY LANCET DEVICES 14) LANCET,SOFTCLIX USE 1 LANCET TOPICALLY TWO TIMES A WEEK TO ACTIVE TEST BLOOD SUGAR Indication: DIABETES 15) METFORMIN HCL 500MG 24HR SA TAB TAKE ONE TABLET BY MOUTH ACTIVE (S) THREE TIMES A DAY Indication: FOR TYPE 2 DIABETES MELLITUS 16) PEG 400 0.4%/PROP GLYCOL 0.3% OPH SOLN INSTILL 1 DROP INTO ACTIVE EACH EYE FOUR TIMES DAILY NEEDED Indication: DRY EYE 17) PRODIGY NO CODE (GLUCOSE) TEST STRIP USE 1 STRIP TO TEST ACTIVE BLOOD SUGARS TWO TIMES A WEEK 18) PYRIDOXINE HCL 100MG TAB TAKE ONE TABLET BY MOUTH ONCE DAILY ACTIVE Pending Outpatient Medications Status 1) PRODIGY NO CODE (GLUCOSE) TEST STRIP USE 1 STRIP TO TEST PENDING BLOOD SUGARS TWICE A WEEK NEEDED Active Non-VA Medications Status 1) Non-VA OTHER CAP/TAB AVASTIN INJECTION BY MOUTH EVERY 5 ACTIVE WEEKS 20 Total Medications Allergies: PENICILLIN, LISINOPRIL, LOSARTAN, IRBESARTAN, VALSARTAN 160MG CAPSULE SPIRONOLACTONE, SITAGLIPTIN All medications including those prescribed by outside VA's, community providers, and all OTC meds were reviewed and reconciled with patient to the best of their abilities. This 88 year old MALE is seen today for annual CEE JESSICA: 10/29/22 Chief Complaint: Pt has been seen by [facility] by Dr. Davenport. Last scanned records was in 06/2023 and has not been scheduled for the next visit yet. Pt complains that the base of his eyelids itch on occasion and he use allergy gtt prn only Diabetic since 1979 Last A1C: 7.4 OHx: 1. Type 2 DM with mild NPDR, with macular edema OU - S/p VERNON, IVL OU 2. KAMILLE OU 3. Pseudophakia OU 4. Corneal stromal scar OD 5. Lattice degeneration OD - per tool or die drawing checker record Ocular Medications: None (-) Pain: (-) MARTINEZ: (-) Diplopia: (-) Flashes: (+) Floaters: longstanding (-) Amaurosis Fugax/Tia's: (-) Eye Injury: (+) Eye Surgery: CE with PCIOL OU; anti-VEGF injection OU every 5 weeks mainly OS (-) TBI FOHx: (-) Glaucoma/ARMD/Blindness VITALS (most recent, as listed in the electronic record): B/P: 152/70 (10/18/2023 13:37) Pulse: 67 (10/18/2023 13:37) Temperature: 97.3 F [36.3 C] (10/18/2023 13:37) Weight: 205.6 lb [93.26 kg] (10/18/2023 13:37) Height: 67 in [170.2 cm] (07/25/2023 13:12) BMI: BMI: 32.3 PERTINENT LABS: HEMOGLOBIN A1C TREND Collection DT Spec HGBA1c 10/18/2023 13:45 BLOOD 7.4 H 06/09/2023 07:51 BLOOD 7.1 H 04/21/2023 12:57 BLOOD 6.8 H 09/24/2022 09:02 BLOOD 6.9 H 11/18/2021 08:24 BLOOD 6.8 H (-) Smoker/Length of Time/PPD: Current Rx with last BCVA: OD: +1.00-1.00 x085 2020 OS: +1.75-2.00 x080 20+ Add:+2.50 DVA ( )sc ( x )cc - phoropter OD: -2/+1 OS: 20-2 Pupils: PERRL (-)APD EOMs: SAFE OU, (-)Pain/Diplopia CVF (facial, peripheral): FTFC OU Subjective Refraction: OD: +1.25-1.00 x085 20-2+1 OS: No change -2 Add:+2.75 20/30- not improved with higher ADD at 16in Add:+3.00 in free-space and pt appreciated difference / Final SRx OD: +1.00-1.00 x085 OS: +1.75-2.00 x080 Add:+3.00 All the above performed by student, reviewed by attending Anterior segment: Performed by student, repeated by attending * Lids: dermatochalasis OU, MGD OU with dense blepharitis OU Inclusion cyst next to superior puncta OS Conj: pinguecula T OU Cornea: OD: round corneal stromal scar centrally OU: whorl keratopathy AC: D&Q OU Angles: 4x4 OU Iris: flat and clear (-)NVI/TID OU Lens: PCIOL OU, centered, anterior phimosis OU (-)PXF OU Tonometry: Performed by student, reviewed by attending * [ ] GAT [x ] Orr OD 13 mmHg OS 14 mmHg Time:9:20am Last IOP OD: 17 OS: 17 Fundus exam: Dilated: xxxx Non dilated: Dilating Drops: 1GTT 1 % Tropicamide OU & 1GTT 2.5% Phenylephrine OU (Pt. ed. on side effects, dilation warning given and verbal consent obtained) Patient advised not to drive if they feel they have any symptoms which could affect their ability to drive safely. Patient advised not to engage in any activities which could put themselves or others at risk if they feel they have any symptoms which could affect their ability to perform those activities safely. Performed by student, repeated by attending * Vit: PVD OU C/D: 0.40 OD and 0.55 OS pink & healthy rim tissue (-)NVD OU Macula: OD: Scattered dot heme (+) CSME OS: 1 dot heme inf to fovea (+) CSME PPole: OD: 1 dot heme sup temp OS: 1 blot heme nasal to ONH; 1 dot heme inf temp; 3 blot heme inf temp aracade A/V: 2/3 Vessels: OD: normal caliber (-)VB OS: 1 fibrin clot at the third bifurcation at sup temp arcade Periph: flat and intact (-)NVE, holes, tears, detachments 360 OU Assessment/Plan: 1. 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 Last A1C was 7.4. Pt reported that lately his medications and BS test trips, which causing his A1C to spikes - Pt was last seen by [facility] by Dr. Davenport. Last scanned records was in 06/2023 and has not been scheduled for the next visit yet. - Pt ed on today's findings and the possible ocular health and visual complications associated with diabetes as well as importance of attending follow up appts - Encouraged pt to monitor blood sugar and continue taking medications as prescribed by their PCP - Pt ed to call immediately if experiencing any sudden changes in vision - [facility] 2. 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 - Fundus photo taken for documentation today - Pt ed about findings - Alert PCP regarding to today's findings - RTC 6mo with DFE 3. Anterior blepharitis OU - Pt ed about findings - Ordering lid scrubs to use at least once daily - Monitor 3. Pseudophakia OU; stable - Pt ed about findings - Monitor 4. 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 Regular astigmatism OU and presbyopia - Pt ed about findings - Ordering duplication for bifocals with +3.00D add - Monitor Return to Clinic 6mo or earlier PRN Patient Education: Diabetes: Patient was educated regarding diabetes and related ocular complications including retinopathy and cataract formation as well as other related systemic complications. The importance of good blood sugar control, blood sugar testing as recommended by their PCP and the importance of timely follow up were all emphasized. /ta/ LIAM COLLINS OPTOMETRY STUDENT Signed: 03/22/2024 12:07 /ta/ SURINDER GARCIA OD Evp Chief Exploration Officer Cosigned: 03/22/2024 16:40 03/22/2024 ADDENDUM STATUS: COMPLETED The optometry paid internship participated in this exam, I saw this in conjunction with the optometry student. The entrance tests and refraction were performed by the student and reviewed by me. I personally met with the patient, confirmed the history, complaints and the student's findings, and performed slit lamp and fundus evaluation as indicated. I reviewed and agree with the stated findings, assessment and plan. I have added/edited the documentation to reflect my exam findings and changes to the assessment and plan. time documentation: 40 minutes spent with the patient, reviewing records and completing charting, not including refraction. patient offered and declined printed medication list Medication Reconciliation: Outpatient: Has the patient been taking medications as documented in the EMLR? YES: The patient has been taking medications as documented in the EMLR. Essential Medication List for Review used to complete this medication reconciliation. INCLUDED IN THIS LIST: Alphabetical list of active outpatient prescriptions dispensed from this [place] (local) and dispensed from another [place] or [facility] facility (remote) as well as inpatient orders [...] [facility] [place] [facility] VALSARTAN 160MG CAPSULE [facility] NO KNOWN ALLERGIES Med Recon NoGlossary (Tool #1) INCLUDED IN THIS LIST: Alphabetical list of active outpatient prescriptions dispensed from this [place] (local) and dispensed from another [place] or [facility] facility (remote) as well as inpatient orders (local pending and active), local clinic medications, locally documented non-VA medications, and local prescriptions that have or been discontinued in the past 90 days. Non-VA Meds Last Documented On: May 25, 2023 NOTE The display of VA prescriptions dispensed from another [place] or [facility] facility (remote) is limited to active outpatient prescription entries matched to National Drug File at the originating site and may not include some items such as investigational drugs, compounds, etc. NOT INCLUDED IN THIS LIST: Medications self-entered by the patient into personal health records (i.e. [employer]) are NOT included in this list. Non-VA medications documented outside this [place], remote inpatient orders (regardless of status) and remote clinic medications are NOT included in this list. The patient and provider must always discuss medications the patient is taking, regardless of where the medication was dispensed or obtained. OUTPT AMIODARONE HCL 100MG TAB (Status = Discontinued) TAKE ONE TABLET BY MOUTH TWICE DAILY FOR VENTRICULAR FIBRILLATION NOTE DOSE DECREASED Rx# [id number] Last Released: 11/18/23 Qty/Days Supply: 180/90 Rx Expiration Date: 04/24/24 Refills Remainin Indication: FOR VENTRICULAR FIBRILLATION OUTPT AMIODARONE HCL 100MG TAB (Status = Active) TAKE ONE TABLET BY MOUTH TWICE DAILY FOR VENTRICULAR FIBRILLATION Rx# [id number] Last Released: 02/03/24 Qty/Days Supply: 180/90 Rx Expiration Date: 01/19/25 Refills Remainin Indication: FOR VENTRICULAR FIBRILLATION OUTPT AMLODIPINE BESYLATE 10MG TAB (Status = Discontinued) TAKE ONE TABLET BY MOUTH ONCE DAILY FOR BLOOD PRESSURE/HEART, DO NOT TAKE WITH GRAPEFRUIT JUICE Rx# [id number] Last Released: 07/13/23 Qty/Days Supply: 90 Rx Expiration Date: 04/07/24 Refills Remainin OUTPT AMLODIPINE BESYLATE 10MG TAB (Status = Active) TAKE ONE TABLET BY MOUTH ONCE DAILY FOR BLOOD PRESSURE/HEART, DO NOT TAKE WITH GRAPEFRUIT JUICE Rx# [id number] Last Released: 01/04/24 Qty/Days Supply: 9090 Rx Expiration Date: 12/31/24 Refills Remainin OUTPT APIXABAN 5MG TAB (Status = Discontinued) TAKE ONE TABLET BY MOUTH EVERY 12 HOURS Rx# [id number] Last Released: 09/13/23 Qty/Days Supply: 120/60 Rx Expiration Date: 01/13/24 Refills Remainin OUTPT APIXABAN 5MG TAB (Status = Active) TAKE ONE TABLET BY MOUTH EVERY 12 HOURS Rx# [id number] Last Released: 01/04/24 Qty/Days Supply: 120/60 Rx Expiration Date: 12/31/24 Refills Remainin OUTPT ATORVASTATIN CALCIUM 40MG TAB (Status = Discontinued) TAKE ONE-HALF TABLET BY MOUTH ONCE DAILY FOR HIGH CHOLESTEROL Rx# [id number] Last Released: 07/25/23 Qty/Days Supply: 45 Rx Expiration Date: 07/25/24 Refills Remainin Indication: FOR HIGH CHOLESTEROL OUTPT ATORVASTATIN CALCIUM 40MG TAB (Status = Active) TAKE ONE-HALF TABLET BY MOUTH ONCE DAILY FOR HIGH CHOLESTEROL Rx# [id number] Last Released: 01/20/24 Qty/Days Supply: 4590 Rx Expiration Date: 01/19/25 Refills Remainin Indication: FOR HIGH CHOLESTEROL OUTPT CARVEDILOL 3.125MG TAB (Status = Discontinued) TAKE ONE TABLET BY MOUTH TWICE DAILY WITH FOOD Rx# [id number] Last Released: Qty/Days Supply: 6030 Rx Expiration Date: 03/13/25 Refills Remainin OUTPT CETIRIZINE HCL 10MG TAB (Status = Active) TAKE ONE TABLET BY MOUTH ONCE DAILY NEEDED FOR ALLERGIES Rx# [id number] Last Released: 01/04/24 Qty/Days Supply: 90/90 Rx Expiration Date: 12/31/24 Refills Remainin Indication: FOR ALLERGIES OUTPT CLOTRIMAZOLE 1% TOP CREAM (Status = Active) APPLY A THIN LAYER TOPICALLY ONCE DAILY NEEDED FOR FUNGAL INFECTION Rx# [id number] Last Released: 10/25/23 Qty/Days Supply: Rx Expiration Date: 07/25/24 Refills Remainin OUTPT DOXYCYCLINE HYCLATE 50MG CAP (Status = Active) TAKE ONE CAPSULE BY MOUTH TWICE DAILY Rx# [id number] Last Released: 11/15/23 Qty/Days Supply: 60 Rx Expiration Date: 09/05/24 Refills Remainin Indication: FOR INFECTION CAUSED BY BACTERIA OUTPT EYELID CLEANSER,EYE SCRUB PAD (Status = Active/Suspended) USE 1 PAD TOPICALLY ONCE DAILY BLEPHARITIS Rx# [id number] Last Released: Supply: Rx Expiration Date: 03/23/25 Refills Remainin Indication: BLEPHARITIS OUTPT FINASTERIDE 5MG TAB (Status = Active) TAKE ONE TABLET BY MOUTH ONCE DAILY Rx# [id number] Last Released: 12/27/23 Qty/Days Supply: Rx Expiration Date: 06/09/24 Refills Remainin OUTPT FUROSEMIDE 20MG TAB (Status = Active) TAKE ONE TABLET BY MOUTH ONCE DAILY TO REMOVE FLUID/CONTROL BLOOD PRESSURE Rx# [id number] Last Released: 07/01/23 Qty/Days Supply: 90 Rx Expiration Date: 05/25/24 Refills Remainin Indication: FOR VISIBLE WATER RETENTION OUTPT HYDRALAZINE HCL 25MG TAB (Status = Active) TAKE ONE TABLET BY MOUTH THREE TIMES A DAY Rx# [id number] Last Released: 03/16/24 Qty/Days Supply: 60 Rx Expiration Date: 03/13/25 Refills Remainin OUTPT METFORMIN HCL 500MG 24HR SA TAB (Status = Discontinued) TAKE ONE TABLET BY MOUTH THREE TIMES A DAY FOR TYPE 2 DIABETES MELLITUS Rx# [id number] Last Released: 03/07/24 Qty/Days Supply: 270/ Rx Expiration Date: 04/21/24 Refills Remainin Indication: FOR TYPE 2 DIABETES MELLITUS OUTPT METFORMIN HCL 500MG 24HR SA TAB (Status = Active/Suspended) TAKE ONE TABLET BY MOUTH THREE TIMES A DAY FOR TYPE 2 DIABETES MELLITUS Rx# [id number] Last Released: Qt Supply: Rx Expiration Date: 03/06/25 Refills Remainin Indication: FOR TYPE 2 DIABETES MELLITUS Non-VA OTHER CAP/TAB TAKE AVASTIN INJECTION BY MOUTH EVERY 5 WEEKS OUTPT PEG 400 0.4%/PROP GLYCOL 0.3% OPH SOLN (Status = Active) INSTILL 1 DROP INTO EACH EYE FOUR TIMES DAILY NEEDED DRY EYE Rx# [id number] Last Released: 05/19/23 Qty/Days Supply: 45 Rx Expiration Date: 05/18/24 Refills Remainin Indication: DRY EYE OUTPT PYRIDOXINE HCL 100MG TAB (Status = Discontinued) TAKE ONE TABLET BY MOUTH ONCE DAILY Rx# [id number] Last Released: 10/14/23 Qty/Days Supply: 100 Rx Expiration Date: 12/29/23 Refills Remainin OUTPT PYRIDOXINE HCL 100MG TAB (Status = Active) TAKE ONE TABLET BY MOUTH ONCE DAILY Rx# [id number] Last Released: 01/20/24 Qty/Days Supply: 100 Rx Expiration Date: 01/19/25 Refills Remainin SUPPLIES OUTPT ACCU-CHEK GUIDE (GLUCOSE) TEST STRIP (Status = Active) USE 1 STRIP TO TEST BLOOD SUGARS TWO TIMES A WEEK NEEDED Rx# [id number] Last Released: 09/02/23 Qty/Days Supply: 50/180 Rx Expiration Date: 03/22/24 Refills Remainin Indication: DIABETES OUTPT DEPEND UNDERWEAR,MAXIMUM,MEN LARGE (Status = Active) USE 1 BRIEF DIRECTED TWICE DAILY NEEDED FOR PERSONAL CARE Rx# [id number] Last Released: 03/06/24 Qty/Days Supply: 170/90 Rx Expiration Date: 08/15/24 Refills Remainin OUTPT LANCET,28G (Status = Active) USE 1 LANCET TOPICALLY TWO TIMES A WEEK FOR PRODIGY LANCET DEVICES Rx# [id number] Last Released: 04/26/23 Qty/Days Supply: 100/90 Rx Expiration Date: 04/26/24 Refills Remainin OUTPT LANCET,SOFTCLIX (Status = Active) USE 1 LANCET TOPICALLY TWO TIMES A WEEK TO TEST BLOOD SUGAR Rx# [id number] Last Released: 03/23/23 Qty/Days Supply: 100/90 Rx Expiration Date: 03/23/24 Refills Remainin Indication: DIABETES OUTPT PRODIGY NO CODE (GLUCOSE) TEST STRIP (Status = Active) USE 1 STRIP TO TEST BLOOD SUGARS TWO TIMES A WEEK Rx# [id number] Last Released: 09/28/23 Qty/Days Supply: 50/90 Rx Expiration Date: 05/25/24 Refills Remainin OUTPT PRODIGY NO CODE (GLUCOSE) TEST STRIP (Status = Pending) USE 1 STRIP TO TEST BLOOD SUGARS TWICE A WEEK NEEDED Login Date: 03/21/24 Qty/Days Supply: 50/90 Refills Ordered: ta/ SURINDER GARCIA OD Evp Chief Exploration Officer Signed: 03/22/2024 16:42 SURINDER GARCIA [facility] [place] [facility] Mar 22, 2024 07:22 AM OPTOMETRY NOTE: LOCAL TITLE: OPTOMETRY NOTE STANDARD TITLE: OPTOMETRY NOTE DATE OF NOTE: MAR 22, 2024@07:22 ENTRY DATE: MAR 22, 2024@07:22:48 AUTHOR: LIAM COLLINS EXP COSIGNER: SURINDER GARCIA URGENCY: STATUS: COMPLETED OPTOMETRY NOTE Has ADDENDA Active problems - Computerized Problem List is the source for the followin. Bilateral arthritis of knees 2. Diabetes type 2 with retinopathy 3. 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 Allergic Rhinitis (SCT 04355969) 5. Benign Prostatic Hypertrophy without Outflow Obstruction (SCT [id number]) 6. Carpal tunnel syndrome of right wrist 7. Osteoarthritis of knee 8. Chronic kidney disease stage 3 due to type 2 diabetes mellitus 9. Acute non-ST segment elevation myocardial infarction 10. Paroxysmal atrial fibrillation 11. CAD - Coronary Artery Disease (SCT [id number]) 12. Ischaemic cardiomyopathy 13. Long-term current use of anticoagulant 14. Gross hematuria 15. Vitamin D deficiency 16. Rosacea (SNOMED CT [id number]) 17. Cataract, Unspecified 18. Diabetes type 2 with nephropathy 19. Tinnitus * 20. Vertigo * 21. Diabetic Neuropathies 22. Tendonitis, Achilles 23. Restless leg * 24. Hyperlipidemia 25. Benign hypertension 26. HEARING LOSS 27. ALCOHOL DEPENDENCY IN REM Active Outpatient Medications (including Supplies): Active Outpatient Medications Status 1) ACCU-CHEK GUIDE (GLUCOSE) TEST STRIP USE 1 STRIP TO TEST ACTIVE BLOOD SUGARS TWO TIMES A WEEK NEEDED Indication: DIABETES 2) AMIODARONE HCL 100MG TAB TAKE ONE TABLET BY MOUTH TWICE ACTIVE DAILY Indication: FOR VENTRICULAR FIBRILLATION 3) AMLODIPINE BESYLATE 10MG TAB TAKE ONE TABLET BY MOUTH ONCE ACTIVE DAILY FOR BLOOD PRESSURE/HEART, DO NOT TAKE WITH GRAPEFRUIT JUICE 4) APIXABAN 5MG TAB TAKE ONE TABLET BY MOUTH EVERY 12 HOURS ACTIVE 5) ATORVASTATIN CALCIUM 40MG TAB TAKE ONE-HALF TABLET BY MOUTH ACTIVE ONCE DAILY Indication: FOR HIGH CHOLESTEROL 6) CETIRIZINE HCL 10MG TAB TAKE ONE TABLET BY MOUTH ONCE DAILY ACTIVE NEEDED Indication: FOR ALLERGIES 7) CLOTRIMAZOLE 1% TOP CREAM APPLY A THIN LAYER TOPICALLY ONCE ACTIVE DAILY NEEDED FOR FUNGAL INFECTION 8) DEPEND UNDERWEAR,MAXIMUM,MEN LARGE USE 1 BRIEF DIRECTED ACTIVE TWICE DAILY NEEDED FOR PERSONAL CARE 9) DOXYCYCLINE HYCLATE 50MG CAP TAKE ONE CAPSULE BY MOUTH TWICE ACTIVE DAILY Indication: FOR INFECTION CAUSED BY BACTERIA 10) FINASTERIDE 5MG TAB TAKE ONE TABLET BY MOUTH ONCE DAILY ACTIVE 11) FUROSEMIDE 20MG TAB TAKE ONE TABLET BY MOUTH ONCE DAILY TO ACTIVE REMOVE FLUID/CONTROL BLOOD PRESSURE Indication: FOR VISIBLE WATER RETENTION 12) HYDRALAZINE HCL 25MG TAB TAKE ONE TABLET BY MOUTH THREE ACTIVE TIMES A DAY 13) LANCET,28G USE 1 LANCET TOPICALLY TWO TIMES A WEEK FOR ACTIVE PRODIGY LANCET DEVICES 14) LANCET,SOFTCLIX USE 1 LANCET TOPICALLY TWO TIMES A WEEK TO ACTIVE TEST BLOOD SUGAR Indication: DIABETES 15) METFORMIN HCL 500MG 24HR SA TAB TAKE ONE TABLET BY MOUTH ACTIVE (S) THREE TIMES A DAY Indication: FOR TYPE 2 DIABETES MELLITUS 16) PEG 400 0.4%/PROP GLYCOL 0.3% OPH SOLN INSTILL 1 DROP INTO ACTIVE EACH EYE FOUR TIMES DAILY NEEDED Indication: DRY EYE 17) PRODIGY NO CODE (GLUCOSE) TEST STRIP USE 1 STRIP TO TEST ACTIVE BLOOD SUGARS TWO TIMES A WEEK 18) PYRIDOXINE HCL 100MG TAB TAKE ONE TABLET BY MOUTH ONCE DAILY ACTIVE Pending Outpatient Medications Status 1) PRODIGY NO CODE (GLUCOSE) TEST STRIP USE 1 STRIP TO TEST PENDING BLOOD SUGARS TWICE A WEEK NEEDED Active Non-VA Medications Status 1) Non-VA OTHER CAP/TAB AVASTIN INJECTION BY MOUTH EVERY 5 ACTIVE WEEKS 20 Total Medications Allergies: PENICILLIN, LISINOPRIL, LOSARTAN, IRBESARTAN, VALSARTAN 160MG CAPSULE SPIRONOLACTONE, SITAGLIPTIN All medications including those prescribed by outside VA's, community providers, and all OTC meds were reviewed and reconciled with patient to the best of their abilities. This 88 year old MALE is seen today for annual CEE JESSICA: 10/29/22 Chief Complaint: Pt has been seen by [facility] by Dr. Davenport. Last scanned records was in 06/2023 and has not been scheduled for the next visit yet. Pt complains that the base of his eyelids itch on occasion and he use allergy gtt prn only Diabetic since 1979 Last A1C: 7.4 OHx: 1. Type 2 DM with mild NPDR, with macular edema OU - S/p VERNON, IVL OU 2. KAMILLE OU 3. Pseudophakia OU 4. Corneal stromal scar OD 5. Lattice degeneration OD - per tool or die drawing checker record Ocular Medications: None (-) Pain: (-) MARTINEZ: (-) Diplopia: (-) Flashes: (+) Floaters: longstanding (-) Amaurosis Fugax/Tia's: (-) Eye Injury: (+) Eye Surgery: CE with PCIOL OU; anti-VEGF injection OU every 5 weeks mainly OS (-) TBI FOHx: (-) Glaucoma/ARMD/Blindness VITALS (most recent, as listed in the electronic record): B/P: 152/70 (10/18/2023 13:37) Pulse: 67 (10/18/2023 13:37) Temperature: 97.3 F [36.3 C] (10/18/2023 13:37) Weight: 205.6 lb [93.26 kg] (10/18/2023 13:37) Height: 67 in [170.2 cm] (07/25/2023 13:12) BMI: BMI: 32.3 PERTINENT LABS: HEMOGLOBIN A1C TREND Collection DT Spec HGBA1c 10/18/2023 13:45 BLOOD 7.4 H 06/09/2023 07:51 BLOOD 7.1 H 04/21/2023 12:57 BLOOD 6.8 H 09/24/2022 09:02 BLOOD 6.9 H 11/18/2021 08:24 BLOOD 6.8 H (-) Smoker/Length of Time/PPD: Current Rx with last BCVA: OD: +1.00-1.00 x085 20/20 OS: +1.75-2.00 x080 20/25+ Add:+2.50 DVA ( )sc ( x )cc - phoropter OD: 20/25-2/+1 OS: 20/25-2 Pupils: PERRL (-)APD EOMs: SAFE OU, (-)Pain/Diplopia CVF (facial, peripheral): FTFC OU Subjective Refraction: OD: +1.25-1.00 x085 -2+1 OS: No change -2 Add:+2.75 - not improved with higher ADD at 16in Add:+3.00 in free-space and pt appreciated difference Final SRx OD: +1.00-1.00 x085 OS: +1.75-2.00 x080 Add:+3.00 All the above performed by student, reviewed by attending Anterior segment: Performed by student, repeated by attending * Lids: dermatochalasis OU, MGD OU with dense blepharitis OU Inclusion cyst next to superior puncta OS Conj: pinguecula T OU Cornea: OD: round corneal stromal scar centrally OU: whorl keratopathy AC: D&Q OU Angles: 4x4 OU Iris: flat and clear (-)NVI/TID OU Lens: PCIOL OU, centered, anterior phimosis OU (-)PXF OU Tonometry: Performed by student, reviewed by attending * [ ] GAT [x ] Orr OD 13 mmHg OS 14 mmHg Time:9:20am Last IOP OD: 17 OS: 17 Fundus exam: Dilated: xxxx Non dilated: Dilating Drops: 1GTT 1 % Tropicamide OU & 1GTT 2.5% Phenylephrine OU (Pt. ed. on side effects, dilation warning given and verbal consent obtained) Patient advised not to drive if they feel they have any symptoms which could affect their ability to drive safely. Patient advised not to engage in any activities which could put themselves or others at risk if they feel they have any symptoms which could affect their ability to perform those activities safely. Performed by student, repeated by attending * Vit: PVD OU C/D: 0.40 OD and 0.55 OS pink & healthy rim tissue (-)NVD OU Macula: OD: Scattered dot heme (+) CSME OS: 1 dot heme inf to fovea (+) CSME PPole: OD: 1 dot heme sup temp OS: 1 blot heme nasal to ONH; 1 dot heme inf temp; 3 blot heme inf temp aracade A/V: 2/3 Vessels: OD: normal caliber (-)VB OS: 1 fibrin clot at the third bifurcation at sup temp arcade Periph: flat and intact (-)NVE, holes, tears, detachments 360 OU Assessment/Plan: 1. 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 Last A1C was 7.4. Pt reported that lately his medications and BS test trips, which causing his A1C to spikes - Pt was last seen by [facility] by Dr. Davenport. Last scanned records was in 06/2023 and has not been scheduled for the next visit yet. - Pt ed on today's findings and the possible ocular health and visual complications associated with diabetes as well as importance of attending follow up appts - Encouraged pt to monitor blood sugar and continue taking medications as prescribed by their PCP - Pt ed to call immediately if experiencing any sudden changes in vision - Entered [facility] - RTC in 6mo 2. 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 - Fundus photo taken for documentation today - Pt ed about findings - Alert PCP regarding to today's findings - RTC 6mo with DFE 3. Anterior blepharitis OU - Pt ed about findings - Ordering lid scrubs to use at least once daily - Monitor 3. Pseudophakia OU; stable - Pt ed about findings - Monitor 4. 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 Regular astigmatism OU and presbyopia - Pt ed about findings - Ordering duplication for bifocals with +3.00D add - Monitor Return to Clinic 6mo or earlier PRN Patient Education: Diabetes: Patient was educated regarding diabetes and related ocular complications including retinopathy and cataract formation as well as other related systemic complications. The importance of good blood sugar control, blood sugar testing as recommended by their PCP and the importance of timely follow up were all emphasized. /ta/ LIAM COLLINS OPTOMETRY STUDENT Signed: 03/22/2024 12:07 /ta/ SURINDER GARCIA OD Evp Chief Exploration Officer Cosigned: 03/22/2024 16:40 03/22/2024 ADDENDUM STATUS: COMPLETED The optometry paid internship participated in this exam, I saw this [place] in conjunction with the optometry student. The entrance tests and refraction were performed by the student and reviewed by me. I personally met with the patient, confirmed the history, complaints and the student's findings, and performed slit lamp and fundus evaluation as indicated. I reviewed and agree with the stated findings, assessment and plan. I have added/edited the documentation to reflect my exam findings and changes to the assessment and plan. time documentation: 40 minutes spent with the patient, reviewing records and completing charting, not including refraction. patient offered and declined printed medication list Medication Reconciliation: Outpatient: Has the patient been taking medications as documented in the EMLR? YES: The patient has been taking medications as documented in the EMLR. Essential Medication List for Review used to complete this medication reconciliation. INCLUDED IN THIS LIST: Alphabetical list of active outpatient prescriptions dispensed from this VA (local) and dispensed from another VA or DoD facility (remote) as well as inpatient orders [...] [facility] [place] [facility] VALSARTAN 160MG CAPSULE [facility] NO KNOWN ALLERGIES Med Recon NoGlossary (Tool #1) INCLUDED IN THIS LIST: Alphabetical list of active outpatient prescriptions dispensed from this VA (local) and dispensed from another [place] or [facility] facility (remote) as well as inpatient orders (local pending and active), local clinic medications, locally documented non-VA medications, and local prescriptions that have or been discontinued in the past 90 days. Non-VA Meds Last Documented On: May 25, 2023 NOTE The display of VA prescriptions dispensed from another [place] or DoD facility (remote) is limited to active outpatient prescription entries matched to National Drug File at the originating site and may not include some items such as investigational drugs, compounds, etc. NOT INCLUDED IN THIS LIST: Medications self-entered by the patient into personal health records (i.e. [employer]) are NOT included in this list. Non-VA medications documented outside this [place], remote inpatient orders (regardless of status) and remote clinic medications are NOT included in this list. The patient and provider must always discuss medications the patient is taking, regardless of where the medication was dispensed or obtained. OUTPT AMIODARONE HCL 100MG TAB (Status = Discontinued) TAKE ONE TABLET BY MOUTH TWICE DAILY FOR VENTRICULAR FIBRILLATION NOTE DOSE DECREASED Rx# [id number] Last Released: 11/18/23 Qty/Days Supply: 180/90 Rx Expiration Date: 04/24/24 Refills Remainin Indication: FOR VENTRICULAR FIBRILLATION OUTPT AMIODARONE HCL 100MG TAB (Status = Active) TAKE ONE TABLET BY MOUTH TWICE DAILY FOR VENTRICULAR FIBRILLATION Rx# [id number] Last Released: 02/03/24 Qty/Days Supply: 180/90 Rx Expiration Date: 01/19/25 Refills Remainin Indication: FOR VENTRICULAR FIBRILLATION OUTPT AMLODIPINE BESYLATE 10MG TAB (Status = Discontinued) TAKE ONE TABLET BY MOUTH ONCE DAILY FOR BLOOD PRESSURE/HEART, DO NOT TAKE WITH GRAPEFRUIT JUICE Rx# [id number] Last Released: 07/13/23 Qty/Days Supply: 90/90 Rx Expiration Date: 04/07/24 Refills Remainin OUTPT AMLODIPINE BESYLATE 10MG TAB (Status = Active) TAKE ONE TABLET BY MOUTH ONCE DAILY FOR BLOOD PRESSURE/HEART, DO NOT TAKE WITH GRAPEFRUIT JUICE Rx# [id number] Last Released: 01/04/24 Qty/Days Supply: 90/90 Rx Expiration Date: 12/31/24 Refills Remainin OUTPT APIXABAN 5MG TAB (Status = Discontinued) TAKE ONE TABLET BY MOUTH EVERY 12 HOURS Rx# [id number] Last Released: 09/13/23 Qty/Days Supply: 120/60 Rx Expiration Date: 01/13/24 Refills Remainin OUTPT APIXABAN 5MG TAB (Status = Active) TAKE ONE TABLET BY MOUTH EVERY 12 HOURS Rx# [id number] Last Released: 01/04/24 Qty/Days Supply: 120/60 Rx Expiration Date: 12/31/24 Refills Remainin OUTPT ATORVASTATIN CALCIUM 40MG TAB (Status = Discontinued) TAKE ONE-HALF TABLET BY MOUTH ONCE DAILY FOR HIGH CHOLESTEROL Rx# [id number] Last Released: 07/25/23 Qty/Days Supply: Rx Expiration Date: 07/25/24 Refills Remainin Indication: FOR HIGH CHOLESTEROL OUTPT ATORVASTATIN CALCIUM 40MG TAB (Status = Active) TAKE ONE-HALF TABLET BY MOUTH ONCE DAILY FOR HIGH CHOLESTEROL Rx# [id number] Last Released: 01/20/24 Qty/Days Supply: Rx Expiration Date: 01/19/25 Refills Remainin Indication: FOR HIGH CHOLESTEROL OUTPT CARVEDILOL 3.125MG TAB (Status = Discontinued) TAKE ONE TABLET BY MOUTH TWICE DAILY WITH FOOD Rx# [id number] Last Released: QtDays Supply: Rx Expiration Date: 03/13/25 Refills Remainin OUTPT CETIRIZINE HCL 10MG TAB (Status = Active) TAKE ONE TABLET BY MOUTH ONCE DAILY NEEDED FOR ALLERGIES Rx# [id number] Last Released: 01/04/24 Qty/Days Supply: Rx Expiration Date: 12/31/24 Refills Remainin Indication: FOR ALLERGIES OUTPT CLOTRIMAZOLE 1% TOP CREAM (Status = Active) APPLY A THIN LAYER TOPICALLY ONCE DAILY NEEDED FOR FUNGAL INFECTION Rx# [id number] Last Released: 10/25/23 Qty/Days Supply: Rx Expiration Date: 07/25/24 Refills Remainin OUTPT DOXYCYCLINE HYCLATE 50MG CAP (Status = Active) TAKE ONE CAPSULE BY MOUTH TWICE DAILY Rx# [id number] Last Released: 11/15/23 Qty/Days Supply: Rx Expiration Date: 09/05/24 Refills Remainin Indication: FOR INFECTION CAUSED BY BACTERIA OUTPT EYELID CLEANSER,EYE SCRUB PAD (Status = Active/Suspended) USE 1 PAD TOPICALLY ONCE DAILY BLEPHARITIS Rx# [id number] Last Released: Qty/Days Supply: Rx Expiration Date: 03/23/25 Refills Remainin Indication: BLEPHARITIS OUTPT FINASTERIDE 5MG TAB (Status = Active) TAKE ONE TABLET BY MOUTH ONCE DAILY Rx# [id number] Last Released: 12/27/23 Qty/Days Supply: Rx Expiration Date: 06/09/24 Refills Remainin OUTPT FUROSEMIDE 20MG TAB (Status = Active) TAKE ONE TABLET BY MOUTH ONCE DAILY TO REMOVE FLUID/CONTROL BLOOD PRESSURE Rx# [id number] Last Released: 07/01/23 Qty/Days Supply: 90 Rx Expiration Date: 05/25/24 Refills Remainin Indication: FOR VISIBLE WATER RETENTION OUTPT HYDRALAZINE HCL 25MG TAB (Status = Active) TAKE ONE TABLET BY MOUTH THREE TIMES A DAY Rx# [id number] Last Released: 03/16/24 Qty/Days Supply: 60/ Rx Expiration Date: 03/13/25 Refills Remainin OUTPT METFORMIN HCL 500MG 24HR SA TAB (Status = Discontinued) TAKE ONE TABLET BY MOUTH THREE TIMES A DAY FOR TYPE 2 DIABETES MELLITUS Rx# [id number] Last Released: 03/07/24 Qty/Days Supply: 270 Rx Expiration Date: 04/21/24 Refills Remainin Indication: FOR TYPE 2 DIABETES MELLITUS OUTPT METFORMIN HCL 500MG 24HR SA TAB (Status = Active/Suspended) TAKE ONE TABLET BY MOUTH THREE TIMES A DAY FOR TYPE 2 DIABETES MELLITUS Rx# [id number] Last Released: Qty/Days Supply: Rx Expiration Date: 03/06/25 Refills Remainin Indication: FOR TYPE 2 DIABETES MELLITUS Non-VA OTHER CAP/TAB TAKE AVASTIN INJECTION BY MOUTH EVERY 5 WEEKS OUTPT PEG 400 0.4%/PROP GLYCOL 0.3% OPH SOLN (Status = Active) INSTILL 1 DROP INTO EACH EYE FOUR TIMES DAILY NEEDED DRY EYE Rx# [id number] Last Released: 05/19/23 Qty/Days Supply: Rx Expiration Date: 05/18/24 Refills Remainin Indication: DRY EYE OUTPT PYRIDOXINE HCL 100MG TAB (Status = Discontinued) TAKE ONE TABLET BY MOUTH ONCE DAILY Rx# [id number] Last Released: 10/14/23 Qty/Days Supply: Rx Expiration Date: 12/29/23 Refills Remainin OUTPT PYRIDOXINE HCL 100MG TAB (Status = Active) TAKE ONE TABLET BY MOUTH ONCE DAILY Rx# [id number] Last Released: 01/20/24 Qty/Days Supply: 100 Rx Expiration Date: 01/19/25 Refills Remainin SUPPLIES OUTPT ACCU-CHEK GUIDE (GLUCOSE) TEST STRIP (Status = Active) USE 1 STRIP TO TEST BLOOD SUGARS TWO TIMES A WEEK NEEDED Rx# [id number] Last Released: 09/02/23 Qty/Days Supply: 50/180 Rx Expiration Date: 03/22/24 Refills Remainin Indication: DIABETES OUTPT DEPEND UNDERWEAR,MAXIMUM,MEN LARGE (Status = Active) USE 1 BRIEF DIRECTED TWICE DAILY NEEDED FOR PERSONAL CARE Rx# [id number] Last Released: 03/06/24 Qty/Days Supply: 170/90 Rx Expiration Date: 08/15/24 Refills Remainin OUTPT LANCET,28G (Status = Active) USE 1 LANCET TOPICALLY TWO TIMES A WEEK FOR PRODIGY LANCET DEVICES Rx# [id number] Last Released: 04/26/23 Qty/Days Supply: 100/90 Rx Expiration Date: 04/26/24 Refills Remainin OUTPT LANCET,SOFTCLIX (Status = Active) USE 1 LANCET TOPICALLY TWO TIMES A WEEK TO TEST BLOOD SUGAR Rx# [id number] Last Released: 03/23/23 Qty/Days Supply: 100/90 Rx Expiration Date: 03/23/24 Refills Remainin Indication: DIABETES OUTPT PRODIGY NO CODE (GLUCOSE) TEST STRIP (Status = Active) USE 1 STRIP TO TEST BLOOD SUGARS TWO TIMES A WEEK Rx# [id number] Last Released: 09/28/23 Qty/Days Supply: 50/90 Rx Expiration Date: 05/25/24 Refills Remainin OUTPT PRODIGY NO CODE (GLUCOSE) TEST STRIP (Status = Pending) USE 1 STRIP TO TEST BLOOD SUGARS TWICE A WEEK NEEDED Login Date: 03/21/24 Qty/Days Supply: 50/90 Refills Ordered: 3 /reece GARCIA OD Evp Chief Exploration Officer Signed: 03/22/2024 16:42 03/22/2024 ADDENDUM STATUS: COMPLETED Please order new bifocals: OD +1.00 -1.00 X85 Add:+3.00 Pzm:0.00 Dir: Prz2:0.00 Dir2: OS +1.75 -2.00 X80 Add:+3.00 Pzm:0.00 Dir: Prz2:0.00 Dir2: FITTING INFORMATION FPD:69 NPD:66 [place]:R: L: SEG HT:R:19 L:19 Tint:None Shade:None VA Billable Items FRAME: HEATHER BERNABE [id number] Right Lens: POLY BIFOCAL FT28 1.586 POLY Left Lens: POLY BIFOCAL FT28 1.586 POLY /reece GARCIA OD Evp Chief Exploration Officer Signed: 03/22/2024 16:43 Receipt Acknowledged By: 03/23/2024 09:20 /ta/ Doris Arizmendi [facility] Customer Service Receptionist 03/23/2024 ADDENDUM STATUS: COMPLETED [facility] Customer Service Receptionist ordered patient 1 pair(s) of ft28 eyeglasses on 03/23/2024 as directed by provider. OPT HT entered consult(s) for order on behalf of provider. /ta/ oDris Arizmendi [facility] Customer Service Receptionist Signed: 03/23/2024 09:21 LIAM COLLINS [place] [facility]
--- OUTSIDE RECORDS SUMMARY | 2024-03-22 07:00 | XMS_ITS | Encounter Summary ---
Author Name [facility] (MD) Organization [facility] ([place]) Address [address] [place] [id number] Care Team Providers Care Telephone Solicitor Name Role Phone DINORA HARMANBERLY Primary Care Provider Unavailabl e Insurance Providers: [...] PART A June 07, 2002 PART A [id number] MARIAH CAMACHO JR PATIENT MEDICARE (WNR) MEDICARE (M) PART A June 07, 2002 PART A [id number] DOUG MARIAH SHELL PATIENT MEDICARE (WNR) MEDICARE (M) PART A June 07, 2002 PART A [id number] SCOUT CAMACHO JRALD PATIENT MEDICARE (WNR) MEDICARE (M) PART B June 07, 2002 PART B [id number] [phone] DOUG SHELL,MARIAH PATIENT MEDICARE (WNR) MEDICARE (M) PART A June 07, 2002 PART A [id number] MARIAH CAMACHO JR PATIENT MEDICARE (WNR) MEDICARE (M) PART B June 07, 2002 PART B [id number] MARIAH CAMACHO JR PATIENT Selected Encounter This section includes the information on record at MD for the Encounter. 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 This section includes future appointments and future orders which are active, pending or scheduled. Future Appointments This section includes appointments that were scheduled to occur 6 months from the date of the Encounter, up to a maximum of 20 appointments. The data comes from all MD treatment facilities. Appointment Date/Time Appointment Type Appointme nt Facility Name Apr 11, 2024 10:30 AM AMBULATORY - MEDICINE MD C [facility] Apr 20, 2024 10:30 AM AMBULATORY - REHAB [facility] [place] Apr 30, 2024 09:00 AM [facility] May 04, 2024 10:00 AM AMBULATORY - MEDICINE [facility] May 07, 2024 08:30 AM AMBULATORY - MEDICINE MD C [facility] May 22, 2024 03:30 PM AMBULATORY - MEDICINE MD C [facility] June 29, 2024 10:30 AM AMBULATORY - MEDICINE [facility] July 03, 2024 12:00 PM AMBULATORY - MEDICINE MD C [facility] Jul 09, 2024 08:00 AM AMBULATORY - MEDICINE MD C [facility] Jul 09, 2024 08:30 AM AMBULATORY - REHAB MEDICIN E MD [facility] Jul 10, 2024 01:30 PM AMBULATORY - MEDICINE MD C [facility] Jul 19, 2024 01:00 PM AMBULATORY - REHAB MED[facility]IN [facility] [place] Sep 10, 2024 09:00 AM AMBULATORY - MEDICINE [facility] Sep 14, 2024 10:30 AM AMBULATORY - REHAB MEDICIN E [place] Active, Pending, and Scheduled Orders This section includes a listing of several types of active, pending, and scheduled orders, including clinic medications orders, diagnostic test orders, procedure orders and consult orders; where the start date of the order is 45 days before the date of the Encounter or 45 days after the date of theEncounter. The data comes from all MD treatment facilities. Test Date/Time Test Type Test Details Facility Name Apr 05, 2024 12:00 AM Laboratory - Chemistry Order HEMOGLOBIN A1C PANEL BLOOD (LA[facility]BLOOD) [facility] Social History: Smoking Status (Most current) and Tobacco Use (All prior to encounter date) This section includes the most current, and the historical, smoking and tobacco- related health factors from the MD facility where the Encounter took place. Current Smoking Status This section includes the most current smoking, or tobacco-related health factor, from the MD facility where the Encounter took place. Date/Time Current Smoking Status Comment Bro recinos Oct 18, 2023 01:38 PM VA-TOBACCO [facility] Tobacco Use History This section includes a history of the smoking, or tobacco-related health factors, that were collected on or before the date of the Encounter. The data comes from the MD facility where the Encounter took place. Date/Time Smoking Status/Tobacco Use Comment F acility Sep 24, 2022 08:59 AM VA-TOBACCO FORMER USER MD [facility] Sep 24, 2022 08:59 AM VA-TOBACCO QUIT 15 YRS OR MORE [facility] Oct 01, 2021 10:00 AM VA-TOBACCO FORMER USER [facility] [place] [facility] Oct 01, 2021 10:00 AM VA-TOBACCO QUIT 15 YRS OR MORE [facility] Advance Directives: All historical and current Section Date Range: From patient's date of to the date document was created. This section includes ALL of a patient's completed or amended MD Advance and Rescinded Directives. The entries below indicate that a directive exists for the patient, but an actual copy is not included with this document. The data comes from all MD facilities. Date Advance Directives Provider Source Aug 20, 2017 ADVANCE DIRECTIVE YULISA [facility] Encounter Notes: All associated encounter notes This section contains the clinical notes associated to the Encounter. 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 OU OD: Elevated foveal contour,(+)intraretinal fluid involving central fovea OS: Elevated foveal contour,(+)intraretinal fluid involving central fovea A/P: 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 The visual images were captured by the optometry health parking enforcement technician. Results of testing assessed by the student and reviewed by myself. I agree with the stated findings, assessment and plan. I have added/edited the documentation to reflect my exam findings and changes to the assessment and plan. /ta/ SURINDER GARCIA OD Assistant Production Editor Signed: 03/22/2024 16:39 LIAM COLLINS [facility]
--- OUTSIDE RECORDS SUMMARY | 2024-03-22 07:15 | XMS_ITS ---
Author Name [facility] of Veter[facility] ([place]) Organization [facility] of [facility] ([place]) Address [address] [place] [address] Care Team Providers Care Home Office Claims Examiner Name Role Phone KIT HARMAN Primary [facility] Insurance Providers: All historical and current [...] PART A June 07, 2002 PART A [id number] MARIAH CAMACHO JR PATIENT MEDICARE (WNR) MEDICARE (M) PART A June 07, 2002 PART A [id number] DOUG SHELLMARIAH PATIENT MEDICARE (WNR) MEDICARE (M) PART A June 07, 2002 PART A [id number] DOUGMARIAH LAI JR PATIENT MEDICARE (WNR) MEDICARE (M) PART B June 07, 2002 PART B [id number] DOUG SHELLMARIAH PATIENT MEDICARE (WNR) MEDICARE (M) PART A June 07, 2002 PART A [id number] [phone] MARIAH CAMACHO JR PATIENT MEDICARE (WNR) MEDICARE (M) PART B June 07, 2002 PART B [id number] MARIAH CAMACHO JR PATIENT Selected Encounter This section includes the information on record at DC for the Encounter. 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 This section includes future appointments and future orders which are active, pending or scheduled. Future Appointments This section includes appointments that were scheduled to occur 6 months from the date of the Encounter, up to a maximum of 20 appointments. The data comes from all DC treatment facilities. Appointment Date/Time Appointment Type Appointme nt Facility Name Apr 11, 2024 10:30 AM AMBULATORY - MEDICINE [place] C [facility] [place] [facility] Apr 20, 2024 10:30 [facility] Apr 30, 2024 09:00 AM [facility] May 04, 2024 10:00 AM AMBULATORY - MEDICINE [facility] May 07, 2024 08:30 AM AMBULATORY - MEDICINE [place] C [facility] [place] [facility] May 22, 2024 03:30 PM AMBULATORY - MEDICINE DC C [facility] [place] [facility] June 29, 2024 10:30 AM AMBULATORY - MEDICINE [facility] July 03, 2024 12:00 PM AMBULATORY - MEDICINE [place] C [facility] [place] [facility] Jul 09, 2024 08:00 AM AMBULATORY - MEDICINE [place] [facility] [place] [facility] Jul 09, 2024 08:30 AM AMBULATORY - REHAB MEDICIN E [facility] Jul 10, 2024 01:30 PM AMBULATORY - MEDICINE [place] C [facility] [place] [facility] Jul 19, 2024 01:00 PM AMBULATORY - REHAB MEDICIN E [place] Sep 10, 2024 09:00 AM [facility] Sep 14, 2024 10:30 AM AMBULATORY - REHAB MEDICPA E [place] Active, Pending, and Scheduled Orders This section includes a listing of several types of active, pending, and scheduled orders, including clinic medications orders, diagnostic test orders, procedure orders and consult orders; where the start date of the order is 45 days before the date of the Encounter or 45 days after the date of theEncounter. The data comes from all DC treatment facilities. Test Date/Time Test Type Test Details Facility Name Apr 05, 2024 12:00 AM Laboratory - Chemistry Order HEMOGLOBIN A1C PANEL BLOOD (LAV-BLOOD) SP [facility] Social History: Smoking Status (Most current) and Tobacco Use (All prior to encounter date) This section includes the most current, and the historical, smoking and tobacco- related health factors from the DC facility where the Encounter took place. Current Smoking Status This section includes the most current smoking, or tobacco-related health factor, from the DC facility where the Encounter took place. Date/Time Current Smoking Status Comment Bro recinos Oct 18, 2023 01:38 PM VA-TOBACCO NEVER USED [facility] Tobacco Use History This section includes a history of the smoking, or tobacco-related health factors, that were collected on or before the date of the Encounter. The data comes from the DC facility where the Encounter took place. Date/Time Smoking Status/Tobacco Use Comment F acility Sep 24, 2022 08:59 AM [facility] Sep 24, 2022 08:59 AM VA-TOBACCO QUIT 15 YRS OR MORE [facility] Oct 01, 2021 10:00 AM DC-TOBACCO [facility] Oct 01, 2021 10:00 AM DC-TOBACCO QUIT 15 YRS OR MORE [facility] Advance Directives: All historical and current Section Date Range: From patient's date of to the date document was created. This section includes ALL of a patient's completed or amended DC Advance and Rescinded Directives. The entries below indicate that a directive exists for the patient, but an actual copy is not included with this document. The data comes from all DC facilities. Date Advance Directives Provider Source Aug 20, 2017 ADVANCE DIRECTIVE YULISA [facility] Encounter Notes: All associated encounter notes This section contains the clinical notes associated to the Encounter. Date/Time Encounter Note(s) Provider Source Mar 22, 2024 11:48 AM OPTOMETRY CONSULT: LOCAL TITLE: CONSULT REPORT/OPTOMETRY FUNDUS PHOTO STANDARD TITLE: OPTOMETRY CONSULT DATE OF NOTE: MAR 22, 2024@11:48 ENTRY DATE: MAR 22, 2024@11:49:01 AUTHOR: LIAM COLLINS EXP COSIGNER: SURINDER GARCIA URGENCY: STATUS: COMPLETED CONSULT REPORT/OPTOMETRY FUNDUS PHOTO Has ADDENDA Fundus photo report: Fundus photos reviewed for patient with mild non-proliferative diabetic retinopathy and with chronic macular edema OU and retinal arterial occlusion with fibrin clot OS OD: Scattered 10-12 dot heme around the fovea (+) CSME (-) NVE/NVD/exudates (-) VB; normal vasculature OS: (+)CSME with 1 dot heme inf nasally to ONH, 2 dot heme and 2 blot heme at inf temp aracade (+) 1 fibrin clot at the 3rd bifurcation of the sup temp arcade (-) NVE/NVD/exudates (-)VB, normal vasculature A/P: 1. 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 The visual images were captured by the optometry health injection molding process technician. Results of testing assessed by the student and reviewed by myself. I agree with the stated findings, assessment and plan. I have added/edited the documentation to reflect my exam findings and changes to the assessment and plan. /ta/ SURINDER GARCIA OD Ecg Technician Signed: 03/22/2024 16:38 [facility] COLLINS [facility]
--- OUTSIDE RECORDS SUMMARY | 2024-04-20 06:30 | XMS_ITS | Encounter Summary ---
Author Name [facility] [place] Address [address] [place] [id number] Care Team Providers Care Construction Rigger Name Role Phone KIT HARMAN Primary [facility] Insurance Providers: All historical [...] PART A June 07, 2002 PART A [id number] [facility] MARIAH CAMACHO JR PATIENT MEDICARE (WNR) MEDICARE (M) PART A June 07, 2002 PART A [id number] MARIAH CAMACHO JR PATIENT MEDICARE (WNR) MEDICARE (M) PART A June 07, 2002 PART A [id number] [phone] MARIAH CAMACHO JR PATIENT MEDICARE (WNR) MEDICARE (M) PART B June 07, 2002 PART B [id number] MARIAH CAMACHO JR PATIENT MEDICARE (WNR) MEDICARE (M) PART A June 07, 2002 PART A [id number] [phone] MARIAH CAMACHO JR PATIENT MEDICARE (WNR) MEDICARE (M) PART B June 07, 2002 PART B [id number] [phone] MARIAH CAMACHO JR PATIENT Selected Encounter This section includes the information on record at OR for the Encounter. Date/Time Encounter Type Encounter Description Reason Provider Source Apr 20, 2024 10:30 AM HEARING AID REPAIR/MODIFYING AUDIOLOGY ICD-10-CM Z46.1 Encounter for fitting and adjustment of hearing aid PAMELLA OLVERA Encounter Template Text not used by OR Assessments - Encounter Diagnoses This section includes the primary and secondary diagnoses documented for the Encounter. Date/Time Primary/Secondary Diagnosis Diagnosis Name Provider Source Apr 20, 2024 10:52 AM PRIMARY Encounter for fitting and adjustment of hearing aid MICHAEL RUSSO Apr 20, 2024 10:52 AM SECONDARY Sensorineural hearing loss, bilateral MICHAEL RUSSO Plan of Treatment: Future Appointments (+ 6 months) and Future Tests (+/- 45 days) The Plan of Treatment section includes future care activities for the patient from all OR treatmentfacilities. This section includes future appointments and future orders which are active, pending or scheduled. Future Appointments This section includes appointments that were scheduled to occur 6 months from the date of the Encounter, up to a maximum of 20 appointments. The data comes from all [place] treatment facilities. Appointment Date/Time Appointment Type Appointme nt Facility Name Apr 30, 2024 09:00 AM [facility]ATORY [facility]INE [facility] May 04, 2024 10:00 AM [facility]ORY - MEDICINE [facility] May 07, 2024 08:30 AM AMBULATORY - MEDICINE [place] [facility] [place] [facility] May 22, 2024 03:30 PM AMBULATORY - MEDICINE [place] [facility] [place] [facility] June 29, 2024 10:30 AM [facility]ATORY - MEDICINE [facility] July 03, 2024 12:00 PM AMBULATORY - MEDICINE [place] [facility] [place] [facility] Jul 09, 2024 08:00 AM AMBULATORY - MEDICINE [place] [facility] [place] [facility] Jul 09, 2024 08:30 AM AMBULATORY - REHAB MEDICIN [facility] [place] [facility] Jul 10, 2024 01:30 PM AMBULATORY - MEDICINE OR C [facility] Jul 19, 2024 01:00 PM AMBULATORY - REHAB MEDICIN [facility] Sep 10, 2024 09:00 AM [facility] Sep 14, 2024 10:30 AM AMBULATORY - RE[facility]AB MED[facility] Oct 04, 2024 08:15 AM [facility] Oct 12, 2024 01:30 PM AMBULATORY - REHAB MEDICIN E [place] Oct 17, 2024 09:00 AM AMBULATORY - MEDICINE [facility] Active, Pending, and Scheduled Orders This section includes a listing of several types of active, pending, and scheduled orders, including clinic medications orders, diagnostic test orders, procedure orders and consult orders; where the start date of the order is 45 days before the date of the Encounter or 45 days after the date of theEncounter. The data comes from all [place] treatment facilities. Test Date/Time Test Type Test Details Facility Name Apr 05, 2024 12:00 AM Laboratory - Chemistry Order HEMOGLOBIN A1C PANEL BLOOD (LAV-BLOOD) [facility] Lab Results: +/- 30 days of the encounter This section includes the Chemistry and Hematology Lab Results on record with OR for the patient. Radiology Reports and Pathology Reports are provided separately, in subsequent sections. Lab Results This section contains the Chemistry/Hematology Results that were resulted 30 days before or 30 daysafter the date of the Encounter. Date/Time Source Result Type Result - Unit Interpretation Reference Range Specimen Type Comment May 04, 2024 10:07 AM [place] HEMOGLOBIN A1C PANEL BLOOD Specimen T ype: BLOOD Comment: Values obtained from A1C measurements can vary. For atypical A1C assays, a reported value of 7.0 could actually be between 6.72 and 7.28 if measured by a reference method. A reported value of 9.0 could actually be between 8.73 and 9.27. Ref: http://www.ngsp .org/CAPdata.as p Ordering Provider: IVETH JOHNSTON Report Released Date/Time: May 04, 2024 09:39 AM Reporting Lab: [address] [address] Performing Lab: [facility] [address] [facility] [address] HEMOGLOBIN A1C 7.3 H 4.0-5.6 May 04, 2024 10:07 AM [place] CREATININE (eGFR 2020) SERUM Specimen Type: SERUM No comment entered. Ordering Provider: IVETH JOHNSOTN Report Released Date/Time: May 04, 2024 09:39 AM Reporting Lab: [facility] [address] [facility] [address] Performing Lab: [facility] [address] [facility] [id number] CREATININE, Serum 1.17 mg/dL 0.50-1.40 eGFR(CKD-EPI 2020) 60 mL/min >60 Social History: Smoking Status (Most current) and Tobacco Use (All prior to encounter date) This section includes the most current, and the historical, smoking and tobacco- related health factors from the OR facility where the Encounter took place. Current Smoking Status This section includes the most current smoking, or tobacco-related health factor, from the OR facility where the Encounter took place. Date/Time Current Smoking Status Comment Bro recinos Apr 21, 2020 02:00 PM OR-TOBACCO NEVER USED [place] Tobacco Use History This section includes a history of the smoking, or tobacco-related health factors, that were collected on or before the date of the Encounter. The data comes from the OR facility where the Encounter took place. Date/Time Smoking Status/Tobacco Use Comment F acility Jan 24, 2019 12:41 PM VA-TOBACCO FORMER USER [place] Jan 24, 2019 12:41 PM VA-TOBACCO QUIT 15 YRS OR MORE [place] Sep 16, 2017 08:36 AM VA-TOBACCO FORMER USER [place] Sep 16, 2017 08:36 AM VA-TOBACCO QUIT 15 YRS OR MORE [place] Jan 26, 2017 11:33 AM QUIT TOBACCO USE > 7 YEARS AGO reports quitting 45 years ago [place] Dec 15, 2015 01:25 PM QUIT TOBACCO USE > 7 YEARS AGO quit 45 years ago, smoked 3 packs a day x 20 years [place] Apr 09, 2003 02:17 PM HISTORY OF SMOKING hx of 3ppd for 20 yrs quit smoking 25 yrs ago [place] Apr 09, 2003 02:17 PM QUIT TOBACCO USE > 7 YEARS AGO [place] Advance Directives: All historical and current Section Date Range: From patient's date of to the date document was created. This section includes ALL of a patient's completed or amended OR Advance and Rescinded Directives. The entries below indicate that a directive exists for the patient, but an actual copy is not included with this document. The data comes from all OR facilities. Date Advance Directives Provider Source Aug 20, 2017 ADVANCE DIRECTIVE YULISA CH OR [facility] Encounter Notes: All associated encounter notes This section contains the clinical notes associated to the Encounter. Date/Time Encounter Note(s) Provider Source Apr 20, 2024 07:46 AM AUDIOLOGY NOTE: LOCAL TITLE: AUDIOLOGY [facility] STANDARD TITLE: AUDIOLOGY NOTE DATE OF NOTE: APR 20, 2024@07:46 ENTRY DATE: APR 20, 2024@07:46:40 AUTHOR: MICHAEL RUSSO COSIGNER: PAMELLA OLVERA URGENCY: STATUS: COMPLETED AUDIOLOGY [facility] Has ADDENDA April 20, 2024 History/Background: [place] was seen for a hearing aid follow up at the [facility], unaccompanied. The presented today for routine hearing aid maintenance. Hearing aids: Jayda Evolv AI BTE-Left/ CROS BTE-Right Serial Numbers: [id number] Battery size: 13 Date Issued: 07/23/2022 Hearing aid check: Both hearing aids were cleaned and checked. Replaced TRS tubes, tonehooks, rm covers and batteries. Biologic check was good. Otoscopy: Clear canals. 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 He is currently using an cami on his cellphone but that is only working in his home or when there is wi-fi available. Alerting Dr. Soliz to explore options or schedule HAC to discuss. Plan: RTC in 4 months for routine hearing aid maintenance. /ta/ MICHAEL RUSSO Audiology [facility] Signed: 04/20/2024 10:55 /ta/ PAMELLA Francisco, MANUEL-A CHIEF, AUDIOLOGY/COMFORT STATION SUPERVISOR Cosigned: 04/20/2024 12:19 Receipt Acknowledged By: 04/23/2024 11:09 /Jak Kovacs, CCC-A STAFF SALES AGENT [employer] 04/23/2024 ADDENDUM STATUS: COMPLETED Entered prosthetics request for AInote 2, voice to text senior media director tablet on 04-23-24. It will be mailed to upon receipt. /Jak Kovacs, MANUEL-A STAFF SALES AGENT [employer] Signed: 04/23/2024 11:16 04/23/2024 ADDENDUM STATUS: COMPLETED After discussion with Prosthetics team, decided to order Caption Diazo Technician - Live Collar Stay Fuser Tender Tablet with [employer] for through [employer]. SKU #[id number] /Jak Kovacs, CCC-A STAFF SALES AGENT [employer] Signed: 04/23/2024 14:45 MICHAEL RUSSO
--- OUTSIDE RECORDS SUMMARY | 2024-04-30 05:00 | XMS_ITS | Encounter Summary ---
Author Name [facility] [place] [facility] [place] [facility] [place] Address [address] [place] [address] Care Team Providers Care Packaging Sales Representative Name Role Phone GHAZALKIT [facility] Insurance Providers: All historical and current [...] PART A June 07, 2002 PART A [id number] [facility] [phone] [id number] MARIAH CAMACHO JR PATIENT MEDICARE (WNR) MEDICARE (M) PART A June 07, 2002 PART A [id number] MARIAH CAMACHO JR PATIENT MEDICARE (WNR) MEDICARE (M) PART A June 07, 2002 PART A [id number] MARIAH CAMACHO JR PATIENT MEDICARE (WNR) MEDICARE (M) PART B June 07, 2002 PART B [id number] MARIAH CAMACHO JR PATIENT MEDICARE (WNR) MEDICARE (M) PART A June 07, 2002 PART A [id number] [id number] MARIAH CAMACHO JR PATIENT MEDICARE (WNR) MEDICARE (M) PART B June 07, 2002 PART B [id number] MARIAH CAMACHO JR PATIENT Selected Encounter This section includes the information on record at [place] for the Encounter. Date/Time Encounter Type Encounter Description Reason Provider Source Apr 30, 2024 09:00 AM OFFICE O/P EST LOW 20 MIN PODIATRY ICD-10-CM L60.0 Ingrowing nail RICKIE FARIA Marlee Encounter Template Text not used by [place] Assessments - Encounter Diagnoses This section includes the primary and secondary diagnoses documented for the Encounter. Date/Time Primary/Secondary Diagnosis Diagnosis Name Provider Source Apr 30, 2024 09:26 AM PRIMARY Ingrowing nail RICKIE FARIA JOSE MANUEL Apr 30, 2024 09:26 AM SECONDARY Pain in left toe(s) RICKIE FARIA JOSE MANUEL Apr 30, 2024 09:26 AM SECONDARY Pain in right toe(s) RICKIE FARIA JOSE MANUEL Apr 30, 2024 09:26 AM SECONDARY Type 2 diabetes w diabetic peripheral angiopath w/o gangrene RICKIE FARIA Plan of Treatment: Future Appointments (+ 6 months) and Future Tests (+/- 45 days) The Plan of Treatment section includes future care activities for the patient from all [place] treatmentfacilities. This section includes future appointments and future orders which are active, pending or scheduled. Future Appointments This section includes appointments that were scheduled to occur 6 months from the date of the Encounter, up to a maximum of 20 appointments. The data comes from all [place] treatment facilities. Appointment Date/Time Appointment Type Appointme nt Facility Name May 04, 2024 10:00 AM AMBULATORY - MEDICINE [facility] May 07, 2024 08:30 AM AMBULATORY - MEDICINE [place] [facility] [place] [facility] May 22, 2024 03:30 PM AMBULATORY - MEDICINE [place] [facility] [place] [facility] June 29, 2024 10:30 AM [facility] July 03, 2024 12:00 PM AMBULATORY - MEDICINE [place] [facility] [place] [facility] Jul 09, 2024 08:00 AM AMBULATORY - MEDICINE [place] [facility] [place] [facility] Jul 09, 2024 08:30 AM [facility] Jul 10, 2024 01:30 PM [facility] Jul 19, 2024 01:00 PM AMBULATORY - [facility]IC[facility] E [facility] Sep 10, 2024 09:00 AM [facility] Sep 14, 2024 10:30 AM AMBULATORY - REHAB MEDICIN E [place] Oct 04, 2024 08:15 AM AMBULATORY - MEDICINE [place] C [facility] Oct 12, 2024 01:30 PM AMBULATORY - REHAB MEDICIN E [place] Oct 17, 2024 09:00 AM AMBULATORY - MEDICINE [facility] Active, Pending, and Scheduled Orders This section includes a listing of several types of active, pending, and scheduled orders, including clinic medications orders, diagnostic test orders, procedure orders and consult orders; where the start date of the order is 45 days before the date of the Encounter or 45 days after the date of theEncounter. The data comes from all [place] treatment facilities. Test Date/Time Test Type Test Details Facility Name Apr 05, 2024 12:00 AM Laboratory - Chemistry Order HEMOGLOBIN A1C PANEL BLOOD (LAV-BLOOD) SP [facility] Lab Results: +/- 30 days of the encounter This section includes the Chemistry and Hematology Lab Results on record with [place] for the patient. Radiology Reports and Pathology Reports are provided separately, in subsequent sections. Lab Results This section contains the Chemistry/Hematology Results that were resulted 30 days before or 30 daysafter the date of the Encounter. Date/Time Source Result Type Result - Unit Interpretation Reference Range Specimen Type Comment May 04, 2024 10:07 AM [facility] HEMOGLOBIN A1C PANEL BLOOD Specimen T ype: [...] May 04, 2024 09:39 AM Reporting Lab: [facility] [address] [id number] Performing Lab: [facility] [address] [address] HEMOGLOBIN A1C 7.3 H 4.0-5.6 May 04, 2024 10:07 AM [facility] CREATININE (eGFR 2020) SERUM Specimen Type: SERUM No comment entered. Ordering Provider: IVETH JOHNSTON Report Released Date/Time: May 04, 2024 09:39 AM Reporting Lab: [facility] [address] [address] Performing Lab: [facility] [address] [id number] CREATININE, Serum 1.17 mg/dL 0.50-1.40 eGFR(CKD-EPI 2020) 60 mL/min >60 Social History: Smoking Status (Most current) and Tobacco Use (All prior to encounter date) This section includes the most current, and the historical, smoking and tobacco- related health factors from the [place] facility where the Encounter took place. Current Smoking Status This section includes the most current smoking, or tobacco-related health factor, from the [place] facility where the Encounter took place. Date/Time Current Smoking Status Comment Bro recinos Apr 21, 2020 02:00 PM VA-TOBACCO NEVER USED [facility] Tobacco Use History This section includes a history of the smoking, or tobacco-related health factors, that were collected on or before the date of the Encounter. The data comes from the [place] facility where the Encounter took place. Date/Time Smoking Status/Tobacco Use Comment F acility Jan 24, 2019 12:41 PM VA-TOBACCO FORMER USER [facility] Jan 24, 2019 12:41 PM VA-TOBACCO QUIT 15 YRS OR MORE [facility] Sep 16, 2017 08:36 AM VA-TOBACCO FORMER USER [facility] Sep 16, 2017 08:36 AM NV-TOBACCO QUIT 15 YRS OR MORE [facility] Jan 26, 2017 11:33 AM QUIT TOBACCO USE > 7 YEARS AGO reports quitting 45 years ago [facility] Dec 15, 2015 01:25 PM QUIT TOBACCO USE > 7 YEARS AGO quit 45 years ago, smoked 3 packs a day x 20 years [facility] Apr 09, 2003 02:17 PM HISTORY OF SMOKING hx of 3ppd for 20 yrs quit smoking 25 yrs ago [facility] Apr 09, 2003 02:17 PM QUIT TOBACCO USE > 7 YEARS AGO [facility] Advance Directives: All historical and current Section Date Range: From patient's date of to the date document was created. This section includes ALL of a patient's completed or amended [place] Advance and Rescinded Directives. The entries below indicate that a directive exists for the patient, but an actual copy is not included with this document. The data comes from all [place] facilities. Date Advance Directives Provider Source Aug 20, 2017 ADVANCE DIRECTIVE YULISA CH [place] [facility] Encounter Notes: All associated encounter notes This section contains the clinical notes associated to the Encounter. Date/Time Encounter Note(s) Provider Source Apr 30, 2024 09:28 AM PODIATRY NOTE: LOCAL TITLE: PODIATRY PAVE FOOT EXAM STANDARD TITLE: PODIATRY NOTE DATE OF NOTE: APR 30, 2024@09:28 ENTRY DATE: APR 30, 2024@09:28:11 AUTHOR: RICKIE FARIA EXP COSIGNER: URGENCY: STATUS: COMPLETED PAVE FOOT EXAM A foot risk level was completed. The following risk level was identified for this patient: +POD RISK SCORE+ *--LEVEL 3 - (HIGH RISK)* ANY of the following: Severe obstructive peripheral arterial disease Ulceration; OR history of ulceration, osteomyelitis, or amputation Charcot joint w/foot deformity Chronic kidney disease, stage 4 or higher (Decreased sensation, foot deformity, and minor foot infection may be present or absent) LEVEL 3 FOOT EDUCATION: 1. Advised patient that extra depth footwear with soft molded inserts and braces may be required. 2. Advised patient not to walk barefoot. Instructed the patient to pay close attention to the style and fit of shoes. 3. Explained the importance of daily foot checks. Explained that loss of sensation leads to callouses. Callouses break down, which result in ulcers that may lead to gangrene and amputation. 4. Stressed the importance of daily foot hygiene. Warm (not hot) bathing of the feet, complete drying and thorough inspection for changes in the condition of the skin constitute daily foot care. Demonstrated how to do a thorough foot check. 5. Emphasized the use of clean, non-restrictive socks/stockings and well fitting shoes. 6. Stressed the importance of immediate follow-up of any foot injuries or ulcers. Explained that he/she should be non-weight bearing whenever there are lesions on the foot, to prevent cellular damage. Level of Understanding: Good Patient/Family Response to Foot Care Teaching Patient walks barefoot: A few times per month Patient/caregiver able to clean feet at least once daily: Yes Patient/caregiver has difficulty examining feet: No /ta/ RICKIE FARIA DPM CANE FLUME WATCHER Signed: 04/30/2024 09:28 RICKIE FAIRA [facility] Apr 30, 2024 07:36 AM PODIATRY NOTE: LOCAL TITLE: PODIATRY NOTE STANDARD TITLE: PODIATRY NOTE DATE OF NOTE: APR 30, 2024@07:36 ENTRY DATE: APR 30, 2024@07:36:29 AUTHOR: RICKIE FARIA EXP COSIGNER: URGENCY: STATUS: COMPLETED PODIATRY NOTE Has ADDENDA NOTE: HAS RECEIVED BOTH COVID VACCINE DOSES +3 BOOSTERS AT [facility] LAST SEEN FOR TREATMENT: 10/26/2022 S: Pt. is an 88 yo alert WDWN CAUC MALE who is seen for continued podiatric [...] A1c = 7.4 LAST TAKEN: 10/2023 FBS 119-weekly RISK VALUE = 2 HEIGHT: 67 in [170.2 cm] (07/15/2017 13:22) WEIGHT: 223.9 lb [101.8 kg] (07/15/2017 13:22) PMH: Active problems - Computerized Problem List is the source for the following: *NOTE: REVIEWED ABOVE NOTING NO CHANGES SINCE PREVIOUS VISIT *NOTING NON-CONTRIBUTORY TO THE CC OTHER THAN TYPE II DM *NOTE: PLEASE SEE PROBLEM LIST TEMPLATE FOR COMPLETE LIST NEEDED. VASCULAR: EXAM REVEALS DP & PT pulses [...] present physical-medical status. Protective sensation utilizing a [place]-Sole lOg monofilament is 10/10 bilateral. ABOVE exams are reviewed and noted to be unchanged since previous visit & determined to be non-contributory to the cc . *NOTE: *YEARLY COMPLETE PAVE EXAM PERFORMED TODAY - SEE BELOW. A: Clinical Impression: Onychocryptic nails as noted [...] due to the underlying medical condition. RTC: 09/10 @9AM ) *DISCUSSED NEW PROTOCOLS AND CALLED MICHAEL TODAY [...] TO BE REVIEWED AT HOME (FOOT CARETIPS). DISCUSSED HIS CURRENT MEDICAL CONDITIONS AND BEING RESTRICTED ON TEST STRIPS AND OTHER MEDICATIONS THAT HE WAS ADVISED WERE NOT NECESSARY * CAN ONLY HAVE TEST STRIPS TWICE WEEKLY AND IS UNABLE TOMONITER HIS fbs AND THUS WAS REJECTED FOR KNEE REPLACEMENT SURGERY THIS YEAR) Medication Reconciliation: PERFORMED TODAY - SEE BELOW. Outpatient: Has the patient been taking medications as documented in the EMLR? YES: The patient has been taking medications as documented in the EMLR. Essential Medication List for Review used to complete this medication reconciliation. INCLUDED IN THIS LIST: Alphabetical list of active outpatient prescriptions dispensed from this [place] (local) and dispensed from another [place] or [facility] facility (remote) as well as inpatient orders [...] [facility] [place] [facility] 160MG [facility] NO KNOWN ALLERGIES Med Leo Velasco (Tool #1) INCLUDED IN THIS LIST: Alphabetical list of active outpatient prescriptions dispensed from this [place] (local) and dispensed from another [place] or [facility] facility (remote) as well as inpatient orders (local pending and active), local clinic medications, locally documented non-VA medications, and local prescriptions that have or been discontinued in the past 90 days. Non-VA Meds Last Documented On: May 25, 2023 NOTE The display of VA prescriptions dispensed from another [place] or [facility] facility (remote) is limited to active outpatient prescription entries matched to National Drug File at the originating site and may not include some items such as investigational drugs, compounds, etc. NOT INCLUDED IN THIS LIST: Medications self-entered by the patient into personal health records (i.e. [facility]) are NOT included in this list. Non-VA medications documented outside this [place], remote inpatient orders (regardless of status) and remote clinic medications are NOT included in this list. The patient and provider must always discuss medications the patient is taking, regardless of where the medication was dispensed or obtained. OUTPT AMIODARONE HCL 100MG TAB (Status = Active) TAKE ONE TABLET BY MOUTH TWICE DAILY FOR VENTRICULAR FIBRILLATION Rx# [id number] Last Released: 02/03/24 Qty/Days Supply: 180/90 Rx Expiration Date: 01/19/25 Refills Remainin Indication: FOR VENTRICULAR FIBRILLATION OUTPT AMLODIPINE BESYLATE 10MG TAB (Status = Active) TAKE ONE TABLET BY MOUTH ONCE DAILY FOR BLOOD PRESSURE/HEART, DO NOT TAKE WITH GRAPEFRUIT JUICE Rx# [id number] Last Released: 01/04/24 Qty/Days Supply: 90 Rx Expiration Date: 12/31/24 Refills Remainin OUTPT APIXABAN 5MG TAB (Status = Active) TAKE ONE TABLET BY MOUTH EVERY 12 HOURS Rx# [id number] Last Released: 04/23/24 Qty/Days Supply: 120/60 Rx Expiration Date: 12/31/24 Refills Remainin OUTPT ATORVASTATIN CALCIUM 40MG TAB (Status = Active) TAKE ONE-HALF TABLET BY MOUTH ONCE DAILY FOR HIGH CHOLESTEROL Rx# [id number] Last Released: 01/20/24 Qty/Days Supply: 45 Rx Expiration Date: 01/19/25 Refills Remainin Indication: FOR HIGH CHOLESTEROL OUTPT CARVEDILOL 3.125MG TAB (Status = Discontinued) TAKE ONE TABLET BY MOUTH TWICE DAILY WITH FOOD Rx# [id number] Last Released: Qt/Days Supply: 60 Rx Expiration Date: 03/13/25 Refills Remainin OUTPT CETIRIZINE HCL 10MG TAB (Status = Active) TAKE ONE TABLET BY MOUTH ONCE DAILY NEEDED FOR ALLERGIES Rx# [id number] Last Released: 04/26/24 Qty/Days Supply: 90 Rx Expiration Date: 12/31/24 Refills Remainin Indication: FOR ALLERGIES OUTPT CLOTRIMAZOLE 1% TOP CREAM (Status = Active) APPLY A THIN LAYER TOPICALLY ONCE DAILY NEEDED FOR FUNGAL INFECTION Rx# [id number] Last Released: 10/25/23 Qty/Days Supply: 90 Rx Expiration Date: 07/25/24 Refills Remainin OUTPT DOXYCYCLINE HYCLATE 50MG CAP (Status = Active) TAKE ONE CAPSULE BY MOUTH TWICE DAILY Rx# [id number] Last Released: 11/15/23 Qty/Days Supply: 60 Rx Expiration Date: 09/05/24 Refills Remainin Indication: FOR INFECTION CAUSED BY BACTERIA OUTPT EYELID CLEANSER,EYE SCRUB PAD (Status = Active) USE 1 PAD TOPICALLY ONCE DAILY BLEPHARITIS Rx# [id number] Last Released: 03/29/24 Qty/Days Supply: Rx Expiration Date: 03/23/25 Refills Remainin Indication: BLEPHARITIS OUTPT FINASTERIDE 5MG TAB (Status = Active) TAKE ONE TABLET BY MOUTH ONCE DAILY Rx# [id number] Last Released: 04/17/24 Qty/Days Supply: Rx Expiration Date: 06/09/24 Refills Remainin OUTPT FUROSEMIDE 20MG TAB (Status = Active) TAKE ONE TABLET BY MOUTH ONCE DAILY TO REMOVE FLUID/CONTROL BLOOD PRESSURE Rx# [id number] Last Released: 07/01/23 Qty/Days Supply: Rx Expiration Date: 05/25/24 Refills Remainin Indication: FOR VISIBLE WATER RETENTION OUTPT HYDRALAZINE HCL 25MG TAB (Status = Active) TAKE ONE TABLET BY MOUTH THREE TIMES A DAY Rx# [id number] Last Released: 03/16/24 Qty/Days Supply: 60 Rx Expiration Date: 03/13/25 Refills Remainin OUTPT METFORMIN HCL 500MG 24HR SA TAB (Status = Discontinued) TAKE ONE TABLET BY MOUTH THREE TIMES A DAY FOR TYPE 2 DIABETES MELLITUS Rx# [id number] Last Released: 03/07/24 Qty/Days Supply: Rx Expiration Date: 04/21/24 Refills Remainin Indication: FOR TYPE 2 DIABETES MELLITUS OUTPT METFORMIN HCL 500MG 24HR SA TAB (Status = Active/Suspended) TAKE ONE TABLET BY MOUTH THREE TIMES A DAY FOR TYPE 2 DIABETES MELLITUS Rx# [id number] Last Released: Qty/ Supply: Rx Expiration Date: 03/06/25 Refills Remainin Indication: FOR TYPE 2 DIABETES MELLITUS Non-VA OTHER CAP/TAB TAKE AVASTIN INJECTION BY MOUTH EVERY 5 WEEKS OUTPT PEG 400 0.4%/PROP GLYCOL 0.3% OPH SOLN (Status = Active) INSTILL 1 DROP INTO EACH EYE FOUR TIMES DAILY NEEDED DRY EYE Rx# [id number] Last Released: 04/18/24 Qty/Days Supply: 45 Rx Expiration Date: 05/18/24 Refills Remainin Indication: DRY EYE OUTPT PYRIDOXINE HCL 100MG TAB (Status = Active) TAKE ONE TABLET BY MOUTH ONCE DAILY Rx# [id number] Last Released: 01/20/24 Qty/Days Supply: 100 Rx Expiration Date: 01/19/25 Refills Remainin SUPPLIES OUTPT ACCU-CHEK GUIDE (GLUCOSE) TEST STRIP (Status = ) USE 1 STRIP TO TEST BLOOD SUGARS TWO TIMES A WEEK NEEDED Rx# [id number] Last Released: 09/02/23 Qty/Days Supply: 50/180 Rx Expiration Date: 03/22/24 Refills Remainin Indication: DIABETES OUTPT DEPEND UNDERWEAR,MAXIMUM,MEN LARGE (Status = Active) USE 1 BRIEF DIRECTED TWICE DAILY NEEDED FOR PERSONAL CARE Rx# [id number] Last Released: 03/06/24 Qty/Days Supply: 170/90 Rx Expiration Date: 08/15/24 Refills Remainin OUTPT LANCET,28G (Status = ) USE 1 LANCET TOPICALLY TWO TIMES A WEEK FOR PRODIGY LANCET DEVICES Rx# [id number] Last Released: 04/26/23 Qty/Days Supply: 100/90 Rx Expiration Date: 04/26/24 Refills Remainin OUTPT LANCET,SOFTCLIX (Status = ) USE 1 LANCET TOPICALLY TWO TIMES A WEEK TO TEST BLOOD SUGAR Rx# [id number] Last Released: 03/23/23 Qty/Days Supply: 100/90 Rx Expiration Date: 03/23/24 Refills Remainin Indication: DIABETES OUTPT PRODIGY NO CODE (GLUCOSE) TEST STRIP (Status = Discontinued) USE 1 STRIP TO TEST BLOOD SUGARS TWO TIMES A WEEK Rx# [id number] Last Released: 09/28/23 Qty/Days Supply: 50/90 Rx Expiration Date: 05/25/24 Refills Remainin OUTPT PRODIGY NO CODE (GLUCOSE) TEST STRIP (Status = Active) USE 1 STRIP TO TEST BLOOD SUGARS TWICE A WEEK NEEDED DIABETES Rx# [id number] Last Released: 03/27/24 Qty/Days Supply: 200/60 Rx Expiration Date: 05/22/24 Refills Remainin Indication: DIABETES PAVE Foot Check: A complete foot check was completed at this encounter. VISUAL INSPECTION: Includes inspection for skin breaks, deformity, erythema, trauma, pallor on elevation, dependent rubor, nail deformities, extensive callus and pitting edema. Visual exam results: Abnormal Observations: Hammertoes, Thickened toenails PEDAL PULSES: Includes palpation of dorsalis and posterior tibial pulses and signs/symptoms of vascular compromise like pain, pallor, parasthesia or paralysis. Absent: Comment: PT PULSES ARE ABSENT BILAT SENSORY CHECK: Includes 10 gram Monofilament ([place]-Sole) test of sensation. Intact (Greater than or equal to 80% of sites checked) Abnormal (Less than 80% of sites checked): Intact Comment: VIBRATORY & MONOFILAMENT ARE WNL BILAT HIGH-RISK: HIGH RISK INFORMATION PROVIDED: 1. Advised patient that extra depth footwear with soft molded inserts and braces may be required. 2. Advised patient not to walk barefoot. 3. Explained the importance of daily foot checks. 4. Stressed the importance of daily foot hygiene, including bathing, complete drying and thorough inspection for changes. The patient verbalized understanding and was offered a detailed handout on diabetic foot care. Patient is established patient of Podiatry and/or Vascular: Last scheduled appointment: OCT 27, 2023@15:30 SPR PODIATRY 1 Comment: 10/27/2023 /ta/ RICKIE FARIA DPM CANE FLUME WATCHER Signed: 04/30/2024 09:27 04/30/2024 ADDENDUM STATUS: COMPLETED *NOTE: ORDERED MIRROR FOR SELF INSPECTION OF BOTH FEET HE HAS KNEE BRACES ON AND IS IN NEED OF ASSISTANCE* /ta/ RICKIE FARIA DPM CANE FLUME WATCHER Signed: 04/30/2024 10:09 RICKIE FARIA
--- OUTSIDE RECORDS SUMMARY | 2024-05-04 06:00 | XMS_ITS | Encounter Summary ---
Author Name [facility] [place] [facility] [place] Address [address] [place] [address] Care Team Providers Care Chocolate Temperer Name Role Phone KIT HARMAN Primary Care Provider [facility] Insurance Providers: All historical and [...] PART A June 07, 2002 PART A [id number] [facility] MARIAH CAMACHO JR PATIENT MEDICARE (WNR) MEDICARE (M) PART A June 07, 2002 PART A [id number] MARIAH CAMACHO JR PATIENT MEDICARE (WNR) MEDICARE (M) PART A June 07, 2002 PART A [id number] MARIAH CAMACHO JR PATIENT MEDICARE (WNR) MEDICARE (M) PART B June 07, 2002 PART B [id number] MARIAH CAMACHO JR PATIENT MEDICARE (WNR) MEDICARE (M) PART A June 07, 2002 PART A [id number] MARIAH CAMACHO JR PATIENT MEDICARE (WNR) MEDICARE (M) PART B June 07, 2002 PART B [id number] MARIAH CAMACHO JR PATIENT Selected Encounter This section includes the information on record at [place] for the Encounter. 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 This section includes future appointments and future orders which are active, pending or scheduled. Future Appointments This section includes appointments that were scheduled to occur 6 months from the date of the Encounter, up to a maximum of 20 appointments. The data comes from all [place] treatment facilities. Appointment Date/Time Appointment Type Appointme nt Facility Name May 07, 2024 08:30 AM [place]ORY [place] [facility] May 22, 2024 03:30 PM [place] [facility] June 29, 2024 10:30 AM AMBULATORY - MEDICINE [facility] July 03, 2024 12:00 PM [place] [facility] Jul 09, 2024 08:00 AM [place] [facility] Jul 09, 2024 08:30 AM AMBUL[place]ORY - [place] [facility] [place] [place] [facility] Jul 10, 2024 01:30 PM [place] [facility] Jul 19, 2024 01:00 PM AMBULATORY - REHAB MEDICIN [place] Sep 10, 2024 09:00 AM [facility] Sep 14, 2024 10:30 AM AMBULATORY - REHAB [facility] Oct 04, 2024 08:15 AM [place] [place] [facility] Oct 12, 2024 01:30 PM AMBULATORY - REHAB [facility] Oct 17, 2024 09:00 AM AMBULATORY - MEDICINE [facility] Active, Pending, and Scheduled Orders This section includes a listing of several types of active, pending, and scheduled orders, including clinic medications orders, diagnostic test orders, procedure orders and consult orders; where the start date of the order is 45 days before the date of the Encounter or 45 days after the date of theEncounter. The data comes from all [place] treatment facilities. Test Date/Time Test Type Test Details Facility Name Apr 05, 2024 12:00 AM Laboratory - Chemistry Order HEMOGLOBIN A1C PANEL BLOOD (LAV-BLOOD) SP [facility] Lab Results: +/- 30 days of the encounter This section includes the Chemistry and Hematology Lab Results on record with [place] for the patient. Radiology Reports and Pathology Reports are provided separately, in subsequent sections. Lab Results This section contains the Chemistry/Hematology Results that were resulted 30 days before or 30 daysafter the date of the Encounter. Date/Time Source Result Type Result - Unit Interpretation Reference Range Specimen Type Comment May 04, 2024 10:07 AM [place] HEMOGLOBIN A1C PANEL BLOOD Specimen T ype: BLOOD Comment: Values obtained from A1C measurements can vary. For atypical A1C assays, a reported value of 7.0 could actually be between 6.72 and 7.28 if measured by a reference method. A reported value of 9.0 could actually be between 8.73 and 9.27. Ref: http://www.ngsp .org/CAPdata.as p Ordering Provider: IVETH WASHINGTON Report Released Date/Time: May 04, 2024 09:39 AM Reporting Lab: [address] [address] Performing Lab: [address] [address] HEMOGLOBIN A1C 7.3 H 4.0-5.6 May 04, 2024 10:07 AM [place] CREATININE (eGFR 2020) SERUM Specimen Type: SERUM No comment entered. Ordering Provider: IVETH WASHINGTON Report Released Date/Time: May 04, 2024 09:39 AM [facility] [address] [address] Performing Lab: [facility] [address] [address] CREATININE, Serum 1.17 mg/dL 0.50-1.40 eGFR(CKD-EPI 2020) 60 mL/min >60 Social History: Smoking Status (Most current) and Tobacco Use (All prior to encounter date) This section includes the most current, and the historical, smoking and tobacco- related health factors from the [place] facility where the Encounter took place. Current Smoking Status This section includes the most current smoking, or tobacco-related health factor, from the [place] facility where the Encounter took place. Date/Time Current Smoking Status Comment Bro recinos Apr 21, 2020 02:00 PM VA-TOBACCO NEVER USED [place] Tobacco Use History This section includes a history of the smoking, or tobacco-related health factors, that were collected on or before the date of the Encounter. The data comes from the [place] facility where the Encounter took place. Date/Time Smoking Status/Tobacco Use Comment F acility Jan 24, 2019 12:41 PM VA-TOBACCO FORMER USER [place] Jan 24, 2019 12:41 PM VA-TOBACCO QUIT 15 YRS OR MORE [place] Sep 16, 2017 08:36 AM VA-TOBACCO FORMER USER [place] Sep 16, 2017 08:36 AM VA-TOBACCO QUIT 15 YRS OR MORE [place] Jan 26, 2017 11:33 AM QUIT TOBACCO USE > 7 YEARS AGO reports quitting 45 years ago [place] Dec 15, 2015 01:25 PM QUIT TOBACCO USE > 7 YEARS AGO quit 45 years ago, smoked 3 packs a day x 20 years [place] Apr 09, 2003 02:17 PM HISTORY OF SMOKING hx of 3ppd for 20 yrs quit smoking 25 yrs ago [place] Apr 09, 2003 02:17 PM QUIT TOBACCO USE > 7 YEARS AGO [place] Advance Directives: All historical and current Section Date Range: From patient's date of to the date document was created. This section includes ALL of a patient's completed or amended [place] Advance and Rescinded Directives. The entries below indicate that a directive exists for the patient, but an actual copy is not included with this document. The data comes from all [place] facilities. Date Advance Directives Provider Source Aug 20, 2017 ADVANCE DIRECTIVE YULISA CH [place] [facility] [place] [facility] Encounter Notes: All associated encounter notes This section contains the clinical notes associated to the Encounter. Date/Time Encounter Note(s) Provider Source May 04, 2024 09:37 AM PHARMACY OUTPATIEN T NOTE: LOCAL TITLE: PHARMACY CLINIC NOTE STANDARD TITLE: PHARMACY OUTPATIENT NOTE DATE OF NOTE: MAY 04, 2024@09:37 ENTRY DATE: MAY 04, 2024@09:38:04 AUTHOR: IVETH WASHINGTON COSIGNER: URGENCY: STATUS: COMPLETED Known Allergies: PENICILLIN, LISINOPRIL, LOSARTAN, IRBESARTAN, VALSARTAN 160MG CAPSULE SPIRONOLACTONE, SITAGLIPTIN MARIAH CAMACHO presented for diabetes management. Subjective: referred to pharmacy clinic d/t request for add'l test strips. Notes frustration with delaying knee replacement surgery d/t elevated A1c of 8.6% 03/2024. Since then, changed diet drastically and add'l test strips have allowed him to tailor diet and CHO intake. Notes weight loss with changes along with better sleep. States at one time he was on alogliptin and does not recall why it was d/c'd; no ADRs reported. Wants to change Prodigy meter to alternative; states he does not feel it is 100% accurate per reviews. Objective: Diabetes Medication Regimen: metformin SA 500mg TID Adherence: denies missed doses; prefers TID vs. once daily Most recent A1c: Non-VA [facility]: 03/14/2024 A1c: 8.6% Creatinine: 1.1mg/dL HEMOGLOBIN A1C TREND Collection DT Spec HGBA1c 10/18/2023 13:45 BLOOD 7.4 H 06/09/2023 07:51 BLOOD 7.1 H 04/21/2023 12:57 BLOOD 6.8 H 09/24/2022 09:02 BLOOD 6.9 H 11/18/2021 08:24 BLOOD 6.8 H LIPID PANEL TREND Collection DT Spec CHOL HDL CHO/HDL LDL-d LDL-c TRIG 04/21/2023 12:57 SERUM 181 49 3.7 101 156 H 10/05/2022 07:40 SERUM 117 47 2.5 53 83 11/18/2021 08:24 SERUM 154 40 3.9 85 146 10/22/2020 07:58 SERUM 155 37 L 4.2 97 103 04/09/2020 08:06 SERUM 165 40 4.1 99 130 CREATININE-EGFR 10/18/23 13:45 1.40 eGFR 49 06/09/23 07:51 1.24 Patient self-monitoring of blood glucose: Health-Carlos Alberto: At home : Patient self-monitors blood glucose -- x day and reports the following (mg/dl): 05/04/24 7 day avg. 129mg/dL 14 day avg. 128mg/dL 28 day avg. 138mg/dL BG readings: 137, 126, 125, 105, 111, 145, 124, 120, 119, 111, 129, 153, 148, 156, 122, 116, 126 Patient eats on avg. 3x day: Diet Patterns: B: oatmeal or bran flakes or wheaties or 1/2 banana + 12 grain toast + 3 strawberries L: varies; fish + beans + salad D: varies; fish + beans + jello Snacks: crackers Drinks: water Exercise: Uses wheelchair ramp for exercise (50 laps) Needs knee implant surgery for both knees HYPOGLYCEMIC Events: 0 in the last 2 weeks Hypoglycemia recognition & treatment reviewed: Yes EtOH/Illicit drugs: Alcohol: denies Tobacco: denies Other: Denies personal or fhx thyroid cancer Denies hx pancreatitis Hx UTIs/ bladder issues ; hx ADR empagliflozin Personal Goals: Achieve and maintain A1c <8% to have knee surgery Asessment/Plan: A1c is currently above goal of <7-8% or 8-9%. Educated pt on A1c and BG targets, long-term complications of uncontrolled diabetes (i.e. damage to heart, eyes, kidneys, nerves, etc), components of healthy diabetic diet (i.e. consume 3 meals/day, do not skip or delay meals, basics of CHO counting, healthy snack choices, etc). A1c collected and pending. Anticipate improvement as pt has made significant LSMs and reported BG readings at goal. Will await results before further changes; may consider resumption of alogliptin as appropriate. Will order Accu-Chek Guide Me meter and supplies. Pt denies issues with vision; unclear why he is utilizing Prodigy meter, but states he is able to use Guide Me meter/supplies. Will place PA-F consult for add'l test strips x 90 days until surgery. Diabetes: - Continue metformin SA 500mg TID; pt preference to take TID - Continue to SMBG 2x/day; PA-F for add'l strips - Monitor for s/sx hypoglycemia and contact clinic if BG consistently < 70mg/dL - Healthy dietary lifestyle modifications encouraged - Repeat A1c: collected; pending *wants letter with results* Clinic's Next Scheduled Follow-up: 1 week (telephone; review labs) HTN: Last BP elevated; ADR to PADMAJA-I/ARB; defer to PCP ASCVD: atorvastatin 20mg/day Microalb: 29.8 mg/G (10/2023) History of Preventive Care: Most recent visit to assistant drafter: 04/2024 Most recent visit to optometry: 03/2024; Type 2 DM with mild NPDR, with macular edema OU Time Spent: 40 minutes PBM PharmD Pharmacotherapy Rem V12: PHARMACIST INTERVENTIONS: TYPE 2 DIABETES MELLITUS Medication monitoring, no dosage change required, continue to monitor and assess Medication reconciliation (changes to active VA and non-VA medication lists to reconcile differences) No changes to medication lists made (medication review completed, no discrepancies identified) /ta/ Iveth Washington PharmD Clinical Pharmacy Practitioner Signed: 05/04/2024 10:29 IVETH WASHINGTONFIELD
--- OUTSIDE RECORDS SUMMARY | 2024-06-16 09:47 | XMS_ITS ---
Author Name [facility] [place] [facility] [place] Address [address] [place] [id number] Care Team Providers Care Calender Operator Helper Name Role Phone KIT HARMAN Primary Care [...] PART A June 07, 2002 PART A [id number] [phone] DOUG JRMARIAH PATIENT MEDICARE (WNR) MEDICARE (M) PART A June 07, 2002 PART A [id number] DOUG SHELLMARIAH PATIENT MEDICARE (WNR) MEDICARE (M) PART A June 07, 2002 PART A [id number] DOUG SHELLSCOUTMARIAH PATIENT MEDICARE (WNR) MEDICARE (M) PART B June 07, 2002 PART B [id number] [phone] DOUG SHELLSCOUTMARIAH PATIENT MEDICARE (WNR) MEDICARE (M) PART A June 07, 2002 PART A [id number] MARIAH CAMACHO JR PATIENT MEDICARE (WNR) MEDICARE (M) PART B June 07, 2002 PART B [id number] MARIAH CAMACHO JR PATIENT Selected Encounter This section includes the information on record at [place] for the Encounter. Date/Time Encounter Type Encounter Description Reason Pro vider Source June 16, 2024 01:47 PM Outpatient Encounter ADMIN PAT ACTIVTIES (MASNONCT) IHE Encounter Template Text not used by [place] Plan of Treatment: Future Appointments (+ 6 months) and Future Tests (+/- 45 days) The Plan of Treatment section includes future care activities for the patient from all [place] treatmentfacilities. This section includes future appointments and future orders which are active, pending or scheduled. Future Appointments This section includes appointments that were scheduled to occur 6 months from the date of the Encounter, up to a maximum of 20 appointments. The data comes from all [place] treatment facilities. Appointment Date/Time Appointment Type Appointme nt Facility Name June 29, 2024 10:30 AM AMBULATORY - MEDICINE [facility] July 03, 2024 12:00 PM [place] [facility] Jul 09, 2024 08:00 AM [place] [facility] Jul 09, 2024 08:30 AM AMBULATORY - REHAB MEDICIN [facility] [place] [facility] Jul 10, 2024 01:30 PM [place] [facility] Jul 19, 2024 01:00 PM AMBULATORY - REHAB MEDICIN [facility] Sep 10, 2024 09:00 AM AM[facility]UL[facility] Sep 14, 2024 10:30 AM AMBULATORY - REHAB MEDICIN [place] Oct 04, 2024 08:15 AM AM[place] [facility] Oct 12, 2024 01:30 PM AMBULATORY - REHAB MEDICIN [facility] Oct 17, 2024 09:00 AM [place] [facility] Dec 06, 2024 09:00 AM [place] [facility] Active, Pending, and Scheduled Orders This section includes a listing of several types of active, pending, and scheduled orders, including clinic medications orders, diagnostic test orders, procedure orders and consult orders; where the start date of the order is 45 days before the date of the Encounter or 45 days after the date of theEncounter. The data comes from all [place] treatment facilities. Test Date/Time Test Type Test Details Facility Name July 04, 2024 04:19 PM Consult Order COMMUNITY CARE-UROLOGY Cons Flanging Operator's [facility] Social History: Smoking Status (Most current) and Tobacco Use (All prior to encounter date) This section includes the most current, and the historical, smoking and tobacco- related health factors from the [place] facility where the Encounter took place. Current Smoking Status This section includes the most current smoking, or tobacco-related health factor, from the [place] facility where the Encounter took place. Date/Time Current Smoking Status Comment Facil ity Oct 18, 2023 01:38 PM VA-TOBACCO NEVER USED [facility] Tobacco Use History This section includes a history of the smoking, or tobacco-related health factors, that were collected on or before the date of the Encounter. The data comes from the [place] facility where the Encounter took place. Date/Time Smoking Status/Tobacco Use Comment F acility Sep 24, 2022 08:59 AM [place] Sep 24, 2022 08:59 AM [place]-[facility] QU[facility] 15 YRS [facility] Oct 01, 2021 10:00 AM [facility] Oct 01, 2021 10:00 AM [place]-TOBACCO QUIT 15 YRS OR MORE [facility] Advance Directives: All historical and current Section Date Range: From patient's date of to the date document was created. This section includes ALL of a patient's completed or amended [place] Advance and Rescinded Directives. The entries below indicate that a directive exists for the patient, but an actual copy is not included with this document. The data comes from all [place] facilities. Date Advance Directives Provider Source Aug 20, 2017 ADVANCE DIRECTIVE YULISA CH [facility] Encounter Notes: All associated encounter notes This section contains the clinical notes associated to the Encounter. Date/Time Encounter Note(s) Provider Source June 16, 2024 01:47 PM PHARMACY NOTE: LOCAL TITLE: V1 PHARMACY CUSTOMER CARE MEDICATION RENEWAL STANDARD TITLE: PHARMACY NOTE DATE OF NOTE: JUNE 16, 2024@13:47 ENTRY DATE: JUNE 16, 2024@13:47:33 AUTHOR: CHAN NASH COSIGNER: URGENCY: STATUS: COMPLETED Date: June Division: [facility] referred by Pharmacy Call Center for medication renewal: Non-controlled/maintenance medication Medications requested: [id number] FINASTERIDE 5MG TAB Defer to primary care provider To be mailed . Please review and renew if appropriate. *This note was generated by [facility] Pharmacy Customer Care. If you have any questions or need assistance, do not contact this author. Please refer all questions to your local, on-site pharmacy departments. /ta/ CHAN NASH CPhT Journeyman Pipe Fitter, MA/Pharmacy Customer Care Signed: 06/16/2024 13:48 Receipt Acknowledged By: 2024 07:21 /ta/ FEROZ VALLADARES NP NURSE PRACTITIONER 2024 08:19 /ta/ WALDEMAR JARQUIN REGISTERED NURSE CHAN NASH [facility]
--- OUTSIDE RECORDS SUMMARY | 2024-06-29 06:30 | XMS_ITS | Encounter Summary ---
Author Name [facility] [place] [facility] [place] [facility] [facility] [place] Address [address] [place] [address] Care Team Providers Care Back Hand Name Role Phone KIT HARMAN [facility] Insurance Providers: All historical and [...] PART A June 07, 2002 PART A [id number] [facility] MARIAH CAMACHO JR PATIENT MEDICARE (WNR) MEDICARE (M) PART A June 07, 2002 PART A [id number] MARIAH CAMACHO JR PATIENT MEDICARE (WNR) MEDICARE (M) PART A June 07, 2002 PART A [id number] MARIAH CAMACHO JR PATIENT MEDICARE (WNR) MEDICARE (M) PART B June 07, 2002 PART B [id number] MARIAH CAMACHO JR PATIENT MEDICARE (WNR) MEDICARE (M) PART A June 07, 2002 PART A [id number] MARIAH CAMACHO JR PATIENT MEDICARE (WNR) MEDICARE (M) PART B June 07, 2002 PART B [id number] [phone] MARIAH CAMACHO JR PATIENT Selected Encounter This section includes the information on record at [place] for the Encounter. 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 This section includes future appointments and future orders which are active, pending or scheduled. Future Appointments This section includes appointments that were scheduled to occur 6 months from the date of the Encounter, up to a maximum of 20 appointments. The data comes from all [place] treatment facilities. Appointment Date/Time Appointment Type Appointme nt Facility Name July 03, 2024 12:00 PM AM[place]ULATORY [place] MEDICINE [place] [facility] [place] [facility] Jul 09, 2024 08:00 AM AMBULATORY - MEDICINE [place] [facility] [place] [facility] Jul 09, 2024 08:30 AM AMBULATORY - REHAB MEDICIN [place] [facility] [place] [facility] Jul 10, 2024 01:30 PM AMBULATORY - MEDICINE [place] [facility] [place] [facility] Jul 19, 2024 01:00 PM AMBULATORY - RE[facility] MEDICIN E [facility] Sep 10, 2024 09:00 AM AM[facility]ULATORY - MEDICINE [facility] Sep 14, 2024 10:30 AM AMBULATORY - REHAB MEDICIN E [facility] Oct 04, 2024 08:15 AM AMBULATORY - MEDICINE [place] [facility] [place] [facility] Oct 12, 2024 01:30 PM AMBULATORY - REHAB MEDICIN E [facility] Oct 17, 2024 09:00 AM AM[facility]ULATORY - MEDICINE [place] [facility] Dec 06, 2024 09:00 AM [facility] - MED[facility] Active, Pending, and Scheduled Orders This section includes a listing of several types of active, pending, and scheduled orders, including clinic medications orders, diagnostic test orders, procedure orders and consult orders; where the start date of the order is 45 days before the date of the Encounter or 45 days after the date of theEncounter. The data comes from all [place] treatment facilities. Test Date/Time Test Type Test Details Facility Name July 04, 2024 04:19 PM Consult Order COMMUNITY CARE-UROLOGY Cons Audio Installer's Choice [facility] Social History: Smoking Status (Most current) and Tobacco Use (All prior to encounter date) This section includes the most current, and the historical, smoking and tobacco- related health factors from the [place] facility where the Encounter took place. Current Smoking Status This section includes the most current smoking, or tobacco-related health factor, from the [place] facility where the Encounter took place. Date/Time Current Smoking Status Comment Facil ity Apr 21, 2020 02:00 PM VA-TOBACCO NEVER USED [facility] Tobacco Use History This section includes a history of the smoking, or tobacco-related health factors, that were collected on or before the date of the Encounter. The data comes from the [place] facility where the Encounter took place. Date/Time Smoking Status/Tobacco Use Comment F acility Jan 24, 2019 12:41 PM VA-TOBACCO FORMER USER [facility] Jan 24, 2019 12:41 PM VA-TOBACCO QUIT 15 YRS OR MORE [facility] Sep 16, 2017 08:36 AM VA-TOBACCO FORMER USER [facility] Sep 16, 2017 08:36 AM VA-TOBACCO QUIT 15 YRS OR MORE [facility] Jan 26, 2017 11:33 AM QUIT TOBACCO USE > 7 YEARS AGO reports quitting 45 years ago [facility] Dec 15, 2015 01:25 PM QUIT TOBACCO USE > 7 YEARS AGO quit 45 years ago, smoked 3 packs a day x 20 years [facility] Apr 09, 2003 02:17 PM HISTORY OF SMOKING hx of 3ppd for 20 yrs quit smoking 25 yrs ago [facility] Apr 09, 2003 02:17 PM QUIT TOBACCO USE > 7 YEARS AGO [facility] Advance Directives: All historical and current Section Date Range: From patient's date of to the date document was created. This section includes ALL of a patient's completed or amended [place] Advance and Rescinded Directives. The entries below indicate that a directive exists for the patient, but an actual copy is not included with this document. The data comes from all [place] facilities. Date Advance Directives Provider Source Aug 20, 2017 ADVANCE DIRECTIVE YULISA CH [facility] Encounter Notes: All associated encounter notes This section contains the clinical notes associated to the Encounter. Date/Time Encounter Note(s) Provider Source June 29, 2024 10:39 AM ADDENDUM: LOCAL TITLE: Addendum STANDARD TITLE: ADDENDUM DATE OF NOTE: JUNE 29, 2024@10:39:20 ENTRY DATE: JUNE 29, 2024@10:39:21 AUTHOR: IVETH WASHINGTON COSIGNER: URGENCY: STATUS: COMPLETED Other: - Harrell states he has been calling to request a stair lift, but there is no recent notes in CPRS. Requesting assistance with how to get this request processed. Thank you. /ta/ Iveth Washington PharmD Clinical Pharmacy Practitioner Signed: 06/29/2024 10:39 Receipt Acknowledged By: 06/29/2024 11:49 /es/ WALDEMAR JARQUIN REGISTERED NURSE 07/04/2024 12:07 /es/ FEROZ VALLADARES NP NURSE PRACTITIONER 06/29/2024 15:59 /es/ JOYCE RODRÍGUEZ LPN LPN == --- Original Document --- 06/29/24 PHARMACY CLINIC NOTE: Known Allergies: PENICILLIN, LISINOPRIL, LOSARTAN, IRBESARTAN, VALSARTAN 160MG CAPSULE SPIRONOLACTONE, SITAGLIPTIN MARIAH Vlad DOUG presented for diabetes management. Subjective: Harrell referred to pharmacy clinic d/t request for [...] why it was d/c'd; no ADRs reported. At time of last visit, no changes were made. Pt is pleased that he has TKR surgery planned 07/13/24. Continues with LSMs and has lost >22lbs. Notes he continues to monitor diet. BG good . No concerns or ADRs. Anxious d/t history procedures being cancelled. Would like A1c prior to procedure along with urinalysis (previously cancelled d/t UTI); will go to lab after this visit. Objective: Diabetes Medication Regimen: metformin SA 500mg TID Adherence: denies missed doses; prefers TID vs. once daily Most recent A1c: HEMOGLOBIN A1C TREND Collection DT Spec HGBA1c 05/04/2024 10:07 BLOOD 7.3 H 10/18/2023 13:45 BLOOD 7.4 H 06/09/2023 07:51 BLOOD 7.1 H 04/21/2023 12:57 BLOOD 6.8 H 09/24/2022 09:02 BLOOD 6.9 H LIPID PANEL TREND Collection DT Spec CHOL HDL CHO/HDL LDL-d LDL-c TRIG 04/21/2023 12:57 SERUM 181 49 3.7 101 156 H 10/05/2022 07:40 SERUM 117 47 2.5 53 83 11/18/2021 08:24 SERUM 154 40 3.9 85 146 10/22/2020 07:58 SERUM 155 37 L 4.2 97 103 04/09/2020 08:06 SERUM 165 40 4.1 99 130 CREATININE-EGFR 05/04/24 10:07 1.17 10/18/23 13:45 1.40 Patient self-monitoring of blood glucose: Health-Carlos Alberto: At home : Patient self-monitors blood glucose -- x day and reports the following (mg/dl): Date Range: 05/31/2024 - 06/29/2024 bG values are displayed in mg/dL # of tests 32 Average 129 SD 26.3 Highest 249 Lowest 103 Avg tests/day 1.1 # HI 0 # LO 0 <70 0.0% 70-140 87.5% >140 12.5% Hypos(<50) 0 Date Range: 05/31/2024 - 06/29/2024 bG values are displayed in mg/dL 00:00- 05:30- 08:00- 11:00- 12:30- 17:00- 18:30- :30- 05:30 08:00 11:00 12:30 17:00 18:30 21:30 00:00 Ronda 05/31/2024 124 150 06/01/2024 124 06/02/2024 132 06/03/2024 130 126 06/05/2024 120 06/06/2024 117 Ronda 06/07/2024 107 06/08/2024 105 06/09/2024 103 06/10/2024 110 145 06/11/2024 105 06/12/2024 173 06/13/2024 132 Ronda 06/14/2024 120 06/15/2024 124 06/16/2024 119 06/17/2024 108 2024 137 06/19/2024 127 06/20/2024 136 Ronda 06/21/2024 139 06/22/2024 116 06/23/2024 116 06/24/2024 134 06/25/2024 249 06/26/2024 122 06/27/2024 136 Ronda 06/28/2024 122 06/29/2024 124 Patient eats on avg. 3x day: Diet [...] have knee surgery Asessment/Plan: A1c is currently AT goal of <7-8% or 8-9%. A1c improved and at goal. BG also all at goal with exception of one reading. Praised on efforts with LSMs and encouraged to continue. Continue with LSMs. No changes for now. Will call with lab results when available. May consider resumption of alogliptin as appropriate in the future. Avoid SGLT-2 inhibitor d/t hx ADR and UTIs. Diabetes: - Continue metformin SA 500mg TID; pt preference to take TID - Continue to SMBG 2x/day; PA-F for add'l strips approved x 90 days - Monitor for s/sx hypoglycemia and contact clinic if BG consistently < 70mg/dL - Healthy dietary lifestyle modifications encouraged - Repeat A1c: collected; pending Other: - Harrell states he has been calling to request a stair lift, but there is no recent notes in CPRS. Requesting assistance with how to get this request processed. Thank you. Clinic's Next Scheduled Follow-up: 1 weeks (review labs) then TBD HTN: Last BP elevated; ADR to PADMAJA-I/ARB; defer to PCP ASCVD: atorvastatin 20mg/day Microalb: 29.8 mg/G (10/2023) History of Preventive Care: Most recent visit to ict customer support officer: 04/2024 Most recent visit to optometry: 03/2024; Type 2 DM with mild NPDR, with macular edema OU Time Spent: 20 minutes PBM PharmD Pharmacotherapy Rem V12: PHARMACIST INTERVENTIONS: TYPE 2 DIABETES MELLITUS Medication monitoring, no dosage change required, continue to monitor and assess Medication reconciliation (changes to active VA and non-VA medication lists to reconcile differences) No changes to medication lists made (medication review completed, no discrepancies identified) /ta/ Iveth Washington PharmD Clinical Pharmacy Practitioner Signed: 06/29/2024 10:39 06/29/2024 ADDENDUM STATUS: COMPLETED OT consult for stair lift placed, held for provider review and signature if appropriate. /ta/ WALDEMAR JARQUIN REGISTERED NURSE Signed: 06/29/2024 11:50 IVETH WASHINGTON June 29, 2024 10:23 AM PHARMACY OUTPATIEN T NOTE: LOCAL TITLE: PHARMACY CLINIC NOTE STANDARD TITLE: PHARMACY OUTPATIENT NOTE DATE OF NOTE: JUNE 29, 2024@10:23 ENTRY DATE: JUNE 29, 2024@10:23:06 AUTHOR: IVETH WASHINGTON EXP COSIGNER: URGENCY: STATUS: COMPLETED PHARMACY CLINIC NOTE Has ADDENDA Known Allergies: PENICILLIN, LISINOPRIL, LOSARTAN, IRBESARTAN, VALSARTAN [...] why it was d/c'd; no ADRs reported. At time of last visit, no changes were made. Pt is pleased that he has TKR surgery planned 07/13/24. Continues with LSMs and has lost >22lbs. Notes he continues to monitor diet. BG good . No concerns or ADRs. Anxious d/t history procedures being cancelled. Would like A1c prior to procedure along with urinalysis (previously cancelled d/t UTI); will go to lab after this visit. Objective: Diabetes Medication Regimen: metformin SA 500mg TID Adherence: denies missed doses; prefers TID vs. once daily Most recent A1c: HEMOGLOBIN A1C TREND Collection DT Spec HGBA1c 05/04/2024 10:07 BLOOD 7.3 H 10/18/2023 13:45 BLOOD 7.4 H 06/09/2023 07:51 BLOOD 7.1 H 04/21/2023 12:57 BLOOD 6.8 H 09/24/2022 09:02 BLOOD 6.9 H LIPID PANEL TREND Collection DT Spec CHOL HDL CHO/HDL LDL-d LDL-c TRIG 04/21/2023 12:57 SERUM 181 49 3.7 101 156 H 10/05/2022 07:40 SERUM 117 47 2.5 53 83 11/18/2021 08:24 SERUM 154 40 3.9 85 146 10/22/2020 07:58 SERUM 155 37 L 4.2 97 103 04/09/2020 08:06 SERUM 165 40 4.1 99 130 CREATININE-EGFR 05/04/24 10:07 1.17 10/18/23 13:45 1.40 Patient self-monitoring of blood glucose: Health-Carlos Alberto: At home : Patient self-monitors blood glucose -- x day and reports the following (mg/dl): Date Range: 05/31/2024 - 06/29/2024 bG values are displayed in mg/dL # of tests 32 Average 129 SD 26.3 Highest 249 Lowest 103 Avg tests/day 1.1 # HI 0 # LO 0 <70 0.0% 70-140 87.5% >140 12.5% Hypos(<50) 0 Date Range: 05/31/2024 - 06/29/2024 bG values are displayed in mg/dL 00:00- 05:30- 08:00- 11:00- 12:30- 17:00- 18:30- 21:30- 05:30 08:00 11:00 12:30 17:00 18:30 21:30 00:00 Ronda 05/31/2024 124 150 06/01/2024 124 06/02/2024 132 06/03/2024 130 126 06/05/2024 120 06/06/2024 117 Ronda 06/07/2024 107 06/08/2024 105 06/09/2024 103 06/10/2024 110 145 06/11/2024 105 06/12/2024 173 06/13/2024 132 Ronda 06/14/2024 120 06/15/2024 124 06/16/2024 119 06/17/2024 108 2024 137 06/19/2024 127 06/20/2024 136 Ronda 06/21/2024 139 06/22/2024 116 06/23/2024 116 06/24/2024 134 06/25/2024 249 06/26/2024 122 06/27/2024 136 Ronda 06/28/2024 122 06/29/2024 124 Patient eats on avg. 3x day: Diet [...] have knee surgery Asessment/Plan: A1c is currently AT goal of <7-8% or 8-9%. A1c improved and at goal. BG also all at goal with exception of one reading. Praised on efforts with LSMs and encouraged to continue. Continue with LSMs. No changes for now. Will call with lab results when available. May consider resumption of alogliptin as appropriate in the future. Avoid SGLT-2 inhibitor d/t hx ADR and UTIs. Diabetes: - Continue metformin SA 500mg TID; pt preference to take TID - Continue to SMBG 2x/day; PA-F for add'l strips approved x 90 days - Monitor for s/sx hypoglycemia and contact clinic if BG consistently < 70mg/dL - Healthy dietary lifestyle modifications encouraged - Repeat A1c: collected; pending Other: - Harrell states he has been calling to request a stair lift, but there is no recent notes in CPRS. Requesting assistance with how to get this request processed. Thank you. Clinic's Next Scheduled Follow-up: 1 weeks (review labs) then TBD HTN: Last BP elevated; ADR to PADMAJA-I/ARB; defer to PCP ASCVD: atorvastatin 20mg/day Microalb: 29.8 mg/G (10/2023) History of Preventive Care: Most recent visit to ict customer support officer: 04/2024 Most recent visit to optometry: 03/2024; Type 2 DM with mild NPDR, with macular edema OU Time Spent: 20 minutes PBM PharmD Pharmacotherapy Rem V12: PHARMACIST INTERVENTIONS: TYPE 2 DIABETES MELLITUS Medication monitoring, no dosage change required, continue to monitor and assess Medication reconciliation (changes to active VA and non-VA medication lists to reconcile differences) No changes to medication lists made (medication review completed, no discrepancies identified) /reece Washington PharmD Clinical Pharmacy Practitioner Signed: 06/29/2024 10:39 06/29/2024 ADDENDUM STATUS: COMPLETED Other: - Harrell states he has been calling to request a stair lift, but there is no recent notes in CPRS. Requesting assistance with how to get this request processed. Thank you. /reece Washington PharmD Clinical Pharmacy Practitioner Signed: 06/29/2024 10:39 Receipt Acknowledged By: 06/29/2024 11:49 /reece JARQUIN REGISTERED NURSE * AWAITING SIGNATURE * FEROZ VALLADARES * AWAITING SIGNATURE * JOYCE RODRÍGUEZ 06/29/2024 ADDENDUM STATUS: COMPLETED OT consult for stair lift placed, held for provider review and signature if appropriate. /reece JARQUIN REGISTERED NURSE Signed: 06/29/2024 11:50 IVETH WASHINGTON
--- OUTSIDE RECORDS SUMMARY | 2024-07-09 04:30 | XMS_ITS ---
Author Name [facility] [place] [facility] [facility] [place] Address [address] [place] [address] Care Team Providers Care Group Exercise Instructor Name Role Phone KIT HARMAN Primary Care [...] PART A June 07, 2002 PART A [id number] MARIAH CAMACHO JR PATIENT MEDICARE (WNR) MEDICARE (M) PART A June 07, 2002 PART A [id number] DOUG SHELLMARIAH PATIENT MEDICARE (WNR) MEDICARE (M) PART A June 07, 2002 PART A [id number] DOUGMARIAH LAI JR PATIENT MEDICARE (WNR) MEDICARE (M) PART B June 07, 2002 PART B [id number] DOUG SHELLMARIAH PATIENT MEDICARE (WNR) MEDICARE (M) PART A June 07, 2002 PART A [id number] MARIAH CAMACHO JR PATIENT MEDICARE (WNR) MEDICARE (M) PART B June 07, 2002 PART B [id number] [phone] MARIAH CAMACHO JR PATIENT Selected Encounter This section includes the information on record at [place] for the Encounter. Date/Time Encounter Type Encounter Description Reason Provider Source Jul 09, 2024 08:30 AM OT EVAL LOW COMPLEX 30 MIN OCCUPATIONAL THERAPY ICD-10-CM M17.0 Bilateral primary osteoarthritis of knee JOI NIEVES Marlee Encounter Template Text not used by [place] Assessments - Encounter Diagnoses This section includes the primary and secondary diagnoses documented for the Encounter. Date/Time Primary/Secondary Diagnosis Diagnosis Name Provider Source Jul 09, 2024 03:36 PM PRIMARY Bilateral primary osteoarthritis of knee JOI NIEVES [place] [facility] [facility] Plan of Treatment: Future Appointments (+ 6 months) and Future Tests (+/- 45 days) The Plan of Treatment section includes future care activities for the patient from all [place] [facility] This section includes future appointments and future orders which are active, pending or scheduled. Future Appointments This section includes appointments that were scheduled to occur 6 months from the date of the Encounter, up to a maximum of 20 appointments. The data comes from all [place] treatment facilities. Appointment Date/Time Appointment Type Appointme nt Facility Name Jul 10, 2024 01:30 PM AMBULATORY - MEDICINE [facility] [place] [facility] Jul 19, 2024 01:00 PM AMBULATORY - REHAB [facility] Sep 10, 2024 09:00 AM AMBULATORY - MEDICINE [facility] Sep 14, 2024 10:30 AM AMBULATORY - REHAB [facility]IC[facility] Oct 04, 2024 08:15 AM [facility]ORY - [facility]IC[facility] [place] [facility] Oct 12, 2024 01:30 PM AMBULATORY - REHAB [facility] Oct 17, 2024 09:00 AM [facility] - [facility]IC[facility] [place] [facility] Dec 06, 2024 09:00 AM AM[facility]ULATORY - MEDIC[facility] [place] [facility] Active, Pending, and Scheduled Orders This section includes a listing of several types of active, pending, and scheduled orders, including clinic medications orders, diagnostic test orders, procedure orders and consult orders; where the start date of the order is 45 days before the date of the Encounter or 45 days after the date of theEncounter. The data comes from all [place] treatment facilities. Test Date/Time Test Type Test Details Facility Name July 04, 2024 04:19 PM Consult Order COMMUNITY CARE-UROLOGY Cons Machine Try Out [facility] [place] Aug 20, 2024 09:10 AM Consult Order PROSTHETIC S REQUEST - STAIRGLIDE Cons Machine Try Out [facility] Social History: Smoking Status (Most current) and Tobacco Use (All prior to encounter date) This section includes the most current, and the historical, smoking and tobacco- related health factors from the [place] facility where the Encounter took place. Current Smoking Status This section includes the most current smoking, or tobacco-related health factor, from the [place] facility where the Encounter took place. Date/Time Current Smoking Status Comment Facil ity Oct 18, 2023 01:38 PM VA-TOBACCO NEVER USED [facility] Tobacco Use History This section includes a history of the smoking, or tobacco-related health factors, that were collected on or before the date of the Encounter. The data comes from the [place] facility where the Encounter took place. Date/Time Smoking Status/Tobacco Use Comment F acility Sep 24, 2022 08:59 AM [facility] Sep 24, 2022 08:59 AM [place]-TOBACCO [facility]IT [facility] Oct 01, 2021 10:00 AM [facility]AC[facility] Oct 01, 2021 10:00 AM [place]-TOBACCO QUIT 15 YRS OR MORE [facility] Advance Directives: All historical and current Section Date Range: From patient's date of to the date document was created. This section includes ALL of a patient's completed or amended [place] Advance and Rescinded Directives. The entries below indicate that a directive exists for the patient, but an actual copy is not included with this document. The data comes from all [place] facilities. Date Advance Directives Provider Source Aug 20, 2017 ADVANCE DIRECTIVE YULISA CH [place] [facility] Encounter Notes: All associated encounter notes This section contains the clinical notes associated to the Encounter. Date/Time Encounter Note(s) Provider Source Jul 09, 2024 08:30 AM OCCUPATIONAL MEDIC INE CONSULT: LOCAL TITLE: CONSULT REPORT/OCCUPATIONAL THERAPY STANDARD TITLE: OCCUPATIONAL MEDICINE CONSULT DATE OF NOTE: JUL 09, 2024@08:30 ENTRY DATE: JUL 09, 2024@08:48:46 AUTHOR: JOI NIEVES COSIGNER: FEROZ VALLADARES URGENCY: STATUS: COMPLETED Initial Evaluation date: Jul Progress Note Date: July 09, 2024 Treatment #: Eval Diagnosis: Bilateral Primary Osteoarthritis of Knee(ICD-10-CM M17.0) Provider: PCP Marybeth OT Treatment Precautions: Fall Risk, pending surgery Left knee July 13, 2024 Patient identified by full name and date of OT CODING: Low complexity Evaluation Subjective: I have laundry, freezer, pantry, and living quarters in my basement,I need to be able to get to the basement. Pain: Chronic knee pain, pending surgical intervention for R knee replacement July 13 (later in day called to say the surgery was again cancelled). In addition, with severe thenar eminence wasting R hand, reports past history of injections, use of CTS brace. He is no longer able to wear the brace due to medication/bruising. Recommendation CTS re-evaluation after, he is able to complete knee replacement, may consider CTS referral sooner due to knee surgery now cxl. Objective: PCP referred for stairglide ( is seeking stairglide to access his basement where food storage/pantry, laundry utilities and freezer are. Living Space: own home, Back primary entry wc ramp. Currently, front enterance is blocked off due to unable to use this exit safely. Entry has no railings, and 4 steps to enter/exit. Home is on 2 Levels. [place] style home 1st floor has kitchen,diningroom, livingroom, 2 bedrooms, full bath: modified with walk in shower, and toilet with riser. 2nd floor: not actively used by unsafe due to flight of stairs needed to access, no railing. [place]'s main concern is accessing his basement (finished) as he has his food storage, pantry, freezer, laundry and utilities in basement. Cognition: Alert/Oriented able to participate fully in evaluation process, follow 1-2 step instruction, ask appropriate questions. Sensory: Hearing Impairment: significant despite aided, repetition and check for understanding and written information provided to assist with understanding Mobility: Significant Impairment with mobility Bilateral Leg braces, randell at time of visit was scheduled 07/13/24 for R knee replacement, his third attempt at securing a date, for surgery. Later in day randell called to alert OT that surgery had been cxl, no follow up scheduled at the time. Randell ambulates with unsteady gait Transfer: 30-Second Sit to stand, randell was unable to rise with out a support surface. Score 0 Balance: Poor Assessment; Randell is an 89 yo male referred by PCP Marybeth for OT evaluation for stairglide. Discussed option for basement access/stairglide for accessing for food storage, freezer, pantry, utilities and laundry. Randell was schedule at time of visit for July 13, 2024, and later in day called to alert OT that the surgery had been cxl. Discussed options with randell re: safety in use of stairglide, and plan was to hold until surgery/rehabilitation was completed to determine his status. Randell would not be safe transferring to and from a stairglide chair at opening of stairway at this time, due to significant fall risk. Discussed options related to modifications needed to secure positioning away from open stairwell if option. Randell's daughter is supportive to . Discussed options related to home services to offer support with home managment skills, although randell is fearful at this time of having strangers in his home, due to a recent fraud experience with a check. Assisted to problem solve strategies for delegating services at this time versus attempted to manage the stairs. He recognizes the strain navigating the stairs is placing on him, although did not consider an alternative plan being unable (unsafe) using the stairs to the basement. plans to discuss strategy with daughter who visits weekly on Tuesday to cook meals and assist with other home management tasks. OT assisted with options/strategies daughter consider to reduce 's need to use the stairs. Weekly shopping trip to pantry/freezer and food storage and bring up to 1st floor, take laundry with her, return on her return back the following week. plans to discuss with daughter. OT recommends that does not use the basement stairs. Recommendation 1. Consider Referral to Hand Therapist Evaluation, R hand CTS/severe muscle wasting thenar eminence. [place] pending knee surgery on July 13 now cxl. 2. [place] to consult with his daughter re: safety and OT recommendation to avoid using basement stairs, due to his unsteady gait/fall risk. [place] plans to work out a plan with daughter for assist with laundry and accessing food from basement weekly/1st floor set up with requested items. Discharge No further goals needed at this time, is not safety to navigate the stairs due to his unsteady gait. Plan was to hold request until after surgery. Surgery now cancelled. [place] to modify his approach to need for accessing food from basement, with support of his daughter. /ta/ ANTIONETTE ALCARAZ/L OCCUPATIONAL THERAPIST Signed: 07/09/2024 15:37 /ta/ FEROZ VALLADARES NP NURSE PRACTITIONER Cosigned: 07/10/2024 14:51 JOI NIEVES [place] [facility]
--- OUTSIDE RECORDS SUMMARY | 2024-08-11 06:21 | XMS_ITS | Encounter Summary ---
Author Name [facility] [place] Address [address] [place] [id number] Care Team Providers Care Quality Assurance Supervisor Body Name Role Phone KIT HARMAN Primary Care [...] PART A June 07, 2002 PART A [id number] DOUG JRMARIAH PATIENT MEDICARE (WNR) MEDICARE (M) PART A June 07, 2002 PART A [id number] DOUG SHELLMARIAH PATIENT MEDICARE (WNR) MEDICARE (M) PART A June 07, 2002 PART A [id number] DOUG SHELLSCOUTMARIAH PATIENT MEDICARE (WNR) MEDICARE (M) PART B June 07, 2002 PART B [id number] [phone] DOUG SHELLSCOUTMARIAH PATIENT MEDICARE (WNR) MEDICARE (M) PART A June 07, 2002 PART A [id number] [facility] MARIAH CAMACHO JR PATIENT MEDICARE (WNR) MEDICARE (M) PART B June 07, 2002 PART B [id number] [phone] MARIAH CAMACHO JR PATIENT Selected Encounter This section includes the information on record at [place] for the Encounter. Date/Time Encounter Type Encounter Description Reason Pro vider Source Aug 11, 2024 10:21 AM Outpatient Encounter ADMIN PAT ACTIVTIES (MASNONCT) IHE Encounter Template Text not used by [place] Plan of Treatment: Future Appointments (+ 6 months) and Future Tests (+/- 45 days) The Plan of Treatment section includes future care activities for the patient from all [place] [facility]. This section includes future appointments and future orders which are active, pending or scheduled. Future Appointments This section includes appointments that were scheduled to occur 6 months from the date of the Encounter, up to a maximum of 20 appointments. The data comes from all [facility]. Appointment Date/Time Appointment Type Appointme nt Facility Name Sep 10, 2024 09:00 AM AMBULATORY - MEDICINE [facility] Sep 14, 2024 10:30 AM AMBULATORY - REHAB [facility] Oct 04, 2024 08:15 AM AM[facility]UL[facility]ORY [facility] Oct 12, 2024 01:30 PM AMBULATORY - REHAB [facility] Oct 17, 2024 09:00 AM [facility]ORY [facility] Dec 06, 2024 09:00 AM AM[facility]ULATORY [facility] Jan 21, 2025 09:00 AM AMBULATORY MEDICINE [facility] Active, Pending, and Scheduled Orders This section includes a listing of several types of active, pending, and scheduled orders, including clinic medications orders, diagnostic test orders, procedure orders and consult orders; where the start date of the order is 45 days before the date of the Encounter or 45 days after the date of theEncounter. The data comes from all [facility]. Test Date/Time Test Type Test Details Facility Name July 04, 2024 04:19 PM Consult Order COMMUNITY CARE-UROLOGY Cons Colloid Mill Operator's Choice [place] Aug 20, 2024 09:10 AM Consult Order PROSTHETIC S REQUEST - STAIRGLIDE Cons Colloid Mill [facility] Sep 06, 2024 04:18 PM Consult Order COMMUNITY CARE-RETINAL SPECIALIST Cons Colloid Mill Operator's Choice [place] [facility] Sep 17, 2024 12:07 PM Consult Order COMMUNITY CARE-CARDIOLOGY Cons Colloid Mill [facility] Social History: Smoking Status (Most [...] 18, 2023 01:38 PM VA-TOBACCO NEVER USED [facility] Tobacco Use History This section includes a history of the smoking, or tobacco-related health factors, that were collected on or before the date of the Encounter. The data comes from the [place] facility where the Encounter took place. Date/Time Smoking Status/Tobacco Use Comment F acility Sep 24, 2022 08:59 AM VA-TOBACCO [facility] Sep 24, 2022 08:59 AM VA-TOBACCO QUIT 15 YRS OR MORE [facility] Oct 01, 2021 10:00 AM VA-TOBACCO [facility] Oct 01, 2021 10:00 AM VA-TOBACCO QUIT 15 YRS OR MORE [facility] Advance Directives: All historical and current [...] Aug 20, 2017 AD[facility] Encounter Notes: All associated encounter notes This section contains the clinical notes associated to the Encounter. Date/Time Encounter Note(s) Provider Source Aug 11, 2024 10:21 AM PHARMACY NOTE: LOCAL TITLE: V1 PHARMACY CUSTOMER CARE MEDICATION RENEWAL STANDARD TITLE: PHARMACY NOTE DATE OF NOTE: AUG 11, 2024@10:21 ENTRY DATE: AUG 11, 2024@10:21:57 AUTHOR: CHRISTIAN ATKINSON EXP COSIGNER: URGENCY: STATUS: COMPLETED Date: Aug Division: [facility] referred by Pharmacy Call Center for medication renewal: Non-controlled/maintenanc e medication Medications requested: [id number] DEPEND UNDERWEAR,MAXIMUM,MEN LARGE Defer to primary care provider To be mailed. Please review and renew if appropriate. *This note was generated by [facility]/[place] Pharmacy Customer Care. If you have any questions or need assistance, do not contact this author. Please refer all questions to your local, on-site pharmacy departments. /ta/ CHRISTIAN ATKINSON Cath Lab Tech, [place]/Pharmacy Customer Care Signed: 08/11/2024 10:22 Receipt Acknowledged By: 08/13/2024 13:30 /ta/ SANDIP SANDHU RN REGISTERED NURSE for WALDEMAR BRITTON 08/12/2024 18:56 /es/ Kit Harman MD INTERNAL MEDICINE and RHEUMATOLOGY CHRISTIAN ATKINSON [place] CN[facility] [facility]
--- OUTSIDE RECORDS SUMMARY | 2024-08-29 15:24 | XMS_ITS ---
Author Name [facility] [place] Address [address] [place] [address] Care Team Providers Care Booster Pump Oiler Name Role Phone KIT HARMAN Primary Care [...] PART A June 07, 2002 PART A [id number] DOUG JRMARIAH PATIENT MEDICARE (WNR) MEDICARE (M) PART A June 07, 2002 PART A [id number] [phone] DOUG SHELLMARIAH PATIENT MEDICARE (WNR) MEDICARE (M) PART A June 07, 2002 PART A [id number] DOUG SHELLSCOUTMARIAH PATIENT MEDICARE (WNR) MEDICARE (M) PART B June 07, 2002 PART B [id number] [phone] DOUG SHELLSCOUTMARIAH PATIENT MEDICARE (WNR) MEDICARE (M) PART A June 07, 2002 PART A [id number] [facility] [phone] MARIAH CAMACHO JR PATIENT MEDICARE (WNR) MEDICARE (M) PART B June 07, 2002 PART B [id number] MARIAH CAMACHO JR PATIENT Selected Encounter This section includes the information on record at [place] for the Encounter. Date/Time Encounter Type Encounter Description Reason Pro vider Source Aug 29, 2024 07:24 PM Outpatient Encounter ADMIN PAT ACTIVTIES (MASNONCT) IHE Encounter Template Text not used by [place] Plan of Treatment: Future Appointments (+ 6 months) and Future Tests (+/- 45 days) The Plan of Treatment section includes future care activities for the patient from all [place] [facility]. This section includes future appointments and future orders which are active, pending or scheduled. Future Appointments This section includes appointments that were scheduled to occur 6 months from the date of the Encounter, up to a maximum of 20 appointments. The data comes from all [facility]. Appointment Date/Time Appointment Type Appointme nt Facility Name Sep 10, 2024 09:00 AM [facility]ATORY - [facility] Sep 14, 2024 10:30 AM AMBULATORY - REHAB [facility] Oct 04, 2024 08:15 AM AMBULATORY - MEDICINE [place] [facility] Oct 12, 2024 01:30 PM AMBULATORY - REHAB [facility] Oct 17, 2024 09:00 AM AMBULATORY MEDICINE [facility] [place] [facility] Dec 06, 2024 09:00 AM AMBULATORY - MEDICINE [facility] [place] [facility] Jan 21, 2025 09:00 AM AMBULATORY - MEDICINE [facility] Active, Pending, and Scheduled Orders This section includes a listing of several types of active, pending, and scheduled orders, including clinic medications orders, diagnostic test orders, procedure orders and consult orders; where the start date of the order is 45 days before the date of the Encounter or 45 days after the date of theEncounter. The data comes from all [facility]. Test Date/Time Test Type Test Details Facility Name Aug 20, 2024 09:10 AM Consult Order PROSTHETIC S REQUEST - STAIRGLIDE Cons Recessing Machine Operator's Choice [place] [facility] Sep 06, 2024 04:18 PM Consult Order COMMUNITY CARE-RETINAL SPECIALIST Cons Recessing Machine Operator's Choice [place] [facility] Sep 17, 2024 12:07 PM Consult Order COMMUNITY CARE-CARDIOLOGY Cons Recessing Machine Operator[facility] Social History: Smoking Status (Most current) [...] 18, 2023 01:38 PM VA-TOBACCO NEVER USED [facility] Tobacco Use History This section includes a history of the smoking, or tobacco-related health factors, that were collected on or before the date of the Encounter. The data comes from the [place] facility where the Encounter took place. Date/Time Smoking Status/Tobacco Use Comment F acility Sep 24, 2022 08:59 AM [facility]ACCO [facility] Sep 24, 2022 08:59 AM VA-TOBACCO QUIT 15 YRS OR MORE [facility] Oct 01, 2021 10:00 AM VA-TOBACCO FORMER USER [facility] Oct 01, 2021 10:00 AM VA-TOBACCO QUIT 15 YRS OR [facility] Advance Directives: All historical and [...] Aug 20, 2017 ADVANCE DIRECTIVE [facility] Encounter Notes: All associated encounter notes This section contains the clinical notes associated to the Encounter. Date/Time Encounter Note(s) Provider Source Aug 29, 2024 07:24 PM PHARMACY NOTE: LOCAL TITLE: V1 PHARMACY CUSTOMER CARE MEDICATION RENEWAL STANDARD TITLE: PHARMACY NOTE DATE OF NOTE: AUG 29, 2024@19:24 ENTRY DATE: AUG 29, 2024@19:24:52 AUTHOR: FAVIAN ALMEIDA COSIGNER: URGENCY: STATUS: COMPLETED V1 PHARMACY CUSTOMER CARE MEDICATION RENEWAL Has ADDENDA Date: Aug Division: [facility] referred by Pharmacy Call Center for medication renewal: Non-controlled/maintenanc e medication Medications requested: [id number] METRONIDAZOLE 0.75% TOP GEL Patient is out of medication and would appreciate expedited delivery if available. Please contact the outpatient pharmacy for assistance with shipment This medication is long . It was last released 12/14/22, but the requested to renew it. The [place] can be reached at to discuss if needed. Please review. Defer to primary care provider To be mailed . Please review and renew if appropriate. *This note was generated by [facility]/[place] Pharmacy Customer Care. If you have any questions or need assistance, do not contact this author. Please refer all questions to your local, on-site pharmacy departments. /ta/ FAVIAN ALMEIDA [facility] [place], [place]/Pharmacy Customer Care Signed: 08/29/2024 19:25 Receipt Acknowledged By: 08/30/2024 08:44 /ta/ WALDEMAR JARQUIN REGISTERED NURSE 09/01/2024 14:13 /ta/ Kit Harman MD INTERNAL MEDICINE and RHEUMATOLOGY 08/30/2024 ADDENDUM STATUS: COMPLETED Telephone call to to gather more information re: request of this medication. stated he is having a flare-up of Rosacea at this time. reported he has been able to manage flare ups well bur he ran out of the medication. [place] requested gel formulation instead of cream as he feels it stays on his skin better. /ta/ WALDEMAR JARQUIN REGISTERED NURSE Signed: 08/30/2024 08:48 FAVIAN ALMEIDA IN CNTRL [facility]
--- OUTSIDE RECORDS SUMMARY | 2024-09-10 05:00 | XMS_ITS | Encounter Summary ---
Author Name [facility] [place] [facility] [place] Organization [facility] [place] [facility] [place] Address [address] [place] [address] Care Team Providers Care Water Pumper Name Role Phone GHAZALKIT Primary [facility] Insurance Providers: All historical and [...] PART A June 07, 2002 PART A [id number] [facility] [id number] MARIAH CAMACHO JR PATIENT MEDICARE (WNR) MEDICARE (M) PART A June 07, 2002 PART A [id number] MARIAH CAMACHO JR PATIENT MEDICARE (WNR) MEDICARE (M) PART A June 07, 2002 PART A [id number] MARIAH CAMACHO JR PATIENT MEDICARE (WNR) MEDICARE (M) PART B June 07, 2002 PART B [id number] MARIAH CAMACHO JR PATIENT MEDICARE (WNR) MEDICARE (M) PART A June 07, 2002 PART A [id number] [phone] MARIAH CAMACHO JR PATIENT MEDICARE (WNR) MEDICARE (M) PART B June 07, 2002 PART B [id number] [phone] MARIAH CAMACHO JR PATIENT Selected Encounter This section includes the information on record at [place] for the Encounter. Date/Time Encounter Type Encounter Description Reason Provider Source Sep 10, 2024 09:00 AM OFFICE O/P EST LOW 20 MIN PODIATRY ICD-10-CM L60.0 Ingrowing nail RICKIE FARIA [place] Encounter Template Text not used by [place] Assessments - Encounter Diagnoses This section includes the primary and secondary diagnoses documented for the Encounter. Date/Time Primary/Secondary Diagnosis Diagnosis Name Provider Source Sep 10, 2024 09:28 AM PRIMARY Ingrowing nail RICKIE FARIA [place] Sep 10, 2024 09:28 AM SECONDARY Pain in left toe(s) RICKIE FARIA [place] Sep 10, 2024 09:28 AM SECONDARY Pain in right toe(s) RICKIE FARIA [place] Sep 10, 2024 09:28 AM SECONDARY Type 2 diabetes w diabetic peripheral angiopath w/o gangrene RICKIE FARIA [place] Plan of Treatment: Future Appointments (+ 6 months) and Future Tests (+/- 45 days) The Plan of Treatment section includes future care activities for the patient from all [place] treatmentfacilities. This section includes future appointments and future orders which are active, pending or scheduled. Future Appointments This section includes appointments that were scheduled to occur 6 months from the date of the Encounter, up to a maximum of 20 appointments. The data comes from all [place] treatment facilities. Appointment Date/Time Appointment Type Appointme nt Facility Name Sep 14, 2024 10:30 AM AMBULATORY - [facility]AB [facility] Oct 04, 2024 08:15 AM AMBULATORY - MEDICINE [place] [facility] [place] [facility] Oct 12, 2024 01:30 PM AMBULATORY - REHAB MEDICIN [place] Oct 17, 2024 09:00 AM AMBULATORY - MEDICINE [place] [facility] [facility] Dec 06, 2024 09:00 AM AMBULATORY - MEDICINE [facility] [place] [facility] Jan 21, 2025 09:00 AM AMBULATORY - MEDICINE [place] Active, Pending, and Scheduled Orders This section includes a listing of several types of active, pending, and scheduled orders, including clinic medications orders, diagnostic test orders, procedure orders and consult orders; where the start date of the order is 45 days before the date of the Encounter or 45 days after the date of theEncounter. The data comes from all [place] treatment facilities. Test Date/Time Test Type Test Details Facility Name Aug 20, 2024 09:10 AM Consult Order PROSTHETIC S REQUEST - STAIRGLIDE Cons Disassembler [facility] Sep 06, 2024 04:18 PM Consult Order COMMUNITY CARE-RETINAL SPECIALIST Cons Disassembler [facility] Sep 17, 2024 12:07 PM Consult Order COMMUNITY CARE-CARDIOLOGY Cons [facility] Social History: Smoking Status (Most current) and Tobacco Use (All prior to encounter date) This section includes the most current, and the historical, smoking and tobacco- related health factors from the [place] facility where the Encounter took place. Current Smoking Status This section includes the most current smoking, or tobacco-related health factor, from the [place] facility where the Encounter took place. Date/Time Current Smoking Status Comment Facil [facility] Apr 21, 2020 02:00 PM VA-TOBACCO NEVER USED [place] Tobacco Use History This section includes a history of the smoking, or tobacco-related health factors, that were collected on or before the date of the Encounter. The data comes from the [place] facility where the Encounter took place. Date/Time Smoking Status/Tobacco Use Comment F acility Jan 24, 2019 12:41 PM VA-TOBACCO FORMER USER [place] Jan 24, 2019 12:41 PM VA-TOBACCO QUIT 15 YRS OR MORE [place] Sep 16, 2017 08:36 AM VA-TOBACCO FORMER USER [place] Sep 16, 2017 08:36 AM VA-TOBACCO QUIT 15 YRS OR MORE [place] Jan 26, 2017 11:33 AM QUIT TOBACCO USE > 7 YEARS AGO reports quitting 45 years ago [place] Dec 15, 2015 01:25 PM QUIT TOBACCO USE > 7 YEARS AGO quit 45 years ago, smoked 3 packs a day x 20 years [place] Apr 09, 2003 02:17 PM HISTORY OF SMOKING hx of 3ppd for 20 yrs quit smoking 25 yrs ago [place] Apr 09, 2003 02:17 PM QUIT TOBACCO USE > 7 YEARS AGO [place] Advance Directives: All historical and current Section Date Range: From patient's date of to the date document was created. This section includes ALL of a patient's completed or amended [place] Advance and Rescinded Directives. The entries below indicate that a directive exists for the patient, but an actual copy is not included with this document. The data comes from all [place] facilities. Date Advance Directives Provider Source Aug 20, 2017 ADVANCE DIRECTIVE YULISA CH [place] Rodolfo NTRBel[facility] Encounter Notes: All associated encounter notes This section contains the clinical notes associated to the Encounter. Date/Time Encounter Note(s) Provider Source Sep 10, 2024 07:29 AM PODIATRY NOTE: LOCAL TITLE: PODIATRY NOTE STANDARD TITLE: PODIATRY NOTE DATE OF NOTE: SEP 10, 2024@07:29 ENTRY DATE: SEP 10, 2024@07:29:59 AUTHOR: RICKIE FARIA COSIGNER: URGENCY: STATUS: COMPLETED NOTE: HAS RECEIVED BOTH COVID VACCINE DOSES +3 BOOSTERS AT [facility] LAST SEEN FOR TREATMENT: 04/30/2024 S: Pt. is an 89 yo alert WDWN CAUC MALE who is [...] treatment & 0/10 after. NOTE: A1c = 7.3 LAST TAKEN: 04/2024 FBS 157-weekly RISK VALUE = 2 HEIGHT: 67 in [...] present physical-medical status. Protective sensation utilizing a [place]-Sole lOg monofilament is 10/10 bilateral. ABOVE exams [...] due to the underlying medical condition. RTC: 01/21 @9AM )DISPENSED TUBEFOAM LEFT HALLUX FRO SEPARATION OF 2ND TOE *DISCUSSED NEW PROTOCOLS AND CALLED MICHAEL TODAY [...] TO BE REVIEWED AT HOME (FOOT CARETIPS). RECEIVED MIRROR VERY PLEASED WITH NEW THERAPEUTIC SHOES & USES THEM FOR SLIPPERS Medication Reconciliation: PERFORMED TODAY - SEE BELOW. Outpatient: Has the patient been taking medications as documented in the EMLR? YES: The patient has been taking medications as documented in the EMLR. Essential Medication List for Review used to complete this medication reconciliation. INCLUDED IN THIS LIST: Alphabetical list of active outpatient prescriptions dispensed from this [place] (local) and dispensed from another [place] or [facility] facility (remote) as well as inpatient [...] list may not be complete. Please check [employer] Allergies/ADRs (Tool #5) FACILITY ALLERGY/ADR -------- [facility] [place] [facility] EMPAGLIFLOZIN [facility] [place] [facility] IR[facility]ESARTAN [facility] [place] [facility] LISINOPRIL [facility] [place] [facility] LOSARTAN [facility] [place] [facility] PENICILLIN [facility] [place] [facility] SITAGLIPTIN [facility] [place] [facility] SPIRONOLACTONE [facility] [place] [facility] VALSARTAN 160MG CAPSULE [facility] NO KNOWN ALLERGIES Med Recon Rod (Tool #1) INCLUDED IN THIS LIST: Alphabetical list of active outpatient prescriptions dispensed from this PR (local) and dispensed from another [place] or [facility] facility (remote) as well as inpatient orders (local pending and active), local clinic medications, locally documented non-VA medications, and local prescriptions that have or been discontinued in the past 90 days. Non-VA Meds Last Documented On: May 25, 2023 NOTE The display of VA prescriptions dispensed from another [place] or [facility] facility (remote) is limited to active outpatient prescription entries matched to National Drug File at the originating site and may not include some items such as investigational drugs, compounds, etc. NOT INCLUDED IN THIS LIST: Medications self-entered by the patient into personal health records (i.e. [employer]) are NOT included in this list. Non-VA medications documented outside this [place], remote inpatient orders (regardless of status) and remote clinic medications are NOT included in this list. The patient and provider must always discuss medications the patient is taking, regardless of where the medication was dispensed or obtained. OUTPT AMIODARONE HCL (PACERONE) 100MG TAB (Status = Active) TAKE ONE TABLET BY MOUTH TWICE DAILY FOR VENTRICULAR FIBRILLATION Rx# [id number] Last Released: 08/30/24 Qty/Days Supply: 180/90 Rx Expiration Date: 05/06/25 Refills Remainin Indication: FOR VENTRICULAR FIBRILLATION OUTPT AMLODIPINE BESYLATE 10MG TAB (Status = Active) TAKE ONE TABLET BY MOUTH ONCE DAILY FOR BLOOD PRESSURE/HEART, DO NOT TAKE WITH GRAPEFRUIT JUICE Rx# [id number] Last Released: 05/15/24 Qty/Days Supply: 90/90 Rx Expiration Date: 12/31/24 Refills Remainin OUTPT APIXABAN 5MG TAB (Status = Active) TAKE ONE TABLET BY MOUTH EVERY 12 HOURS Rx# [id number] Last Released: 04/23/24 Qty/Days Supply: 120/60 Rx Expiration Date: 12/31/24 Refills Remainin OUTPT ASCORBIC ACID 500MG TAB (Status = Active) TAKE TWO TABLETS BY MOUTH ONCE DAILY FOR VITAMIN/NUTRITION SUPPLEMENT Rx# [id number] Last Released: 07/12/24 Qty/Days Supply: Rx Expiration Date: 07/11/25 Refills Remainin OUTPT ATORVASTATIN CALCIUM 40MG TAB (Status = Active) TAKE ONE-HALF TABLET BY MOUTH ONCE DAILY FOR HIGH CHOLESTEROL Rx# [id number] Last Released: 01/20/24 Qty/Days Supply: Rx Expiration Date: 01/19/25 Refills Remainin Indication: FOR HIGH CHOLESTEROL OUTPT CETIRIZINE HCL 10MG TAB (Status = Active) TAKE ONE TABLET BY MOUTH ONCE DAILY NEEDED FOR ALLERGIES Rx# [id number] Last Released: 04/26/24 Qty/Days Supply: Rx Expiration Date: 12/31/24 Refills Remainin Indication: FOR ALLERGIES OUTPT CLOTRIMAZOLE 1% TOP CREAM (Status = ) APPLY A THIN LAYER TOPICALLY ONCE DAILY NEEDED FOR FUNGAL INFECTION Rx# [id number] Last Released: 10/25/23 Qty/Days Supply: Rx Expiration Date: 07/25/24 Refills Remainin OUTPT DOXYCYCLINE HYCLATE 50MG CAP (Status = ) TAKE ONE CAPSULE BY MOUTH TWICE DAILY Rx# [id number] Last Released: 07/16/24 Qty/Days Supply: Rx Expiration Date: 09/05/24 Refills Remainin Indication: FOR INFECTION CAUSED BY BACTERIA OUTPT EYELID CLEANSER,EYE SCRUB PAD (Status = Active) USE 1 PAD TOPICALLY ONCE DAILY BLEPHARITIS Rx# [id number] Last Released: 03/29/24 Qty/Days Supply: Rx Expiration Date: 03/23/25 Refills Remainin Indication: BLEPHARITIS OUTPT FINASTERIDE 5MG TAB (Status = Discontinued) TAKE ONE TABLET BY MOUTH ONCE DAILY Rx# [id number] Last Released: 06/19/24 Qty/Days Supply: Rx Expiration Date: 06/19/25 Refills Remainin OUTPT FINASTERIDE 5MG TAB (Status = Active) TAKE ONE TABLET BY MOUTH ONCE DAILY Rx# [id number] Last Released: Qty/Days Supply: Rx Expiration Date: 07/11/25 Refills Remainin OUTPT FUROSEMIDE 20MG TAB (Status = Active) TAKE ONE TABLET BY MOUTH ONCE DAILY TO REMOVE FLUID/CONTROL BLOOD PRESSURE Rx# [id number] Last Released: 06/19/24 Qty/Days Supply: Rx Expiration Date: 06/19/25 Refills Remainin Indication: FOR VISIBLE WATER RETENTION OUTPT HYDRALAZINE HCL 25MG TAB (Status = Discontinued) TAKE ONE TABLET BY MOUTH THREE TIMES A DAY Rx# [id number] Last Released: 07/11/24 Qty/Days Supply: Rx Expiration Date: 03/13/25 Refills Remainin OUTPT HYDRALAZINE HCL 25MG TAB (Status = Active) TAKE ONE TABLET BY MOUTH THREE TIMES A DAY Rx# [id number] Last Released: 07/23/24 Qty/Days Supply: Rx Expiration Date: 07/12/25 Refills Remainin OUTPT KETOTIFEN 0.025% OPH SOLN (Status = Active) INSTILL 1 DROP INTO EACH EYE TWICE DAILY NEEDED FOR ALLERGIC CONJUNCTIVITIS Rx# [id number] Last Released: 08/01/24 Qty/Days Supply: 07/06 Rx Expiration Date: 07/28/25 Refills Remainin Indication: FOR ALLERGIC CONJUNCTIVITIS OUTPT LEVOFLOXACIN 500MG TAB (Status = ) TAKE ONE TABLET BY MOUTH ONCE DAILY FOR 5 DAYS Rx# [id number] Last Released: 07/11/24 Qty/Days Supply: 06/11 Rx Expiration Date: 08/09/24 Refills Remainin OUTPT METFORMIN HCL 500MG 24HR SA TAB (Status = Active) TAKE ONE TABLET BY MOUTH THREE TIMES A DAY FOR TYPE 2 DIABETES MELLITUS Rx# [id number] Last Released: 05/28/24 Qty/Days Supply: Rx Expiration Date: 03/06/25 Refills Remainin Indication: FOR TYPE 2 DIABETES MELLITUS OUTPT METHENAMINE HIPPURATE 1GM TAB (Status = Active) TAKE ONE TABLET BY MOUTH ONCE DAILY Rx# [id number] Last Released: 07/11/24 Qty/Days Supply: Rx Expiration Date: 07/11/25 Refills Remainin OUTPT METRONIDAZOLE 1% TOP GEL (Status = Active) APPLY THIN LAYER TOPICALLY ONCE DAILY FOR ACNE ROSACEA AFTER CLEANSING Rx# [id number] Last Released: 09/03/24 Qty/Days Supply: 60 Rx Expiration Date: 09/02/25 Refills Remainin Indication: FOR ACNE ROSACEA Non-VA OTHER CAP/TAB TAKE AVASTIN INJECTION BY MOUTH EVERY 5 WEEKS OUTPT PEG 400 0.4%/PROP GLYCOL 0.3% OPH SOLN (Status = Active) INSTILL 1 DROP INTO EACH EYE FOUR TIMES DAILY NEEDED DRY EYE Rx# [id number] Last Released: 08/01/24 Qty/Days Supply: 45 Rx Expiration Date: 07/28/25 Refills Remainin Indication: DRY EYE OUTPT PYRIDOXINE HCL 100MG TAB (Status = Active) TAKE ONE TABLET BY MOUTH ONCE DAILY Rx# [id number] Last Released: 07/12/24 Qty/Days Supply: Rx Expiration Date: 01/19/25 Refills Remainin SUPPLIES OUTPT ACCU-CHEK GUIDE (GLUCOSE) TEST STRIP (Status = ) USE 1 STRIP TO TEST BLOOD SUGARS TWICE DAILY *APPROVED ONE TIME* Rx# [id number] Last Released: 05/08/24 Qty/Days Supply: 200 Rx Expiration Date: 08/05/24 Refills Remainin Indication: DIABETES OUTPT ACCU-CHEK GUIDE ME (GLUCOSE) METER (Status = ) USE METER TO TEST BLOOD SUGARS TWO TIMES A WEEK Rx# [id number] Last Released: 05/04/24 Qty/Days Supply: Rx Expiration Date: 08/02/24 Refills Remainin Indication: DIABETES OUTPT DEPEND UNDERWEAR,MAXIMUM,MEN LARGE (Status = Discontinued) USE 1 BRIEF DIRECTED TWICE DAILY NEEDED FOR PERSONAL CARE Rx# [id number] Last Released: 07/03/24 Qty/Days Supply: 170/90 Rx Expiration Date: 08/15/24 Refills Remainin OUTPT DEPEND UNDERWEAR,MAXIMUM,MEN LARGE (Status = Active) USE 1 BRIEF DIRECTED TWICE DAILY NEEDED FOR PERSONAL CARE Rx# [id number] Last Released: Qty/Days Supply: 170/90 Rx Expiration Date: 08/13/25 Refills Remainin OUTPT LANCET,SOFTCLIX (Status = ) USE 1 LANCET DIRECTED TWO TIMES A WEEK TO TEST BLOOD SUGAR Rx# [id number] Last Released: 05/04/24 Qty/Days Supply: 100/90 Rx Expiration Date: 08/02/24 Refills Remainin Indication: DIABETES /es/ RICKIE FARIA DPM 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
--- OUTSIDE RECORDS SUMMARY | 2024-09-14 06:30 | XMS_ITS | Encounter Summary ---
Author Name [facility] [place] Organization [place] Address [address] [place] [id number] Care Team Providers Care First Aid Teacher Name Role Phone KIT HARMAN Primary Care Provider [facility] Insurance Providers: All historical and current [...] PART A June 07, 2002 PART A [id number] [phone] MARIAH CAMACHO JR PATIENT MEDICARE (WNR) MEDICARE (M) PART A June 07, 2002 PART A [id number] MARIAH CAMACHO JR PATIENT MEDICARE (WNR) MEDICARE (M) PART A June 07, 2002 PART A [id number] [phone] MARIAH CAMACHO JR PATIENT MEDICARE (WNR) MEDICARE (M) PART B June 07, 2002 PART B [id number] MARIAH CAMACHO JR PATIENT MEDICARE (WNR) MEDICARE (M) PART A June 07, 2002 PART A [id number] [facility] MARIAH CAMACHO JR PATIENT MEDICARE (WNR) MEDICARE (M) PART B June 07, 2002 PART B [id number] [phone] MARIAH CAMACHO JR PATIENT Selected Encounter This section includes the information on record at [place] for the Encounter. Date/Time Encounter Type Encounter Description Reason Pro vider Source Sep 14, 2024 10:30 AM Outpatient Encounter AUDIOLOGY IHE Encounter Template Text not used by [place] Plan of Treatment: Future Appointments (+ 6 months) and Future Tests (+/- 45 days) The Plan of Treatment section includes future care activities for the patient from all [place] treatmentfacilities. This section includes future appointments and future orders which are active, pending or scheduled. Future Appointments This section includes appointments that were scheduled to occur 6 months from the date of the Encounter, up to a maximum of 20 appointments. The data comes from all [facility]. Appointment Date/Time Appointment Type Appointme nt Facility Name Oct 04, 2024 08:15 AM AMBULATORY - MEDICINE [facility] Oct 12, 2024 01:30 PM AMBULATORY - REHAB [facility] Oct 17, 2024 09:00 AM [facility] Dec 06, 2024 09:00 AM AMBULATORY - MEDICINE [facility] Jan 21, 2025 09:00 AM AMBULATORY - MEDICINE [facility] Active, Pending, and Scheduled Orders This section includes a listing of several types of active, pending, and scheduled orders, including clinic medications orders, diagnostic test orders, procedure orders and consult orders; where the start date of the order is 45 days before the date of the Encounter or 45 days after the date of theEncounter. The data comes from all [facility]. Test Date/Time Test Type Test Details Facility Name Aug 20, 2024 09:10 AM Consult Order PROSTHETIC S REQUEST - STAIRGLIDE Cons Felt Hat Flanging Operator's Choice [facility] Sep 06, 2024 04:18 PM Consult Order COMMUNITY CARE-RETINAL SPECIALIST Cons Felt Hat Flanging Operator's Choice [facility] Sep 17, 2024 12:07 PM Consult Order COMMUNITY CARE-CARDIOLOGY Cons Felt Hat Flanging [facility] Social History: Smoking Status (Most current) and Tobacco Use (All prior to encounter date) This section includes the most current, and the historical, smoking and tobacco- related health factors from the [place] facility where the Encounter took place. Current Smoking Status This section includes the most current smoking, or tobacco-related health factor, from the [place] facility where the Encounter took place. Date/Time Current Smoking Status Comment Facil ity Apr 21, 2020 02:00 PM VA-TOBACCO NEVER USED [place] Tobacco Use History This section includes a history of the smoking, or tobacco-related health factors, that were collected on or before the date of the Encounter. The data comes from the [place] facility where the Encounter took place. Date/Time Smoking Status/Tobacco Use Comment F acility Jan 24, 2019 12:41 PM VA-TOBACCO FORMER USER [place] Jan 24, 2019 12:41 PM VA-TOBACCO QUIT 15 YRS OR MORE [place] Sep 16, 2017 08:36 AM VA-TOBACCO FORMER USER [place] Sep 16, 2017 08:36 AM VA-TOBACCO QUIT 15 YRS OR MORE [place] Jan 26, 2017 11:33 AM QUIT TOBACCO USE > 7 YEARS AGO reports quitting 45 years ago [place] Dec 15, 2015 01:25 PM QUIT TOBACCO USE > 7 YEARS AGO quit 45 years ago, smoked 3 packs a day x 20 years [place] Apr 09, 2003 02:17 PM HISTORY OF SMOKING hx of 3ppd for 20 yrs quit smoking 25 yrs ago [place] Apr 09, 2003 02:17 PM QUIT TOBACCO USE > 7 YEARS AGO [place] Advance Directives: All historical and current Section Date Range: From patient's date of to the date document was created. This section includes ALL of a patient's completed or amended [place] Advance and Rescinded Directives. The entries below indicate that a directive exists for the patient, but an actual copy is not included with this document. The data comes from all [facility]. Date Advance Directives Provider Source Aug 20, 2017 ADVANCE DIRECTIVE YULISA CH [place] Rodolfo NTR[facility] Encounter Notes: All associated encounter notes This section contains the clinical notes associated to the Encounter. Date/Time Encounter Note(s) Provider Source Sep 14, 2024 03:20 PM CLERICAL NOTE: LOCAL TITLE: APPOINTMENT NO SHOW STANDARD TITLE: CLERICAL NOTE DATE OF NOTE: SEP 14, 2024@15:20 ENTRY DATE: SEP 14, 2024@15:20:15 AUTHOR: MICHAEL RUSSO EXP COSIGNER: URGENCY: STATUS: COMPLETED Patient Name: MARIAH CAMACHO JR Patient SSN: [id number] Date and time of Appointment No show : 09/14/24 10:30 PATIENT PHONE - [phone] PHONE NUMBER [CELLULAR] - [phone] Patient's medical record was reviewed. Follow-up actions were determined and initiated: Please check/complete as applies: [ ]Telephoned Directly [ ]Re-scheduled for next available appt [X]Sent a N0-show letter ( must call for appointment) [ ]Other (Emergent/Overbook, etc.): Additional Comments: Future Clinic Visits 10/17/2024 09:00 COM CARE-RETINAL SPEC 12/06/2024 09:00 [facility] OPTOMETRY 1 AM 01/21/2025 09:00 SPR PODIATRY 1 /es/ MICHAEL RUSSO [facility] [place] Signed: 09/14/2024 15:20 Receipt Acknowledged By: 09/14/2024 15:51 /ta/ CHUCK GAMA ADVANCED POST CLOSER MICHAEL RUSSO
--- OUTSIDE RECORDS SUMMARY | 2024-10-01 04:23 | XMS_ITS | Encounter Summary ---
Author Name [facility] [place] [facility] [place] Address [address] [place] [id number] Care Team Providers Care Medical Typist Name Role Phone DINORA HARMANBERLY Primary Care [...] PART A June 07, 2002 PART A [id number] DOUG MARIAH PATIENT MEDICARE (WNR) MEDICARE (M) PART A June 07, 2002 PART A [id number] DOUG SHELLSCOUTMARIAH PATIENT MEDICARE (WNR) MEDICARE (M) PART A June 07, 2002 PART A [id number] [phone] DOUG SHELLSCOUTMARIAH PATIENT MEDICARE (WNR) MEDICARE (M) PART B June 07, 2002 PART B [id number] [phone] MARIAH CAMACHO JR PATIENT MEDICARE (WNR) MEDICARE (M) PART A June 07, 2002 PART A [id number] [facility] MARIAH CAMACHO JR PATIENT MEDICARE (WNR) MEDICARE (M) PART B June 07, 2002 PART B [id number] [phone] MARIAH CAMACHO JR PATIENT Selected Encounter This section includes the information on record at [place] for the Encounter. Date/Time Encounter Type Encounter Description Reason Provider Source Oct 01, 2024 08:23 AM [facility] OL DIG ASSMT&MGMT 5-10 CLINICAL PHARMACY ICD-10-CM Z04.89 Encounter for examination and observation for oth reasons [facility] Encounter Template Text not used by [place] Assessments - Encounter Diagnoses This section includes the primary and secondary diagnoses documented for the Encounter. Date/Time Primary/Secondary Diagnosis Diagnosis Name Provider Source Oct 01, 2024 08:42 AM PRIMARY Encounter for examination and observation for oth reasons [facility] Plan of Treatment: Future Appointments (+ 6 months) and Future Tests (+/- 45 days) The Plan of Treatment section includes [facility] care activities for the [facility] [place] [facility] This section includes future appointments and future orders which are active, pending or scheduled. Future Appointments This section includes appointments that were scheduled to occur 6 months from the date of the Encounter, up to a maximum of 20 appointments. The data comes from all [place] treatment facilities. Appointment Date/Time Appointment Type Appointme nt Facility Name Oct 04, 2024 08:15 AM [facility] Oct 12[facility] 2024 01:30 PM [facility] Oct 17, 2024 09:00 AM [facility] [place] Dec 06, 2024 09:00 AM [facility] Jan 21, 2025 09:00 AM AM[facility]ULAT[facility] - MEDICINE [facility] Active, Pending, and Scheduled Orders This section includes a listing of several types of active, pending, and scheduled orders, including clinic medications orders, diagnostic test orders, procedure orders and consult orders; where the start date of the order is 45 days before the date of the Encounter or 45 days after the date of theEncounter. The data comes from all [place] treatment facilities. 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 Current Smoking Status This section includes the most current smoking, or tobacco-related health factor, from the [place] facility where the Encounter took place. Date/Time Current Smoking Status Comment Facil ity Oct 18, 2023 01:38 PM VA-TOBACCO NEVER USED [facility] Tobacco Use History This section includes a history of the smoking, or tobacco-related health factors, that were collected on or before the date of the Encounter. The data comes from the [place] facility where the Encounter took place. Date/Time Smoking Status/Tobacco Use Comment F acility Sep 24, 2022 08:59 AM VA[facility]BACCO [facility] Sep 24, 2022 08:59 AM VA-TOBACCO QUIT 15 YRS OR MORE [facility] Oct 01, 2021 10:00 AM VA-TOBACCO [facility] Oct 01, 2021 10:00 AM VA-TOBACCO QUIT 15 YRS OR MORE [facility] Advance Directives: All historical and current Section Date Range: From patient's date of to the date document was created. This section includes ALL of a patient's completed or amended [place] Advance and Rescinded Directives. The entries below indicate that a directive exists for the patient, but an actual copy is not included with this document. The data comes from all [place] facilities. Date Advance Directives Provider Source Aug 20, 2017 ADVANCE DIRECTIVE YULISA [facility] Encounter Notes: All associated encounter notes This section contains the clinical notes associated to the Encounter. Date/Time Encounter Note(s) Provider Source Oct 01, 2024 08:23 AM PHARMACY MEDICATION MGT NOTE: LOCAL TITLE: PHARMACY ANTICOAGULATION NOTE STANDARD TITLE: PHARMACY MEDICATION MGT NOTE DATE OF NOTE: OCT 01, 2024@08:23 ENTRY DATE: OCT 01, 2024@08:23:35 AUTHOR: KIT GARCIA COSIGNER: URGENCY: STATUS: COMPLETED PHARMACY ANTICOAGULATION NOTE Has ADDENDA ANTICOAGULATION DOAC MONITORING NOTE SUBJECTIVE: Patient identified through the DOAC population Management Tool based on the following criteria: [ ] Dosing Issue [ ] Critical Drug Interaction [ ] Cancer Treatment [ ] Active NSAID [ ] Labs Overdue [ ] Prosthetic Valve Replacement [ ] Notable Lab Value [ X ] Overdue for Refill [ ] Other: Comments: Pt flagged for being overdue for refill. Rx last filled apixaban x60 days 04/23/24 OBJECTIVE: Indication for anticoagulation: [ X ] Atrial fibrilation [ ] Atrial flutter [ ] VTE (DVT or PE) [ ] Post-op DVT prophylaxis [ ] Other: Most recent lab values include the following: HGB: HGB Collection DT Specimen Test Name Result Units Ref Range 10/18/2023 13:45 BLOOD HGB 13.5 g/dL 12.8 - 17 PLT: WBC Collection DT Specimen Test Name Result Units Ref Range 10/18/2023 13:45 BLOOD WBC 6.95 K/cmm 4.50 - 11.00 Liver Function Tests No data available for: AST ALT ALKALINE PHOSPHATASE ALBUMIN BILIRUBIN, TOTAL LDH PROTEIN,TOTAL HEIGHT: 67 in [170.2 cm] (07/25/2023 13:12) WEIGHT: 205.6 lb [93.26 kg] (10/18/2023 13:37) BMI: BMI: 32.3 CREATININE-EGFR 05/04/24 10:07 1.17 10/18/23 13:45 1.40 CRCL IBW: CrCl(est): 46.7 mL/min (Creat:1.17 05/04/24) CRCL ACT: No Creat CRCL ADJ: 46.7 mL/min (05/04/24) ASSESSMENT: overdue refill Action required? [ X ] Yes [ ] No Comments: Will mail refill reminder letter and dismiss flag. 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 Clinical Order Caller 10/01/2024 ADDENDUM STATUS: COMPLETED Above case reviewed as entered by [facility] Bulb Packer. Agree with current assessment and plan of care for this patient's anticoagulation management as noted. /reece Womack PharmD, [facility] Clinical Order Caller Signed: 10/01/2024 08:42 [facility]
--- OUTSIDE RECORDS SUMMARY | 2024-10-09 10:48 | XMS_ITS | Continuity of Care Document ---
Author Name [facility] Organization [facility] Care Team Providers Care Envelope Sealer Name Role Phone [facility] Unavailable Unavailable Problems Combined list of problems from Department of Defense and Veterans Affairs facilities. It does not include entries that were removed or entered in error. Problem Status Onset Date Problem Type Date of Resolution Comments Source Acute non-ST segment elevation myocardial infarction Active Condition Oct 15, 2022 Entered By: LEANN RAINEY Comment: 09/2022 [facility] ALCOHOL DEPENDENCY IN REM Active Condition [facility] Allergic Rhinitis (SCT 49591011) [facility] Benign hypertension Active Condition [facility] Benign Prostatic Hypertrophy without Outflow Obstruction ([facility] 859899677) Active Condition [facility] Bilateral arthritis of knees Active Condition May 25, 2023 Entered By: MEENA MASCORRO Comment: [id number]-[id number] OA Both Knees; Not Surg Candidate [place] CAD - Coronary Artery Disease ([facility] [id number]) Active Condition Oct 15, 2022 Entered By: LEANN RAINEY Comment: cardiac cath 09/2022 prox LAD 90% stenosis, one KAMILLE placedSep 2022 Entered By: LEANN RAINEY Comment: f/w [facility] cardiology [place] Carpal tunnel syndrome of right wrist Active Condition [facility] Cataract, Unspecified Active Condition [facility] [place] [facility] Diabetes mellitus type 2 without retinopathy (SNOMED CT 4219737373805) Active Condition [facility] [place] [facility] Diabetes type 2 with retinopathy Active Condition [facility] Diabetic Neuropathies (ICD-9-CM 250.60/357.2) Active Condition [facility] Gross hematuria Active Condition [place] (CB[facility]) HEARING LOSS [facility] Heart failure with reduced ejection fraction due to cardiomyopathy [facility] Hyperlipidemia Active Condition [facility] Ischaemic cardiomyopathy Active Condition Oct 15, 2022 Entered By: LEANN RAINEY Comment: ECHO 09/2022 LVEF 15-20% [facility] Long-term current use of anticoagulant Active Condition [facility] Osteoarthritis of knee Active Condition [facility] Paroxysmal atrial fibrillation Active Condition [facility] Restless leg * (ICD-9-CM 333.99) Active Condition [facility] Rosacea (SNOMED CT 691279038) Active Condition [facility] Tendonitis, Achilles (ICD-9-CM 726.71) Active Condition [facility] Tinnitus * (ICD-9-CM 388.30) Active Condition [facility] Vertigo * (ICD-9-CM 780.4) Active Condition [facility] Vitamin D deficiency Active Condition [facility] Adverse effects of Medication NOS (ICD-9-CM 995.2) Inactive Condition 07/27/2005 [facility] DM Type II W/O Eye Disease Inactive Condition 07/27/2005 [facility] DM TYPE II, W/O COMP Inactive Condition 07/27/2005 [facility] Diagnosis: ICD-10-CM Z04.89 Encounter for examination and observation for oth reasons Active Diagnosis [facility] Diagnosis: ICD-10-CM L60.0 Ingrowing nail Active Diagnosis [facility] Diagnosis: ICD-10-CM M25.562 Pain in left knee Active Diagnosis [facility] Diagnosis: ICD-10-CM M17.0 Bilateral primary osteoarthritis of knee Active Diagnosis [facility] Diagnosis: ICD-10-CM E11.319 Type 2 diabetes w unsp diabetic 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 edema Active Diagnosis [facility] Diagnosis: ICD-10-CM E11.21 Type 2 diabetes mellitus with diabetic nephropathy Active Diagnosis [facility] Diagnosis: ICD-10-CM Z46.1 Encounter for fitting and adjustment of hearing aid Active Diagnosis [facility] Diagnosis: ICD-10-CM E11.3213 Type 2 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, bi Active Diagnosis [facility] Diagnosis: ICD-10-CM R41.841 Cognitive communication deficit Active Diagnosis [facility] Diagnosis: ICD-10-CM H90.3 Sensorineural hearing loss, bilateral Active Diagnosis [facility] Diagnosis: ICD-10-CM R42 Dizziness and giddiness Active Diagnosis [facility] Diagnosis: ICD-10-CM H92.09 Otalgia, unspecified ear Active Diagnosis [facility] Diagnosis: ICD-10-CM Z71.9 Counseling, unspecified Active Diagnosis [facility] [place] Diagnosis: ICD-10-CM Z23 Encounter for immunization Active Diagnosis [facility] Diagnosis: ICD-10-CM I42.9 Cardiomyopathy, unspecified Active Diagnosis [facility] Diagnosis: ICD-10-CM M25.569 Pain in unspecified knee Active Diagnosis [facility] Diagnosis: ICD-10-CM I25.10 Athscl heart disease of [place] coronary artery w/o ang pctrs Active Diagnosis [facility] Diagnosis: ICD-10-CM M13.861 Other specified arthritis, right knee Active Diagnosis [facility] Diagnosis: ICD-10-CM I48.0 Paroxysmal atrial fibrillation Active Diagnosis [facility] Medications Combined list of outpatient medications from Department of Defense and Veterans Affairs facilities.Medications provided include 1) outpatient medications from the last 15 months, and 2) patient-reported medications. Medication Details Route Status Patient Instructions Prescription Expires Prescription Number Last Dispense Date Ordering Provider Order Date Order Qty Source ALOGLIPTIN 12.5MG TAB TAKE ONE TABLET BY MOUTH ONCE DAILY FOR TYPE 2 DIABETES MELLITUS NOTE DOSE DECREASE D ORAL DISCONT INUED BY PROVIDE R 05/25/2024 [id number] FACUNDO MASCORRO 2023 90 [facility] AMIODARONE HCL (PACERONE) 100MG TAB TAKE ONE TABLET BY MOUTH TWICE DAILY FOR VENTRICU LAR FIBRILLA TION ORAL ACTIVE 05/06/2025 [id number] Franchesca VALLADARES 2024 180 [facility] IELD AMIODARONE HCL 100MG TAB TAKE ONE TABLET BY MOUTH TWICE DAILY FOR VENTRICU LAR FIBRILLA TION ORAL DISCONT INUED (EDIT) 01/19/2025 [id number] 5 Franchesca VALLADARES AVID A 2023 180 [place] AMIODARONE HCL 100MG TAB TAKE ONE TABLET BY MOUTH TWICE DAILY FOR VENTRICU LAR FIBRILLA TION NOTE DOSE DECREASE D ORAL DISCONT INUED 04/24/2024 [id number] LEANN ADAMS 2023 180 [place] AMLODIPINE BESYLATE 10MG TAB TAKE ONE TABLET BY MOUTH ONCE DAILY FOR BLOOD PRESSURE /HEART, DO NOT TAKE WITH GRAPEFRU IT JUICE ORAL ACTIVE 12/31/2024 [id number] 5 Franchesca VALLADARESD A 2023 90 [place] AMLODIPINE BESYLATE 10MG TAB TAKE ONE TABLET BY MOUTH ONCE DAILY FOR BLOOD PRESSURE /HEART, DO NOT TAKE WITH GRAPEFRU IT JUICE ORAL DISCONT INUED 04/07/2024 [id number] KEYANNA ARMAS 2023 90 [facility] AMMONIUM LACTATE 12% LOTION APPLY SMALL AMOUNT TOPICALL Y TWICE DAILY FOR DRY SKIN FOR DRY IRRITATE D SKIN TOPICA L 12/10/2023 [id number] TEENA FARIA F 2022 240 [place] APIXABAN 5MG TAB TAKE ONE TABLET BY MOUTH EVERY 12 HOURS ORAL ACTIVE 12/31/2024 [id number] 5 Franchesca VALLADARES A 2023 120 [place] APIXABAN 5MG TAB TAKE ONE TABLET BY MOUTH EVERY 12 HOURS ORAL DISCONT INUED 01/13/2024 [id number] 4 Kajal CHAWLA 2022 120 [place] ASCORBIC ACID 500MG TAB TAKE TWO TABLETS BY MOUTH ONCE DAILY FOR VITAMIN/ NUTRITIO N SUPPLEME NT ORAL ACTIVE 07/11/2025 [id number] 5 MARILEE RAHMAN MD 2024 180 [facility] ATORVASTATI N CA 40MG TAB TAKE ONE-HALF TABLET BY MOUTH ONCE DAILY FOR HIGH CHOLESTE ROL ORAL ACTIVE 01/19/2025 [id number] 4 Franchesca VALLADARES AVID A 2023 45 [place] ATORVASTATI N CA 40MG TAB TAKE ONE-HALF TABLET BY MOUTH ONCE DAILY FOR HIGH CHOLESTE ROL ORAL DISCONT INUED 07/25/2024 [id number] 4 Franchesca VALLADARES AVID A 2023 45 [place] CARVEDILOL 3.125MG TAB TAKE ONE TABLET BY MOUTH TWICE DAILY WITH FOOD ORAL DISCONT INUED 03/13/2025 [id number] 5 KEYANNA ARMAS 2024 60 [place] CETIRIZINE HCL 10MG TAB TAKE ONE TABLET BY MOUTH ONCE DAILY NEEDED FOR ALLERGIE S ORAL ACTIVE 12/31/2024 [id number] 5 Franchesca VALLADARES AVID A 2023 90 [place] CLOTRIMAZOL E 1% CREAM,TOP APPLY A THIN LAYER TOPICALL Y ONCE DAILY NEEDED FOR FUNGAL INFECTIO N TOPICA L 07/25/2024 [id number] 4 Franchesca VALLADARES AVID A 2023 90 [place] DOXYCYCLINE HYCLATE 50MG CAP TAKE ONE CAPSULE BY MOUTH TWICE DAILY ORAL 09/05/2024 [id number] 5 Franchesca VALLADARES AVID A 2023 60 [place] EYELID CLEANSER,EY E SCRUB PAD USE 1 PAD TOPICALL Y ONCE DAILY BLEPHARI TIS TOPICA L ACTIVE 03/23/2025 [id number] 5 SAUNDRA GARCIA B 2024 30 [facility] FINASTERIDE 5MG TAB TAKE ONE TABLET BY MOUTH ONCE DAILY ORAL ACTIVE 07/11/2025 [id number] 5 MARILEE RAHMAN MD 2024 90 [facility] FINASTERIDE 5MG TAB TAKE ONE TABLET BY MOUTH ONCE DAILY ORAL DISCONT INUED 06/19/2025 [id number] 5 Franchesca VALLADARES A 2024 90 [place] FINASTERIDE 5MG TAB TAKE ONE TABLET BY MOUTH ONCE DAILY ORAL DISCONT INUED 06/09/2024 [id number] 5 FACUNDO MASCORRO 2023 90 [place] FUROSEMIDE 20MG TAB TAKE ONE TABLET BY MOUTH ONCE DAILY TO REMOVE FLUID/CO NTROL BLOOD PRESSURE ORAL ACTIVE 06/19/2025 [id number] 5 Franchesca VALLADARES A 2024 90 [place] FUROSEMIDE 20MG TAB TAKE ONE TABLET BY MOUTH ONCE DAILY TO REMOVE FLUID/CO NTROL BLOOD PRESSURE ORAL DISCONT INUED 05/25/2024 [id number] 4 FACUNDO MASCORRO 2023 90 [place] HYDRALAZINE HCL 25MG TAB TAKE ONE TABLET BY MOUTH THREE TIMES A DAY ORAL ACTIVE 07/12/2025 [id number] 5 KEYANNA ARMAS 2024 270 [place] HYDRALAZINE HCL 25MG TAB TAKE ONE TABLET BY MOUTH THREE TIMES A DAY ORAL DISCONT INUED 03/13/2025 [id number] 5 KEYANNA ARMAS 2024 60 [place] KETOTIFEN 0.025% SOLN,OPH INSTILL 1 DROP INTO EACH EYE TWICE DAILY NEEDED FOR ALLERGIC CONJUNCT IVITIS OPHTHA LMIC ACTIVE 07/28/2025 [id number] 5 SAUNDRA GARCIA AH B 2024 5 [facility] LEVOFLOXACI N 500MG TAB TAKE ONE TABLET BY MOUTH ONCE DAILY FOR 5 DAYS ORAL 08/09/2024 [id number] 5 MARILEE RAHMAN MD 2024 5 [facility] LEVOFLOXACI N 500MG TAB TAKE ONE TABLET BY MOUTH ONCE DAILY ORAL 12/11/2023 [id number] 4 MARILEE RAHMAN MD 2023 7 [place] METFORMIN HCL 500MG 24HR TAB,SA TAKE ONE TABLET BY MOUTH THREE TIMES A DAY FOR TYPE 2 DIABETES MELLITUS ORAL ACTIVE 03/06/2025 [id number] 5 Franchesca VALLADARES A 2024 270 [place] METFORMIN HCL 500MG 24HR TAB,SA TAKE ONE TABLET BY MOUTH THREE TIMES A DAY FOR TYPE 2 DIABETES MELLITUS ORAL DISCONT INUED 04/21/2024 [id number] LEANN ADAMS 2023 270 [place] METHENAMINE HIPPURATE 1GM TAB TAKE ONE TABLET BY MOUTH ONCE DAILY ORAL ACTIVE 07/11/2025 [id number] 5 MARILEE RAHMAN MD 2024 90 [facility] METRONIDAZO LE 1% GEL,TOP APPLY THIN LAYER TOPICALL Y ONCE DAILY FOR ACNE ROSACEA AFTER CLEANSIN G TOPICA L ACTIVE 09/02/2025 [id number] 5 JUNE,ADILENE MORTON P 2024 60 [place] OTHER CAP/TAB TAKE AVASTIN INJECTIO N BY MOUTH EVERY 5 WEEKS ORAL ACTIVE HUDSON ALMEIDA 2022 [facility] (631GE) PEG-400 0.4%/PROPYL ALY GLYCOL 0.3% SOLN,OPH INSTILL 1 DROP INTO EACH EYE FOUR TIMES DAILY NEEDED DRY EYE OPHTHA LMIC ACTIVE 07/28/2025 [id number] 5 RADHA,NO AH B 2024 45 [facility] PEG-400 0.4%/PROPYL ALY GLYCOL 0.3% SOLN,OPH INSTILL 1 DROP INTO EACH EYE FOUR TIMES DAILY NEEDED DRY EYE OPHTHA LMIC DISCONT INUED 05/18/2024 [id number] 5 MERDAT,NO AH B 2023 45 [facility] PYRIDOXINE HCL 100MG TAB TAKE ONE TABLET BY MOUTH ONCE DAILY ORAL ACTIVE 01/19/2025 [id number] 5 Franchesca VALLADARES A 2023 100 [place] PYRIDOXINE HCL 100MG TAB TAKE ONE TABLET BY MOUTH ONCE DAILY ORAL DISCONT INUED 12/29/2023 [id number] 4 FACUNDO MASCORRO HN 2022 100 [place] SITAGLIPTIN (EQV-ZITUVI O) 25MG TAB TAKE ONE TABLET BY MOUTH ONCE DAILY ORAL DISCONT INUED (EDIT) 10/23/2023 [id number] 4 Franchesca VALLADARES AVID A 2023 90 [place] SITAGLIPTIN (EQV-ZITUVI O) 50MG TAB TAKE ONE TABLET BY MOUTH ONCE DAILY (NOTE DOSE) ORAL DISCONT INUED BY PROVIDE R 10/23/2023 [id number] 4 Franchesca VALLADARES AVID A 2023 90 [place] Allergies, Adverse Reactions, Alerts Combined list of allergies from Department of Defense and Veterans Affairs facilities. It does not include entries that were removed or entered in error. Substance Category Reaction Severity Reaction type Status Date Reported Comments Source EMPAGLIFLOZI N Propensity to adverse reactions to drug (finding) Urinary tract infectious disease active 5 [facility] IRBESARTAN Propensity to adverse reactions to drug (finding) Diarrhea active 1 [facility] LISINOPRIL Propensity to adverse reactions to drug (finding) Headache active 9 [facility] LOSARTAN Propensity to adverse reactions to drug (finding) Diarrhea active 1 [facility] PENICILLIN Propensity to adverse reactions to drug (finding) Shock active 1 [facility] SITAGLIPTIN Propensity to adverse reactions to drug (finding) Cramp active 4 [facility] SPIRONOLACTO NE Propensity to adverse reactions to drug (finding) Nausea and vomiting MODERATE active 4 [facility] VALSARTAN 160MG CAPSULE Propensity to adverse reactions to drug (finding) Diarrhea MODERATE active 4 [facility] Immunizations Combined list of available immunizations from the Department of Defense and Veterans Affairs facilities. Immunization Series Date Given Administered By Site Reaction Lot Number CVX Code Drug Treater Helper Status Comments Source COVID-19 (MODERNA), MRNA, LNP-S, PF, 50 MCG/0.5 ML (AGES 12+ YEARS) 2023 THEODORA CAIN THERESEMonica RIGHT DELTO ID [id number] 312 complet ed Booster for Series, [facility] I[facility] INFLUENZA, HIGH-DOSE, TRIVALENT, PF 2023 GRICELDA RODRÍGUEZ R RIGHT DELTO ID [id number] 135 complet ed [facility] [place] INFLUENZA, INJECTABLE, QUADRIVALENT, PRESERVATIVE FREE 2022 GRICELDA RODRÍGUEZ R RIGHT DELTO ID [id number] A 150 complet ed [facility]ELD INFLUENZA, INJECTABLE, QUADRIVALENT, PRESERVATIVE FREE 2021 150 complet ed [facility] COVID-19, MRNA, LNP-S, BIVALENT BOOSTER, PF, 50 MCG/0.5 ML OR 25MCG/0.25 ML DOSE 1 2021 229 complet ed [facility] INFLUENZA, UNSPECIFIED FORMULATION 2020 88 complet ed [facility] COVID-19 (PFIZER), MRNA, LNP-S, PF, 30 MCG/0.3 ML DOSE 3 2020 208 complet ed [facility] TDAP 2020 115 complet ed [facility] COVID-19 (PFIZER), MRNA, LNP-S, PF, 30 MCG/0.3 ML DOSE 2 2020 208 complet ed [facility] COVID-19 (PFIZER), MRNA, LNP-S, PF, 30 MCG/0.3 ML DOSE 1 2020 208 complet ed [facility] INFLUENZA, UNSPECIFIED FORMULATION 2019 88 complet ed [facility] INFLUENZA, SEASONAL, INJECTABLE 2019 141 complet ed [facility] INFLUENZA, INJECTABLE, QUADRIVALENT, PRESERVATIVE FREE 2018 150 complet ed Site: Left Deltoid [place] INFLUENZA, SEASONAL, INJECTABLE 2017 141 complet ed [facility] PNEUMOCOCCAL CONJUGATE PCV 13 2017 133 complet ed [place] INFLUENZA, SEASONAL, INJECTABLE 2016 141 complet ed Site: Left Deltoid [place] FLU,3 YRS (HISTORICAL) 2015 88 complet ed Site: Left Deltoid [place] FLU,3 YRS (HISTORICAL) 2014 88 complet ed [facility] FLU,3 YRS (HISTORICAL) 2013 88 complet ed [facility] FLU,3 YRS (HISTORICAL) 2012 88 complet ed Site: Left Deltoid [place] ZOSTER LIVE 2012 121 complet ed [place] FLU,3 YRS (HISTORICAL) 2011 88 complet ed [facility] FLU,3 YRS (HISTORICAL) 2010 88 complet ed [facility] TD(ADULT) UNSPECIFIED FORMULATION 2010 139 complet ed date [facility] FLU,3 YRS (HISTORICAL) 2009 88 complet ed [facility] PNEUMOCOCCAL, UNSPECIFIED FORMULATION 2007 109 complet ed [facility] Results Combined list of recent chemistry, hematology and other laboratory results from Department of Defense and Veterans Affairs, ranging from 15 months to all on record, depending upon the facility. Order Name Results Value Reference Range Date Interpretation Specimen Comments Source HEMOGLOB IN A1C PANEL HEMOGLOBIN A1C/HEMOGL OBIN.TOTAL IN BLOOD BY [facility] PROTOCOL 7.3 4.0 - 5.6 05/04 H Specimen Type: BLOOD Comment: Values obtained from A1C measurement s can vary. For atypical A1C assays, a reported value of 7.0 could actually be between 6.72 and 7.28 if measured by a reference method. A reported value of 9.0 could actually be between 8.73 and 9.27. Ref: http://www. ngsp.org/[place] Pdata.asp Ordering Provider: DARIUSZ JOHNSTON Report Released Date/Time: May 04, 2024 09:39 AM Reporting Lab: [address] [address] Performing Lab: [address] [address] [place] CREATINI NE (eGFR 2020) CREATININE [MASS/VOLU ME] IN SERUM OR PLASMA 1.17 mg/dL 0.50 - 1.40 05/04 Specimen Type: SERUM No comment entered. Ordering Provider: DARIUSZ JOHNSTON Report Released Date/Time: May 04, 2024 09:39 AM Reporting Lab: [address] [address] Performing Lab: [address] [address] [place] CREATINI NE (eGFR 2020) GLOMERULAR FILTRATION RATE/1.73 SQ M.PREDICTE D [VOLUME RATE/AREA] IN SERUM, PLASMA OR BLOOD BY CREATININE -BASED FORMULA (CKD-EPI 2020) 60 mL/min 60 05/04 Specimen Type: SERUM No comment entered. Ordering Provider: DARIUSZ JOHNSTON Report Released Date/Time: May 04, 2024 09:39 AM Reporting Lab: [address] [address] Performing Lab: [address] [address] [place] URINALYS IS CLEAN CATCH COLOR OF URINE Light-Ye llow 10/17 Specimen Type: URINE Comment: If Glucose = >500 and Ketones are positive, please alert the Physician. Ordering Provider: STEPHANIE VALLADARES Report Released Date/Time: Oct 18, 2023 01:45 PM Reporting Lab: [address] [address] Performing Lab: [address] [address] [place] URINALYS IS CLEAN CATCH APPEARANCE OF URINE Clear 10/17 Specimen Type: URINE Comment: If Glucose = >500 and Ketones are positive, please alert the Physician. Ordering Provider: STEPHANIE VALLADARES A Report Released Date/Time: Oct 18, 2023 01:45 PM Reporting Lab: [facility] [address] [address] Performing Lab: [facility] [address] [place] URINALYS IS CLEAN CATCH GLUCOSE [MASS/VOLU ME] IN URINE Normalmg /dL 10/17 Specimen Type: URINE Comment: If Glucose = >500 and Ketones are positive, please alert the Physician. Ordering Provider: STEPHAINE VALLADARES A Report Released Date/Time: Oct 18, 2023 01:45 PM Reporting Lab: [facility] [address] [address] Performing Lab: [facility] [address] [address] [place] URINALYS IS CLEAN CATCH KETONES [MASS/VOLU ME] IN URINE BY TEST STRIP NEGATIVE mg/dL 10/17 Specimen Type: URINE Comment: If Glucose = >500 and Ketones are positive, please alert the Physician. Ordering Provider: STEPHANIE VALLADARES A Report Released Date/Time: Oct 18, 2023 01:45 PM Reporting Lab: [facility] [address] [address] Performing Lab: [facility] [address] [address] [place] URINALYS IS CLEAN CATCH ERYTHROCYT ES [PRESENCE] IN URINE SEDIMENT BY LIGHT MICROSCOPY NEGATIVE mg/dL 10/17 Specimen Type: URINE Comment: If Glucose = >500 and Ketones are positive, please alert the Physician. Ordering Provider: STEPHANIE VALLADARES A Report Released Date/Time: Oct 18, 2023 01:45 PM Reporting Lab: [facility] [address] Performing Lab: [facility] [address] [place] URINALYS IS CLEAN CATCH PROTEIN [MASS/VOLU ME] IN URINE BY TEST STRIP 20 mg/dL 10/17 Specimen Type: URINE Comment: If Glucose = >500 and Ketones are positive, please alert the Physician. Ordering Provider: STEPHANIE VALLADARES A Report Released Date/Time: Oct 18, 2023 01:45 PM Reporting Lab: [facility] [address] Performing Lab: [facility] [address] [place] URINALYS IS CLEAN CATCH NITRITE [PRESENCE] IN URINE NEGATIVE mg/dL 10/17 Specimen Type: URINE Comment: If Glucose = >500 and Ketones are positive, please alert the Physician. Ordering Provider: STEPHANIE VALLADARES A Report Released Date/Time: Oct 18, 2023 01:45 PM Reporting Lab: [facility] [address] Performing Lab: [facility] [address] [place] URINALYS IS CLEAN CATCH BILIRUBIN. TOTAL [PRESENCE] IN URINE NEGATIVE mg/dL 10/17 Specimen Type: URINE Comment: If Glucose = >500 and Ketones are positive, please alert the Physician. Ordering Provider: STEPHANIE VALLADARES A Report Released Date/Time: Oct 18, 2023 01:45 PM Reporting Lab: [facility] [address] Performing Lab: [facility] [address] [place] URINALYS IS CLEAN CATCH SPECIFIC GRAVITY OF URINE BY REFRACTOME TRY 1.019 1.016 - 1.022 10/17 Specimen Type: URINE Comment: If Glucose = >500 and Ketones are positive, please alert the Physician. Ordering Provider: STEPHANIE VALLADARES A Report Released Date/Time: Oct 18, 2023 01:45 PM Reporting Lab: [facility] [address] [facility] [address] Performing Lab: [facility] [address] [facility] [address] [place] URINALYS IS CLEAN CATCH PH OF URINE BY TEST STRIP 6.5 5.0 - 9.0 10/17 Specimen Type: URINE Comment: If Glucose = >500 and Ketones are positive, please alert the Physician. Ordering Provider: STEPHANIE VALLADARES A Report Released Date/Time: Oct 18, 2023 01:45 PM Reporting Lab: [facility] [address] [address] Performing Lab: [facility] [address] [address] [place] URINALYS IS CLEAN CATCH UROBILINOG EN [MASS/VOLU ME] IN URINE BY TEST STRIP Normalmg /dL <2.0 - 2.0 10/17 Specimen Type: URINE Comment: If Glucose = >500 and Ketones are positive, please alert the Physician. Ordering Provider: STEPHANIE VALLADARES A Report Released Date/Time: Oct 18, 2023 01:45 PM Reporting Lab: [facility] [address] [facility] [address] Performing Lab: [facility] [address] [address] [place] URINALYS IS CLEAN CATCH LEUKOCYTE ESTERASE [PRESENCE] IN URINE BY TEST STRIP NEGATIVE 10/17 Specimen Type: URINE Comment: If Glucose = >500 and Ketones are positive, please alert the Physician. Ordering Provider: STEPHANIE VALLADARES A Report Released Date/Time: Oct 18, 2023 01:45 PM Reporting Lab: [facility] [address] [facility] [address] Performing Lab: [facility] [address] [address] [place] LIVER FUNCTION PROTEIN [MASS/VOLU ME] IN SERUM OR PLASMA 7.5 g/dL 6.0 - 8.3 10/17 Specimen Type: SERUM No comment entered. Ordering Provider: STEPHANIE VALLADARES A Report Released Date/Time: Oct 18, 2023 01:05 PM Reporting Lab: [facility] [address] [address] Performing Lab: [facility] [address] [address] [place] LIVER FUNCTION ALBUMIN [MASS/VOLU ME] IN SERUM OR PLASMA 3.9 g/dL 3.5 - 5.0 10/17 Specimen Type: SERUM No comment entered. Ordering Provider: STEPHANIE VALLADARES A Report Released Date/Time: Oct 18, 2023 01:05 PM Reporting Lab: [facility] [address] [address] Performing Lab: [facility] [address] [address] [place] LIVER FUNCTION ALKALINE PHOSPHATAS E [ENZYMATIC ACTIVITY/V OLUME] IN SERUM OR PLASMA 115 U/L 40 - 150 10/17 Specimen Type: SERUM No comment entered. Ordering Provider: STEPHANIE VALLADARES A Report Released Date/Time: Oct 18, 2023 01:05 PM Reporting Lab: [facility] [address] [address] Performing Lab: [facility] [address] [place] FUN[place] ASPARTATE AMINOTRANS FERASE [ENZYMATIC ACTIVITY/V OLUME] IN SERUM OR PLASMA 31 U/L 5 - 34 10/17 Specimen Type: SERUM No comment entered. Ordering Provider: STEPHANIE VALLADARES A Report Released Date/Time: Oct 18, 2023 01:05 PM Reporting Lab: [facility] [address] Performing Lab: [facility] [address] [place] LIVER FUNCTION ALANINE AMINOTRANS FERASE [ENZYMATIC ACTIVITY/V OLUME] IN SERUM OR PLASMA 38 U/L 10/17 Specimen Type: SERUM No comment entered. Ordering Provider: STEPHANIE VALLADARES A Report Released Date/Time: Oct 18, 2023 01:05 PM Reporting Lab: [address] [address] Performing Lab: [address] [address] [place] LIVER FUNCTION BILIRUBIN. TOTAL [MASS/VOLU ME] IN SERUM OR PLASMA 0.6 mg/dL 0.2 - 1.2 10/17 Specimen Type: SERUM No comment entered. Ordering Provider: STEPHANIE VALLADARES A Report Released Date/Time: Oct 18, 2023 01:05 PM Reporting Lab: [address] [address] Performing Lab: [address] [address] [place] BASIC METABOLI C PANEL (non-fas ting) UREA NITROGEN [MASS/VOLU ME] IN SERUM OR PLASMA 16 mg/dL 7 - 25 10/17 Specimen Type: SERUM No comment entered. Ordering Provider: STEPHANIE VALLADARES A Report Released Date/Time: Oct 18, 2023 01:05 PM Reporting Lab: [address] [address] Performing Lab: [address] [address] [place] BASIC METABOLI C PANEL (non-fas ting) GLUCOSE [MASS/VOLU ME] IN SERUM OR PLASMA 153 mg/dL 65 - 100 10/17 H Specimen Type: SERUM No comment entered. Ordering Provider: STEPHANIE VALLADARES A Report Released Date/Time: Oct 18, 2023 01:05 PM Reporting Lab: [address] [address] Performing Lab: [address] [address] [place] BASIC METABOLI C PANEL (non-fas ting) SODIUM [MOLES/VOL UME] IN SERUM OR PLASMA 140 mmol/L 135 - 145 10/17 Specimen Type: SERUM No comment entered. Ordering Provider: STEPHANIE VALLADARES A Report Released Date/Time: Oct 18, 2023 01:05 PM Reporting Lab: [facility] [address] [address] Performing Lab: [facility] TRN [address] [address] [place] BASIC METABOLI C PANEL (non-fas ting) POTASSIUM [MOLES/VOL UME] IN SERUM OR PLASMA 4.7 mmol/L 3.5 - 5.0 10/17 Specimen Type: SERUM No comment entered. Ordering Provider: STEPHANIE VALLADARES A Report Released Date/Time: Oct 18, 2023 01:05 PM Reporting Lab: [facility] [address] [address] Performing Lab: [facility] [address] [address] [place] BASIC METABOLI C PANEL (non-fas ting) CHLORIDE [MOLES/VOL UME] IN SERUM OR PLASMA 103 mmol/L 100 - 110 10/17 Specimen Type: SERUM No comment entered. Ordering Provider: STEPHANIE VALLADARES A Report Released Date/Time: Oct 18, 2023 01:05 PM Reporting Lab: [facility] [address] [address] Performing Lab: [facility] [address] [address] [place] BASIC METABOLI C PANEL (non-fas ting) CARBON DIOXIDE, TOTAL [MOLES/VOL UME] IN SERUM OR PLASMA 24 meq/L 20 - 30 10/17 Specimen Type: SERUM No comment entered. Ordering Provider: STEPHANIE VALLADARES A Report Released Date/Time: Oct 18, 2023 01:05 PM Reporting Lab: [facility] [address] Performing Lab: [facility] [address] [address] [place] BASIC METABOLI C PANEL (non-fas ting) CREATININE [MASS/VOLU ME] IN SERUM OR PLASMA 1.40 mg/dL 0.50 - 1.40 10/17 Specimen Type: SERUM No comment entered. Ordering Provider: STEPHANIE VALLADARES A Report Released Date/Time: Oct 18, 2023 01:05 PM Reporting Lab: [address] [address] Performing Lab: [address] [address] [place] BASIC METABOLI C PANEL (non-fas ting) GLOMERULAR FILTRATION RATE/1.73 SQ M.PREDICTE D [VOLUME RATE/AREA] IN SERUM, PLASMA OR BLOOD BY CREATININE -BASED FORMULA (CKD-EPI 2020) 49 mL/min 60 10/17 L Specimen Type: SERUM No comment entered. Ordering Provider: STEPHANIE VALLADARES A Report Released Date/Time: Oct 18, 2023 01:05 PM Reporting Lab: [address] [address] Performing Lab: [address] [address] [place] HEMOGLOB IN A1C PANEL HEMOGLOBIN A1C/HEMOGL OBIN.TOTAL IN BLOOD BY HPLC 7.4 4.0 - 5.6 10/17 H Specimen Type: BLOOD Comment: Values obtained from A1C measurement s can vary. For atypical A1C assays, a reported value of 7.0 could actually be between 6.72 and 7.28 if measured by a reference method. A reported value of 9.0 could actually be between 8.73 and 9.27. Ref: http://www. ngsp.org/[place] Pdata.asp Ordering Provider: STEPHANIE VALLADARES A Report Released Date/Time: Oct 18, 2023 01:05 PM Reporting Lab: [address] [address] Performing Lab: [address] [address] [place] TSH THYROTROPI N [UNITS/VOL UME] IN SERUM OR PLASMA 1.44 u[IU]/mL 0.35 - 5.00 10/17 Specimen Type: SERUM No comment entered. Ordering Provider: STEPHANIE VALLADARES A Report Released Date/Time: Oct 18, 2023 01:05 PM Reporting Lab: [facility] [address] [facility] [address] Performing Lab: [facility] [address] [facility] [address] [place] MICROALB UMIN CREATINI NE RATIO PANEL MICROALBUM IN/CREATIN INE [MASS RATIO] IN URINE 29.8 mg/g 0 - 29.9 10/17 Specimen Type: URINE No comment entered. Ordering Provider: STEPHANIE VALLADARES A Report Released Date/Time: Oct 18, 2023 01:05 PM Reporting Lab: [facility] WSTRN [address] [address] Performing Lab: [facility] [address] [address] [place] MICROALB UMIN CREATINI NE RATIO PANEL MICROALBUM IN [MASS/VOLU ME] IN URINE 3.4 mg/dL 10/17 Specimen Type: URINE No comment entered. Ordering Provider: STEPHANIE VALLADARES A Report Released Date/Time: Oct 18, 2023 01:05 PM Reporting Lab: [facility] [address] [address] Performing Lab: [facility] TRN [address] [address] [place] MICROALB UMIN CREATINI NE RATIO PANEL CREATININE [MASS/VOLU ME] IN URINE 114.25 mg/dL 10/17 Specimen Type: URINE No comment entered. Ordering Provider: STEPHANIE VALLADARES A Report Released Date/Time: Oct 18, 2023 01:05 PM Reporting Lab: [facility] TRN [address] [address] Performing Lab: [facility] [address] [address] [place] CBC LEUKOCYTES [#/VOLUME] IN BLOOD BY AUTOMATED COUNT 6.95 10*3/uL 4.50 - 11.00 10/17 Specimen Type: BLOOD No comment entered. Ordering Provider: STEPHANIE VALLADARES A Report Released Date/Time: Oct 18, 2023 01:05 PM Reporting Lab: [facility] [address] [facility] [address] Performing Lab: [facility] [address] [address] [place] CBC ERYTHROCYT ES [#/VOLUME] IN BLOOD BY AUTOMATED COUNT 5.23 10*6/uL 4.23 - 5.66 10/17 Specimen Type: BLOOD No comment entered. Ordering Provider: STEPHANIE VALLADARES A Report Released Date/Time: Oct 18, 2023 01:05 PM Reporting Lab: [facility] [address] [address] Performing Lab: [address] [address] [place] CBC HEMOGLOBIN [MASS/VOLU ME] IN BLOOD 13.5 g/dL 12.8 - 17 10/17 Specimen Type: BLOOD No comment entered. Ordering Provider: STEPHANIE VALLADARES A Report Released Date/Time: Oct 18, 2023 01:05 PM Reporting Lab: [facility] [address] [address] Performing Lab: [facility] [address] [address] [place] CBC HEMATOCRIT [VOLUME FRACTION] OF BLOOD BY AUTOMATED COUNT 43.9 39.2 - 50.4 10/17 Specimen Type: BLOOD No comment entered. Ordering Provider: STEPHANIE VALLADARES A Report Released Date/Time: Oct 18, 2023 01:05 PM Reporting Lab: [facility] [address] [address] Performing Lab: [facility] [address] [address] [place] CBC MCV [ENTITIC VOLUME] BY AUTOMATED COUNT 83.9 fL 82 - 99 10/17 Specimen Type: BLOOD No comment entered. Ordering Provider: STEPHANIE VALLADARES A Report Released Date/Time: Oct 18, 2023 01:05 PM Reporting Lab: [facility] [address] [address] Performing Lab: [facility] [address] [address] [place] CBC MCHC [MASS/VOLU ME] BY AUTOMATED COUNT 30.8 g/dL 30.8 - 35.1 10/17 Specimen Type: BLOOD No comment entered. Ordering Provider: STEPHANIE VALLADARES A Report Released Date/Time: Oct 18, 2023 01:05 PM Reporting Lab: [facility] [address] [address] Performing Lab: [facility] [address] [address] [place] CBC PLATELETS [#/VOLUME] IN BLOOD BY AUTOMATED COUNT 285 10*3/uL 140 - 360 10/17 Specimen Type: BLOOD No comment entered. Ordering Provider: STEPHANIE VALLADARES A Report Released Date/Time: Oct 18, 2023 01:05 PM Reporting Lab: [address] [address] Performing Lab: [facility] [address] [address] [place] CBC ERYTHROCYT E DISTRIBUTI ON WIDTH [RATIO] BY AUTOMATED COUNT 18.1 12.0 - 16.0 10/17 H Specimen Type: BLOOD No comment entered. Ordering Provider: STEPHANIE VALLADARES A Report Released Date/Time: Oct 18, 2023 01:05 PM Reporting Lab: [facility] [address] [address] Performing Lab: [facility] [address] [address] [place] CBC MCH [ENTITIC MASS] BY AUTOMATED COUNT 25.8 pg 26.2 - 32.6 10/17 L Specimen Type: BLOOD No comment entered. Ordering Provider: STEPHANIE VALLADARES A Report Released Date/Time: Oct 18, 2023 01:05 PM Reporting Lab: [facility] [address] [facility] [address] Performing Lab: [address] [address] [facility] HEMOGLOB IN A1C PANEL HEMOGLOBIN A1C/HEMOGL OBIN.TOTAL IN BLOOD BY HPLC 7.1 4.0 - 5.6 06/08 H Specimen Type: BLOOD Comment: Values obtained from A1C measurement s can vary. For atypical A1C assays, a reported value of 7.0 could actually be between 6.72 and 7.28 if measured by a reference method. A reported value of 9.0 could actually be between 8.73 and 9.27. Ref: http://www. ngsp.org/[place] Pdata.asp Ordering Provider: LUCIA LEMONS Report Released Date/Time: June 08, 2023 12:24 PM Reporting Lab: [address] [address] Performing Lab: [address] [address] [facility] Vital Signs Combined list of inpatient and outpatient Vital Signs from Department of Defense and Veterans Affairs, ranging from 12 months to all on record, depending upon the facility. Vital Sign Value Date Comments Source SYSTOLIC BLOOD PRESSURE 160 10/18/2023 13:37:02 [place] DIASTOLIC BLOOD PRESSURE 67 10/18/2023 13:37:02 [place] PULSE OXIMETRY 96 10/18/2023 13:37:02 [facility] WE[facility] 205.6 10/18/2023 13:37:02 [facility] BMI 32 kg/m2 10/18/2023 13:37:02 [facility] TEMPERATURE 97.3 10/18/2023 13:37:02 [facility] PULSE 67 10/18/2023 13:37:02 [facility] Encounters Combined list of: 1) Encounters from Department of Veterans Affairs facilities going backup to the last 18 months, not all [place] inpatient encounters are included; 2) Encounters from the Department of Defense facilities going backup to 280 months. Location Location Details Encounter Type Encounter Number Reason For Visit Attending Provider ADM Date DC Date Status Disposition Source [facility] En[facility] [id number] 04[facility]10 [facility] En[facility] [id number] 04/10 [facility] [place] OFFICE O/P EST HI 40 MIN [id number] Diagnos is: ICD-10- CM I48.0 Paroxys mal atrial fibrill ation LANCE DELAROSAOG OFE Mason 04/20 [facility] Encounter [id number] 04/20 [facility] Encounter [id number] 04/20 [facility] Encounter [id number] 04/21 [facility] Encounter [id number] 05/04 [facility] Encounter [id number] 05/05 [facility] Encounter [id number] JAMI ALVARADO 05/05 [facility] Encounter [id number] 05/05 [facility] En[facility] [id number] 05/05 [facility] Encounter [id number] 05/08 [facility] En[facility] [id number] 05/16 [facility] Encounter [id number] 05/16 [facility] Encounter [id number] 05/18 [facility] [place] OFFICE O/P EST LOW 20 MIN [id number] Diagnos is: ICD-10- CM M13.861 Other specifi ed arthrit is, right knee ISATU MASCORRO N 05/24 [place] [facility] En[facility] [id number] 05/24 [facility] [place] OFF/OP EST MAY X REQ PHY/QHP [id number] Diagnos is: ICD-10- CM 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 VALLADARES,DA VID A 05/26 [place] MTMS BY PHARM ADDL 15 MIN [id number] Diagnos is: ICD-10- CM 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 TAMICA LEMONS A 06/07 [place] [facility] OFFICE O/P EST LOW 20 MIN [id number] Diagnos is: ICD-10- CM M17.0 Bilater al primary osteoar thritis of knee DARNELLFranchescaIEL Belinda 06/08 [facility] En[facility] [id number] 06/08 [facility] Encounter [id number] 06/12 [facility] Encounter [id number] 06/15 [facility] Encounter [id number] 06/15 [facility] Encounter [id number] 06/22 [facility] Encounter [id number] 06/22 [facility] Encounter [id number] 06/27 [facility] En[facility] [id number] 06/29 [facility] Encounter [id number] 06/29 [facility] HEARING AID REPAIR/MOD IFYING [id number] Diagnos is: ICD-10- CM Z46.1 Encount er for fitting and adjustm ent of hearing aid SERENE JOHNS 07/06 [facility] En[facility] [id number] 1.07/07 [facility] Encounter [id number] [facility] Encounter [id number] [facility] Encounter [id number] 07/12 [facility] Encounter [id number] 07/13 [facility] Encounter [id number] [facility] Encounter [id number] 07/19 [facility] En[facility] [id number] 07/23 [facility] [place] OFF[place] O/P EST MOD 30 MIN [id number] Diagnos is: ICD-10- CM 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 VALLADARES,DA VID A 07/24 [facility]ARM ADDL 15 MIN [id number] Diagnos is: ICD-10- CM 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 LEMONS,IZ ABELA A 07/28 [place] [facility] En[facility] [id number] 07/31 [facility] En[facility] [id number] 08/01 [facility] Encounter [id number] 08/14 [facility] Encounter [id number] 08/14 [facility] Out[facility] Encounter [id number] 08/29 [facility] En[facility] [id number] [facility] Encounter [id number] 09/02 [facility] Encounter [id number] 1.09/21 [facility] Encounter [id number] 1.09/28 [facility] En[facility] [id number] 1.09/28 [facility] [place] MTMS BY PHARM COOK FISH EGGS 15 MIN [id number] Diagnos is: ICD-10- CM 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 [place] [place] ADMIN [id number] 1. BLAINEDA VID A 10/17 [facility] Outpatient Encounter [id number] [facility] En[facility] [id number] 1.10/24 [facility] OFFICE O/P EST LOW 20 MIN [id number] 1BY. [id number] Diagnos is: ICD-10- CM L60.0 Ingrowi ng DHARMESH Barrera [place] [facility] Outpatient Encounter [id number] [facility] Outpatient Encounter [id number] 11/03 [facility] En[facility] [id number] 11/06 [facility] Encounter [id number] 11/07 [facility] Encounter [id number] 11/09 [facility] Encounter [id number] 11/09 [facility] Encounter [id number] 11/13 [facility] [id number] 1.11/16 [facility] [id number] [facility] [place]/OP EST JUNE X REQ PHY/QHP [id number] Diagnos is: ICD-10- CM Z23 Encount er for immuniz ation LISSY CAIN 11/22 [place] SELF CARE MNGMENT TRAINING [id number] Diagnos is: ICD-10- CM M17.0 Bilater al primary osteoar thritis of knee CATA MILLARD 11/22 [place] [facility] En[facility] [id number] 1.11/30 [facility] [id number] 12/11 [facility] En[facility] [id number] 12/13 [facility] HC PRO PHONE CALL 5-10 MIN [id number] Diagnos is: ICD-10- CM Z71.9 [employer] ing, unspeci fied ALDAIR STEVENS 12/14 [facility] [id number] 12/20 [facility] [id number] 1[facility]12/26 [facility] [id number] 1.12/29 [facility] HEARING AID REPAIR/MOD IFYING [id number] 1. Diagnos is: ICD-10- CM Z46.1 Encount er for fitting and adjustm ent of hearing aid BOSTON OLVERA 01/02 [facility] [id number] 01/02 [facility] [id number] 01/03 [facility] [id number] 01/09 [facility] [id number] [facility] [id number] 01/15 [facility] [id number] 01/17 [facility] [id number] 01/18 [facility] [id number] 01/22 [facility] [id number] 01/23 [facility] [id number] 01/23 [facility] HC PRO PHONE CALL 5-10 MIN [id number] Diagnos is: ICD-10- CM H92.09 Otalgia , unspeci fied ear ELIZABETH DANGELO 01/23 [facility] [id number] Diagnos is: ICD-10- CM R42 Dizzine ss and giddine ss Tanvi THOMAS 01/23 [facility] EVAL AUD FUNCJ 1ST HOUR [id number] 1. Diagnos is: ICD-10- CM H90.3 Sensori neural hearing loss, bilater al Rodolfo HARVEY 01/24 [facility] Out[facility] Encounter [id number] 01/26 [facility] Encounter [id number] 01/29 [facility] Out[facility] Encounter [id number] 02/01 [facility] [place] [facility] Encounter [id number] 02/08 [facility] Encounter [id number] 02/18 [facility] Out[facility] Encounter [id number] 02/19 [facility] Out[facility] Encounter [id number] 02/27 [facility] Out[facility] Encounter [id number] 03/05 [facility] Out[facility] Encounter [id number] 03/05 [facility] Encounter [id number] 03/06 [facility] Out[facility] Encounter [id number] 03/06 [facility] TX SP LANG VOICE COMM INDIV [id number] Diagnos is: ICD-10- CM R41.841 Cogniti ve communi cation deficit CHARANJIT,S ARAH 03/09 [facility] Out[facility] Encounter [id number] 03/09 [facility] Out[facility] Encounter [id number] [facility] Out[facility] Encounter [id number] [facility] Out[facility] Encounter [id number] [facility] Out[facility] Encounter [id number] [facility] Out[facility] Encounter [id number] 03/19 [facility] Out[facility] Encounter [id number] [facility] Out[facility] Encounter [id number] [facility] Out[facility] Encounter [id number] 03/21 [facility] Outpatient Encounter [id number] 03/21 [facility] Outpatient Encounter [id number] 03/21 [facility] OFFICE O/P EST MOD 30 MIN [id number] Diagnos is: ICD-10- CM E11.321 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, bi MERHAR,CALOS H B 03/22 [facility] CPTRZ OPH DX IMG PST SGM RTA [id number] Diagnos is: ICD-10- CM E11.321 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, MERHAR,CALOS H B 03/22 [facility] FUNDUS PHOTOGRAPH Y W/I&R [id number] Diagnos is: ICD-10- CM E11.321 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, MERDAT,CALOS H B 03/22 [facility] Outpatient Encounter [id number] 03/22 [facility] NQHP OL DIG ASSMT&MGMT 5-10 [id number] Diagnos is: ICD-10- CM 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 KAYLYN ACOSTA A 03/23 [facility] Out[facility] Encounter [id number] 03/28 [facility] Out[facility] Encounter [id number] 04/11 [facility] [place] HEAR[place] A[place] REPAIR/MOD IFYING [id number] Diagnos is: ICD-10- CM [facility] WADEBOSTON L 04/20 [place] OFF[place] O/P EST LOW 20 MIN [id number] Diagnos is: ICD-10- CM L60.0 Ingrowi DHARMESH Nielson F 04/30 [place] MTMS BY PHARM ADDL 15 MIN [id number] Diagnos is: ICD-10- CM 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 PRESTON[facility]IN [facility] DIG ASSMT&MGMT 5-10 [id number] Diagnos is: ICD-10- CM 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 JANNETTE MELENDEZ 05/07 [facility] (631GE) [place] MTMS BY PHARM COOK FISH EGGS 15 MIN [id number] Diagnos is: ICD-10- CM 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 PRESTON,ROBIN IE 05/07 [place] [facility] Out[facility] Encounter [id number] 05/22 [facility] [place] MTMS BY PHARM COOK FISH EGGS 15 MIN [id number] Diagnos is: ICD-10- CM 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 ROBIN JOHNSTON IE 05/22 [place] [facility] Out[facility] Encounter [id number] 1.05/30 [facility] Out[facility] Encounter [id number] [facility] Out[facility] Encounter [id number] [facility] Out[facility] Encounter [id number] [facility] [place] MTMS BY PHARM ADDL 15 MIN [id number] Diagnos is: ICD-10- CM 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 PRESTONROBIN MARSHALL IE 06/29 [place] MTMS BY PHARM COOK FISH EGGS 15 MIN [id number] Diagnos is: ICD-10- CM 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 ROBIN JOHNSTON IE 07/03 [place] [facility] Out[facility] Encounter [id number] [facility] Out[facility] Encounter [id number] 07/04 [facility] Encounter [id number] 07/05 [facility] Out[facility] Encounter [id number] 07/06 [facility] OT EVAL LOW COMPLEX 30 MIN [id number] Diagnos is: ICD-10- CM M17.0 Bilater al primary osteoar thritis of knee NIEVES,DI ANE 07/09 [facility] Out[facility] Encounter [id number] 07/10 [facility] Outpatient Encounter [id number] 07/10 [facility] Outpatient Encounter [id number] 07/10 [facility] Out[facility] Encounter [id number] 07/10 [facility] Out[facility] Encounter [id number] 07/16 [facility] [place] ORTHC/PROS TC MGMT SBSQ ENC [id number] [id number] Diagnos is: ICD-10- CM M25.562 Pain in left knee Isabella TALLEY 07/19 [place] [facility] Out[facility] Encounter [id number] 07/23 [facility] Out[facility] Encounter [id number] 07/24 [facility] Out[facility] Encounter [id number] 07/24 [facility] Out[facility] Encounter [id number] 07/27 [facility] Outpatient Encounter [id number] 08/03 [facility] Out[facility] Encounter [id number] 08/11 [facility] Out[facility]counter [id number] 08/28 [facility] Out[facility] Encounter [id number] 08/29 [facility] Out[facility] Encounter [id number] 08/30 [facility] Outpatient Encounter [id number] 09/06 [facility] [place] OFFICE O/P EST LOW 20 MIN [id number] Diagnos is: ICD-10- CM L60.0 Ingrowi DHARMESH Nielson ES F 09/10 [place] [facility] Out[facility] Encounter [id number] 09/10 [facility] Out[facility] Encounter [id number] 09/11 [facility] [place] Outpatient Encounter [id number] 09/14 [place] [facility] Outpatient Encounter [id number] 09/14 [facility] Outpatient Encounter [id number] 09[facility]14 [facility] Outpatient Encounter [id number] 09/27 [facility] Outpatient Encounter [id number] 09/27 [facility] NQHP OL DIG ASSMT&MGMT 5-10 [id number] Diagnos is: ICD-10- CM Z04.89 Encount er for examina tion and observa tion for oth reasons SUPA VILLALTA 10/01 [facility] [place] [facility] Social History Combined list of available smoking, tobacco, and other social history from Department of Defense and Veterans Affairs facilities. Social History Type Response Date Comment Source Tobacco smoking status [facility] VA-TOBACCO NEVER USED 10/18/2023 [facility] [place] [facility] History of tobacco use IN-TOBACCO FORMER USER 09/24/2022 [facility] [place] [facility] History of tobacco use IN-TOBACCO QUIT 15 YRS OR MORE 10/01/2021 [facility] History of tobacco use IN-TOBACCO NEVER USED 04/21/2020 [facility] History of tobacco use IN-TOBACCO FORMER USER 01/24/2019 [facility] History of tobacco use IN-TOBACCO QUIT 15 YRS OR MORE 09/16/2017 [facility] History of tobacco use QUIT TOBACCO USE > 7 YEARS AGO 01/26/2017 reports quitting 45 years ago [facility] History of tobacco use QUIT TOBACCO USE > 7 YEARS AGO 12/15/2015 quit 45 years ago, smoked 3 packs a day x 20 years [facility] History of tobacco use HISTORY OF SMOKING 04/09/2003 hx of 3ppd for 20 yrs quit smoking 25 yrs ago [facility] Plan of Care List of future care activities from [facility] facilities. Additional future care activities may be listed in the Assessment and Plan section. Date/Time Care Activity Care Activity Detail Facili ty 10/12/2024 AMBULATORY - REHAB MEDICINE AMBULATORY - REHAB MEDICINE [facility] Advance Directives List of completed, amended, or rescinded Advance Directives on record at [facility] facilities. An actual copy of the Directive is not included. Date Advance Directive Provider Source 08/20/2017 ADVANCE DIRECTIVE YULISA CH [facility]
--- NOTE | 2024-10-09 14:49 | MHC.OFFVIS ---
Intake Visit Reasons: 3m/PVR/UA/PSA Intake Note: Patient is present for 3 mo follow up Urology Medication:VITAMIN B6,FINASTERIDE Antibiotic Allergy:PENICILLIN G,DOXYCYCLINE Blood Thinner:APIXABAN Crm Marketing Executive Required: No Accompanied by: Self / Same As Patient Allergies penicillin G Allergy (Intermediate, Verified 10/09/24 14:50) Anaphylaxis lisinopril Allergy (Verified 10/09/24 14:50) Unknown doxycycline Adverse Reaction (Verified 10/09/24 14:50) Diarrhea losartan Adverse Reaction (Verified 10/09/24 14:50) Diarrhea HPI Comments Details: Casper CAMACHO is a very pleasant male. He is a patient of Dr Shelby. He is seen for the following urologic conditions. - lower urinary tract symptoms Three-month follow-up after methenamine and vitamin-C UA normal Significant improvement PVR 30 cc Continue with current medications including finasteride, methenamine and vitamin-C PSA 07/01 7.2 Twelve month follow-up. PSA Nephrolithiasis/Urolithiasis: He is here for further evaluation of nephrolithiasis The patient previously had kidney stones whose composition w 02/24 , calcium oxalate - monohydrate, calcium oxalate - dihydrate. 24 Hour urine evaluation 09/24 , Low Urine volume < 2.0 liters, High Sodium (> 100mEq) 04/25 1.5 Litre, , High Sodium (> 100mEq) - 230, , High Citrate, Low Oxalate < 30, Low calcium < 200. Prior imaging includes 10/24 , a renal ultrasound R LP - 1.3cm , L 5mm 03/27 right faint 4mm 09/24 , showing no evidence of stones 04/25 , a renal ultrasound, showing no evidence of stones - 04/28 renal ultrasound right renal cysts 1 cm, no evidence of stones UA today shows < 5.5, low pH suggestive of higher protein load, high specific gravity suggestive of relative dehydration. Current therapeutic plan will be to continue with imaging surveillance. Neurogenic Bladder: They are here for further management for incomplete emptying neurogenic bladder. Urinary retention initially found after ER visit for spontaneous retention 10/24 - 2 Litre Voiding trial outcome failed first voiding trial 11/03/16 - March 2020 [facility] laser Cystoscopy results 11/23 large trilobar prostate. Imaging results 10/24 , US shows - bilateral hydro with resolution 09/24 PVR 250cc bladder wall thickening. Current management 5AR [facility] Medical History PAF (paroxysmal atrial fibrillation) NSTEMI (non-ST elevated myocardial infarction) Systolic heart failure Hearing deficit Rosacea Diabetes BPH (benign prostatic hyperplasia) HTN (hypertension) Surgical History S/P cardiac catheterization Status post glaucoma surgery Hx of circumcision Hx of cystoscopy History of prostate surgery Social History Household Members: Spouse Housing: House Do you presently have visiting nurse or other home services: No Alcohol intake: never Patient Tobacco Use Status: Never used Tobacco Second Hand Smoke Exposure: No Advance Directives Date on File: 09/12/22 service: Yes Review of Systems Const Denies chills and Denies fever(s) Card Reports no additional complaints and Denies syncope Resp Denies cough GI Denies abdominal pain and Denies heartburn Reports as per HPI and Denies change in libido Neuro Denies syncope Psych Denies change in libido Endo Denies change in libido Physical Exam Const General: cooperative, healthy appearing, comfortable and no acute distress Orientation/consciousness: patient oriented x3 HEENT Face and sinus: Yes normal facial exam Mouth: moist mucous membranes Neck Neck: Yes normal visual inspection, Yes full ROM and Yes trachea midline Chest Chest palpation & inspection: normal inspection of the chest Resp Effort & Inspection: normal respiratory effort, able to speak in complete sentences and no respiratory distress GI Inspection: Yes normal to inspection Back/Spine/Pelvis Cervical Spine: normal cervical lordosis Thoracic/Lumbar Spine: thoracic and lumbar spine normal to inspection Skin General skin exam: no rashes or lesions noted Neuro General: patient oriented x3, gait normal, tone normal and moves all extremities Extrem General: Yes normal to inspection and Yes capillary refill normal Assessment & Plan Assessment & Plan (1) Recurrent UTI (urinary tract infection): Code(s): N39.0 - Urinary tract infection, site not specified Category: Medical (2) BPH w urinary obs/LUTS: Code(s): N40.1 - Benign prostatic hyperplasia with lower urinary tract symptoms; N13.8 - Other obstructive and reflux uropathy Category: Medical (3) Nephrolithiasis: Code(s): N20.0 - Calculus of kidney Category: Medical Plan Twelve month follow-up PSA Continue methenamine and vitamin-C Orders: Orders PSA,Total (Free>4and<10) 12 Months N13.8 - Other obstructive and reflux uropathy, N40.1 - Benign prostatic hyperplasia with lower urinary tract symptoms Medications: Refilled methenamine hippurate 1 g PO DAILY 90 tabs 3RF 90 days N39.0 - Urinary tract infection, site not specified ascorbic acid (vitamin C) 1,000 mg PO DAILY 90 tabs 3RF 90 days N39.0 - Urinary tract infection, site not specified Patient Instructions: This note is constructed using voice recognition software. While every effort has been made to ensure accuracy assembler insulator errors may have been included. Imaging studies, laboratory and physical exam results were discussed and reviewed in detail. No major barriers to patient understanding were identified. An opportunity to ask questions regarding the treatment plan was provided. All questions were answered. The patient expressed understanding and agreement with the above treatment plan. The patient is aware they should contact our office by phone for worsening of their current condition or the appearance of new urologic symptoms. Compliance is encouraged with any medications and followup testing that is ordered. It is a privilege to participate in the urologic care of your patient. If you have any questions or concerns regarding treatment for the above conditions, or other urologic issues, please do not hesitate to contact me. The office telephone contact is [phone]. Sincerely, Dr Damion Leslie MD, [facility] - Urology Compassionate Specialist Care for the Genitourinary System Coding Level of Care Code Est Pt Level 3 (36192) Complex EM visit Add On G2211 Diagnoses Recurrent UTI (urinary tract infection) N39.0 BPH w urinary obs/LUTS N40.1; N13.8 Nephrolithiasis N20.0
--- OUTSIDE RECORDS SUMMARY | 2024-10-09 15:51 | XMS_ITS | Encounter Summary ---
Author Name [facility] [place] [facility] [place] [facility] [place] Address [address] [place] [id number] Care Team Providers Care Information Operator Name Role Phone KIT HARMAN Primary Care Provider Unavailamelia whalen Insurance Providers: All historical and current Section [...] PART A June 07, 2002 PART A [id number] MARIAH CAMACHO JR PATIENT MEDICARE (WNR) MEDICARE (M) PART A June 07, 2002 PART A [id number] MARIAH CAMACHO JR PATIENT MEDICARE (WNR) MEDICARE (M) PART A June 07, 2002 PART A [id number] MARIAH CAMACHO JR PATIENT MEDICARE (WNR) MEDICARE (M) PART B June 07, 2002 PART B [id number] MARIAH CAMACHO JR PATIENT MEDICARE (WNR) MEDICARE (M) PART A June 07, 2002 PART A [id number] [facility] MARIAH CAMACHO JR PATIENT MEDICARE (WNR) MEDICARE (M) PART B June 07, 2002 PART B [id number] [facility] [phone] MARIAH CAMACHO JR PATIENT Selected Encounter This section includes the information on record at [place] for the Encounter. Date/Time Encounter Type Encounter Description Reason Pro vider Source IHE Encounter Template Text not used by [place] Advance Directives: All historical and current Section Date Range: From patient's date of to the date document was created. This section includes ALL of a patient's completed or amended [place] Advance and Rescinded Directives. The entries below indicate that a directive exists for the patient, but an actual copy is not included with this document. The data comes from all [place] facilities. Date Advance Directives Provider Source Aug 20, 2017 ADVANCE DIRECTIVE YULISA CH [place] Rodolfo [facility]
== END 2024-10-09 16:10 | disposition home or self-care (01) ==
LOC: HO.HUSH 14:38
PROVIDERS: PCP Internal Medicine; Visit Provider Urology
DX: N39.0 Urinary tract infection, site not specified (principal); N40.1 Benign prostatic hyperplasia with lower urinary tract symptoms; N13.8 Other obstructive and reflux uropathy; N20.0 Calculus of kidney
CPT/HCPCS: 99213; G2211

== ENCOUNTER → 2024-10-09 14:38 | Outpatient (BNVA) | payer OTHER, SELFPAY | PROVIDERS: PCP Internal Medicine; Visit Provider Urology | DX: N40.1 Benign prostatic hyperplasia with lower urinary tract symptoms (principal); N20.0 Calculus of kidney; N39.0 Urinary tract infection, site not specified; N13.8 Other obstructive and reflux uropathy | CPT/HCPCS: 51798; 99212 ==

== ENCOUNTER → 2024-10-10 09:27 | Outpatient (BNV) | payer OTHER, SELFPAY | PROVIDERS: PCP Internal Medicine; Visit Provider Urology | DX: Z13.9 Encounter for screening, unspecified (principal) | CPT/HCPCS: 81003 ==

== ENCOUNTER → 2024-10-24 09:40 | Outpatient (REF) | payer OTHER, SELFPAY ==
--- NOTE | 2024-10-24 10:18 | CA_ITS ---
Transthoracic Echocardiogram Patient (Last, First, Middle): Casper Herrera H Gender: Male Date of : 1935 Age: 89 Procedure Date: 10/24/2024 Procedure Type: Transthoracic Echocardiogram Location: OP Height: 172. cm Weight: 88. kg BSA: 2.01 m2 Heart Rate: 58 bpm BP: 126 / 54 mmHg Scutcher Tender: TO Referring MD: Rosetta Mistry OUTSOLE MOLDERLesli Symptoms: I25.5 - Ischemic cardiomyopathy Study Quality: Adequate ECG Rhythm: Sinus Conclusions: - The left ventricular systolic function is moderately decreased. The calculated ejection fraction is 36% by biplane method. - There is evidence of regional wall motion abnormalities. - There is moderate mitral annular calcification. Findings Left Ventricle Moderately increased left ventricular cavity size. There is normal left ventricular wall thickness. The left ventricular systolic function is moderately decreased. The calculated ejection fraction is 36% by biplane method. There is evidence of regional wall motion abnormalities. Evidence suggests grade I (mild) diastolic dysfunction. Wall Motion Rest Echo Findings The anterolateral wall and apical lateral segment are hypokinetic. The basal inferior, mid anteroseptal, and mid inferolateral segments are akinetic. The apex segment is not visualized. Right Ventricle Normal right ventricular cavity size and systolic function. Atria The left atrium is moderately dilated. The right atrium is normal in size. Aortic Valve There is a normal trileaflet aortic valve. There is mild calcification of the aortic valve. There is no aortic valve stenosis. Mitral Valve There is moderate mitral annular calcification. There is mild mitral valve regurgitation. There is no mitral valve stenosis. Pulmonic Valve The pulmonic valve is likely normal. Tricuspid Valve There is mild tricuspid valve regurgitation. There is no evidence of pulmonary hypertension. Great Vessels The asc aorta is normal in size. Venous The inferior vena cava is mildly dilated and collapses greater than 50% with inspiration. Pericardium/Pleural There is no evidence of pericardial effusion. Prior Study Comparison No significant change compared to prior study dated: 07/20/2023. Measurements 2D Linear Measurements IVSd: 0.90 0.6-0.9/0.6-1.0 cm LVIDd: 6.36 3.9-5.3/4.2-5.9 cm LVIDd Index: 3.16 2.4-3.2/2.2-3.1 cm/m2 LVIDs: 4.70 2.0-3.6 cm LVPWd: 0.88 0.7-1.1 cm LA Diam: 3.90 2.7-3.8/3.0-4.0 cm LAIDs Index: 1.94 1.5-2.3 cm/m2 LV Mass: 292.55 67-162/88-224 g LV Mass Index: 145.55 43-95/49-115 g/m2 LVOT Diam: 2.40 3.0+(-)1.3 cm 2D Systolic Function EF 4C: 35.20 >55% EF 2C: 35.90 >55% EF BiP: 36.20 >55% Mitral Valve MV Pk E: 0.93 MV PK A: 1.07 MV Decel Time: 196.00 E/A: 0.90 E'Lateral: 4.35 E'Medial: 4.24 E/E' Med: 21.90 E/E' Lat: 21.40 PHT: 58.00 MVA PHT: 3.79 Decel [place]: 4.73 Aortic Valve AoV Pk Landen: 1.69 AoV Mn Landen: 1.13 AoV VTI: 0.39 AoV Pk Grad: 11.00 Aov Mn Grad: 6.00 KARINA Cont.VTI: 2.07 LVOT LVOT Pk Landen: 0.85 LVOT Mn Landen: 0.54 LVOT VTI: 0.18 LVOT Pk Grad: 3.00 LVOT Mn Grad: 1.00 LVOT Diam: 2.40 LVOT Area: 4.52 Diastolic Function MV Pk E: 0.93 MV Pk A: 1.07 E/A: 0.90 E'Medial: 4.24 E/E' Med: 21.90 E' Laterial: 4.35 E/E' Lat: 21.40 Right Ventricle TAPSE (mm): 24.40 TVS' Landen: 11.60 Tricuspid Valve TR Pk Landen: 2.64 TR Pk Grad: 28.00 RA Press: 8.00 RVSP: 36.00 Great Vessels Aorta Sinus of Valsalva: 3.59 2.0-3.5 cm Ao Asc: 3.40 2.1-3.4 cm Updated in Other Vendor System with Status of Final Kaushal Sánchez MD electronically signed on 10/26/2024 10:34:01 AM with status of Final
== END ==
LOC: HO.CARD 09:40
PROVIDERS: PCP Internal Medicine; Visit Provider Nurse Practitioner Family
DX: I25.5 Ischemic cardiomyopathy (principal); I21.4 Non-ST elevation (NSTEMI) myocardial infarction
CPT/HCPCS: 93306

== ENCOUNTER → 2024-10-24 10:18 | Outpatient (BNV) | payer OTHER, SELFPAY | PROVIDERS: PCP Internal Medicine; Visit Provider Internal Medicine | DX: I34.81 Nonrheumatic mitral (valve) annulus calcification (principal); I51.89 Other ill-defined heart diseases; I35.8 Other nonrheumatic aortic valve disorders | CPT/HCPCS: 93306 ==

== ENCOUNTER 2024-10-29 13:20 | Outpatient (AMB) | payer OTHER, SELFPAY ==
--- NOTE | 2024-10-29 13:23 | MHC.OFFVIS ---
Vital Signs 10/29/24 13:25 Height 5 ft 8 in Weight 181 lb 10.574 oz BMI 27.6 BP 140/62 H Blood Pressure Location Lt brachial Position Sitting Pulse 85 Pulse Source Monitor Intake Visit Reasons: f/u after Echo Asphalt Spreader Required: No Allergies penicillin G Allergy (Intermediate, Verified 10/29/24 13:30) Anaphylaxis lisinopril Allergy (Verified 10/29/24 13:30) Unknown doxycycline Adverse Reaction (Verified 10/29/24 13:30) Diarrhea losartan Adverse Reaction (Verified 10/29/24 13:30) Diarrhea Medication List - Last Reconciled 10/29/24 by Rosetta Mistry NP-C alogliptin 12.5 mg PO DAILY amiodarone 100 mg PO BID@0600,1800 amlodipine 10 mg PO DAILY apixaban (Eliquis) 5 mg PO BID ascorbic acid (vitamin C) 1,000 mg PO DAILY 90 days clotrimazole 1% 1 appl topical DAILY PRN finasteride 5 mg PO DAILY 90 days furosemide 20 mg See Protocol PO DAILY@1600 hydralazine 25 mg PO TID ketorolac 0.5% 1 drp ophthalmic (eye) QID metformin 1,000 mg PO DAILY Held on 09/13/22. Instructions: Resume on 09/16/22. methenamine hippurate 1 g PO DAILY 90 days metronidazole 0.75% 1 appl topical BID peg 400-propylene glycol 0.4-0.3 % (Systane Ultra) 1 drp ophthalmic (eye) QID PRN pyridoxine (vitamin B6) 100 mg PO DAILY 90 days HPI HPI f/u after Echo: Details: Casper is an 89-year-old male with past medical history of hypertension, hyperlipidemia, diabetes, paroxysmal atrial fibrillation, heart failure with reduced EF, NSTEMI 09/2022, LAD culprit lesion and KAMILLE placed, ischemic cardiomyopathy who presents for follow-up. Today he reports that he did not undergo total knee replacement due to recurrent urinary tract infection. He tells me his surgery has been canceled 3 times so far. At present there is no plan for him to undergo surgery in the near future. He has lost 15 lb and this is actually helping to improve his knee comfort. He has been increasing his physical activity as the pillow agent of his who is having issues with lightheadedness and had recent fall. He is doing all the activities in the home and meal prep. He denies chest discomfort, shortness of breath, heart palpitations, lightheadedness. He says he is actually feeling better now than he has in a long time. He is following with Dr. Leslie for his urological issues. He tells me he is prone to infections. He is taking his meds as directed. He denies any bleeding issues. [facility] Medical History PAF (paroxysmal atrial fibrillation) NSTEMI (non-ST elevated myocardial infarction) Systolic heart failure Hearing deficit [place] Diabetes BPH (benign prostatic hyperplasia) HTN (hypertension) Surgical History S/P cardiac catheterization Status post glaucoma surgery Hx of circumcision Hx of cystoscopy History of prostate surgery Social History Household Members: Spouse Housing: House Do you presently have visiting nurse or other home services: No Alcohol intake: never Patient Tobacco Use Status: Never used Tobacco Second Hand Smoke Exposure: No Advance Directives Date on File: 09/12/22 service: Yes Review of Systems Const All systems reviewed & are unremarkable except as noted in HPI and below ENT Denies dizziness Card Denies chest pain, Denies chest pain at rest, Denies chest pain with activity, Denies rapid heart rate, Denies pedal edema, Denies edema, Denies leg edema, Denies lightheadedness, Denies palpitations, Denies dyspnea, Denies dyspnea on exertion and Denies orthopnea Resp Denies cough, Denies dyspnea and Denies dyspnea on exertion GI Denies hematochezia and Denies change in stool character Musc Reports abnormal gait (uses cane, significant knee arthritis), Reports limited range of motion, Denies muscle cramps, Denies muscle weakness, Denies numbness, Denies radiating pain into limb, Denies stiffness and Denies tingling Neuro Reports abnormal gait (uses cane, significant knee arthritis), Denies dizziness, Denies numbness and Denies tingling Endo Denies palpitations Physical Exam Vital Signs: Last Vital Signs Pulse 85 10/29/24 13:25 BP 140/62 H 10/29/24 13:25 BMI result Body Mass Index 27.6 Const General: cooperative, healthy appearing, comfortable and no acute distress Orientation/consciousness: patient oriented x3 Neck Neck: Yes normal visual inspection and Yes no JVD Resp Effort & Inspection: normal respiratory effort Auscultation: clear to auscultation bilaterally, no rhonchi and no wheezes Cardio Jugular venous distension: no JVD Rate: regular rate Rhythm: regular rhythm Heart sounds: S1 normal heart sound present, S2 normal heart sound present, no murmurs and no rubs Neuro General: patient oriented x3 Extrem Other: bilateral knee braces on, difficulty with ambulation General: No no pedal edema and No calf tenderness Psych Appearance: grossly normal Mental Status: mental status grossly normal Speech and movement: Normal speech and movement present Office Procedures EKG Details: Today, read by me, sinus rhythm, right bundle branch block, left anterior fascicular block, bifascicular block, rate 85, unchanged from 03/12/2024 [id number], Complete Assessment & Plan Assessment & Plan (1) NSTEMI (non-ST elevated myocardial infarction): Code(s): I21.4 - Non-ST elevation (NSTEMI) myocardial infarction Category: Medical Plan: NSTEMI 09/13/2022 -symptoms of lightheadedness and weakness. 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 He had a balloon angioplasty and stent done to the proximal LAD. Currently no anginal symptoms. He was treated with Plavix for 1 year. He is not on aspirin as he is on Eliquis. He refuses to take statin medications. He has not been on beta-candis due to concerns for conduction issues. (Has bifascicular block on some EKGs). He is on amiodarone. he is not on nj or arb due to prior issues with side effects. He is taking hydralazine for BP control and Lasix. Home blood pressures are reported as normal. No med changes made at this time. Signs and symptoms of angina reviewed. (2) S/P cardiac catheterization: Comment: 09/14/2022, left main normal, proximal LAD 90% stenosis, culprit lesion, balloon angioplasty and KAMILLE placed, 1st diagonal 100% FLOTATION TENDER HELPER, [id number] collaterals, left circumflex mild luminal irregularities, less than 30% stenosis, RCA 50% mid stenosis Code(s): Z98.890 - Other specified postprocedural states Category: Surgical Plan: As above (3) Ischemic cardiomyopathy: Code(s): I25.5 - Ischemic cardiomyopathy Category: Medical Plan: Echocardiogram done at time of August 2022 [facility] admit for new AFib showed EF 25-30%, regional wall motion abnormality consistent with ischemic cardiomyopathy, dilated left atrium, mild MR, mildly elevated RVSP. He then presented with NSTEMI on 09/13/2022 and repeat echo showed EF 15-20%, regional wall motion abnormality, moderate pulmonary hypertension. Cardiac catheterization as above. Most recent echo done 10/24/2024 showing EF 36%, moderate mitral annular calcification and mild calcification of the aortic valve, wall motion abnormalities which are unchanged from prior echo. He has not had issues with decompensated heart failure. We have not been able to properly treat him with GDMT due to various issues. He has been on Jardiance but has reported the insurance took it away. He is not on Nj/Arb to prior reports of GI disturbances on these meds. For this reason Entresto was not started. He has not on beta-candis due to concern for conduction issues. He was on Aldactone but stopped due to report of abdominal pains and declines retry saying he does not want a diuretic . He is on amiodarone for his AFib control and low dose Lasix and hydralazine. Signs and symptoms of heart failure reviewed. With his low EF remaining we did discuss ICD placement in the past and he declined. At this time will continue with med management. Signs and symptoms of heart failure reviewed with him. Cardiology follow-up 6 months, sooner if needed. (4) PAF (paroxysmal atrial fibrillation): Code(s): I48.0 - Paroxysmal atrial fibrillation Category: Medical Plan: History of paroxysmal atrial fibrillation. He is on low dose amiodarone with EKG today showing sinus rhythm, bifascicular block, rate 85. I gave him lab slip for TSH, CBC, CMP. He wants to have this done [facility]. Will need chest x-ray as well. Will keep off of beta-candis at present as rate is controlled. Continue Eliquis for anticoagulation for stroke prevention. (5) Coronary atherosclerosis: Code(s): I25.10 - Atherosclerotic heart disease of [place] coronary artery without angina pectoris Category: Medical Qualifiers: Associated angina: without angina Coronary Disease-Associated Artery/Lesion type: [place] artery [place] vs. transplanted heart: [place] heart Qualified Code(s): I25.10 - Atherosclerotic heart disease of [place] coronary artery without angina pectoris Plan: As above (6) On amiodarone therapy: Code(s): Z79.899 - Other fci (current) drug therapy Category: Medical Plan: As above Plan Time spent on chart review, documentation, interview and assessment. Orders: Orders TSH reflex Free T4 5 Months I25.10 - Atherosclerotic heart disease of [place] coronary artery without angina pectoris, I48.0 - Paroxysmal atrial fibrillation, Z79.899 - Other fci (current) drug therapy Lipid Panel 5 Months I25.10 - Atherosclerotic heart disease of [place] coronary artery without angina pectoris, I48.0 - Paroxysmal atrial fibrillation, Z79.899 - Other fci (current) drug therapy Complete Blood Count Auto Diff 5 Months I25.10 - Atherosclerotic heart disease of [place] coronary artery without angina pectoris, I48.0 - Paroxysmal atrial fibrillation, Z79.899 - Other intermodal dispatcher (current) drug therapy Comprehensive Met. Panel 5 Months I25.10 - Atherosclerotic heart disease of [place] coronary artery without angina pectoris, I48.0 - Paroxysmal atrial fibrillation, Z79.899 - Other intermodal dispatcher (current) drug therapy Coding Level of Care Code Est Pt Level 4 (31150) Complex EM visit Add On G2211 Diagnoses NSTEMI (non-ST elevated myocardial infarction) I21.4 S/P cardiac catheterization Z98.890 Ischemic cardiomyopathy I25.5 PAF (paroxysmal atrial fibrillation) I48.0 Atherosclerosis of [place] coronary artery of [place] heart without angina pectoris I25.10 Associated angina: without angina Coronary Disease-Associated Artery/Lesion type: [place] artery [place] vs. transplanted heart: [place] heart On amiodarone therapy Z79.899 CPT Codes EKG - CPT: 74911-[id number], Complete ([id number]) Time Spent (min) 32
[2024-10-29 13:25] VITALS: BP 140/62; PULSE 85; BMI 27.6
== END 2024-10-29 13:56 | disposition home or self-care (01) ==
PROVIDERS: PCP Internal Medicine; Visit Provider Nurse Practitioner Family
DX: I21.4 Non-ST elevation (NSTEMI) myocardial infarction (principal); Z98.890 Other specified postprocedural states; I25.5 Ischemic cardiomyopathy; I48.0 Paroxysmal atrial fibrillation; I25.10 Atherosclerotic heart disease of native coronary artery without angina pectoris; Z79.899 Other long term (current) drug therapy
CPT/HCPCS: 93010; 99214; G2211

== ENCOUNTER → 2024-10-29 13:20 | Outpatient (BNVA) | payer OTHER, SELFPAY | PROVIDERS: PCP Internal Medicine; Visit Provider Nurse Practitioner Family | DX: Z71.2 Person consulting for explanation of examination or test findings (principal); I48.0 Paroxysmal atrial fibrillation; I21.4 Non-ST elevation (NSTEMI) myocardial infarction; I25.5 Ischemic cardiomyopathy; I25.10 Atherosclerotic heart disease of native coronary artery without angina pectoris; Z79.899 Other long term (current) drug therapy | CPT/HCPCS: 93005; 99212 ==